=== PATIENT | male | born 1955 | race Caucasian/White ===

== ENCOUNTER 2019-06-14 18:30 | Inpatient (IN) ==
--- NOTE | 2019-06-14 18:42 | Emergency Department Note ---
History of Present Illness General Chief complaint: GI Assessment Stated complaint: BOWEL OPSTRUCTION DR CASAS Time Seen by Provider: 06/14/19 18:38 History of Present Illness Maximum Pain Intensity: 5 The patient is a 63-year-old male who presented to the emergency department for an evaluation of lower abdominal pain. The patient states that he was recently seen by his primary cocoa bean roaster at the [facility]. He had routine blood work done which did show that his cholesterol and triglycerides were elevated. He started complaining of lower abdominal pain and we discussed this with the cardiology office he was referred to his primary care physician. His primary care physician did outpatient laboratory and radiographic studies. The patient was found to have an abnormality on his CAT scan of his abdomen and pelvis. He was told to go to the emergency department although he is unsure of the exact diagnosis from the CAT scan. The patient has been complaining of no fever. He has had no cough. He did have some episodes of nausea as well as vomiting. He also had abdominal distention as well as loose bowel movements. He states his symptoms began approximately 48 hours ago. He denies having any chest pain. He denies having any shortness of breath. The patient has not had symptoms similar to this. Home Medications Home Medications Medication Instructions Recorded Confirmed Type dulaglutide [Trulicity] 1.5 mg SUBCUT WK 06/14/19 06/14/19 History empagliflozin [Jardiance] 10 mg PO QAM 06/14/19 06/14/19 History fenofibrate micronized 134 mg PO QAM 06/14/19 06/14/19 History furosemide 20 mg PO QAM 06/14/19 06/14/19 History metformin 1,000 mg PO BID 06/14/19 06/14/19 History metoprolol succinate 12.5 mg PO BID 06/14/19 06/14/19 History omega-3 acid ethyl esters 2 g PO BID 06/14/19 06/14/19 History prednisone 2.5 mg PO QAM 06/14/19 06/14/19 History rosuvastatin 5 mg PO QPM 06/14/19 06/14/19 History sertraline 50 mg PO QPM 06/14/19 06/14/19 History warfarin 5 mg PO [id number] 06/14/19 06/14/19 History warfarin 7.5 mg PO WK 06/14/19 06/14/19 History Allergies Allergy/AdvReac Type Severity Reaction Status Date / Time Iodinated Contrast Media Allergy Severe DIFFICULTY Verified 06/14/19 20:48 BREATHING/THROAT SWELLING blue dye Allergy swelling Verified 06/14/19 20:48 cefuroxime Allergy hives Verified 06/14/19 20:48 shellfish derived Allergy swelling Verified 06/14/19 20:48 levofloxacin AdvReac Intermediate Tendon Verified 06/14/19 20:48 contractions Past Med/Surg History Medical History (Updated 06/14/19 @ 23:24 by Santino Solano DO) Appendicitis CHF (congestive heart failure) Diabetes DVT (deep venous thrombosis) High cholesterol History of high blood pressure Pulmonary embolism Umbilical hernia Surgical History History of cholecystectomy Social History (Updated 06/14/19 @ 18:42 by Santino Solano DO) Feels Safe at Home: Yes Smoking Status: Never smoker Hx Alcohol Use: Yes Hx Substance Use: No Review of Systems See HPI for pertinent positives & negatives. and A total of 10 systems reviewed and were otherwise negative Physical Exam Vital Signs Vital Signs - 24 hr 06/14/19 18:35 06/14/19 19:26 06/14/19 19:30 Temperature 36.4 C L Temperature Source Oral Pulse Rate 120 H 105 H 101 H Pulse Rate [Apical] 105 H Pulse Rate from SpO2 Sensor 102 H Respiratory Rate 20 28 H 31 H Respiratory Effort / Characteristics Non-Labored Spontaneous Respiratory Depth Normal Respiratory Pattern Regular Blood Pressure 174/94 H 148/91 H Blood Pressure [Left Arm] 154/90 H Blood Pressure Mean 120 112 Blood Pressure Mean [Left Arm] 111 Blood Pressure Position Sitting Pulse Oximetry 94 97 96 Oxygen Delivery Method Room Air Room Air Room Air Sepsis Recent Fever Within 48 Hours No Sepsis New/Unexplained Change in Mental Status No Sepsis Action Taken by Nursing No Action Required 06/14/19 20:00 06/14/19 20:30 06/14/19 21:00 Temperature Temperature Source Pulse Rate 100 H 95 H 93 H Pulse Rate [Apical] Pulse Rate from SpO2 Sensor 99 H 96 H 94 H Respiratory Rate 18 27 H 22 Respiratory Effort / Characteristics Respiratory Depth Respiratory Pattern Blood Pressure 145/94 H 142/84 H 161/95 H Blood Pressure [Left Arm] Blood Pressure Mean 107 96 107 Blood Pressure Mean [Left Arm] Blood Pressure Position Pulse Oximetry 97 97 97 Oxygen Delivery Method Room Air Sepsis Recent Fever Within 48 Hours Sepsis New/Unexplained Change in Mental Status Sepsis Action Taken by Nursing 06/14/19 22:11 06/14/19 23:00 Temperature Temperature Source Pulse Rate 92 H Pulse Rate [Apical] 89 Pulse Rate from SpO2 Sensor Respiratory Rate 21 18 Respiratory Effort / Characteristics Respiratory Depth Respiratory Pattern Blood Pressure 148/94 H Blood Pressure [Left Arm] 137/80 Blood Pressure Mean 106 Blood Pressure Mean [Left Arm] 99 Blood Pressure Position Pulse Oximetry 97 95 Oxygen Delivery Method Room Air Room Air Sepsis Recent Fever Within 48 Hours Sepsis New/Unexplained Change in Mental Status Sepsis Action Taken by Nursing GENERAL: The patient is awake and alert. He is somewhat anxious appearing and uncomfortable. EYES: The conjunctivae are clear. The pupils are round and reactive. EARS, NOSE, MOUTH AND THROAT: The nose is without any evidence of any deformity. Mucous membranes are moist. NECK: The neck is nontender and supple. RESPIRATORY: Normal respiratory effort is noted there is no evidence of wheezing rhonchi or rales CARDIOVASCULAR: Tachycardic rate with regular rhythm was noted. No definite murmur was noted. GASTROINTESTINAL: The abdomen is moderately distended and diffusely tender. There is guarding in both lower quadrants but mostly on the right lower quadrant. MUSCULOSKELETAL/EXTREMITIES: There is no evidence of gross deformity full range of motion is noted in the hips and shoulders. SKIN: There is no obvious evidence of any rash. There are no petechiae, pallor or cyanosis noted. NEUROLOGIC: Patient is awake alert and oriented x3. Gait was steady. Course Administered Medications Sodium Chloride (Nss 1000ml) 500 mls @ 999 mls/hr IV .Q31M ONE Stop: 06/14/19 23:39 Last Admin: 06/14/19 23:13 Dose: 999 mls/hr Documented by: [id number] Discontinued Medications Sodium Chloride (Nss) 500 mls @ 999 mls/hr IV .Q31M JULIANNE Stop: 06/14/19 19:15 Last Infusion: 06/14/19 19:53 Dose: 0 mls/hr Documented by: [id number] Admin: 06/14/19 19:22 Dose: 999 mls/hr Documented by: [id number] Morphine Sulfate (Morphine Sulfate) 4 mg IV NOW STA Stop: 06/14/19 23:10 Last Admin: 06/14/19 23:14 Dose: 4 mg Documented by: [id number] Ondansetron HCl (Zofran) 4 mg IV NOW STA Stop: 06/14/19 18:44 Last Admin: 06/14/19 19:23 Dose: 4 mg Documented by: [id number] Ondansetron HCl (Zofran) 4 mg IV NOW STA Stop: 06/14/19 23:10 Last Admin: 06/14/19 23:14 Dose: 4 mg Documented by: [id number] Medical Decision Making Differential Diagnosis Etiologies such as appendicitis, diverticulitis, obstruction, inflammatory bowel disease, renal colic, PUD, biliary pathology, pancreatitis, mesenteric ischemia, aortic pathology, infections, genitourinary, UTI, perforated viscus, as well as others were entertained. Medical Records Attestation: I reviewed the patient's medical records. Home Medications Current Medication List: was personally reviewed by me Laboratory Data Attestation: I reviewed the patient's lab results. Result diagrams: 06/14/19 19:11 06/14/19 19:11 Lab Results 06/14/19 06/14/19 06/14/19 Range/Units 19:11 19:11 19:11 WBC 10.44 (4.8-10.8) K/uL RBC 5.91 (4.7-6.1) M/uL Hgb 17.1 (14.0-18.0) g/dL Hct 50.0 (42-52) % MCV 84.6 (80-100) fL MCH 28.9 (25-34) pg MCHC 34.2 (32-36) g/dL RDW Std Deviation 42.5 (36.4-46.3) fL RDW Coeff of Kathryn 13.9 (11.5-14.5) % Plt Count 270 (130-400) K/uL MPV 10.4 (7.4-10.4) fL Immature Gran % (Auto) 0.4 % Neut % (Auto) 57.8 % Lymph % (Auto) 32.8 % [place] % (Auto) 7.1 % Eos % (Auto) 1.8 % Baso % (Auto) 0.1 % Immature Gran # (Auto) 0.04 H (0.00-0.02) K/uL Neut # (Auto) 6.04 (1.4-6.5) K/uL Lymph # (Auto) 3.42 H (1.2-3.4) K/uL [place] # (Auto) 0.74 H (0.11-0.59) K/uL Eos # (Auto) 0.19 (0-0.5) K/uL Baso # (Auto) 0.01 (0-0.2) K/uL PT 26.1 H (9.0-12.0) Seconds INR 2.6 H (0.9-1.1) APTT 40.2 H (21.0-31.0) Seconds PTT Ratio 1.4 Sodium 134 L (136-145) mmol/L Potassium 3.3 L (3.5-5.1) mmol/L Chloride 104 (98-107) mmol/L Carbon Dioxide 22 (21-32) mmol/L Anion Gap 8.0 (3-11) BUN 14 (7-18) mg/dl Creatinine 1.10 (0.6-1.4) mg/dl Est Cr Clr Drug Dosing 73.1 ml/min Est GFR ( Amer) 82.4 Est GFR (Non-Af Amer) 71.1 BUN/Creatinine Ratio 13.0 (10-20) Glucose 227 H (70-99) mg/dl Lactate (0.4-2.0) mmol/L Calcium 9.3 (8.5-10.1) mg/dl Total Bilirubin 0.6 (0.2-1) mg/dl AST 50 H (15-37) U/L ALT 78 (12-78) U/L Alkaline Phosphatase 83 (45-117) U/L Troponin I < 0.015 (0-0.045) ng/ml Total Protein 8.0 (6.4-8.2) gm/dl Albumin 3.9 (3.4-5.0) gm/dl Globulin 4.1 H (2.5-4.0) gm/dl Albumin/Globulin Ratio 1.0 (0.9-2) Lipase 175 (73-393) U/L Urine Color Urine Appearance (Clear) Urine pH (4.5-7.5) Ur Specific [place] (1.000-1.030) Urine Protein (Negative) Urine Glucose (UA) (Negative) Urine Ketones (Negative) Urine Blood (Negative) Urine Nitrite (Negative) Urine Bilirubin (Negative) Urine Urobilinogen (Negative) Ur Leukocyte Esterase (Negative) Stl C. diff Tox B Gene (Neg) 06/14/19 06/14/19 06/14/19 Range/Units 19:11 19:30 19:30 WBC (4.8-10.8) K/uL RBC (4.7-6.1) M/uL Hgb (14.0-18.0) g/dL Hct (42-52) % MCV (80-100) fL MCH (25-34) pg MCHC (32-36) g/dL RDW Std Deviation (36.4-46.3) fL RDW Coeff of Kathryn (11.5-14.5) % Plt Count (130-400) K/uL MPV (7.4-10.4) fL Immature Gran % (Auto) % Neut % (Auto) % Lymph % (Auto) % [place] % (Auto) % Eos % (Auto) % Baso % (Auto) % Immature Gran # (Auto) (0.00-0.02) K/uL Neut # (Auto) (1.4-6.5) K/uL Lymph # (Auto) (1.2-3.4) K/uL [place] # (Auto) (0.11-0.59) K/uL Eos # (Auto) (0-0.5) K/uL Baso # (Auto) (0-0.2) K/uL PT (9.0-12.0) Seconds INR (0.9-1.1) APTT (21.0-31.0) Seconds PTT Ratio Sodium (136-145) mmol/L Potassium (3.5-5.1) mmol/L Chloride (98-107) mmol/L Carbon Dioxide (21-32) mmol/L Anion Gap (3-11) BUN (7-18) mg/dl Creatinine (0.6-1.4) mg/dl Est Cr Clr Drug Dosing ml/min Est GFR ( Amer) Est GFR (Non-Af Amer) BUN/Creatinine Ratio (10-20) Glucose (70-99) mg/dl Lactate 2.5 H* (0.4-2.0) mmol/L Calcium (8.5-10.1) mg/dl Total Bilirubin (0.2-1) mg/dl AST (15-37) U/L ALT (12-78) U/L Alkaline Phosphatase (45-117) U/L Troponin I (0-0.045) ng/ml Total Protein (6.4-8.2) gm/dl Albumin (3.4-5.0) gm/dl Globulin (2.5-4.0) gm/dl Albumin/Globulin Ratio (0.9-2) Lipase (73-393) U/L Urine Color Yellow Urine Appearance Clear (Clear) Urine pH 5.0 (4.5-7.5) Ur Specific [place] > 1.045 H (1.000-1.030) Urine Protein Negative (Negative) Urine Glucose (UA) 3+ H (Negative) Urine Ketones Negative (Negative) Urine Blood Negative (Negative) Urine Nitrite Negative (Negative) Urine Bilirubin Negative (Negative) Urine Urobilinogen Negative (Negative) Ur Leukocyte Esterase Negative (Negative) Stl C. diff Tox B Gene Negative Cdiff Gene (Neg) 06/14/19 Range/Units 20:53 WBC (4.8-10.8) K/uL RBC (4.7-6.1) M/uL Hgb (14.0-18.0) g/dL Hct (42-52) % MCV (80-100) fL MCH (25-34) pg MCHC (32-36) g/dL RDW Std Deviation (36.4-46.3) fL RDW Coeff of Kathryn (11.5-14.5) % Plt Count (130-400) K/uL MPV (7.4-10.4) fL Immature Gran % (Auto) % Neut % (Auto) % Lymph % (Auto) % [place] % (Auto) % Eos % (Auto) % Baso % (Auto) % Immature Gran # (Auto) (0.00-0.02) K/uL Neut # (Auto) (1.4-6.5) K/uL Lymph # (Auto) (1.2-3.4) K/uL [place] # (Auto) (0.11-0.59) K/uL Eos # (Auto) (0-0.5) K/uL Baso # (Auto) (0-0.2) K/uL PT (9.0-12.0) Seconds INR (0.9-1.1) APTT (21.0-31.0) Seconds PTT Ratio Sodium (136-145) mmol/L Potassium (3.5-5.1) mmol/L Chloride (98-107) mmol/L Carbon Dioxide (21-32) mmol/L Anion Gap (3-11) BUN (7-18) mg/dl Creatinine (0.6-1.4) mg/dl Est Cr Clr Drug Dosing ml/min Est GFR ( Amer) Est GFR (Non-Af Amer) BUN/Creatinine Ratio (10-20) Glucose (70-99) mg/dl Lactate 1.2 (0.4-2.0) mmol/L Calcium (8.5-10.1) mg/dl Total Bilirubin (0.2-1) mg/dl AST (15-37) U/L ALT (12-78) U/L Alkaline Phosphatase (45-117) U/L Troponin I (0-0.045) ng/ml Total Protein (6.4-8.2) gm/dl Albumin (3.4-5.0) gm/dl Globulin (2.5-4.0) gm/dl Albumin/Globulin Ratio (0.9-2) Lipase (73-393) U/L Urine Color Urine Appearance (Clear) Urine pH (4.5-7.5) Ur Specific [place] (1.000-1.030) Urine Protein (Negative) Urine Glucose (UA) (Negative) Urine Ketones (Negative) Urine Blood (Negative) Urine Nitrite (Negative) Urine Bilirubin (Negative) Urine Urobilinogen (Negative) Ur Leukocyte Esterase (Negative) Stl C. diff Tox B Gene (Neg) Imaging Data Radiologist's Impression: XR chest 1V portable CLINICAL HISTORY: abd oain pain COMPARISON STUDY: 10/16/2011 FINDINGS: The bones soft tissues and hemidiaphragms are normal. The cardiomediastinal silhouette is normal. The lungs are clear. The pulmonary vasculature is normal. IMPRESSION: Negative chest. ACT 112: Negative or not required by law. The above report was generated using voice recognition software. It may contain grammatical, syntax or spelling errors. Electronically signed by: Gonzalo Ocampo M.D. 06/14/2019 7:22 PM Dictated: 06/14/191921 Transcribed: 06/14/191921 tudy: Ultrasound abdominal arterial vasculature. HISTORY: Pain. FINDINGS: The abdominal arterial vasculature including aorta, celiac axis, and superior as well as inferior mesenteric arterial vasculature could not be evaluated. This is due to excessive bowel gas as well as body habitus. This study is considered nondiagnostic. IMPRESSION: Nondiagnostic exam due to patient body habitus and overlying bowel content. Electronically signed by: Gonzalo Ocampo M.D. 06/14/2019 10:43 PM Dictated: 06/14/192240 Transcribed: 06/14/192240 ECG Data Attestation: I personally reviewed and interpreted this ECG as follows: Indication: + abdominal pain Rate (beats per minute): 108 Additional Comments: EKG was obtained in the emergency department. My interpretation is sinus tachycardia at 108 bpm. There is no ectopy. There is no acute ST segments noted. No previous tracing was available. Blood Pressure Blood Pressure Findings: Normal blood pressure MDM Narrative The patient is a 63-year-old male who presented to the emergency department for an evaluation of right lower quadrant abdominal pain. The patient started having lower abdominal pain earlier today. He also notices diarrhea. The patient has a history of C. difficile in the past. He was initially seen by his cocoa bean roaster for an unrelated visit but when he mentioned his GI symptoms he was referred to his primary care physician. The patient was sent for a noncontrast CAT scan of the abdomen and pelvis. The patient was sent to the emergency department because of the findings on the CAT scan. I reviewed the patient's CAT scan report. He appears to have pneumatosis coli in the cecum. He did not have a fever. He was treated with IV fluids and IV pain medication in the emergency department. On subsequent reevaluation he was feeling much better. I was concerned that this could represent intestinal ischemia versus infection versus C. difficile colitis. C. difficile was negative. The patient was started with IV antibiotics in the emergency department. I discussed the patient's laboratory and radiographic studies with him. I also discussed his case with the on-call [facility] hospitalist. They have agreed to evaluate the patient in the emergency department for further management and disposition. The patient was feeling much better on subsequent reevaluation. Impression & Plan Abdominal pain, Pneumatosis coli Discharge Plan Visit Data Chief Complaint: GI Assessment Stated Complaint: BOWEL OPSTRUCTION DR REFERRED ED Provider: Santino Solano Discharge Problem: Abdominal pain, Pneumatosis coli Patient Disposition: Being Evaluated by Hospitalist Condition: Good Forms Stand Alone Forms: [facility], Important Visit Information Prescriptions Prescriptions: No Action prednisone 5 mg tablet 2.5 mg PO QAM RF: 0 fenofibrate micronized 134 mg capsule 134 mg PO QAM RF: 0 warfarin 5 mg tablet 7.5 mg PO WK RF: 0 warfarin 5 mg tablet 5 mg PO [id number] RF: 0 furosemide 20 mg tablet 20 mg PO QAM RF: 0 metoprolol succinate 25 mg tablet extended release 24 hr 12.5 mg PO BID RF: 0 metformin 500 mg tablet extended release 24 hr 1,000 mg PO BID RF: 0 sertraline 50 mg tablet 50 mg PO QPM RF: 0 rosuvastatin 5 mg tablet 5 mg PO QPM RF: 0 omega-3 acid ethyl esters 1 gram capsule 2 g PO BID RF: 0 Jardiance 10 mg tablet 10 mg PO QAM RF: 0 Trulicity 1.5 mg/0.5 mL pen injector 1.5 mg SUBCUT WK RF: 0 Referrals Referrals: Lesia Garcia DO [Primary Care Provider] - Discharge Problem: Abdominal pain Qualifiers: Abdominal location: right lower quadrant Qualified Code(s): R10.31 - Right lower quadrant pain
[2019-06-14] MEDS ORDERED: ONDANSETRON INJ 2 MG/ML 2 ML VIAL IV STA ×2 (18:43→23:09)
[2019-06-14] MEDS ORDERED: SODIUM CHLORIDE 0.9% 500 ML IV SCH (18:45)
[2019-06-14 19:19] LABS: Basophils # (auto) 0.01 K/uL (0-0.2); Basophils % (auto) 0.1 %; Eosinophils # (auto) 0.19 K/uL (0-0.5); Eosinophils % (auto) 1.8 %; Hemoglobin 17.1 g/dL (14.0-18.0); Immature Granulocytes # (auto) 0.04 K/uL (0.00-0.02); Immature Granulocytes % (auto) 0.4 %; Lymphocytes # (auto) 3.42 K/uL (1.2-3.4); Lymphocytes % (auto) 32.8 %; Mean Corpuscular Hemoglobin 28.9 pg (25-34); Mean Corpuscular Hgb Conc 34.2 g/dL (32-36); Mean Corpuscular Volume 84.6 fL (80-100); Mean Platelet Volume 10.4 fL (7.4-10.4); Monocytes # (auto) 0.74 K/uL (0.11-0.59); Monocytes % (auto) 7.1 %; Neutrophils # (auto) 6.04 K/uL (1.4-6.5); Neutrophils % (auto) 57.8 %; Platelet Count 270 K/uL (130-400); RDW Coefficient of Variation 13.9 % (11.5-14.5); RDW Standard Deviation 42.5 fL (36.4-46.3); Red Blood Count 5.91 M/uL (4.7-6.1); White Blood Count 10.44 K/uL (4.8-10.8)
--- NOTE | 2019-06-14 19:23 | XRay Report ---
XR chest 1V portable CLINICAL HISTORY: abd oain pain COMPARISON STUDY: 10/16/2011 FINDINGS: The bones soft tissues and hemidiaphragms are normal. The cardiomediastinal silhouette is n ormal. The lungs are clear. The pulmonary vasculature is normal. IMPRESSION: Negative chest. ACT 112: Negative or not required by law. The above report was generated using voice recognition software. It may contain grammatical, syntax or spelling errors. Electronically signed by: Gonzalo Ocampo M.D. 06/14/2019 7:22 PM
[2019-06-14 19:31] LABS: INR 2.6 (0.9-1.1); Partial Thromboplastin Ratio 1.4; Partial Thromboplastin Time 40.2 Seconds (21.0-31.0); Prothrombin Time 26.1 Seconds (9.0-12.0)
[2019-06-14 19:40] LABS: Appearance Urine Clear (Clear); Bilirubin Urine Negative (Negative); Blood Urine Negative (Negative); Color Urine Yellow; Glucose Urine UA 3+ (Negative); Ketones Urine Negative (Negative); Leukocyte Esterase Urine Negative (Negative); Nitrite Urine Negative (Negative); Protein Urine Negative (Negative); Specific Gravity Urine > 1.045 (1.000-1.030); Urobilinogen Urine Negative (Negative)
[2019-06-14 19:41] LABS: Alanine Aminotransferase 78 U/L (12-78); Albumin Level 3.9 gm/dl (3.4-5.0); Aspartate Aminotransferase 50 U/L (15-37); Blood Urea Nitrogen 14 mg/dl (7-18); Calcium 9.3 mg/dl (8.5-10.1); Carbon Dioxide 22 mmol/L (21-32); Chloride 104 mmol/L (98-107); Creatinine Clr Calc Pharmacy 73.1 ml/min; Est GFR (African American) 82.4; Est GFR (Non-African American) 71.1; Glucose 227 mg/dl (70-99); Lipase 175 U/L (73-393); Potassium 3.3 mmol/L (3.5-5.1); Sodium 134 mmol/L (136-145)
[2019-06-14 19:45] LABS: Alkaline Phosphatase 83 U/L (45-117); Bilirubin,Total 0.6 mg/dl (0.2-1); Globulin 4.1 gm/dl (2.5-4.0); Troponin I < 0.015 ng/ml (0-0.045)
--- NOTE | 2019-06-14 21:24 | XRay Report ---
XR KUB/Abdomen 1 view CLINICAL HISTORY: RLQ pain COMPARISON STUDY: No previous studies for comparison. FINDINGS: The soft tissues, psoas shadows, renal outlines and intestinal gas pattern appear normal. T here is no evidence for bowel obstruction. No abnormal abdominal calcifications are seen. IMPRESSION: Normal study. ACT 112: Negative or not required by law. The above report was generated using voice recognition software. It may contain grammatical, syntax or spelling errors. Electronically signed by: Gonzalo Ocampo M.D. 06/14/2019 9:22 PM
--- NOTE | 2019-06-14 22:44 | Ultrasound Report ---
Study: Ultrasound abdominal arterial vasculature. HISTORY: Pain. FINDINGS: The abdominal arterial vasculature including aorta, celiac axis, and superior as well as in ferior mesenteric arterial vasculature could not be evaluated. This is due to excessive bowel gas as well as body habitus. This study is considered nondiagnostic. IMPRESSION: Nondiagnostic exam due to patient body habitus and overlying bowel content. Electronically signed by: Gonzalo Ocampo M.D. 06/14/2019 10:43 PM
[2019-06-14] MEDS ORDERED: MoRPHine SULFATE 4 MG/ML 1 ML CARP\\VIAL IV STA (23:09)
[2019-06-14] MEDS ORDERED: SODIUM CHLORIDE 0.9% 1000ML 500 ML IV ONE (23:09)
[2019-06-14] MEDS ORDERED: PIPERACILLIN/TAZOBACTAM 4.5 GM/120 ML BAG IV ONE (23:20)
[2019-06-14] MEDS ORDERED: PIPERACILL/TAZOBAC CONSULT ACTIVE PRN (23:20)
[2019-06-15] MEDS ORDERED: ALBUTEROL HFA 8 GM INHALER INH PRN (00:29)
[2019-06-15] MEDS ORDERED: ALBUT/IPRATROP 3MG/0.5MG NEB 3 ML VIAL NEB PRN (00:29)
[2019-06-15] MEDS ORDERED: Nursing to Pharmacy Communication ONE ×2 (00:52→10:29)
--- NOTE | 2019-06-15 01:28 | History and Physical Report ---
DATE OF ADMISSION: 06/14/2019 CHIEF COMPLAINT: Abdominal pain. HISTORY OF PRESENT ILLNESS: This is a 63-year-old male with past medical history significant for type 2 diabetes, hyperhomocysteinemia hypertriglyceridemia, hyperlipidemia, obstructive sleep apnea, mild intermittent asthma, hypertension, obesity, nonalcoholic fatty liver disease, polymyalgia rheumatica, cervical spondylosis, history of pulmonary embolism, adjustment disorder with depression, family history of neoplasm of prostate, history of C. diff infection, history of bacterial pneumonia, presents with abdominal pain. The patient went to PCP's office today because he is having diarrhea for last couple of days, watery diarrhea and no blood in the stools and has some abdominal discomfort which got worse today. Abdominal pain is mostly in the epigastric region and lower abdomen.Also recently his triglycerides went up from 610 to 1279. He called his cardiology office for abdominal pain and was advised to go to PCP office. In the PCP's office, CT scan of the abdomen and pelvis was done without contrast because of allergy to contrast and it showed suspected pneumatosis in the cecum. This can be a benign condition, however, inflammatory condition can give a similar appearance and he was sent to the ER. He has a history of irritable bowel syndrome with diarrhea in the past and is followed with GI, but he says he did not see GI for more than year because it is mostly under control currently. He was also feeling nauseous since last couple of days and he did not eat much because of the nausea. Denies any blood in stool or black stools. Normal bladder movements. No chest pain, no shortness of breath, no cough, no fever, no chills. Has some mild headache. He will get dizzy when he stands up quickly. No earache, no runny nose, no sore throat. No difficulty swallowing. No rash. Ambulates fine. Lives with his . Currently resting comfortably and hemodynamically stable. ALLERGIES: BLUE DYE, CEFUROXIME, IODINATED DIAGNOSTIC AGENTS, IODINE, SHELLFISH, ENVIRONMENTAL POLLEN, LEVAQUIN. PAST MEDICAL HISTORY: As mentioned above. PAST SURGICAL HISTORY: Excision of the cyst or tumor in the left breast, cardiac catheterization, colonoscopy, excision of the right forearm subcutaneous tumor, laparoscopic cholecystectomy, appendectomy, sinus surgery, repair of umbilical hernia, vasectomy. MEDICATIONS: The patient is on Trulicity 1.5 mg tablet subcutaneous every week, fenofibrate 134 mg daily, Jardiance 10 mg p.o. daily, Zoloft 50 mg p.o. at bedtime, Crestor 5 mg p.o. daily, Lasix 20 mg p.o. daily, Toprol-XL 12.5 mg p.o. b.i.d., omega 3 fatty acids 4 capsules p.o. daily, prednisone 2.5 mg p.o. daily, metformin 1000 mg p.o. b.i.d., Coumadin as directed, albuterol 2 puffs every 6 hours p.r.n., fluticasone/salmeterol 1 puff b.i.d., albuterol nebulization every 4 hours p.r.n. FAMILY HISTORY: Significant for father had obstructive sleep apnea, TIAs, heart disorder status post CABG, prostate cancer; mother has arthritis, breast cancer, gastrointestinal disorder, and hypertension. Another brother has HIV and a brother has factor V Leiden deficiency. A brother has alcoholism. SOCIAL HISTORY: and lives with his . No smoking, no alcohol, no drug use. REVIEW OF SYSTEMS: As per HPI. Rest of review of systems negative. PHYSICAL EXAMINATION: GENERAL: The patient is obese, not in acute distress. VITAL SIGNS: Temperature 36.4, pulse 88, respiratory rate 18, blood pressure 128/81, oxygen 98% on room air. HEENT: No pallor, no icterus. Pupils equal, round, and reactive to light. NECK: No JVD, no neck masses, no carotid bruits. CARDIOVASCULAR: S1, S2 heard, regular rate and rhythm, no murmur, no gallop. RESPIRATORY SYSTEM: Normal AP diameter. No accessory muscle use. No wheezing, no crackles. ABDOMEN: Soft, bowel sounds present. Tenderness in the epigastric region and left lower quadrant. No guarding, no rigidity, no distention. CENTRAL NERVOUS SYSTEM: Cranial nerves II-XII grossly intact. Nonfocal. EXTREMITIES: No edema, no erythema. LABORATORY DATA: WBC 10.4, hemoglobin 17.1, hematocrit 50, platelets 270. PT 26.1, INR 2.6, APTT 40.2. Sodium 134, potassium 3.3, chloride 104, bicarbonate 22, BUN 14, creatinine 1.1, serum glucose 227. Lactate 1.2, calcium 9.3, total bilirubin 0.6, AST 50, ALT 78, alkaline phosphatase 83, troponin I less than 0.015. Lipase 175. Urinalysis, +3 glucose. C. diff negative. IMAGING DATA: Chest x-ray, negative chest. KUB x-ray, normal study. Mesenteric ultrasound, nondiagnostic exam due to the patient's body habitus and overlying bowel content. CT scan of the abdomen and pelvis without contrast done outpatient today shows suspected pneumatosis in the cecum. This can be a benign condition. However, inflammatory condition can give a similar appearance. Fatty infiltration of the liver. The rest of the studies are unremarkable and unchanged. Recommendation, GI consultation. EKG is showing sinus tachycardia at the rate of 108, no acute ST changes seen. ASSESSMENT AND PLAN: This is a 63-year-old male who presents with abdominal pain and diarrhea. 1. Abdominal pain and diarrhea going on for the last 2 days. History of irritable bowel syndrome in the past with predominance of diarrhea. He says he did not see GI for the last one and a half years. CAT scan done as outpatient without contrast as the patient is allergic to contrast, shows pneumatosis in the cecum, could be benign or could be inflammatory condition and GI consultation was recommended. We will keep the patient n.p.o., IV fluids, IV antiemetics p.r.n., IV pain medication p.r.n., Will follow stool cultures. C diff negative.and consult GI in the a.m. for further recommendations. 2. Hypertriglyceridemia. Recently triglycerides worsened from 610 to 1279, on fatty fish oils and Crestor and fenofibrate. Needs to closely follow up with cardiology. 3. History of diabetes. We will hold his home medications. Placed him on Lantus and sliding scale, currently n.p.o. Monitor his blood sugar. 4. Obstructive sleep apnea, continue CPAP. 5. Asthma, home inhalers and nebs p.r.n. 6. Polymyalgia rheumatica, continue home prednisone. 7. Depression. Continue Zoloft. 8. Hypertension, Toprol-XL and Lasix. Monitor the blood pressure. 9. History of pulmonary embolism, on Coumadin. INR therapeutic. Will continue Coumadin for now. Follow his PT/INR. 10. Deep venous thrombosis prophylaxis, sequential compression devices for now. 11. Disposition: Closely monitor in the medical floor. Level 1 full code. MTDD
[2019-06-15] MEDS: NSS + 20MEQ KCL 20 MEQ/1,000 ML BAG IV SCH ×3 (01:30→17:17)
[2019-06-15] MEDS: FAMOTIDINE 20 MG in SYRINGE 3 ML IV SCH ×3 (01:30→20:47)
[2019-06-15] MEDS: MoRPHine SULFATE 4 MG/ML 1 ML CARP\\VIAL IV PRN ×3 (01:46→08:59)
[2019-06-15] MEDS: PIPERACILLIN/TAZOBACTAM 4.5 GM in DEXTROSE 5% 100 ML IV SCH ×3 (04:26→20:38)
[2019-06-15 05:20] LABS: Basophils # (auto) 0.02 K/uL (0-0.2); Basophils % (auto) 0.2 %; Eosinophils # (auto) 0.24 K/uL (0-0.5); Eosinophils % (auto) 2.7 %; Hematocrit (blood only) 46.1 % (42-52); Hemoglobin 15.3 g/dL (14.0-18.0); Immature Granulocytes # (auto) 0.02 K/uL (0.00-0.02); Immature Granulocytes % (auto) 0.2 %; Lymphocytes # (auto) 3.67 K/uL (1.2-3.4); Lymphocytes % (auto) 40.7 %; Mean Corpuscular Hemoglobin 28.8 pg (25-34); Mean Corpuscular Hgb Conc 33.2 g/dL (32-36); Mean Corpuscular Volume 86.8 fL (80-100); Mean Platelet Volume 10.3 fL (7.4-10.4); Monocytes # (auto) 0.72 K/uL (0.11-0.59); Neutrophils # (auto) 4.34 K/uL (1.4-6.5); Neutrophils % (auto) 48.2 %; Platelet Count 238 K/uL (130-400); RDW Coefficient of Variation 14.1 % (11.5-14.5); RDW Standard Deviation 44.7 fL (36.4-46.3); Red Blood Count 5.31 M/uL (4.7-6.1); White Blood Count 9.01 K/uL (4.8-10.8)
[2019-06-15 05:29] LABS: INR 2.2 (0.9-1.1); Prothrombin Time 22.3 Seconds (9.0-12.0)
[2019-06-15 05:47] LABS: BUN Creatinine Ratio 16.2 (10-20); Calcium 8.1 mg/dl (8.5-10.1); Est GFR (African American) 102.2; Est GFR (Non-African American) 88.2; Potassium 3.8 mmol/L (3.5-5.1)
[2019-06-15 05:56] LABS: Estimated Average Glucose 183 mg/dl
[2019-06-15] MEDS ORDERED: INSULIN ASPART 100 UNITS/ML 3 ML PEN SC SCH (06:00)
[2019-06-15] MEDS: ONDANSETRON INJ 2 MG/ML 2 ML VIAL IV PRN ×2 (07:37→18:15)
--- NOTE | 2019-06-15 08:01 | Gastrointestinal Consultation ---
Date of Consultation June 15, 2019 Assessment & Plan (1) Pneumatosis coli: This is a 63 y/o male with PMHx T2DM, PE on Coumadin, chronic diarrhea/IBS-D, referred to the hospital for CT findings concerning for pneumatosis in the cecum. This seems to be an incidental finding, which would be supported by his presentation of a soft abd exam, normal WBC, and normal lactate. - If no peritoneal signs, pt can be managed expectantly. - Recommend f/u as an outpt for other GI concerns including diarrhea Thank you for allowing us to participate in the care of this patient. Please call with any acute changes, questions or concerns. Please see addendum below with additional recommendation from my supervising physician. (2) Abdominal pain: Supervising Physician Co-Signing Physician Notes I performed a history and physical examination of the patient today, including specifically on physical exam - soft abdomen. I have discussed the patient's management with the advanced practitioner. Please refer to the nurse practitioner's note for the documented findings and plan of care. 63 years old male patient with IBS-D, was on Viberzi in the past, last month had recurrence of his diarrhea and abdominal pain, in view of his hypertriglyceridemia, PCP was concerned for acute pancreatitis hence CT scan was obtained and showed a ? small air bubble in the cecal wall concerning for pneumatosis. No portal venous gas seen. He was admitted and started on IV ABx. He feels great now, no abdominal pain however his abdomen is always distended. No BM after last night. Currently on Liquid diet. Lactic acid normal. WBC normal. No peritoneal signs on exam. Impression: Incidental CT scan findings of ? pneumatosis coli in the cecum. Likely related to DM, no signs of ongoing intestinal ischemia. Will need to r/o IBD as OP. Recommend: Continue a course of ABx. Advance diet as tolerated. If symptoms worsen, develops acidosis or elevated lactic acid then please obtain CTA of the abdomen. EGD/Colonoscopy as OP. May consider evaluation for SIBO as OP. Follow up as OP in GI office, patient wants to continue f/u with . Please recall GI if any questions or concerns. History of Present Illness Reason for Consultation: abdominal pain, CT scan findings Attending Physician: Dash Plunkett MD History of Present Illness This is a 63 y/o male with PMHx T2DM, chronic diarrhea/IBS-D, HTN, PE on Coumadin, who developed diarrhea last month and presented to his PCP's office yesterday with bilateral lower abd discomfort for the last few days. CTAP with oral contrast was performed demonstrating an air bubble in the cecum, concerning for pneumatosis. Due to CT findings pt was referred to the ER. Labs on arrival notable for hyperglycemia, ALT 50, but otherwise WBC, HGB, LFTs, BMP, lactate were WNL. C diff neg; stool culture is pending. He denied melena, hematochezia, chest pain, dyspnea, fever, chills. Abd exam was soft. CXR and KUB were WNL, x-ray, mesenteric ultrasound, nondiagnostic exam due to the patient's body habitus and overlying bowel content. Overnight he's had no documented BMs. Labs today demonstrated WBC, HGB, BMP. He remains afebrile and hemodynamically stable. Colonoscopy performed in 2014 was unremarkable. Allergies Allergy/AdvReac Type Severity Reaction Status Date / Time Iodinated Contrast Media Allergy Severe DIFFICULTY Verified 06/14/19 20:48 BREATHING/THROAT SWELLING blue dye Allergy swelling Verified 06/14/19 20:48 cefuroxime Allergy hives Verified 06/14/19 20:48 shellfish derived Allergy swelling Verified 06/14/19 20:48 levofloxacin AdvReac Intermediate Tendon Verified 06/14/19 20:48 contractions Home Medications Home Medications Medication Instructions Recorded Confirmed Type dulaglutide [Trulicity] 1.5 mg SUBCUT WK 06/14/19 06/14/19 History empagliflozin [Jardiance] 10 mg PO QAM 06/14/19 06/14/19 History fenofibrate micronized 134 mg PO QAM 06/14/19 06/14/19 History furosemide 20 mg PO QAM 06/14/19 06/14/19 History metformin 1,000 mg PO BID 06/14/19 06/14/19 History metoprolol succinate 12.5 mg PO BID 06/14/19 06/14/19 History omega-3 acid ethyl esters 2 g PO BID 06/14/19 06/14/19 History prednisone 2.5 mg PO QAM 06/14/19 06/14/19 History rosuvastatin 5 mg PO QPM 06/14/19 06/14/19 History sertraline 50 mg PO QPM 06/14/19 06/14/19 History warfarin 5 mg PO [id number] 06/14/19 06/14/19 History warfarin 7.5 mg PO WK 06/14/19 06/14/19 History Patient History Medical History (Updated 06/14/19 @ 23:24 by Santino Solano DO) Appendicitis CHF (congestive heart failure) Diabetes DVT (deep venous thrombosis) High cholesterol History of high blood pressure Pulmonary embolism Umbilical hernia Surgical History History of cholecystectomy Social History (Updated 06/14/19 @ 18:42 by Santino Solano DO) Preferred Language: Polish Communication Ability: Effective 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 Beliefs That Will Affect Care: None Current Living Situation: Spouse Other Information That Helps Us Care for You: No Feels Safe at Home: Yes Safety Concerns: Feels Safe At This Time Smoking Status: Never smoker Hx Alcohol Use: No Hx Substance Use: No Review of Systems Constitutional: no fever, no chills, no fatigue and no weight loss Eyes: no eye pain and no worsening vision Ear, Nose, Mouth, Throat: no tinnitus, no dizziness, no nasal discharge and no epistaxis Respiratory: no cough, no dyspnea, no dyspnea on exertion and no wheezing Cardiovascular: no chest pain, no orthopnea, no palpitations and no edema Gastrointestinal: as per Subjective / HPI Musculoskeletal: no stiffness and no myalgia Neurologic: no localized weakness, no paralysis, no tremor(s) and no headache(s) Endocrine: no polydipsia and no polyuria Hematologic / Lymphatic: no easy bleeding and no night sweats Physical Exam Constitutional: + well hydrated, cooperative and comfortable Eyes: PERRL, conjunctivae normal, anicteric sclerae ENMT: external ear and nose normal, oropharynx normal Neck: normal visual inspection and trachea midline Respiratory: normal respiratory effort, lungs clear to auscultation Auscultation: no wheezes Cardiovascular: RRR, no murmur, no edema Gastrointestinal (Abdomen): normal bowel sounds, soft, nontender, no hepatosplenomegaly Inspection/Auscultation: + abdomen distended Musculoskeletal: no cyanosis or clubbing, extremities motor strength 5/5 Skin: no rashes, warm and dry Neurologic: awake; no focal motor deficits Motor/Sensory: no tremor Results & Data ([facility]) Vital Signs (Past 12 Hours) Vital Signs Temp Pulse Pulse Resp BP BP Pulse Ox 06/15/19 06:44 36.4 C L 78 18 127/86 95 06/15/19 00:15 36.6 C 93 H 18 153/89 H 95 06/15/19 00:02 88 18 128/81 98 06/14/19 23:00 89 18 137/80 95 06/14/19 22:11 92 H 21 148/94 H 97 06/14/19 21:00 93 H 22 161/95 H 97 06/14/19 20:30 95 H 27 H 142/84 H 97 Laboratory Results 06/15/19 06/15/19 06/15/19 Range/Units 06:24 05:05 05:05 WBC (4.8-10.8) K/uL RBC (4.7-6.1) M/uL Hgb (14.0-18.0) g/dL Hct (42-52) % MCV (80-100) fL MCH (25-34) pg MCHC (32-36) g/dL RDW Std Deviation (36.4-46.3) fL RDW Coeff of Kathryn (11.5-14.5) % Plt Count (130-400) K/uL MPV (7.4-10.4) fL Immature Gran % (Auto) % Neut % (Auto) % Lymph % (Auto) % [place] % (Auto) % Eos % (Auto) % Baso % (Auto) % Immature Gran # (Auto) (0.00-0.02) K/uL Neut # (Auto) (1.4-6.5) K/uL Lymph # (Auto) (1.2-3.4) K/uL [place] # (Auto) (0.11-0.59) K/uL Eos # (Auto) (0-0.5) K/uL Baso # (Auto) (0-0.2) K/uL PT (9.0-12.0) Seconds INR (0.9-1.1) APTT (21.0-31.0) Seconds PTT Ratio Sodium 138 (136-145) mmol/L Potassium 3.8 D (3.5-5.1) mmol/L Chloride 107 (98-107) mmol/L Carbon Dioxide 26 (21-32) mmol/L Anion Gap 5.0 (3-11) BUN 15 (7-18) mg/dl Creatinine 0.92 (0.6-1.4) mg/dl Est Cr Clr Drug Dosing 87.0 ml/min Est GFR ( Amer) 102.2 Est GFR (Non-Af Amer) 88.2 BUN/Creatinine Ratio 16.2 (10-20) Glucose 133 H (70-99) mg/dl POC Glucose 119 H (70-99) mg/dl Estimat Average Glucose 183 mg/dl Hemoglobin A1c 8.0 H (4.5-5.6) % Lactate (0.4-2.0) mmol/L Calcium 8.1 L (8.5-10.1) mg/dl Magnesium 2.0 (1.8-2.4) mg/dl Total Bilirubin (0.2-1) mg/dl AST (15-37) U/L ALT (12-78) U/L Alkaline Phosphatase (45-117) U/L Troponin I (0-0.045) ng/ml Total Protein (6.4-8.2) gm/dl Albumin (3.4-5.0) gm/dl Globulin (2.5-4.0) gm/dl Albumin/Globulin Ratio (0.9-2) Lipase (73-393) U/L Urine Color Urine Appearance (Clear) Urine pH (4.5-7.5) Ur Specific [place] (1.000-1.030) Urine Protein (Negative) Urine Glucose (UA) (Negative) Urine Ketones (Negative) Urine Blood (Negative) Urine Nitrite (Negative) Urine Bilirubin (Negative) Urine Urobilinogen (Negative) Ur Leukocyte Esterase (Negative) Stl C. diff Tox B Gene (Neg) 06/15/19 06/15/19 06/15/19 Range/Units 05:05 05:05 00:34 WBC 9.01 (4.8-10.8) K/uL RBC 5.31 (4.7-6.1) M/uL Hgb 15.3 (14.0-18.0) g/dL Hct 46.1 (42-52) % MCV 86.8 (80-100) fL MCH 28.8 (25-34) pg MCHC 33.2 (32-36) g/dL RDW Std Deviation 44.7 (36.4-46.3) fL RDW Coeff of Kathryn 14.1 (11.5-14.5) % Plt Count 238 (130-400) K/uL MPV 10.3 (7.4-10.4) fL Immature Gran % (Auto) 0.2 % Neut % (Auto) 48.2 % Lymph % (Auto) 40.7 % [place] % (Auto) 8.0 % Eos % (Auto) 2.7 % Baso % (Auto) 0.2 % Immature Gran # (Auto) 0.02 (0.00-0.02) K/uL Neut # (Auto) 4.34 (1.4-6.5) K/uL Lymph # (Auto) 3.67 H (1.2-3.4) K/uL [place] # (Auto) 0.72 H (0.11-0.59) K/uL Eos # (Auto) 0.24 (0-0.5) K/uL Baso # (Auto) 0.02 (0-0.2) K/uL PT 22.3 H (9.0-12.0) Seconds INR 2.2 H (0.9-1.1) APTT (21.0-31.0) Seconds PTT Ratio Sodium (136-145) mmol/L Potassium (3.5-5.1) mmol/L Chloride (98-107) mmol/L Carbon Dioxide (21-32) mmol/L Anion Gap (3-11) BUN (7-18) mg/dl Creatinine (0.6-1.4) mg/dl Est Cr Clr Drug Dosing ml/min Est GFR ( Amer) Est GFR (Non-Af Amer) BUN/Creatinine Ratio (10-20) Glucose (70-99) mg/dl POC Glucose 137 H (70-99) mg/dl Estimat Average Glucose mg/dl Hemoglobin A1c (4.5-5.6) % Lactate (0.4-2.0) mmol/L Calcium (8.5-10.1) mg/dl Magnesium (1.8-2.4) mg/dl Total Bilirubin (0.2-1) mg/dl AST (15-37) U/L ALT (12-78) U/L Alkaline Phosphatase (45-117) U/L Troponin I (0-0.045) ng/ml Total Protein (6.4-8.2) gm/dl Albumin (3.4-5.0) gm/dl Globulin (2.5-4.0) gm/dl Albumin/Globulin Ratio (0.9-2) Lipase (73-393) U/L Urine Color Urine Appearance (Clear) Urine pH (4.5-7.5) Ur Specific [place] (1.000-1.030) Urine Protein (Negative) Urine Glucose (UA) (Negative) Urine Ketones (Negative) Urine Blood (Negative) Urine Nitrite (Negative) Urine Bilirubin (Negative) Urine Urobilinogen (Negative) Ur Leukocyte Esterase (Negative) Stl C. diff Tox B Gene (Neg) 06/14/19 06/14/19 06/14/19 Range/Units 23:20 20:53 19:30 WBC (4.8-10.8) K/uL RBC (4.7-6.1) M/uL Hgb (14.0-18.0) g/dL Hct (42-52) % MCV (80-100) fL MCH (25-34) pg MCHC (32-36) g/dL RDW Std Deviation (36.4-46.3) fL RDW Coeff of Kathryn (11.5-14.5) % Plt Count (130-400) K/uL MPV (7.4-10.4) fL Immature Gran % (Auto) % Neut % (Auto) % Lymph % (Auto) % [place] % (Auto) % Eos % (Auto) % Baso % (Auto) % Immature Gran # (Auto) (0.00-0.02) K/uL Neut # (Auto) (1.4-6.5) K/uL Lymph # (Auto) (1.2-3.4) K/uL [place] # (Auto) (0.11-0.59) K/uL Eos # (Auto) (0-0.5) K/uL Baso # (Auto) (0-0.2) K/uL PT (9.0-12.0) Seconds INR (0.9-1.1) APTT (21.0-31.0) Seconds PTT Ratio Sodium (136-145) mmol/L Potassium (3.5-5.1) mmol/L Chloride (98-107) mmol/L Carbon Dioxide (21-32) mmol/L Anion Gap (3-11) BUN (7-18) mg/dl Creatinine (0.6-1.4) mg/dl Est Cr Clr Drug Dosing ml/min Est GFR ( Amer) Est GFR (Non-Af Amer) BUN/Creatinine Ratio (10-20) Glucose (70-99) mg/dl POC Glucose 120 H (70-99) mg/dl Estimat Average Glucose mg/dl Hemoglobin A1c (4.5-5.6) % Lactate 1.2 (0.4-2.0) mmol/L Calcium (8.5-10.1) mg/dl Magnesium (1.8-2.4) mg/dl Total Bilirubin (0.2-1) mg/dl AST (15-37) U/L ALT (12-78) U/L Alkaline Phosphatase (45-117) U/L Troponin I (0-0.045) ng/ml Total Protein (6.4-8.2) gm/dl Albumin (3.4-5.0) gm/dl Globulin (2.5-4.0) gm/dl Albumin/Globulin Ratio (0.9-2) Lipase (73-393) U/L Urine Color Urine Appearance (Clear) Urine pH (4.5-7.5) Ur Specific [place] (1.000-1.030) Urine Protein (Negative) Urine Glucose (UA) (Negative) Urine Ketones (Negative) Urine Blood (Negative) Urine Nitrite (Negative) Urine Bilirubin (Negative) Urine Urobilinogen (Negative) Ur Leukocyte Esterase (Negative) Stl C. diff Tox B Gene Negative Cdiff Gene (Neg) 06/14/19 06/14/19 06/14/19 Range/Units 19:30 19:11 19:11 WBC (4.8-10.8) K/uL RBC (4.7-6.1) M/uL Hgb (14.0-18.0) g/dL Hct (42-52) % MCV (80-100) fL MCH (25-34) pg MCHC (32-36) g/dL RDW Std Deviation (36.4-46.3) fL RDW Coeff of Kathryn (11.5-14.5) % Plt Count (130-400) K/uL MPV (7.4-10.4) fL Immature Gran % (Auto) % Neut % (Auto) % Lymph % (Auto) % [place] % (Auto) % Eos % (Auto) % Baso % (Auto) % Immature Gran # (Auto) (0.00-0.02) K/uL Neut # (Auto) (1.4-6.5) K/uL Lymph # (Auto) (1.2-3.4) K/uL [place] # (Auto) (0.11-0.59) K/uL Eos # (Auto) (0-0.5) K/uL Baso # (Auto) (0-0.2) K/uL PT (9.0-12.0) Seconds INR (0.9-1.1) APTT (21.0-31.0) Seconds PTT Ratio Sodium 134 L (136-145) mmol/L Potassium 3.3 L (3.5-5.1) mmol/L Chloride 104 (98-107) mmol/L Carbon Dioxide 22 (21-32) mmol/L Anion Gap 8.0 (3-11) BUN 14 (7-18) mg/dl Creatinine 1.10 (0.6-1.4) mg/dl Est Cr Clr Drug Dosing 73.1 ml/min Est GFR ( Amer) 82.4 Est GFR (Non-Af Amer) 71.1 BUN/Creatinine Ratio 13.0 (10-20) Glucose 227 H (70-99) mg/dl POC Glucose (70-99) mg/dl Estimat Average Glucose mg/dl Hemoglobin A1c (4.5-5.6) % Lactate 2.5 H* (0.4-2.0) mmol/L Calcium 9.3 (8.5-10.1) mg/dl Magnesium (1.8-2.4) mg/dl Total Bilirubin 0.6 (0.2-1) mg/dl AST 50 H (15-37) U/L ALT 78 (12-78) U/L Alkaline Phosphatase 83 (45-117) U/L Troponin I < 0.015 (0-0.045) ng/ml Total Protein 8.0 (6.4-8.2) gm/dl Albumin 3.9 (3.4-5.0) gm/dl Globulin 4.1 H (2.5-4.0) gm/dl Albumin/Globulin Ratio 1.0 (0.9-2) Lipase 175 (73-393) U/L Urine Color Yellow Urine Appearance Clear (Clear) Urine pH 5.0 (4.5-7.5) Ur Specific [place] > 1.045 H (1.000-1.030) Urine Protein Negative (Negative) Urine Glucose (UA) 3+ H (Negative) Urine Ketones Negative (Negative) Urine Blood Negative (Negative) Urine Nitrite Negative (Negative) Urine Bilirubin Negative (Negative) Urine Urobilinogen Negative (Negative) Ur Leukocyte Esterase Negative (Negative) Stl C. diff Tox B Gene (Neg) 06/14/19 06/14/19 Range/Units 19:11 19:11 WBC 10.44 (4.8-10.8) K/uL RBC 5.91 (4.7-6.1) M/uL Hgb 17.1 (14.0-18.0) g/dL Hct 50.0 (42-52) % MCV 84.6 (80-100) fL MCH 28.9 (25-34) pg MCHC 34.2 (32-36) g/dL RDW Std Deviation 42.5 (36.4-46.3) fL RDW Coeff of Kathryn 13.9 (11.5-14.5) % Plt Count 270 (130-400) K/uL MPV 10.4 (7.4-10.4) fL Immature Gran % (Auto) 0.4 % Neut % (Auto) 57.8 % Lymph % (Auto) 32.8 % [place] % (Auto) 7.1 % Eos % (Auto) 1.8 % Baso % (Auto) 0.1 % Immature Gran # (Auto) 0.04 H (0.00-0.02) K/uL Neut # (Auto) 6.04 (1.4-6.5) K/uL Lymph # (Auto) 3.42 H (1.2-3.4) K/uL [place] # (Auto) 0.74 H (0.11-0.59) K/uL Eos # (Auto) 0.19 (0-0.5) K/uL Baso # (Auto) 0.01 (0-0.2) K/uL PT 26.1 H (9.0-12.0) Seconds INR 2.6 H (0.9-1.1) APTT 40.2 H (21.0-31.0) Seconds PTT Ratio 1.4 Sodium (136-145) mmol/L Potassium (3.5-5.1) mmol/L Chloride (98-107) mmol/L Carbon Dioxide (21-32) mmol/L Anion Gap (3-11) BUN (7-18) mg/dl Creatinine (0.6-1.4) mg/dl Est Cr Clr Drug Dosing ml/min Est GFR ( Amer) Est GFR (Non-Af Amer) BUN/Creatinine Ratio (10-20) Glucose (70-99) mg/dl POC Glucose (70-99) mg/dl Estimat Average Glucose mg/dl Hemoglobin A1c (4.5-5.6) % Lactate (0.4-2.0) mmol/L Calcium (8.5-10.1) mg/dl Magnesium (1.8-2.4) mg/dl Total Bilirubin (0.2-1) mg/dl AST (15-37) U/L ALT (12-78) U/L Alkaline Phosphatase (45-117) U/L Troponin I (0-0.045) ng/ml Total Protein (6.4-8.2) gm/dl Albumin (3.4-5.0) gm/dl Globulin (2.5-4.0) gm/dl Albumin/Globulin Ratio (0.9-2) Lipase (73-393) U/L Urine Color Urine Appearance (Clear) Urine pH (4.5-7.5) Ur Specific [place] (1.000-1.030) Urine Protein (Negative) Urine Glucose (UA) (Negative) Urine Ketones (Negative) Urine Blood (Negative) Urine Nitrite (Negative) Urine Bilirubin (Negative) Urine Urobilinogen (Negative) Ur Leukocyte Esterase (Negative) Stl C. diff Tox B Gene (Neg) Diagnostic Findings CTAP with oral contrast 06/14/19: ABDOMEN: No free air or free fluid. LIVER: There is no mass or cyst seen in the liver. The surface contour is normal. The size of the liver is normal. Fatty infiltration of the liver. BILE DUCTS: There is no evidence of any intra or extrahepatic biliary dilatation. GALLBLADDER: Has been removed STOMACH DUODENUM: Unremarkable SPLEEN: The spleen appeared normal in size, with no cysts or masses. PANCREAS: The pancreas appears normal on this unenhanced study . ADRENALS: No evidence of adrenal masses. . KIDNEYS/URETERS: The kidneys appear normal with no cysts or masses or hydronephrosis. No intrarenal calculi. The ureters are normal in course and caliber, and there is no evidence of any ureteral calculi. PERITONEUM/RETROPERITONEUM: No retroperitoneal or mesenteric adenopathy. VESSELS: The aorta is normal in size, with mildarthrosclerotic plaquing. The inferior vena cava appeared normal. BOWEL: No small bowel distention is seen at this time. Appendix is not visualized. PELVIS: No free or loculated fluid collections in the pelvis. BLADDER: The bladder is incompletely distended, and therefore sub optimally evaluated. REPRODUCTIVE ORGANS: Unremarkable BOWEL: There is evidence of air bubble seen in a peripheral location in the cecum, which could represent pneumatosis. The rest the colon is unremarkable. No evidence of any air within the venous structures in the abdomen. LYMPH NODES: No evidence of pelvic or inguinal adenopathy. ABDOMINAL WALL/SOFT TISSUES: Unremarkable BONES: Spondylitic changes are seen in the spine mild degenerative changes are seen in the hips. IMPRESSION IMPRESSION Suspect pneumatosis in the cecum. This can be a benign condition how however inflammatory conditions can give a similar appearance. Fatty infiltration of the liver The rest the study is unremarkable and unchanged. RECOMMENDATIONS: GI consultation. (1) Abdominal pain Abdominal location: right lower quadrant Qualified Code(s): R10.31 - Right lower quadrant pain
[2019-06-15] MEDS: FUROSEMIDE 20 MG TAB PO SCH (09:34)
[2019-06-15] MEDS: predniSONE 2.5 MG TAB PO SCH (09:35)
[2019-06-15] MEDS: METOPROLOL SUCC 25MG EXT REL TAB PO SCH ×2 (09:35→20:47)
[2019-06-15] MEDS: OMEGA-3 (PURIFIED FISH OIL) 1 GM CAP PO SCH ×2 (09:35→20:47)
[2019-06-15] MEDS: FENOFIBRATE NANOCRYSTALLIZED 145 MG TABLET PO SCH (09:36)
[2019-06-15] MEDS: INSULIN GLARGINE SOLOSTAR 100 UNITS/ML 3 ML PEN SC SCH (10:03)
--- NOTE | 2019-06-15 11:28 | Hospitalist Progress Note ---
Date of Service June 15, 2019 Assessment & Plan (1) Abdominal pain: (2) Pneumatosis coli: Present on admission with abdominal pain associated with diarrhea CT abd/pelvis w/o contrast showed evidence of air bubble seen in a peripheral location in the cecum, which could represent pneumatosis. Pain control with morphine GI on board Stool for Cdiff negative Will start on clear liquid diet No sign of infections (afebrile, no leukocytosis) Will discuss with GI about to d/c IV zosyn Clinically improved significantly Hypertriglyceridemia. Recent lab Triglycerides 1279, Continue fatty fish oils and Crestor and fenofibrate. Monitor Lipid panel outpatient Diabetes. Oral DM med on hold Most recent Hba1c 8 Continue Novolog sliding scale If BS elevates, will add Lantus while in patient Obstructive sleep apnea Continue CPAP. Asthma Continue home inhalers and nebs p.r.n. Stable Polymyalgia rheumatica Continue home prednisone. Stable Depression Continue Zoloft. Stable Hypertension Continue Toprol-XL and Lasix. Continue monitor BP Stable Hx pulmonary embolism Continue on Coumadin. INR therapeutic. DVT px on Coumadin with INR 2.2 CODE STATUS FULL CODE Admission and Anticipated Discharge Date Admission Date: June 14, 2019 Subjective Pt was seen and examined Lying in bed with no distress Pt said that his abdominal pain improves with the IV morphine He said that he has not had any diarrhea and vomiting since admitting He said that he feels bloating Denies any chest pain, palpitation, dizziness and SOB Physical Exam Physical Exam: General- No acute distress Head- atraumatic Eyes- PERRL, EOMI, ENT- oropharynx clear Neck- supple, no JVD Lungs- clear to auscultation Heart- regular rhythm; no murmur Abdomen- normal bowel sounds, +tender (diffuse) Extremities- no calf tenderness Neuro- alert, oriented x 3; PERRL, EOMI; no facial palsy; no dysarthria Skin- warm & dry Results & Data Results & Data ([facility]) Vital Signs (Past 12 Hours) Vital Signs Temp Pulse Pulse Resp BP Pulse Ox 06/15/19 09:34 76 138/81 06/15/19 06:44 36.4 C L 78 18 127/86 95 06/15/19 00:15 36.6 C 93 H 18 153/89 H 95 06/15/19 00:02 88 18 128/81 98 (1) Abdominal pain Abdominal location: right lower quadrant Qualified Code(s): R10.31 - Right lower quadrant pain
[2019-06-15] MEDS: INSULIN ASPART 100 UNITS/ML 3 ML PEN SC SCH ×3 (12:44→21:01)
--- NOTE | 2019-06-15 15:43 | Electrocardiogram Report ---
Test Reason : Blood Pressure : / mmHG Vent. Rate : 108 BPM Atrial Rate : 108 BPM P-R Int : 144 ms QRS Dur : 086 ms QT Int : 334 ms P-R-T Axes : 051 007 004 degrees QTc Int : 447 ms Sinus tachycardia Otherwise normal ECG No previous ECGs available Confirmed by Donald Johansen ([id number]) on 06/15/2019 3:43:24 PM Referred By: Lesia Garcia Confirmed By:Kavon Johansen
[2019-06-15] MEDS: WARFARIN SOD 5 MG TAB PO SCH (17:16)
[2019-06-15] MEDS: SERTRALINE HCL 50 MG TABLET PO SCH (20:47)
[2019-06-15] MEDS: ROSUVASTATIN CALCIUM 5 MG TAB PO SCH (20:47)
[2019-06-16] MEDS: NSS + 20MEQ KCL 20 MEQ/1,000 ML BAG IV SCH ×3 (00:28→16:46)
[2019-06-16] MEDS: PIPERACILLIN/TAZOBACTAM 4.5 GM in DEXTROSE 5% 100 ML IV SCH ×3 (04:55→20:18)
[2019-06-16 05:47] LABS: INR 1.8 (0.9-1.1); Prothrombin Time 18.6 Seconds (9.0-12.0)
[2019-06-16 06:21] LABS: BUN Creatinine Ratio 8.7 (10-20); Calcium 8.1 mg/dl (8.5-10.1); Creatinine Clr Calc Pharmacy 85.2 ml/min; Est GFR (African American) 99.6; Est GFR (Non-African American) 85.9
[2019-06-16] MEDS: OMEGA-3 (PURIFIED FISH OIL) 1 GM CAP PO SCH ×2 (08:44→20:19)
[2019-06-16] MEDS: FUROSEMIDE 20 MG TAB PO SCH (08:44)
[2019-06-16] MEDS: predniSONE 2.5 MG TAB PO SCH (08:45)
[2019-06-16] MEDS: METOPROLOL SUCC 25MG EXT REL TAB PO SCH ×2 (08:45→20:22)
[2019-06-16] MEDS: FENOFIBRATE NANOCRYSTALLIZED 145 MG TABLET PO SCH (08:45)
[2019-06-16] MEDS: FAMOTIDINE 20 MG in SYRINGE 3 ML IV SCH ×2 (08:48→20:30)
[2019-06-16] MEDS: INSULIN GLARGINE SOLOSTAR 100 UNITS/ML 3 ML PEN SC SCH (09:36)
[2019-06-16] MEDS: INSULIN ASPART 100 UNITS/ML 3 ML PEN SC SCH ×4 (09:36→21:59)
[2019-06-16] MEDS: ACETAMINOPHEN 325 MG TAB PO PRN ×2 (13:24→22:01)
[2019-06-16] MEDS: ONDANSETRON INJ 2 MG/ML 2 ML VIAL IV PRN (13:25)
--- NOTE | 2019-06-16 14:03 | Hospitalist Progress Note ---
Date of Service June 16, 2019 Assessment & Plan (1) Abdominal pain: (2) Pneumatosis coli: Present on admission with abdominal pain associated with diarrhea CT abd/pelvis w/o contrast showed evidence of air bubble seen in a peripheral location in the cecum, which could represent pneumatosis. Pain control with morphine GI on board Stool for Cdiff negative Diet advanced to low fiber No sign of infections (afebrile, no leukocytosis) Continue to have diarrhea GI recommended outpatient colonoscopy/EGD If symptoms worsen, develops acidosis or elevated lactic acid then please obtain CTA of the abdomen. Continue abx for now Clinically improved significantly Hypertriglyceridemia. Recent lab Triglycerides 1279, Continue fatty fish oils and Crestor and fenofibrate. Monitor Lipid panel outpatient Diabetes. Oral DM med on hold Most recent Hba1c 8 Continue Novolog sliding scale If BS elevates, will add Lantus while in patient Obstructive sleep apnea Continue CPAP. Asthma Continue home inhalers and nebs p.r.n. Stable Polymyalgia rheumatica Continue home prednisone. Stable Depression Continue Zoloft. Stable Hypertension Continue Toprol-XL and Lasix. Continue monitor BP Stable Hx pulmonary embolism Continue on Coumadin. INR 1.8 DVT px on Coumadin with INR 1.8 CODE STATUS FULL CODE Admission and Anticipated Discharge Date Admission Date: June 15, 2019 Subjective Pt was seen and examined Sitting in chair with no distress Pt said that he has been having watery diarrhea He said that he already had 3 episodes of diarrhea this morning He would like his diet to advance to soft diet instead of full liquid He said that he does not do well with creamy food Denies any chest pain, palpitation, dizziness and SOB Physical Exam Physical Exam: General- No acute distress Head- atraumatic Eyes- PERRL, EOMI, ENT- NG tube in place Neck- supple, no JVD Lungs- No crackles Heart- regular rhythm; no murmur Abdomen- normal bowel sounds, +tender with palpation Extremities- no calf tenderness Neuro- PERRL, no facial palsy Skin- warm & dry Results & Data Results & Data ([facility]) Vital Signs (Past 12 Hours) Vital Signs Temp Pulse Resp BP Pulse Ox 06/16/19 07:39 36.7 C 91 H 18 147/88 H 97 (1) Abdominal pain Abdominal location: right lower quadrant Qualified Code(s): R10.31 - Right lower quadrant pain
[2019-06-16] MEDS ORDERED: WARFARIN SOD 7.5 MG TAB PO SCH (16:00)
[2019-06-16] MEDS: ROSUVASTATIN CALCIUM 5 MG TAB PO SCH (20:19)
[2019-06-16] MEDS: SERTRALINE HCL 50 MG TABLET PO SCH (20:20)
[2019-06-17] MEDS: NSS + 20MEQ KCL 20 MEQ/1,000 ML BAG IV SCH ×2 (00:39→08:23)
[2019-06-17] MEDS: PIPERACILLIN/TAZOBACTAM 4.5 GM in DEXTROSE 5% 100 ML IV SCH ×2 (03:30→13:05)
[2019-06-17 06:13] LABS: INR 2.2 (0.9-1.1); Prothrombin Time 22.1 Seconds (9.0-12.0)
[2019-06-17] MEDS: INSULIN GLARGINE SOLOSTAR 100 UNITS/ML 3 ML PEN SC SCH (08:23)
[2019-06-17] MEDS: INSULIN ASPART 100 UNITS/ML 3 ML PEN SC SCH ×3 (08:24→17:22)
[2019-06-17] MEDS: FUROSEMIDE 20 MG TAB PO SCH (08:25)
[2019-06-17] MEDS: OMEGA-3 (PURIFIED FISH OIL) 1 GM CAP PO SCH (08:27)
[2019-06-17] MEDS: FENOFIBRATE NANOCRYSTALLIZED 145 MG TABLET PO SCH (08:28)
[2019-06-17] MEDS: predniSONE 2.5 MG TAB PO SCH (08:28)
[2019-06-17] MEDS: METOPROLOL SUCC 25MG EXT REL TAB PO SCH (08:28)
[2019-06-17] MEDS: FAMOTIDINE 20 MG in SYRINGE 3 ML IV SCH (09:36)
--- NOTE | 2019-06-17 15:07 | Hospitalist Progress Note ---
Date of Service June 17, 2019 Assessment & Plan (1) Abdominal pain: (2) Pneumatosis coli: Present on admission with abdominal pain associated with diarrhea CT abd/pelvis w/o contrast showed evidence of air bubble seen in a peripheral location in the cecum, which could represent pneumatosis. Pain control with morphine GI on board Stool for Cdiff negative Diet advanced to low fiber No sign of infections (afebrile, no leukocytosis) Continue to have diarrhea GI recommended outpatient colonoscopy/EGD If symptoms worsen, develops acidosis or elevated lactic acid then please obtain CTA of the abdomen. Tolerated low fiber diet Clinically improved Will discharge on Augmentin for additional 4 days course Clinically improved significantly Hypertriglyceridemia. Recent lab Triglycerides 1279, Continue fatty fish oils and Crestor and fenofibrate. Monitor Lipid panel outpatient Diabetes. Oral DM med on hold Most recent Hba1c 8 Continue Novolog sliding scale If BS elevates, will add Lantus while in patient Obstructive sleep apnea Continue CPAP. Asthma Continue home inhalers and nebs p.r.n. Stable Polymyalgia rheumatica Continue home prednisone. Stable Depression Continue Zoloft. Stable Hypertension Continue Toprol-XL and Lasix. Continue monitor BP Stable Hx pulmonary embolism Continue on Coumadin. INR 2.2 DVT px on Coumadin with INR 2.2 CODE STATUS FULL CODE Admission and Anticipated Discharge Date Admission Date: June 15, 2019 Subjective Pt was seen and examined Lying in bed with no distress Pt said that last episodes of diarrhea was yesterday round noon Pt said that he tolerated low fiber diet He said that abdominal pain improves significantly Denies any chest pain, palpitation, dizziness and SOB Physical Exam Physical Exam: General- No acute distress Head- atraumatic Eyes- PERRL, EOMI, ENT- NG tube in place Neck- supple, no JVD Lungs- No crackles Heart- regular rhythm; no murmur Abdomen- normal bowel sounds, +tender with palpation Extremities- no calf tenderness Neuro- PERRL, no facial palsy Skin- warm & dry Results & Data Results & Data ([facility]) Vital Signs (Past 12 Hours) Vital Signs Temp Pulse Resp BP Pulse Ox 06/17/19 07:37 36.6 C 79 16 162/97 H 98 (1) Abdominal pain Abdominal location: right lower quadrant Qualified Code(s): R10.31 - Right lower quadrant pain
[2019-06-17] MEDS: WARFARIN SOD 5 MG TAB PO SCH (16:09)
--- NOTE | 2019-06-17 16:50 | Discharge Summary ---
Date of Service June 17, 2019 Admission HPI Per Admitting Provider CHIEF COMPLAINT: Abdominal pain. HISTORY OF PRESENT ILLNESS: This is a 63-year-old male with past medical history significant for type 2 diabetes, hyperhomocysteinemia hypertriglyceridemia, hyperlipidemia, obstructive sleep apnea, mild intermittent asthma, hypertension, obesity, nonalcoholic fatty liver disease, polymyalgia rheumatica, cervical spondylosis, history of pulmonary embolism, adjustment disorder with depression, family history of neoplasm of prostate, history of C. diff infection, history of bacterial pneumonia, presents with abdominal pain. The patient went to PCP's office today because he is having diarrhea for last couple of days, watery diarrhea and no blood in the stools and has some abdominal discomfort which got worse today. Abdominal pain is mostly in the epigastric region and lower abdomen.Also recently his triglycerides went up from 610 to 1279. He called his cardiology office for abdominal pain and was advised to go to PCP office. In the PCP's office, CT scan of the abdomen and pelvis was done without contrast because of allergy to contrast and it showed suspected pneumatosis in the cecum. This can be a benign condition, however, inflammatory condition can give a similar appearance and he was sent to the ER. He has a history of irritable bowel syndrome with diarrhea in the past and is followed with GI, but he says he did not see GI for more than year because it is mostly under control currently. He was also feeling nauseous since last couple of days and he did not eat much because of the nausea. Denies any blood in stool or black stools. Normal bladder movements. No chest pain, no shortness of breath, no cough, no fever, no chills. Has some mild headache. He will get dizzy when he stands up quickly. No earache, no runny nose, no sore throat. No difficulty swallowing. No rash. Ambulates fine. Lives with his . Currently resting comfortably and hemodynamically stable. Admission Exam Per Admitting Provider GENERAL: The patient is obese, not in acute distress. VITAL SIGNS: Temperature 36.4, pulse 88, respiratory rate 18, blood pressure 128/81, oxygen 98% on room air. HEENT: No pallor, no icterus. Pupils equal, round, and reactive to light. NECK: No JVD, no neck masses, no carotid bruits. CARDIOVASCULAR: S1, S2 heard, regular rate and rhythm, no murmur, no gallop. RESPIRATORY SYSTEM: Normal AP diameter. No accessory muscle use. No wheezing, no crackles. ABDOMEN: Soft, bowel sounds present. Tenderness in the epigastric region and left lower quadrant. No guarding, no rigidity, no distention. CENTRAL NERVOUS SYSTEM: Cranial nerves II-XII grossly intact. Nonfocal. EXTREMITIES: No edema, no erythema. Principal Diagnosis Abdominal pain: Pneumatosis coli Hypertriglyceridemia. Diabetes. Obstructive sleep apnea Polymyalgia rheumatica Hypertension Discharge Exam General- No acute distress Head- atraumatic Eyes- PERRL, EOMI, ENT- NG tube in place Neck- supple, no JVD Lungs- No crackles Heart- regular rhythm; no murmur Abdomen- normal bowel sounds, +tender with palpation Extremities- no calf tenderness Neuro- PERRL, no facial palsy Skin- warm & dry Discharge Data Allergies Allergy/AdvReac Type Severity Reaction Status Date / Time Iodinated Contrast Media Allergy Severe DIFFICULTY Verified 06/14/19 20:48 BREATHING/THROAT SWELLING blue dye Allergy swelling Verified 06/14/19 20:48 cefuroxime Allergy hives Verified 06/14/19 20:48 shellfish derived Allergy swelling Verified 06/14/19 20:48 levofloxacin AdvReac Intermediate Tendon Verified 06/14/19 20:48 contractions Consultations 06/14/19 23:09 ED Decision to Admit Stat 06/15/19 08:00 Consult Gastroenterology Routine Ordered Studies 06/14/19 20:44 US duplex mesenteric Stat XR chest 1V portable CLINICAL HISTORY: abd oain pain COMPARISON STUDY: 10/16/2011 FINDINGS: The bones soft tissues and hemidiaphragms are normal. The cardiomediastinal silhouette is normal. The lungs are clear. The pulmonary vasculature is normal. IMPRESSION: Negative chest. ACT 112: Negative or not required by law. The above report was generated using voice recognition software. It may contain grammatical, syntax or spelling errors. Electronically signed by: Gonzalo Ocampo M.D. 06/14/2019 7:22 PM Dictated: 06/14/191921 Transcribed: 06/14/191921 XR KUB/Abdomen 1 view CLINICAL HISTORY: RLQ pain COMPARISON STUDY: No previous studies for comparison. FINDINGS: The soft tissues, psoas shadows, renal outlines and intestinal gas pattern appear normal. There is no evidence for bowel obstruction. No abnormal abdominal calcifications are seen. IMPRESSION: Normal study. ACT 112: Negative or not required by law. The above report was generated using voice recognition software. It may contain grammatical, syntax or spelling errors. Electronically signed by: Gonzalo Ocampo M.D. 06/14/2019 9:22 PM Dictated: 06/14/192121 Transcribed: 06/14/192121 Study: Ultrasound abdominal arterial vasculature. HISTORY: Pain. FINDINGS: The abdominal arterial vasculature including aorta, celiac axis, and superior as well as inferior mesenteric arterial vasculature could not be evaluated. This is due to excessive bowel gas as well as body habitus. This study is considered nondiagnostic. IMPRESSION: Nondiagnostic exam due to patient body habitus and overlying bowel content. Electronically signed by: Gonzalo Ocampo M.D. 06/14/2019 10:43 PM Dictated: 06/14/192240 Transcribed: 06/14/192240 Hospital Course (1) Abdominal pain: (2) Pneumatosis coli: Present on admission with abdominal pain associated with diarrhea CT abd/pelvis w/o contrast showed evidence of air bubble seen in a peripheral location in the cecum, which could represent pneumatosis. Pain control with morphine GI on board Stool for Cdiff negative Diet advanced to low fiber No sign of infections (afebrile, no leukocytosis) Continue to have diarrhea GI recommended outpatient colonoscopy/EGD If symptoms worsen, develops acidosis or elevated lactic acid then please obtain CTA of the abdomen. Tolerated low fiber diet Clinically improved Will discharge on Augmentin for additional 4 days course Clinically improved significantly Hypertriglyceridemia. Recent lab Triglycerides 1279, Continue fatty fish oils and Crestor and fenofibrate. Monitor Lipid panel outpatient Diabetes. Oral DM med on hold Most recent Hba1c 8 Continue Novolog sliding scale If BS elevates, will add Lantus while in patient Obstructive sleep apnea Continue CPAP. Asthma Continue home inhalers and nebs p.r.n. Stable Polymyalgia rheumatica Continue home prednisone. Stable Depression Continue Zoloft. Stable Hypertension Continue Toprol-XL and Lasix. Continue monitor BP Stable Hx pulmonary embolism Continue on Coumadin. INR 2.2 DVT px on Coumadin with INR 2.2 CODE STATUS FULL CODE Total Time Total Time Spent Total Time Spent (In Minutes): 35 minutes Total Time Includes: Examination of the Patient, Discharge Planning, Medication Reconciliation, Communication With Other Providers and Other Discharge Plan Discharge Items Patient Disposition: Home - Self-Care Reason For Visit: ABDOMINAL PAIN Discharge Diagnosis: Abdominal pain: Pneumatosis coli Hypertriglyceridemia. Diabetes. Obstructive sleep apnea Polymyalgia rheumatica Hypertension Condition on Discharge: Good Activity: Resume your previous activity Non-emergency contact: Primary Care Provider and [employer] Call non-emergency contact if: you have any medication questions, your symptoms worsen and your pain is not controlled Follow-up/Referrals: Lesia Garcia DO [Primary Care Provider] - 06/19/19 11:00 am (06/19/2019 11:00 AM with Calixto Vences MD [facility] ) Diet: Carb Consistent or DM2 and Low Fiber Addtl Attending Provider Instructions: Please call to schedule follow up appointment with your primary care provider in 1 week Follow up with the coumadin clinic to monitor your INR (INR 2.2 today) Please call to schedule follow up appointment with your Gastroenterology to arrange for outpatient colonoscopy and Endoscopy Follow up a low fiber diet and advanced as tolerated Pending Studies at Discharge: No Stand-Alone Forms: My [facility] Airseed, Smoking Cessation Medications and DC Order Prescriptions: New amoxicillin-pot clavulanate [Augmentin] 875-125 mg tablet 1 tab PO BID 4 Days Qty: 8 RF: 0 Continued prednisone 5 mg tablet 2.5 mg PO QAM RF: 0 fenofibrate micronized 134 mg capsule 134 mg PO QAM RF: 0 warfarin 5 mg tablet 7.5 mg PO WK RF: 0 warfarin 5 mg tablet 5 mg PO [id number] RF: 0 furosemide 20 mg tablet 20 mg PO QAM RF: 0 metoprolol succinate 25 mg tablet extended release 24 hr 12.5 mg PO BID RF: 0 metformin 500 mg tablet extended release 24 hr 1,000 mg PO BID RF: 0 sertraline 50 mg tablet 50 mg PO QPM RF: 0 rosuvastatin 5 mg tablet 5 mg PO QPM RF: 0 omega-3 acid ethyl esters 1 gram capsule 2 g PO BID RF: 0 Jardiance 10 mg tablet 10 mg PO QAM RF: 0 Trulicity 1.5 mg/0.5 mL pen injector 1.5 mg SUBCUT WK RF: 0 Discharge Orders: Discharge Order (Routine); Ordered 06/17/19 Ordered By: Dash Newell/Other Patient Handouts: Diabetes Manage A1C Test Admission Data Admit Date/Time: 06/15/19 18:22 Attending Provider: Dash Plunkett Admit Provider: Kirit Carranza Primary Care Provider: Lesia Garcia Other Providers: Kirit Carranza ; Elizabeth Mathis Other Interventions: Discharge Summary Assessment (RN) Last Done: 06/17/19 16:13
== END 2019-06-17 17:56 | disposition home or self-care (01) | DRG 394 ==
LOC: ED 18:30 → 3W 18:30 → 3E 06-15 13:56

== ENCOUNTER 2019-11-11 15:59 | Inpatient (IN) ==
[2019-11-11] MEDS ORDERED: SODIUM CHLORIDE 0.9% 1000ML 1,000 ML IV SCH ×2 (17:00→17:48)
--- NOTE | 2019-11-11 17:21 | Emergency Department Note ---
Impression & Plan Fever, Breathlessness, Subtherapeutic anticoagulation, Weakness, Tachycardia ED Provider Note Provider: Reynold Clay MD DATE OF SERVICE: 11/11/2019 CHIEF COMPLAINT: Shortness of breath, weakness, fever HISTORY OF PRESENT ILLNESS: Patient is a 63-year-old gentleman with a past medical history of diabetes and PE currently on Coumadin presenting here today complaining of illness starting yesterday. Patient recently traveled to [place] about a week ago to the [place] area. Patient denies sick contacts with anyone and none of the people he went on the trip with been ill. Started with some generalized fevers yesterday myalgias and lower leg pain as well as some shortness of breath. Talked to his primary care doctor with [facility] who ordered an outpatient COVID test that was collected yesterday. Has been using nebulizer at home without improvement. Non-smoker. States compliance with Coumadin. Denies history of similar. States he feels quite short of breath and has been sweating profusely at home. Recent tick bite on his left leg that he removed about a week ago. Denies urinary symptoms. States he has been trying to hydrate with water but has not been able to eat much. REVIEW OF SYSTEMS: A total of 10 review of systems was obtained and negative except as stated above in the HPI. PAST MEDICAL HISTORY: As noted above MEDICATIONS: Reviewed medications with significant include Coumadin. SOCIAL HISTORY: Non-smoker, lives at home PHYSICAL EXAM: GENERAL: alert and oriented on the stretcher appears fatigued and somewhat dyspneic. Head: normocephalic and atraumatic EYES: No injection, discharge or icterus. PERRL NECK: Trachea midline. Supple. No meningeal signs. ENT: Mucous membranes pink and moist. A few scattered shotty bilateral p osterior chain lymph nodes appreciated. LUNGS: Airway patent. Mildly increased work of breathing. HEART: Regular tachycardic rate and rhythm. No chest wall tenderness ABDOMEN: Soft and non-tender, without guarding or rebound. SKIN: Acyanotic, warm, dry, without rashes EXTREMITIES: Without swelling, tenderness or deformity NEUROLOGICAL: No focal deficits. No aphasia. No facial droop or slurred speech. Ambulatory. EK bpm sinus tachycardia. No PVCs or PACs. No acute ST segment elevation or depression noted. Lead III T wave inversions noted. QTc 435. CONTINUOUS CARDIAC MONITORING: was ordered and showed a heart rate of 111 bpm in sinus tachycardia Patient's hypertension was referred to the hospitalist HOSPITAL COURSE: 1644 Patient was first seen and H&P performed. 1851 patient was updated bedside. Still tachycardic. States he is due for dose of NSAID. Discussed findings. Patient still feeling quite fatigued and having chills. Given this discussed with him further observation here in the hospital you wish for. Given antibiotic profile will start on doxycycline at this time. Will discuss with the hospitalist team. 1908 Discussed with hospitalist Patient's laboratory studies and imaging reviewed. Differential includes Viral syndrome, otitis, pharyngitis, pneumonia, influenza, meningitis, urinary tract infection, sepsis, bacteremia, as well as other pathologies. IMPRESSION/MEDICAL DECISION MAKING: Patient presents here today complaining of fever shortness of breath and diffuse myalgias. Concern for possible infectious process. Coronavirus testing from yesterday was ordered and in the outpatient lab results in the [facility] system this resulted as negative likely. Given IV fluids and is tachycardic. EKG without ischemic changes. Recent tick bite and concern for possible tickborne illness such as anaplasmosis or Lyme disease. Chest x-ray was ordered given history of pneumonia and symptoms. I doubt PE or DVT given his anticoagulation status. While INR low will restart Lovenox for therapy at this time. Urinalysis not impressive for infection. No significant leukocytosis. No anemia. No significant electrolyte abnormality. Mild transaminitis noted. No thrombocytopenia noted. INR does come back subtherapeutic 1.5. We will give a dose of Lovenox at this time. No evidence of troponin elevation. TSH within normal limits. Procalcitonin come back at 0.34. Lactate is not elevated. Patient still with some persistent tachycardia and respiratory symptoms despite hydration with 2 L of IV fluid. Patient did spike a fever and is given a dose of Tylenol. Given this with his symptoms given a dose of doxycycline and discussed with him further observation here in the hospital versus outpatient follow-up. Patient was further observation. Given symptoms and history this is reasonable. Will discuss with hospitalist. Lyme screen negative. DIAGNOSIS: Fever, Tachycardia, SOB, weakness, subtherapeutic inr DISPOSITION: Hospitalist will evaluate Patient was agreeable with this plan. 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 Beliefs That Will Affect Care: None Current Living Situation: Spouse Feels Safe at Home: Yes Allergies Allergies Allergy/AdvReac Type Severity Reaction Status Date / Time Iodinated Contrast Media Allergy Severe DIFFICULTY Verified 06/14/19 20:48 BREATHING/THROAT SWELLING blue dye Allergy swelling Verified 06/14/19 20:48 cefuroxime Allergy hives Verified 06/14/19 20:48 shellfish derived Allergy swelling Verified 06/14/19 20:48 levofloxacin AdvReac Intermediate Tendon Verified 06/14/19 20:48 contractions Home Meds Home Medications Medication Instructions Recorded Confirmed Jardiance 10 mg PO QAM 06/14/19 06/14/19 Trulicity 1.5 mg SUBCUT WK 06/14/19 06/14/19 fenofibrate micronized 134 mg PO QAM 06/14/19 06/14/19 furosemide 20 mg PO QAM 06/14/19 06/14/19 metformin 1,000 mg PO BID 06/14/19 06/14/19 metoprolol succinate 12.5 mg PO BID 06/14/19 06/14/19 omega-3 acid ethyl esters 2 g PO BID 06/14/19 06/14/19 prednisone 2.5 mg PO QAM 06/14/19 06/14/19 rosuvastatin 5 mg PO QPM 06/14/19 06/14/19 sertraline 50 mg PO QPM 06/14/19 06/14/19 warfarin 5 mg PO [id number] 06/14/19 06/14/19 warfarin 7.5 mg PO WK 06/14/19 06/14/19 Results & Data (ED) Vital Signs Vital Signs - 24 hr 11/11/19 16:07 11/11/19 16:46 11/11/19 17:20 Temperature Temperature Source Pulse Rate 114 H 106 H 108 H Pulse Rate from SpO2 Sensor 107 H 107 H Respiratory Rate 20 30 H 23 Respiratory Effort / Characteristics Non-Labored Respiratory Depth Normal Blood Pressure 149/78 H 166/94 H Blood Pressure Mean 101 112 Blood Pressure Position Sitting Pulse Oximetry 96 96 96 Oxygen Delivery Method Room Air Sepsis Recent Fever Within 48 Hours Yes Sepsis New/Unexplained Change in Mental Status No Sepsis Action Taken by Nursing No Action Required 11/11/19 17:30 11/11/19 17:33 11/11/19 17:40 Temperature Temperature Source Pulse Rate 114 H 106 H Pulse Rate from SpO2 Sensor 117 H 113 H 106 H Respiratory Rate 20 18 Respiratory Effort / Characteristics Respiratory Depth Blood Pressure Blood Pressure Mean Blood Pressure Position Pulse Oximetry 97 95 96 Oxygen Delivery Method Sepsis Recent Fever Within 48 Hours Sepsis New/Unexplained Change in Mental Status Sepsis Action Taken by Nursing 11/11/19 17:43 11/11/19 17:48 11/11/19 17:50 Temperature 38.1 C H Temperature Source Oral Pulse Rate 107 H 106 H Pulse Rate from SpO2 Sensor 105 H Respiratory Rate 20 20 Respiratory Effort / Characteristics Spontaneous Respiratory Depth Blood Pressure Blood Pressure Mean Blood Pressure Position Pulse Oximetry 97 97 Oxygen Delivery Method Room Air Sepsis Recent Fever Within 48 Hours Sepsis New/Unexplained Change in Mental Status Sepsis Action Taken by Nursing 11/11/19 17:52 11/11/19 18:00 11/11/19 18:01 Temperature Temperature Source Pulse Rate 106 H 104 H 100 H Pulse Rate from SpO2 Sensor 107 H 109 H 100 H Respiratory Rate 20 19 21 Respiratory Effort / Characteristics Respiratory Depth Blood Pressure 94/75 L 151/79 H Blood Pressure Mean 76 105 Blood Pressure Position Pulse Oximetry 97 88 L 96 Oxygen Delivery Method Sepsis Recent Fever Within 48 Hours Sepsis New/Unexplained Change in Mental Status Sepsis Action Taken by Nursing 11/11/19 18:10 11/11/19 18:20 11/11/19 18:30 Temperature Temperature Source Pulse Rate 112 H 103 H 105 H Pulse Rate from SpO2 Sensor 111 H 104 H 105 H Respiratory Rate 20 21 25 H Respiratory Effort / Characteristics Respiratory Depth Blood Pressure 152/75 H Blood Pressure Mean 86 Blood Pressure Position Pulse Oximetry 97 97 98 Oxygen Delivery Method Sepsis Recent Fever Within 48 Hours Sepsis New/Unexplained Change in Mental Status Sepsis Action Taken by Nursing 11/11/19 18:31 11/11/19 18:40 Temperature Temperature Source Pulse Rate 102 H 106 H Pulse Rate from SpO2 Sensor 102 H 106 H Respiratory Rate 33 H 20 Respiratory Effort / Characteristics Respiratory Depth Blood Pressure Blood Pressure Mean Blood Pressure Position Pulse Oximetry 98 98 Oxygen Delivery Method Sepsis Recent Fever Within 48 Hours Sepsis New/Unexplained Change in Mental Status Sepsis Action Taken by Nursing Laboratory Data Result diagrams: 11/11/19 17:15 11/11/19 17:15 Lab Results 11/11/19 11/11/19 11/11/19 Range/Units 17:10 17:15 17:15 WBC (4.8-10.8) K/uL RBC (4.7-6.1) M/uL Hgb (14.0-18.0) g/dL Hct (42-52) % MCV (80-100) fL MCH (25-34) pg MCHC (32-36) g/dL RDW Std Deviation (36.4-46.3) fL RDW Coeff of Kathryn (11.5-14.5) % Plt Count (130-400) K/uL MPV (7.4-10.4) fL Immature Gran % (Auto) % Neut % (Auto) % Lymph % (Auto) % Glenn % (Auto) % Eos % (Auto) % Baso % (Auto) % Neut # (Auto) (1.4-6.5) K/uL Lymph # (Auto) (1.2-3.4) K/uL Glenn # (Auto) (0.11-0.59) K/uL Eos # (Auto) (0-0.5) K/uL Baso # (Auto) (0-0.2) K/uL Immature Gran # (Auto) (0.00-0.02) K/uL PT (9.0-12.0) Seconds INR (0.9-1.1) APTT (21.0-31.0) Seconds PTT Ratio Sodium 138 (136-145) mmol/L Potassium 3.7 (3.5-5.1) mmol/L Chloride 105 (98-107) mmol/L Carbon Dioxide 24 (21-32) mmol/L Anion Gap 9.0 (3-11) BUN 15 (7-18) mg/dl Creatinine 1.03 (0.6-1.4) mg/dl Est Cr Clr Drug Dosing 75.4 ml/min Est GFR ( Amer) 89.2 Est GFR (Non-Af Amer) 76.9 BUN/Creatinine Ratio 14.9 (10-20) Glucose 157 H (70-99) mg/dl Lactate (0.4-2.0) mmol/L Calcium 9.7 (8.5-10.1) mg/dl Magnesium 2.0 (1.8-2.4) mg/dl Total Bilirubin 0.8 (0.2-1) mg/dl AST 48 H (15-37) U/L ALT 80 H (12-78) U/L Alkaline Phosphatase 81 (45-117) U/L Troponin I < 0.015 (0-0.045) ng/ml Total Protein 7.9 (6.4-8.2) gm/dl Albumin 3.7 (3.4-5.0) gm/dl Globulin 4.2 H (2.5-4.0) gm/dl Albumin/Globulin Ratio 0.9 (0.9-2) Procalcitonin 0.34 (0-0.5) ng/ml TSH 1.240 (0.300-4.500) uIu/ml Urine Color Yellow Urine Appearance Clear (Clear) Urine pH 7.0 (4.5-7.5) Ur Specific [place] 1.036 H (1.000-1.030) Urine Protein Negative (Negative) Urine Glucose (UA) 3+ H (Negative) Urine Ketones Negative (Negative) Urine Blood Trace H (Negative) Urine Nitrite Negative (Negative) Urine Bilirubin Negative (Negative) Urine Urobilinogen Negative (Negative) Ur Leukocyte Esterase Negative (Negative) Urine WBC (Auto) 0 (0-5) /hpf Urine RBC (Auto) 0-4 (0-4) /hpf U Hyaline Cast (Auto) 0 (0-5) /lpf U Epithel Cells (Auto) 0-5 (0-5) /lpf Urine Bacteria (Auto) Negative (Negative) Anaplasma Smear Lyme Disease IgG Ab Negative (Negative) Lyme Disease IgM Ab Negative (Negative) 11/11/19 11/11/19 11/11/19 Range/Units 17:15 17:15 17:15 WBC 6.14 (4.8-10.8) K/uL RBC 5.61 (4.7-6.1) M/uL Hgb 15.8 (14.0-18.0) g/dL Hct 47.4 (42-52) % MCV 84.5 (80-100) fL MCH 28.2 (25-34) pg MCHC 33.3 (32-36) g/dL RDW Std Deviation 43.7 (36.4-46.3) fL RDW Coeff of Kathryn 14.1 (11.5-14.5) % Plt Count 187 (130-400) K/uL MPV 10.2 (7.4-10.4) fL Immature Gran % (Auto) 0.2 % Neut % (Auto) 77.0 % Lymph % (Auto) 9.8 % Glenn % (Auto) 12.5 % Eos % (Auto) 0.3 % Baso % (Auto) 0.2 % Neut # (Auto) 4.73 (1.4-6.5) K/uL Lymph # (Auto) 0.60 L (1.2-3.4) K/uL Glenn # (Auto) 0.77 H (0.11-0.59) K/uL Eos # (Auto) 0.02 (0-0.5) K/uL Baso # (Auto) 0.01 (0-0.2) K/uL Immature Gran # (Auto) 0.01 (0.00-0.02) K/uL PT 15.9 H (9.0-12.0) Seconds INR 1.5 H (0.9-1.1) APTT 37.7 H (21.0-31.0) Seconds PTT Ratio 1.4 Sodium (136-145) mmol/L Potassium (3.5-5.1) mmol/L Chloride (98-107) mmol/L Carbon Dioxide (21-32) mmol/L Anion Gap (3-11) BUN (7-18) mg/dl Creatinine (0.6-1.4) mg/dl Est Cr Clr Drug Dosing ml/min Est GFR ( Amer) Est GFR (Non-Af Amer) BUN/Creatinine Ratio (10-20) Glucose (70-99) mg/dl Lactate (0.4-2.0) mmol/L Calcium (8.5-10.1) mg/dl Magnesium (1.8-2.4) mg/dl Total Bilirubin (0.2-1) mg/dl AST (15-37) U/L ALT (12-78) U/L Alkaline Phosphatase (45-117) U/L Troponin I (0-0.045) ng/ml Total Protein (6.4-8.2) gm/dl Albumin (3.4-5.0) gm/dl Globulin (2.5-4.0) gm/dl Albumin/Globulin Ratio (0.9-2) Procalcitonin (0-0.5) ng/ml TSH (0.300-4.500) uIu/ml Urine Color Urine Appearance (Clear) Urine pH (4.5-7.5) Ur Specific [place] (1.000-1.030) Urine Protein (Negative) Urine Glucose (UA) (Negative) Urine Ketones (Negative) Urine Blood (Negative) Urine Nitrite (Negative) Urine Bilirubin (Negative) Urine Urobilinogen (Negative) Ur Leukocyte Esterase (Negative) Urine WBC (Auto) (0-5) /hpf Urine RBC (Auto) (0-4) /hpf U Hyaline Cast (Auto) (0-5) /lpf U Epithel Cells (Auto) (0-5) /lpf Urine Bacteria (Auto) (Negative) Anaplasma Smear See Comment Lyme Disease IgG Ab (Negative) Lyme Disease IgM Ab (Negative) 11/11/19 Range/Units 17:44 WBC (4.8-10.8) K/uL RBC (4.7-6.1) M/uL Hgb (14.0-18.0) g/dL Hct (42-52) % MCV (80-100) fL MCH (25-34) pg MCHC (32-36) g/dL RDW Std Deviation (36.4-46.3) fL RDW Coeff of Kathryn (11.5-14.5) % Plt Count (130-400) K/uL MPV (7.4-10.4) fL Immature Gran % (Auto) % Neut % (Auto) % Lymph % (Auto) % Glenn % (Auto) % Eos % (Auto) % Baso % (Auto) % Neut # (Auto) (1.4-6.5) K/uL Lymph # (Auto) (1.2-3.4) K/uL Glenn # (Auto) (0.11-0.59) K/uL Eos # (Auto) (0-0.5) K/uL Baso # (Auto) (0-0.2) K/uL Immature Gran # (Auto) (0.00-0.02) K/uL PT (9.0-12.0) Seconds INR (0.9-1.1) APTT (21.0-31.0) Seconds PTT Ratio Sodium (136-145) mmol/L Potassium (3.5-5.1) mmol/L Chloride (98-107) mmol/L Carbon Dioxide (21-32) mmol/L Anion Gap (3-11) BUN (7-18) mg/dl Creatinine (0.6-1.4) mg/dl Est Cr Clr Drug Dosing ml/min Est GFR ( Amer) Est GFR (Non-Af Amer) BUN/Creatinine Ratio (10-20) Glucose (70-99) mg/dl Lactate 1.3 (0.4-2.0) mmol/L Calcium (8.5-10.1) mg/dl Magnesium (1.8-2.4) mg/dl Total Bilirubin (0.2-1) mg/dl AST (15-37) U/L ALT (12-78) U/L Alkaline Phosphatase (45-117) U/L Troponin I (0-0.045) ng/ml Total Protein (6.4-8.2) gm/dl Albumin (3.4-5.0) gm/dl Globulin (2.5-4.0) gm/dl Albumin/Globulin Ratio (0.9-2) Procalcitonin (0-0.5) ng/ml TSH (0.300-4.500) uIu/ml Urine Color Urine Appearance (Clear) Urine pH (4.5-7.5) Ur Specific [place] (1.000-1.030) Urine Protein (Negative) Urine Glucose (UA) (Negative) Urine Ketones (Negative) Urine Blood (Negative) Urine Nitrite (Negative) Urine Bilirubin (Negative) Urine Urobilinogen (Negative) Ur Leukocyte Esterase (Negative) Urine WBC (Auto) (0-5) /hpf Urine RBC (Auto) (0-4) /hpf U Hyaline Cast (Auto) (0-5) /lpf U Epithel Cells (Auto) (0-5) /lpf Urine Bacteria (Auto) (Negative) Anaplasma Smear Lyme Disease IgG Ab (Negative) Lyme Disease IgM Ab (Negative) Administered Medications Discontinued Medications Acetaminophen (Acetaminophen 500 Mg Tab) 1,000 mg PO NOW STA Stop: 11/11/19 17:55 Last Admin: 11/11/19 18:46 Dose: 1,000 mg Documented by: [id number] Sodium Chloride (Nss 1000ml) 1,000 mls @ 999 mls/hr IV .Q1H1M JULIANNE Stop: 11/11/19 17:48 Last Infusion: 11/11/19 18:51 Dose: 0 mls/hr Documented by: [id number] Admin: 11/11/19 17:47 Dose: 999 mls/hr Documented by: [id number] Sodium Chloride (Nss 1000ml) 1,000 mls @ 999 mls/hr IV .Q1H1M JULIANNE Stop: 11/11/19 18:47 Last Infusion: 11/11/19 18:46 Dose: 0 mls/hr Documented by: [id number] Admin: 11/11/19 17:47 Dose: 999 mls/hr Documented by: [id number] Discharge Plan Visit Data Chief Complaint: Shortness of Breath/Dyspnea Stated Complaint: BODY ACHE,FEVER,SOB/WAITING COVID RESULTS ED Provider: Reynold Clay Discharge Problem: Fever, Breathlessness, Subtherapeutic anticoagulation, Weakness, Tachycardia Forms Stand Alone Forms: My [facility] Prescriptions Prescriptions: No Action prednisone 5 mg tablet 2.5 mg PO QAM RF: 0 fenofibrate micronized 134 mg capsule 134 mg PO QAM RF: 0 warfarin 5 mg tablet 7.5 mg PO WK RF: 0 warfarin 5 mg tablet 5 mg PO 6XWK RF: 0 furosemide 20 mg tablet 20 mg PO QAM RF: 0 metoprolol succinate 25 mg tablet extended release 24 hr 12.5 mg PO BID RF: 0 metformin 500 mg tablet extended release 24 hr 1,000 mg PO BID RF: 0 sertraline 50 mg tablet 50 mg PO QPM RF: 0 rosuvastatin 5 mg tablet 5 mg PO QPM RF: 0 omega-3 acid ethyl esters 1 gram capsule 2 g PO BID RF: 0 Jardiance 10 mg tablet 10 mg PO QAM RF: 0 Trulicity 1.5 mg/0.5 mL pen injector 1.5 mg SUBCUT WK RF: 0 Discharge Problem: Fever Qualifiers: Fever type: unspecified Qualified Code(s): R50.9 - Fever, unspecified
[2019-11-11 17:52] LABS: Basophils # (auto) 0.01 K/uL (0-0.2); Basophils % (auto) 0.2 %; Eosinophils # (auto) 0.02 K/uL (0-0.5); Eosinophils % (auto) 0.3 %; Hematocrit (blood only) 47.4 % (42-52); Hemoglobin 15.8 g/dL (14.0-18.0); Immature Granulocytes # (auto) 0.01 K/uL (0.00-0.02); Immature Granulocytes % (auto) 0.2 %; Lymphocytes % (auto) 9.8 %; Mean Corpuscular Hemoglobin 28.2 pg (25-34); Mean Corpuscular Hgb Conc 33.3 g/dL (32-36); Mean Corpuscular Volume 84.5 fL (80-100); Mean Platelet Volume 10.2 fL (7.4-10.4); Monocytes # (auto) 0.77 K/uL (0.11-0.59); Monocytes % (auto) 12.5 %; Neutrophils # (auto) 4.73 K/uL (1.4-6.5); Platelet Count 187 K/uL (130-400); RDW Coefficient of Variation 14.1 % (11.5-14.5); RDW Standard Deviation 43.7 fL (36.4-46.3); Red Blood Count 5.61 M/uL (4.7-6.1); White Blood Count 6.14 K/uL (4.8-10.8)
[2019-11-11] MEDS ORDERED: ACETAMINOPHEN 500 MG TAB PO STA (17:54)
[2019-11-11 17:59] LABS: Appearance Urine Clear (Clear); Bacteria Urine Automated Negative (Negative); Bilirubin Urine Negative (Negative); Blood Urine Trace (Negative); Cast Urine Automated 0 /lpf (0-5); Color Urine Yellow; Epithelial Cell Urine Auto 0-5 /lpf (0-5); Glucose Urine UA 3+ (Negative); Ketones Urine Negative (Negative); Leukocyte Esterase Urine Negative (Negative); Nitrite Urine Negative (Negative); Protein Urine Negative (Negative); RBC Urine Automated 0-4 /hpf (0-4); Specific Gravity Urine 1.036 (1.000-1.030); Urobilinogen Urine Negative (Negative); WBC Urine Automated 0 /hpf (0-5)
[2019-11-11 18:08] LABS: Alanine Aminotransferase 80 U/L (12-78); Albumin Level 3.7 gm/dl (3.4-5.0); Aspartate Aminotransferase 48 U/L (15-37); BUN Creatinine Ratio 14.9 (10-20); Blood Urea Nitrogen 15 mg/dl (7-18); Calcium 9.7 mg/dl (8.5-10.1); Carbon Dioxide 24 mmol/L (21-32); Chloride 105 mmol/L (98-107); Creatinine Clr Calc Pharmacy 75.4 ml/min; Est GFR (African American) 89.2; Est GFR (Non-African American) 76.9; Glucose 157 mg/dl (70-99); Potassium 3.7 mmol/L (3.5-5.1); Sodium 138 mmol/L (136-145)
[2019-11-11 18:10] LABS: INR 1.5 (0.9-1.1); Partial Thromboplastin Ratio 1.4; Partial Thromboplastin Time 37.7 Seconds (21.0-31.0); Prothrombin Time 15.9 Seconds (9.0-12.0)
[2019-11-11 18:19] LABS: Albumin Globulin Ratio 0.9 (0.9-2); Alkaline Phosphatase 81 U/L (45-117); Bilirubin,Total 0.8 mg/dl (0.2-1); Globulin 4.2 gm/dl (2.5-4.0); Total Protein 7.9 gm/dl (6.4-8.2); Troponin I < 0.015 ng/ml (0-0.045)
--- NOTE | 2019-11-11 18:37 | XRay Report ---
XR chest 1V portable HISTORY: Shortness of breath. SEPSIS COMPARISON: Chest 06/14/2019. FINDINGS: No pneumothorax. No pleural effusions. Old, healed bilateral rib fractures are again noted. Mild interstitial thickening at the lung bases. This is likely chronic. This remains unchanged. No n ew focal lung consolidations to suggest pneumonia. No evidence for pulmonary edema. The heart remains mildly enlarged. IMPRESSION: No significant change compared to the prior study. No acute process. ACT 112: Negative or not required by law. Electronically signed by: Neo Pettit M.D. 11/11/2019 6:36 PM
[2019-11-11 18:44] LABS: Procalcitonin 0.34 ng/ml (0-0.5)
[2019-11-11] MEDS ORDERED: DOXYCYCLINE HYCLATE 100 MG CAP PO STA (18:50)
[2019-11-11] MEDS ORDERED: ENOXAPARIN 80 MG/0.8 ML SYR SQ STA (18:50)
[2019-11-11] MEDS ORDERED: MAGNESIUM SULFATE / D5W 1 GM/100 ML BAG IV SCH (18:51)
[2019-11-11 18:58] LABS: Lyme Ab IgG w/WB Rflx Negative (Negative); Lyme Ab IgM w/WB Rflx Negative (Negative)
[2019-11-11] MEDS ORDERED: KETOROLAC TROMETHAMINE 15 MG/ML VIAL IV ONE (18:58)
[2019-11-11] MEDS: WARFARIN SOD 5 MG TAB PO SCH (21:56)
--- NOTE | 2019-11-11 22:51 | History and Physical Report ---
DATE OF ADMISSION: 11/11/2019 CHIEF COMPLAINT: Shortness of breath and fever. HISTORY OF PRESENT ILLNESS: A 63-year-old male with past medical history significant for diabetes, hyperhomocysteinemia, hypertriglyceridemia, dyslipidemia, obstructive sleep apnea, mild intermittent asthma, hypertension, obesity, nonalcoholic fatty liver disease, polymyalgia rheumatica, cervical spondylosis, history of pulmonary embolism on Coumadin, adjustment disorder with depression, family history of malignant neoplasm of prostate, history of C. diff infection, history of male gynecomastia, history of pneumonia in the past, who presents with fever since last . The patient says he had fever about 102 degrees on and off and feeling short of breath. Has occasional cough with whitish phlegm and generalized weakness and body aches and loss of appetite. No runny nose, no sore throat. Could not tell whether loss of sense of smell or taste. Has headaches. No blurred visions, no earache, no chest pain, no nausea, no vomiting, no abdominal pain, but has diarrhea since last . No blood in the stool or black stools. Normal bladder movements. No swelling in the legs. He has some bite wounds of the insects in his lower abdomen and left groin region. He says he saw them the week before , about 9 days ago. [place] and they have ticks in their backyard. COVID test was done yesterday in [facility] and it was negative. ALLERGIES: BLUE DYES, CEFUROXIME, IODINATED DIAGNOSTIC AGENTS, IODINE, SHELLFISH, ENVIRONMENTAL POLLEN, LEVAQUIN. PAST MEDICAL HISTORY: As mentioned above. PAST SURGICAL HISTORY: Breast lesion excision of the cyst, cardiac catheterization, colonoscopy, excision of the right forearm wrist subcutaneous tumor, laparoscopic cholecystectomy, sinus surgery, appendectomy, umbilical hernia repair, vasectomy. MEDICATIONS: The patient is on Coumadin 5 mg 1-1.5 tablet daily as directed, Jardiance 10 mg p.o. daily, metformin XR 1000 mg p.o. b.i.d., omega 3 capsules 4 capsules p.o. daily, Trulicity 1.5 mg every week, fenofibrate micronized 134 mg daily, Zoloft 25 mg p.o. at bedtime, Crestor 5 mg p.o. daily, Lasix 20 mg p.o. daily, Toprol-XL 12.5 mg p.o. b.i.d., prednisone 2.5 mg p.o. daily, albuterol 2 puffs every 6 hours p.r.n., albuterol nebulization p.r.n. FAMILY HISTORY: Significant for brother has alcoholism, allergies, asthma. Father and one of the brothers have HIV disease. Father has prostate cancer, CABG, TIAs, obstructive sleep apnea. Mother had breast cancer with mets, at age of 59, had gastrointestinal disorder, arthritis. SOCIAL HISTORY: . No smoking, no alcohol, no drug use. REVIEW OF SYSTEMS: As per HPI. Rest of the review of systems negative. PHYSICAL EXAMINATION: GENERAL: The patient is of moderate build, not in acute distress. VITAL SIGNS: Temperature 38.1, pulse 106, respiratory rate 20, blood pressure 152/75, oxygen 98% on room air. HEENT: No pallor, no icterus. Pupils equal. NECK: No JVD, no masses. CARDIOVASCULAR: S1, S2 heard. Regular rate and rhythm, no murmur, no gallop. RESPIRATORY SYSTEM: Normal AP diameter. No accessory muscle use. No wheezing, no crackles. ABDOMEN: Soft, bowel sounds present, nontender. No distention. CENTRAL NERVOUS SYSTEM: Cranial nerves II-XII grossly intact, nonfocal. EXTREMITIES: No edema, no erythema. LABORATORY DATA: WBC 6.1, hemoglobin 15.8, hematocrit 47.4, platelets 187. PT 15.9, INR 1.5, APTT 37.7. Sodium 138, potassium 3.7, chloride 105, bicarbonate 24, BUN 15, creatinine 1.03, serum glucose 157. Lactate 1.3, calcium 9.7, magnesium 2, total bilirubin 0.8, AST 48, ALT 80, alkaline phosphatase 81. Troponin I less than 0.015. Procalcitonin 0.3. TSH 1.2. Urinalysis +3 glucose Anaplasma screen negative. Lyme screen negative. IMAGING DATA: Chest x-ray, no acute findings. EKG: Sinus tachycardia at the rate of 107, no significant change was found. ASSESSMENT AND PLAN: A 63-year-old male who presents with fever and shortness of breath since last . 1. Fever and shortness of breath. His COVID test done yesterday was negative and no exposure to COVID, but because of the pandemic, we will repeat the COVID test. Most likely, it could be Lyme disease though his Lyme screen is negative because he has the insect bites in the lower abdomen and left groin region about only 9 days ago. The test may be not positive yet. So we will empirically treat with doxycycline and IV fluids and monitor in the medical floor. Repeat COVID is negative. 2. History of diabetes. Hold his home medication. Placed him on Lantus 7 units daily and insulin sliding scale. Follow HbA1c level. Follow his blood sugars. 3. History of obstructive sleep apnea. CPAP at bedtime. 4. History of hypertriglyceridemia. Continue his fenofibrate. 5. Polymyalgia rheumatica, on prednisone. 6. Mild intermittent asthma. Albuterol p.r.n. 7. History of pulmonary embolism, on Coumadin. INR is subtherapeutic at 1.5. Received a dose of Lovenox bridge. Will continue his Coumadin. Follow INR in a.m. 8. Depression. Continue Zoloft. 9. Hyperlipidemia. Continue statin. 10. Hypertension. Continue Toprol-XL. Holding the Lasix. Monitor the blood pressure. 11. Deep venous thrombosis prophylaxis. INR is 1.5, on Coumadin. Received dose of Lovenox. We will follow the INR. DISPOSITION: Admit to medical floor. Expect to discharge home and follow with his family doctor. FELIX
[2019-11-11] MEDS ORDERED: ONDANSETRON INJ 2 MG/ML 2 ML VIAL IV PRN (23:34)
[2019-11-11] MEDS ORDERED: ALBUTEROL HFA 8 GM INHALER INH PRN (23:34)
[2019-11-11] MEDS ORDERED: POLYETHYLENE (MIRALAX) 17 GM PACK PO PRN (23:34)
[2019-11-11] MEDS: SODIUM CHLORIDE 0.9% 1000ML 1,000 ML IV SCH (23:35)
[2019-11-12] MEDS ORDERED: GLUCAGON FOR INJ 1 MG VIAL SQ PRN (00:30)
[2019-11-12] MEDS ORDERED: GLUCOSE 40% GEL 15 GM TUBE PO PRN (00:30)
[2019-11-12] MEDS ORDERED: DEXTROSE 50% 50 ML SYRINGE IV PRN (00:30)
[2019-11-12] MEDS ORDERED: GLUCOSE 10 TABS/TUBE PO PRN (00:30)
[2019-11-12] MEDS ORDERED: CARBOHYDRATES FOR HYPOGLYCEMIA PO PRN (00:30)
[2019-11-12] MEDS: ROSUVASTATIN CALCIUM 5 MG TAB PO SCH ×2 (00:39→21:42)
[2019-11-12] MEDS: METOPROLOL SUCC 25MG EXT REL TAB PO SCH ×3 (00:40→21:43)
[2019-11-12] MEDS: SERTRALINE HCL 50 MG TABLET PO SCH ×2 (00:41→21:43)
[2019-11-12] MEDS: INSULIN ASPART 100 UNITS/ML 3 ML PEN SC SCH ×5 (01:15→21:52)
[2019-11-12] MEDS: FAMOTIDINE 20 MG in SYRINGE 3 ML IV SCH ×3 (01:31→21:45)
[2019-11-12] MEDS: KETOROLAC TROMETHAMINE 15 MG/ML VIAL IV PRN ×3 (01:32→20:10)
[2019-11-12] MEDS: ACETAMINOPHEN 325 MG TAB PO PRN ×3 (05:20→18:26)
[2019-11-12 06:04] LABS: Basophils # (auto) 0.02 K/uL (0-0.2); Basophils % (auto) 0.3 %; Eosinophils # (auto) 0.01 K/uL (0-0.5); Eosinophils % (auto) 0.2 %; Hematocrit (blood only) 48.9 % (42-52); Hemoglobin 15.6 g/dL (14.0-18.0); Immature Granulocytes # (auto) 0.01 K/uL (0.00-0.02); Immature Granulocytes % (auto) 0.2 %; Mean Corpuscular Hemoglobin 28.2 pg (25-34); Mean Corpuscular Hgb Conc 31.9 g/dL (32-36); Mean Corpuscular Volume 88.3 fL (80-100); Mean Platelet Volume 10.5 fL (7.4-10.4); Monocytes # (auto) 0.49 K/uL (0.11-0.59); Monocytes % (auto) 7.6 %; Neutrophils % (auto) 77.7 %; Platelet Count 192 K/uL (130-400); RDW Coefficient of Variation 14.4 % (11.5-14.5); Red Blood Count 5.54 M/uL (4.7-6.1); White Blood Count 6.43 K/uL (4.8-10.8)
[2019-11-12 06:15] LABS: INR 1.3 (0.9-1.1); Prothrombin Time 13.8 Seconds (9.0-12.0)
[2019-11-12 06:42] LABS: Calcium 8.8 mg/dl (8.5-10.1); Creatinine Clr Calc Pharmacy 82.5 ml/min; Est GFR (African American) 98.3; Est GFR (Non-African American) 84.9; Potassium 3.7 mmol/L (3.5-5.1)
--- NOTE | 2019-11-12 08:34 | Hospitalist Progress Note ---
Date of Service November 12, 2019 Assessment & Plan (1) Pneumatosis coli: (2) Fever: (3) Subtherapeutic anticoagulation: (4) Weakness: (5) Tachycardia: (6) Abdominal pain: ASSESSMENT AND PLAN: A 63-year-old male who presents with fever and shortness of breath since last . 1. Fever and shortness of breath. His COVID test done yesterday was negative and no exposure to COVID, but because of the pandemic we repeated the COVID test and it was negative as well. Most likely, it could be Lyme disease though his Lyme screen is negative because he has the insect bites in the lower abdomen and left groin region about only 9 days ago. The test may be not positive yet. So we jimmie l empirically treat with doxycycline and IV fluids and monitor in the medical floor. Repeat COVID is negative. 2. History of diabetes. Hold his home medication. Placed him on Lantus 7 units daily and insulin sliding scale. Follow HbA1c level. Follow his blood sugars. 3. History of obstructive sleep apnea. CPAP at bedtime. 4. History of hypertriglyceridemia. Continue his fenofibrate. 5. Polymyalgia rheumatica, on prednisone. 6. Mild intermittent asthma. Albuterol p.r.n. 7. History of pulmonary embolism, on Coumadin. INR is subtherapeutic at 1.5. Received a dose of Lovenox bridge. Will continue his Coumadin. Follow INR in a.m. 8. Depression. Continue Zoloft. 9. Hyperlipidemia. Continue statin. 10. Hypertension. Continue Toprol-XL. Holding the Lasix. Monitor the blood pressure. 11. Deep venous thrombosis prophylaxis. INR is 1.5, on Coumadin. Received dose of Lovenox. We will follow the INR. Labs Checked ROS-No Headache, No Visual Changes, No Nausea, No Vomiting, No Fever, + Chills and Rigors/Spasms, No Neck Pain or Stiffness, No Chest Pain, No Palpitations, No SOB, No SHEETS, No Cough, No Sputum, No Wheezing, No Abdominal Pain, No Diarrhea, No Hematemesis, No Hemoptysis, No Unexpected Weight Loss, No Flank pain, No Melena, No Hematochezia, No Frequency, No Urgency, No Burning, No Hematuria, No Rashes, No Diaphoresis. Appetite is Normal Physical Exam Gen-AAO x 3, Mod Distress, Afebrile, Shaking Head-NCAT, EOMI, PERRLA, Anicteric Sclera, No Posterior Pharyngeal Erythema Neck-Supple, No JVD, No Thyromegaly, No Masses, No LAD, No Bruits Lungs-Clear to Auscultation Bilaterally, No Rales, No Rhonchi, No Wheezing, No Crepitus Chest-No S4, +S1, +S2, No S3, No Murmurs, No Rubs, No Gallops, No Ectopy Abdomen-Soft, Bowel Sounds Present, Non Tender, Non Distended, No Hepatomegaly, No Splenomegaly, No Palpable Masses, No Rebound, No Rigidity, No Guarding Musculoskeletal-Full Range of Motion Bilaterally, No CVAT Extremities-No Cyanosis, No Clubbing, No Edema Nuero-Cranial Nerves II-XII grossly intact, Motor WNL, DTRs WNL, Strength WNL, Non Focal Psych-Normal Mood Admission and Anticipated Discharge Date Admission Date: November 11, 2019 Results & Data Results & Data ([facility]) Vital Signs (Past 12 Hours) Vital Signs Temp Pulse Pulse Resp BP BP Pulse Ox 11/11/19 23:45 37 C 114 H 14 156/72 H 96 11/11/19 23:15 96 H 16 113/59 L 97 11/11/19 21:33 17 97 11/11/19 21:23 17 113/59 L 97 (1) Fever Fever type: unspecified Qualified Code(s): R50.9 - Fever, unspecified (2) Abdominal pain Abdominal location: right lower quadrant Qualified Code(s): R10.31 - Right lower quadrant pain
[2019-11-12] MEDS: INSULIN GLARGINE SOLOSTAR 100 UNITS/ML 3 ML PEN SC SCH (08:58)
[2019-11-12] MEDS: TRICOR~ORDER AWAITING ACTION SCH ×2 (09:04→15:38)
[2019-11-12] MEDS: DOXYCYCLINE HYCLATE 100 MG in DEXTROSE 5% 100 ML IV SCH ×2 (09:23→19:48)
[2019-11-12] MEDS: predniSONE 2.5 MG TAB PO SCH (09:24)
[2019-11-12 09:29] LABS: D Dimer 810 ug/L FEU (0-500)
[2019-11-12] MEDS: SODIUM CHLORIDE 0.9% 1000ML 1,000 ML IV SCH ×2 (10:04→14:28)
[2019-11-12] MEDS: ENOXAPARIN 100 MG/1ML SYR SQ SCH ×2 (10:04→21:41)
--- NOTE | 2019-11-12 10:11 | CT Scan Report ---
CT OF THE CHEST WITHOUT IV CONTRAST CLINICAL HISTORY: Cough, Phlegm COMPARISON STUDY: Chest CT October 16, 2011. Chest radiograph performed November 11, 2019. CT DOSE: 1232.84 mGy.cm TECHNIQUE: Axial images of the chest were obtained without IV contrast. Images were reviewed in the axial, sagittal, and coronal planes. IV contrast was not administered for this examination. Automat ed exposure control was utilized for the study. A dose lowering technique was utilized adhering to t he principles of ALARA. FINDINGS: Incidental note is made of bilateral gynecomastia. No enlarged thoracic lymph nodes are no anupama. There is mild cardiomegaly. No pericardial effusion is noted. There is no pneumothorax or pleura l fusion. There are old bilateral rib fractures. No acute fractures are noted within the bony thorax. There is no consolidation to suggest pneumonia. Mild subpleural opacities favor atelectasis. Lungs a re suboptimally assessed given mild respiratory motion. There are no suspicious pulmonary nodules. Vi sualized portions of the upper abdomen demonstrate fatty infiltration of the liver. IMPRESSION: 1. No consolidation to suggest pneumonia. 2. Mild cardiomegaly. 3. Fatty infiltration of the liver. ACT 112: Negative or not required by law. Electronically signed by: Dawit Lam M.D. 11/12/2019 10:09 AM
--- NOTE | 2019-11-12 10:34 | Ultrasound Report ---
BILATERAL LOWER EXTREMITY VENOUS DOPPLER CLINICAL HISTORY: elevated ddimer COMPARISON STUDY: No previous studies for comparison. TECHNIQUE: Sonography of the deep venous system of the bilateral lower extremities was performed. Co mpression and augmentation were evaluated. FINDINGS: The bilateral common femoral, superficial femoral and popliteal veins were compressible. A ugmentation was normal. Flow was shown within the deep calf vessels. IMPRESSION: No evidence of deep venous thrombus within the bilateral lower extremities. ACT 112: Negative or not required by law. Electronically signed by: Dawit Lam M.D. 11/12/2019 10:33 AM
--- NOTE | 2019-11-12 12:39 | Nuclear Medicine Report ---
NM pul perfusion CLINICAL HISTORY: Tachy, SOB COMPARISON STUDY: Chest radiograph November 11, 2019. Chest CT November 12, 2019. TECHNIQUE: 6 mCi of technetium 99m MAA was injected IV at 12:15 PM on November 12, 2019. Immediately fo llowing injection, imaging of the chest was performed in multiple projections. Ventilation imaging co uld not be performed. FINDINGS: This study is suboptimal given inability to perform ventilation imaging. There is a small t o moderate focus of decreased perfusion within the left mid lung. No perfusion defects are identified within the right lung. No abnormal radiotracer attenuation is noted. IMPRESSION: Small to moderate focus of decreased perfusion within the left midlung. This study is co nsidered intermediate probability for pulmonary embolus. ACT 112: Negative or not required by law. Electronically signed by: Dawit Lam M.D. 11/12/2019 12:38 PM
[2019-11-12] MEDS: WARFARIN SOD 5 MG TAB PO SCH (21:44)
[2019-11-13] MEDS: TRICOR~ORDER AWAITING ACTION SCH ×3 (02:21→17:46)
[2019-11-13] MEDS: SODIUM CHLORIDE 0.9% 1000ML 1,000 ML IV SCH ×2 (02:43→13:29)
[2019-11-13] MEDS: KETOROLAC TROMETHAMINE 15 MG/ML VIAL IV PRN ×3 (05:47→19:44)
[2019-11-13 06:06] LABS: Hematocrit (blood only) 43.9 % (42-52); Mean Corpuscular Hemoglobin 27.8 pg (25-34); Mean Corpuscular Hgb Conc 31.9 g/dL (32-36); Mean Corpuscular Volume 87.1 fL (80-100); Mean Platelet Volume 10.4 fL (7.4-10.4); Platelet Count 148 K/uL (130-400); RDW Coefficient of Variation 14.7 % (11.5-14.5); RDW Standard Deviation 47.2 fL (36.4-46.3); Red Blood Count 5.04 M/uL (4.7-6.1); White Blood Count 4.01 K/uL (4.8-10.8)
[2019-11-13 06:15] LABS: INR 1.3 (0.9-1.1); Prothrombin Time 13.4 Seconds (9.0-12.0)
[2019-11-13 06:37] LABS: BUN Creatinine Ratio 18.2 (10-20); Calcium 8.3 mg/dl (8.5-10.1); Creatinine Clr Calc Pharmacy 93.3 ml/min; Est GFR (Non-African American) 93.2; Potassium 3.7 mmol/L (3.5-5.1)
[2019-11-13 07:50] LABS: Estimated Average Glucose 146 mg/dl; Hemoglobin A1C 6.7 % (4.5-5.6)
--- NOTE | 2019-11-13 07:59 | Hospitalist Progress Note ---
Date of Service November 13, 2019 Assessment & Plan (1) Pneumatosis coli: (2) Fever: (3) Subtherapeutic anticoagulation: (4) Weakness: (5) Tachycardia: (6) Abdominal pain: ASSESSMENT AND PLAN: A 63-year-old male who presents with fever and shortness of breath since last . 1. Fever and shortness of breath. +PE intermediate probability. Full dose Lovenox, CM for Xarelto or Eliquis. His COVID test was negative and no exposure to COVID, but because of the pandemic we repeated the COVID test and it was negative as well. Most likely, it could be Lyme disease though his Lyme screen is negative because he has the insect bites in the lower abdomen and left groin region about only 9 days ago. The test may be not positive yet. So we will empirically treat with doxycycline and IV fluids and monitor in the medical floor. Repeat COVID is negative. 2. History of diabetes. Hold his home medication. Placed him on Lantus 7 units daily and insulin sliding scale. Follow HbA1c level. Follow his blood sugars. 3. History of obstructive sleep apnea. CPAP at bedtime. 4. History of hypertriglyceridemia. Continue his fenofibrate. 5. Polymyalgia rheumatica, on prednisone. 6. Mild intermittent asthma. Albuterol p.r.n. 7. History of pulmonary embolism, on Coumadin. INR is subtherapeutic at 1.5. Received a dose of Lovenox bridge. Will continue his Coumadin. Follow INR in a.m. 8. Depression. Continue Zoloft. 9. Hyperlipidemia. Continue statin. 10. Hypertension. Continue Toprol-XL. Holding the Lasix. Monitor the blood pressure. 11. Deep venous thrombosis prophylaxis. INR is 1.5, on Coumadin. Received dose of Lovenox. We will follow the INR. Labs Checked ROS-No Headache, No Visual Changes, No Nausea, No Vomiting, No Fever, + Chills and Rigors/Spasms, No Neck Pain or Stiffness, No Chest Pain, No Palpitations, No SOB, No SHEETS, No Cough, No Sputum, No Wheezing, No Abdominal Pain, No Diarrhea, No Hematemesis, No Hemoptysis, No Unexpected Weight Loss, No Flank pain, No Melena, No Hematochezia, No Frequency, No Urgency, No Burning, No Hematuria, No Rashes, No Diaphoresis. Appetite is Normal Physical Exam Gen-AAO x 3, Mod Distress, Afebrile, Shaking Head-NCAT, EOMI, PERRLA, Anicteric Sclera, No Posterior Pharyngeal Erythema Neck-Supple, No JVD, No Thyromegaly, No Masses, No LAD, No Bruits Lungs-Clear to Auscultation Bilaterally, No Rales, No Rhonchi, No Wheezing, No Crepitus Chest-No S4, +S1, +S2, No S3, No Murmurs, No Rubs, No Gallops, No Ectopy Abdomen-Soft, Bowel Sounds Present, Non Tender, Non Distended, No Hepatomegaly, No Splenomegaly, No Palpable Masses, No Rebound, No Rigidity, No Guarding Musculoskeletal-Full Range of Motion Bilaterally, No CVAT Extremities-No Cyanosis, No Clubbing, No Edema Nuero-Cranial Nerves II-XII grossly intact, Motor WNL, DTRs WNL, Strength WNL, Non Focal Psych-Normal Mood Admission and Anticipated Discharge Date Admission Date: November 11, 2019 Results & Data Results & Data ([facility]) Vital Signs (Past 12 Hours) Vital Signs Temp Pulse Pulse Resp BP Pulse Ox 11/13/19 07:39 36.7 C 88 18 122/78 96 11/13/19 02:42 36.8 C 11/12/19 21:38 79 116/73 11/12/19 21:34 36.4 C L (1) Fever Fever type: unspecified Qualified Code(s): R50.9 - Fever, unspecified (2) Abdominal pain Abdominal location: right lower quadrant Qualified Code(s): R10.31 - Right lower quadrant pain
[2019-11-13] MEDS: DOXYCYCLINE HYCLATE 100 MG in DEXTROSE 5% 100 ML IV SCH ×2 (08:05→19:47)
[2019-11-13] MEDS: predniSONE 2.5 MG TAB PO SCH (08:11)
[2019-11-13] MEDS: METOPROLOL SUCC 25MG EXT REL TAB PO SCH ×2 (08:12→21:56)
[2019-11-13] MEDS: FAMOTIDINE 20 MG in SYRINGE 3 ML IV SCH ×2 (08:34→21:39)
[2019-11-13] MEDS: INSULIN GLARGINE SOLOSTAR 100 UNITS/ML 3 ML PEN SC SCH (08:42)
[2019-11-13] MEDS: INSULIN ASPART 100 UNITS/ML 3 ML PEN SC SCH ×4 (08:43→21:37)
[2019-11-13] MEDS: ENOXAPARIN 100 MG/1ML SYR SQ SCH ×2 (08:51→21:56)
--- NOTE | 2019-11-13 09:26 | Electrocardiogram Report ---
Test Reason : Blood Pressure : / mmHG Vent. Rate : 107 BPM Atrial Rate : 107 BPM P-R Int : 136 ms QRS Dur : 086 ms QT Int : 326 ms P-R-T Axes : 056 010 013 degrees QTc Int : 435 ms Sinus tachycardia Otherwise normal ECG When compared with ECG of 14-JUN-2019 19:07, No significant change was found Confirmed by Mark Barber ([id number]) on 11/13/2019 9:25:57 AM Referred By: REFERRED SELF Confirmed By:Mark Barber
[2019-11-13] MEDS: ACETAMINOPHEN 325 MG TAB PO PRN ×2 (10:29→18:04)
[2019-11-13] MEDS: ALBUT/IPRATROP 3MG/0.5MG NEB 3 ML VIAL NEB SCH ×2 (19:16→22:48)
[2019-11-13] MEDS: FUROSEMIDE 40 MG in SYRINGE 0 ML IV SCH (19:41)
[2019-11-13] MEDS: WARFARIN SOD 5 MG TAB PO SCH (21:39)
[2019-11-13] MEDS: SERTRALINE HCL 50 MG TABLET PO SCH (21:56)
[2019-11-13] MEDS: ROSUVASTATIN CALCIUM 5 MG TAB PO SCH (21:56)
[2019-11-14] MEDS: TRICOR~ORDER AWAITING ACTION SCH ×2 (00:11→07:09)
[2019-11-14] MEDS: KETOROLAC TROMETHAMINE 15 MG/ML VIAL IV PRN ×2 (01:52→08:12)
[2019-11-14] MEDS: ALBUT/IPRATROP 3MG/0.5MG NEB 3 ML VIAL NEB SCH ×4 (03:19→14:59)
[2019-11-14] MEDS: FUROSEMIDE 40 MG in SYRINGE 0 ML IV SCH (05:29)
[2019-11-14] MEDS: ACETAMINOPHEN 325 MG TAB PO PRN (05:36)
[2019-11-14 07:24] LABS: Basophils # (auto) 0.03 K/uL (0-0.2); Basophils % (auto) 0.5 %; Eosinophils # (auto) 0.03 K/uL (0-0.5); Eosinophils % (auto) 0.5 %; Hematocrit (blood only) 39.1 % (42-52); Hemoglobin 12.8 g/dL (14.0-18.0); Immature Granulocytes # (auto) 0.01 K/uL (0.00-0.02); Immature Granulocytes % (auto) 0.2 %; Lymphocytes # (auto) 1.52 K/uL (1.2-3.4); Mean Corpuscular Hemoglobin 27.4 pg (25-34); Mean Corpuscular Hgb Conc 32.7 g/dL (32-36); Mean Corpuscular Volume 83.7 fL (80-100); Monocytes # (auto) 0.89 K/uL (0.11-0.59); Monocytes % (auto) 13.4 %; Neutrophils # (auto) 4.14 K/uL (1.4-6.5); Neutrophils % (auto) 62.4 %; Platelet Count 171 K/uL (130-400); RDW Coefficient of Variation 14.3 % (11.5-14.5); RDW Standard Deviation 44.1 fL (36.4-46.3); Red Blood Count 4.67 M/uL (4.7-6.1); White Blood Count 6.62 K/uL (4.8-10.8)
[2019-11-14] MEDS: DOXYCYCLINE HYCLATE 100 MG in DEXTROSE 5% 100 ML IV SCH (07:31)
[2019-11-14 07:53] LABS: BUN Creatinine Ratio 14.5 (10-20); Calcium 8.2 mg/dl (8.5-10.1); Creatinine Clr Calc Pharmacy 105.9 ml/min; Est GFR (African American) 113.8; Est GFR (Non-African American) 98.2
[2019-11-14 08:03] LABS: INR 1.6 (0.9-1.1)
[2019-11-14] MEDS: METOPROLOL SUCC 25MG EXT REL TAB PO SCH (08:16)
[2019-11-14] MEDS: predniSONE 2.5 MG TAB PO SCH (08:16)
--- NOTE | 2019-11-14 08:32 | Hospitalist Progress Note ---
Date of Service November 14, 2019 Assessment & Plan (1) Pneumatosis coli: (2) Fever: (3) Subtherapeutic anticoagulation: (4) Weakness: (5) Tachycardia: (6) Abdominal pain: ASSESSMENT AND PLAN: A 63-year-old male who presents with fever and shortness of breath since last . 1. Fever and shortness of breath. +PE intermediate probability. Full dose Lovenox, Xarelto and Eliquis not covered on his plan. The patient now has hemoptysis and I have asked Pulm to see him. His COVID test was negative and no exposure to COVID, but because of the pandemic we repeated the COVID test and it was negative as well. Most likely, it could be Lyme disease though his Lyme screen is negative because he has the insect bites in the lower abdomen and left groin region about only 9 days ago. The test may be not positive yet. So we will empirically treat with doxycycline and IV fluids and monitor in the medical floor. Repeat COVID is negative. 2. History of diabetes. Hold his home medication. Placed him on Lantus 7 units daily and insulin sliding scale. Follow HbA1c level. Follow his blood sugars. 3. History of obstructive sleep apnea. CPAP at bedtime. 4. History of hypertriglyceridemia. Continue his fenofibrate. 5. Polymyalgia rheumatica, on prednisone. 6. Mild intermittent asthma. Albuterol p.r.n. 7. History of pulmonary embolism, on Coumadin. INR is subtherapeutic at 1.5. Received a dose of Lovenox bridge. Will continue his Coumadin. Follow INR in a.m. 8. Depression. Continue Zoloft. 9. Hyperlipidemia. Continue statin. 10. Hypertension. Continue Toprol-XL. Holding the Lasix. Monitor the blood pressure. 11. Deep venous thrombosis prophylaxis. INR is 1.5, on Coumadin. Received dose of Lovenox. We will follow the INR. Labs Checked ROS-No Headache, No Visual Changes, No Nausea, No Vomiting, + Fever, No Neck Pain or Stiffness, No Chest Pain, No Palpitations, + SOB, + SHEETS, + Cough, +Hemoptysis, No Wheezing, No Abdominal Pain, No Diarrhea, No Hematemesis, + Hemoptysis, No Unexpected Weight Loss, No Flank pain, No Melena, No Hematochezia, No Frequency, No Urgency, No Burning, No Hematuria, No Rashes, No Diaphoresis. Appetite is Normal Physical Exam Gen-AAO x 3, Mod Distress, Febrile Head-NCAT, EOMI, PERRLA, Anicteric Sclera, No Posterior Pharyngeal Erythema Neck-Supple, No JVD, No Thyromegaly, No Masses, No LAD, No Bruits Lungs-Clear to Auscultation Bilaterally, No Rales, No Rhonchi, No Wheezing, No Crepitus Chest-No S4, +S1, +S2, No S3, No Murmurs, No Rubs, No Gallops, No Ectopy Abdomen-Soft, Bowel Sounds Present, Non Tender, Non Distended, No Hepatomegaly, No Splenomegaly, No Palpable Masses, No Rebound, No Rigidity, No Guarding Musculoskeletal-Full Range of Motion Bilaterally, No CVAT Extremities-No Cyanosis, No Clubbing, No Edema Nuero-Cranial Nerves II-XII grossly intact, Motor WNL, DTRs WNL, Strength WNL, Non Focal Psych-Normal Mood Admission and Anticipated Discharge Date Admission Date: November 11, 2019 Results & Data Results & Data ([facility]) Vital Signs (Past 12 Hours) Vital Signs Temp Pulse Resp BP Pulse Ox 11/14/19 07:13 87 20 93 11/14/19 06:36 37.1 C 91 H 16 128/69 91 11/14/19 03:46 37.1 C 11/14/19 03:19 101 H 20 89 L 11/14/19 01:58 39.4 C H 11/13/19 23:01 37.8 C H 99 H 18 129/74 95 11/13/19 22:50 66 22 92 11/13/19 21:36 36.8 C 103 H 20 142/75 H 96 (1) Fever Fever type: unspecified Qualified Code(s): R50.9 - Fever, unspecified (2) Abdominal pain Abdominal location: right lower quadrant Qualified Code(s): R10.31 - Right lower quadrant pain
[2019-11-14] MEDS: FAMOTIDINE 20 MG in SYRINGE 3 ML IV SCH (09:10)
[2019-11-14] MEDS: INSULIN ASPART 100 UNITS/ML 3 ML PEN SC SCH ×2 (09:11→12:56)
[2019-11-14] MEDS: INSULIN GLARGINE SOLOSTAR 100 UNITS/ML 3 ML PEN SC SCH (09:12)
[2019-11-14] MEDS: ENOXAPARIN 100 MG/1ML SYR SQ SCH (09:12)
[2019-11-14] MEDS: POTASSIUM CHLORIDE / WTR 10 MEQ/100 ML PLCT IV SCH ×4 (09:31→13:44)
--- NOTE | 2019-11-14 11:08 | Pulmonary Consultation ---
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 Recommendations: 1. Dyspnea: Multiple possible etiologies including reactive airways disease (felt to be less likely in the absence of wheezing), pneumonitis (less likely given the normal CT scan), mild fluid overload, and recurrent pulmonary embolism. His Columbia score is low at 5 and the fact that he was already anticoagulated makes it less likely. With a negative duplex ultrasound of the lower extremities, risk for recurrent DVT or PE are even less likely. In addition the patient does not demonstrate tachycardia or hypoxemia. I am unclear what the significance of an isolated defect on the perfusion scan is. This may be a matched defect in which case this would be a low probability scan. At this point time I think it is reasonable to continue lifelong anticoagulation. He can continue Lovenox until he is bridged with an INR greater than or equal to 2.5 per his outpatient regiment. I will proceed with getting an echocardiogram as well as checking BNP levels. If these are unrevealing, additional work-up including arterial blood gas. 2. Hemoptysis: Scant in nature and fluid appears to be consistent with mild fluid overload. No parenchymal abnormality on CT scan. Await echocardiogram and reinstitution of diuretics. His last set of chest imaging was performed 3 days ago so we will repeat his chest x-ray now. 3. History of asthma: The patient does not appear bronchospastic currently. Do not think this is an inhaler responsive illness currently and certainly no indication for steroids. 4. History of heart failure: Follow-up with echocardiogram. Agree with institution of diuresis. 5. Sleep disordered breathing: Continue home CPAP. We will follow this patient during his inpatient stay. Feel free to contact us if we can be of additional assistance (2) Asthma: (3) Cough: (4) Hemoptysis: (5) Pulmonary embolism: History of Present Illness Attending Physician: Marcel Franz, DO History of Present Illness Asked by hospitalist to evaluate patient with shortness of breath, history of PE, hemoptysis, and asthma. History is obtained from review the electronic medical record as well as discussion with the patient and the admitting hospitalist service. Patient is a 63-year-old male who apparently has been followed by pulmonary in [place] through the [facility] system. I do not have records from that prior evaluation to review. He relates a history of recurrent DVTs about 30 years ago . There is apparently a family history of thrombophilia and the patient was advised to pursue lifelong anticoagulation. He has been anticoagulated on Coumadin. He also relates a history of heart failure but states he is not had an echocardiogram in years. There is also a history of asthma although he is not clear when he had his last set of PFTs. The patient's INR in the outpatient setting had been somewhat high so he was adjusting his Coumadin level. He typically tries to maintain an INR between 2.8 and 3. Over the last several weeks he developed increasing shortness of breath as well as fevers up to 102. This was associated with a tick bite. He was seen at the outpatient clinic and an outpatient COVID test was performed and negative. The patient was referred to the emergency room for additional evaluation. He was admitted to the hospitalist and treated empirically with doxycycline. Lyme serologies were negative. His INR was low and he was placed on therapeutic anticoagulation. He has a history of a contrast allergy so was not able to undergo CT angiogram but instead underwent a perfusion scan. He was unable to complete the ventilation portion of the scan due to dyspnea. The perfusion defect was noted. Duplex ultrasound of the lower extremities was negative. He had serologies for Lyme disease and anaplasmosis which were negative. Procalcitonin was negative. Noncontrasted CT of the chest demonstrated no significant parenchymal abnormality. He states that he cannot walk more than a couple 100 feet before becoming significantly winded. His shortness of breath has been more progressive throughout his hospitalization. His diuretics were discontinued on admission to the hospital. Over the last 24 to 48 hours the patient has coughed up some mildly pink phlegm. He is not had any ysabel mopped assist. He does not typically report swelling in his feet and states he feels it more in his abdomen. He does not feel overtly fluid overloaded currently. Allergies Allergy/AdvReac Type Severity Reaction Status Date / Time Iodinated Contrast Media Allergy Severe DIFFICULTY Verified 11/11/19 19:31 BREATHING/THROAT SWELLING blue dye Allergy Unknown swelling Verified 11/11/19 19:31 cefuroxime Allergy Unknown hives Verified 11/11/19 19:31 shellfish derived Allergy Unknown swelling Verified 11/11/19 19:31 levofloxacin AdvReac Intermediate Tendon Verified 11/11/19 19:31 contractions Home Medications Home Medications Medication Instructions Recorded Confirmed Type Jardiance 10 mg PO QAM 06/14/19 11/11/19 History Trulicity 1.5 mg SUBCUT WK 06/14/19 11/11/19 History fenofibrate micronized 134 mg PO QAM 06/14/19 11/11/19 History furosemide 20 mg PO QAM 06/14/19 11/11/19 History metformin 1,000 mg PO BID 06/14/19 11/11/19 History metoprolol succinate 12.5 mg PO BID 06/14/19 11/11/19 History omega-3 acid ethyl esters 2 g PO BID 06/14/19 11/11/19 History prednisone 2.5 mg PO QAM 06/14/19 11/11/19 History rosuvastatin 5 mg PO QPM 06/14/19 11/11/19 History sertraline 50 mg PO QPM 06/14/19 11/11/19 History warfarin 5 mg PO QPM 06/14/19 11/11/19 History Patient History Medical History (Updated 11/14/19 @ 11:14 by Josue Diaz MD) Appendicitis CHF (congestive heart failure) Diabetes DVT (deep venous thrombosis) High cholesterol History of high blood pressure Pulmonary embolism Umbilical hernia Surgical History History of cholecystectomy Social History (Updated 06/14/19 @ 18:42 by Santino Solano DO) Smoking Status: Never smoker Second Hand Exposure: Yes (When in [employer] ); Do You Dip or Chew Tobacco: No; Tobacco Cessation Education Requested by Patient: No Hx Alcohol Use: No Hx Substance Use: No Preferred Language: Upper Sorbian Communication Ability: Effective Teacher Dramatics Required: No Beliefs That Will Affect Care: None Current Living Situation: Spouse Other Information That Helps Us Care for You: No Feels Safe at Home: Yes Safety Concerns: Feels Safe At This Time Review of Systems Review of Systems: See H&P and progress notes Physical Exam Constitutional: WD/WN, vitals as above Neck: trachea midline, no thyromegaly Respiratory: normal respiratory effort, lungs clear to auscultation Cardiovascular: RRR, no murmur, no edema Gastrointestinal (Abdomen): normal bowel sounds, soft, nontender, no hepatosplenomegaly Musculoskeletal: Extremities: extremities normal to inspection Skin: no rashes, warm and dry Neurologic: Nonfocal exam Lymphatic: no cervical lymphadenopathy Results & Data Results & Data ([facility]) Vital Signs (Past 12 Hours) Vital Signs Temp Pulse Resp BP Pulse Ox 11/14/19 07:13 87 20 93 11/14/19 06:36 37.1 C 91 H 16 128/69 91 11/14/19 03:46 37.1 C 11/14/19 03:19 101 H 20 89 L 11/14/19 01:58 39.4 C H Laboratory Results 11/14/19 07:07 11/14/19 07:07 COVID test negative x2 Lyme studies negative Procalcitonin 0.34 Troponin negative D-dimer mildly elevated today 10 INR on presentation 1.3 currently [address] of the chest was reviewed. The pulmonary parenchyma is free of any significant infiltrate or increased interstitial markings. Noncontrasted study due to patient's history of severe iodinated contrast allergy. Perfusion scan of the lung was performed with a single defect within the mid lung zone. Ventilation images were not conducted. Chest x-ray from 11/11/2019 was reviewed and was essentially unremarkable with the exception of a mildly enlarged cardiac silhouette. PG Care Time/CCT Total # of Minutes Spent Total Time Spent with Patient: Total time spent is greater than 50% in coordination of care (as documented) at patient's floor/unit and/or counseling patient: Coding Level of Care Code 47855 Inpt Consult Level 4 Diagnoses Breathlessness R06.81 Asthma J45.909 Cough R05 Hemoptysis R04.2 Pulmonary embolism I26.99
--- NOTE | 2019-11-14 13:00 | XRay Report ---
XR chest 1V portable CLINICAL HISTORY: hemoptysis COMPARISON STUDY: 11/11/2019 FINDINGS: Since the prior study, the patient has developed innumerable bilateral nodular parenchymal opacities. A trace right pleural effusion is suspected. The heart is the upper limits of normal in si ze. There are old bilateral rib fractures.[ IMPRESSION: 1. Interval development of diffuse bilateral nodular airspace opacities. A trace right pleural effusi on is also suspected. Likely diagnostic considerations include a bilateral pneumonia, drug reaction, or atypical presentation of pulmonary edema. Clinical and radiographic follow-up is recommended ACT 112: Negative or not required by law. Electronically signed by: Osman Valiente M.D. 11/14/2019 12:59 PM
[2019-11-14] MEDS ORDERED: methylPREDNISolone 125 MG in SYRINGE 0 ML IV STA (14:46)
[2019-11-14] MEDS ORDERED: MoRPHine SULFATE 2 MG/ML CARP ONE ×2 (14:46→14:54)
[2019-11-14] MEDS ORDERED: FUROSEMIDE 40 MG/4 ML VIAL IV ONE ×2 (14:48→14:51)
[2019-11-14] MEDS ORDERED: HydrALAZINE HCL 20 MG/ML VIAL IV STA (14:51)
[2019-11-14] MEDS ORDERED: HydrALAZINE HCL 20 MG/ML VIAL ONE (14:52)
[2019-11-14 15:11] LABS: Base Excess ABG -2.8 mEq/L (-9-1.8); HCO3 ABG 21 mmol/L (19-24); Oxygen Saturation ABG 96.9 % (90-95); PCO2 ABG 33 mmHg (35-46); PO2 ABG 85 mmHg (80-95); pH ABG 7.42 (7.35-7.45)
[2019-11-14] MEDS ORDERED: PROPOFOL IV EMULSION 10 MG/ML 100 ML VIAL IV ONE ×2 (15:11→16:28)
[2019-11-14 15:12] LABS: Allen Test Pos (Pos)
[2019-11-14] MEDS ORDERED: RAPID SEQUENCE INDUCTION BAG ONE (15:12)
--- NOTE | 2019-11-14 15:25 | Pre Anesthesia Assessment ---
Date of Service November 14, 2019 Pre Sedation Assessment Vital Signs Temp Pulse Pulse Resp BP Pulse Ox 11/14/19 14:58 123 H 30 H 90 11/14/19 14:55 128 H 34 H 100 11/14/19 11:15 107 H 18 88 L 11/14/19 07:13 87 20 93 11/14/19 06:36 37.1 C 91 H 16 128/69 91 11/14/19 03:46 37.1 C 11/14/19 03:19 101 H 20 89 L 11/14/19 01:58 39.4 C H 11/13/19 23:01 37.8 C H 99 H 18 129/74 95 11/13/19 22:50 66 22 92 11/13/19 21:36 36.8 C 103 H 20 142/75 H 96 11/13/19 19:18 105 H 20 96 11/13/19 18:01 37.5 C 94 H 18 154/82 H 95 11/13/19 15:57 36.4 C L 76 16 128/77 97 Pre-Sedation Airway Assessment Smoking Status: Never smoker Notes The planned sedation has been discussed with the patient. Informed Consent was obtained. I have identified the patient, determined the appropriateness of sedation and have assessed the patient immediately prior to the procedure. All medicine(s) and interventions are by my order.
--- NOTE | 2019-11-14 15:25 | Cardiology Consultation ---
Date of Consultation November 14, 2019 Assessment & Plan (1) Acute respiratory distress: (2) Acute pulmonary edema: (3) Heart failure, diastolic, with acute decompensation: (4) Aortic valve endocarditis: (5) Mass of left cardiac ventricle: (6) Hx of pulmonary embolus: (7) Subtherapeutic anticoagulation: (8) Fever: Patient in acute respiratory distress secondary to pulmonary edema. Fevers with negative blood cultures and questionable aortic valve mass, possible aortic valve incompetence or abscess. Transesophageal echocardiogram was performed after consent obtained from the patient. The pros, cons and alternatives were discussed with him and he is in agreement to proceed. He was intubated by the critical care staff and transesophageal echocardiogram was performed. A 1.2 x 1 cm non-mobile lesion was found on the left coronary cusp No aortic valve abscess/dehiscence was present. No significant intra- valvular regurgitation was present either, however, the patient's blood pressure was significantly reduced due to sedation. A left ventricular mass in the apex, possibly attached to the papillary muscle was also found. Grossly normal left ventricular and right ventricular systolic function Pulmonary pressure was not able to be estimated given the lack of a TR jet. I am very concerned that he appears to have aortic valve endocarditis with negative blood cultures. The differential diagnosis of culture-negative endocarditis includes a long list of bacterial as well as viral and fungal pathogens. Patient will require evaluation by infectious disease, unfortunately, no ID attendings on staff at this facility. After consultation with critical care staff in regards to the above findings it was agreed that the patient should be transferred to a tertiary care center for higher level of care. I spoke with his , Nupur, by phone and reviewed the above findings and recommendations with her. She was in agreement with the plan to transfer to [facility] He has already received IV diuretics with brisk diuresis. He will remain intubated for transport and central line placement will be performed as well. Recommend cardiology evaluation at [facility] for ongoing treatment. Consideration may also be given to completing a transthoracic echocardiogram given the limited images that were obtained during his episode of respiratory distress. All images that I have obtained through transthoracic and transesophageal echocardiogram will be provided to [facility] for their review as well. Critical care time exclusive of transesophageal echocardiogram: 99 minutes. History of Present Illness Reason for Consultation: acute respiratory failure/endocarditis Requesting Physician: Dr. Franz Attending Physician: Marcel Franz DO History of Present Illness Mr. Cherry is a very pleasant 60-year-old gentleman who presented to [facility] emergency department on 11/11/2019 with complaints of fever. Approximately 3 days prior to presentation he developed fever along with generalized myalgias, leg pain, cough and shortness of breath. He contacted his primary care physician who performed an outpatient COVID test which came back negative. His shortness of breath and fevers worsened and he presented to the emergency department. He notes that prior to the onset of the fever he was walking 3 to 5 miles just about every day without limitation. He states his had multiple tick bites lately and that he is quite active [facility] He did have a small bull's-eye rash on his abdomen but denies any joint pain. He also traveled to [place] recently but denied any sick contacts. Initial Lyme titer was negative however he was started on doxycycline and IV fluids. He was then admitted to the medical floor. His INR was subtherapeutic despite ongoing warfarin management and he was started on Lovenox bridge. Given his initial presentation his outpatient diuretic was held and he received a total of 7 L of IV fluid while admitted, 2 L bolus in the emergency department along with approximately 5 L total at 100 mL's per hour. His fevers and myalgias persisted. On November 13 at 1529 the patient went into respiratory distress and a code purple was called. An echocardiogram was ordered and question was raised of possible aortic valve endocarditis and aortic regurgitation. At that point I arrived at the bedside and reviewed the limited echocardiographic images that were obtained. At that point the patient's respiratory distress was starting to improve after being placed on BiPAP, given morphine and Lasix. After discussion with the critical care and primary team it was agreed that the most prudent course of action at this point would be for intubation of the patient and JAMEL to be performed to rule out aortic valve abscess/dehiscence or severe intra-valvular regurgitation. I personally d iscussed this plan with the patient who states that he was in agreement. He was also counseled that urgent transfer to [place] for cardiothoracic surgical intervention might be necessary. Again he states that he agrees with this plan. Past medical history: 1. Chronic compensated diastolic heart failure. 2. Dyslipidemia with goal LDL less than 100mg/dL and uncontrolled hypertriglyceridemia - statin induced myalgia with atorvastatin and pravastatin; currently tolerating fenofibrate + lovasa 3. HTN - controlled 4. History of recurrent pulmonary embolus on chronic coumadin therapy. 5. DM-2 - elevated HbA1C 8.4% 6. Asymptomatic NSVT in setting of normal systolic function and non-obstructive CAD - low risk for SCD. 7. Mild non-obstructive CAD by left heart catheterization 05/2009 8. Obesity - weight loss of 52 pounds as reported by the patient. Allergies Allergy/AdvReac Type Severity Reaction Status Date / Time Iodinated Contrast Media Allergy Severe DIFFICULTY Verified 11/11/19 19:31 BREATHING/THROAT SWELLING blue dye Allergy Unknown swelling Verified 11/11/19 19:31 cefuroxime Allergy Unknown hives Verified 11/11/19 19:31 shellfish derived Allergy Unknown swelling Verified 11/11/19 19:31 levofloxacin AdvReac Intermediate Tendon Verified 11/11/19 19:31 contractions Home Medications Home Medications Medication Instructions Recorded Confirmed Type Jardiance 10 mg PO QAM 06/14/19 11/11/19 History Trulicity 1.5 mg SUBCUT WK 06/14/19 11/11/19 History fenofibrate micronized 134 mg PO QAM 06/14/19 11/11/19 History furosemide 20 mg PO QAM 06/14/19 11/11/19 History metformin 1,000 mg PO BID 06/14/19 11/11/19 History metoprolol succinate 12.5 mg PO BID 06/14/19 11/11/19 History omega-3 acid ethyl esters 2 g PO BID 06/14/19 11/11/19 History prednisone 2.5 mg PO QAM 06/14/19 11/11/19 History rosuvastatin 5 mg PO QPM 06/14/19 11/11/19 History sertraline 50 mg PO QPM 06/14/19 11/11/19 History warfarin 5 mg PO QPM 06/14/19 11/11/19 History enoxaparin 90 mg SUBCUT Q12H #10 ml 11/14/19 Rx ipratropium-albuterol 3 ml NEB Q4R #3 ml 11/14/19 Rx Patient History Medical History Appendicitis CHF (congestive heart failure) Diabetes DVT (deep venous thrombosis) High cholesterol History of high blood pressure Pulmonary embolism Umbilical hernia Surgical History History of cholecystectomy Social History Smoking Status: Never smoker Second Hand Exposure: Yes (When in [employer] ); Do You Dip or Chew Tobacco: No; Tobacco Cessation Education Requested by Patient: No Hx Alcohol Use: No Hx Substance Use: No Preferred Language: Hebrew Communication Ability: Effective Seedling Puller Required: No Beliefs That Will Affect Care: None Current Living Situation: Spouse Other Information That Helps Us Care for You: No Feels Safe at Home: Yes Safety Concerns: Feels Safe At This Time Review of Systems Review of Systems: All systems reviewed & are unremarkable except as noted in HPI & below Physical Exam Physical Exam: General: Awake, alert and oriented x 3. Moderate respiratory distress improving with BiPAP. HEENT: Normocephalic, atraumatic. Pupils equal, round and reactive to light and accommodation. Extraocular muscles are intact. Anicteric sclera. Moist mucous membranes. Neck: No JVD. No bruit. Cardiovascular: Regular but fast. Distant heart sounds unable appreciate murmurs rubs or gallops. Pulmonary: Tachypneic with significant work of breathing. Scattered rhonchi and wheezing. No rales Abdomen: Bowel sounds x 4, soft. No rebound, guarding or tenderness. No organomegaly. Extremities: No clubbing, cyanosis or edema. +2 pedal pulses bilaterally. Skin: Warm and dry. No Jan[place]ay lesions, Cornell spots, splinter hemorrhages, or Osler's nodes Results & Data ([facility]) Vital Signs (Past 12 Hours) Vital Signs Temp Pulse Pulse Resp BP Pulse Ox 11/14/19 14:58 123 H 30 H 90 11/14/19 14:55 128 H 34 H 100 11/14/19 11:15 107 H 18 88 L 11/14/19 07:13 87 20 93 11/14/19 06:36 37.1 C 91 H 16 128/69 91 11/14/19 03:46 37.1 C Laboratory Results Laboratory Results - last 72 hr 11/11/19 11/11/19 11/11/19 17:10 17:15 17:15 WBC RBC Hgb Hct MCV MCH MCHC RDW Std Deviation RDW Coeff of Kathryn Plt Count MPV Immature Gran % (Auto) Neut % (Auto) Lymph % (Auto) [place] % (Auto) Eos % (Auto) Baso % (Auto) Neut # (Auto) Lymph # (Auto) [place] # (Auto) Eos # (Auto) Baso # (Auto) Immature Gran # (Auto) PT INR APTT PTT Ratio D-Dimer ABG pH ABG pCO2 ABG pO2 ABG HCO3 ABG O2 Saturation ABG Base Excess Eliel Test Barometric Pressure Oxygen Given Sodium 138 Potassium 3.7 Chloride 105 Carbon Dioxide 24 Anion Gap 9.0 BUN 15 Creatinine 1.03 Est Cr Clr Drug Dosing 75.4 Est GFR ( Amer) 89.2 Est GFR (Non-Af Amer) 76.9 BUN/Creatinine Ratio 14.9 Glucose 157 H POC Glucose Estimat Average Glucose Hemoglobin A1c Lactate Calcium 9.7 Magnesium 2.0 Total Bilirubin 0.8 AST 48 H ALT 80 H Alkaline Phosphatase 81 Troponin I < 0.015 NT-Pro-B Natriuret Pep Total Protein 7.9 Albumin 3.7 Globulin 4.2 H Albumin/Globulin Ratio 0.9 Procalcitonin 0.34 TSH 1.240 Urine Color Yellow Urine Appearance Clear Urine pH 7.0 Ur Specific [place] 1.036 H Urine Protein Negative Urine Glucose (UA) 3+ H Urine Ketones Negative Urine Blood Trace H Urine Nitrite Negative Urine Bilirubin Negative Urine Urobilinogen Negative Ur Leukocyte Esterase Negative Urine WBC (Auto) 0 Urine RBC (Auto) 0-4 U Hyaline Cast (Auto) 0 U Epithel Cells (Auto) 0-5 Urine Bacteria (Auto) Negative Anaplasma Smear Lyme Disease IgG Ab Negative Lyme Disease IgM Ab Negative COVID-19 PCR 11/11/19 11/11/19 11/11/19 17:15 17:15 17:15 WBC 6.14 RBC 5.61 Hgb 15.8 Hct 47.4 MCV 84.5 MCH 28.2 MCHC 33.3 RDW Std Deviation 43.7 RDW Coeff of Kathryn 14.1 Plt Count 187 MPV 10.2 Immature Gran % (Auto) 0.2 Neut % (Auto) 77.0 Lymph % (Auto) 9.8 [place] % (Auto) 12.5 Eos % (Auto) 0.3 Baso % (Auto) 0.2 Neut # (Auto) 4.73 Lymph # (Auto) 0.60 L [place] # (Auto) 0.77 H Eos # (Auto) 0.02 Baso # (Auto) 0.01 Immature Gran # (Auto) 0.01 PT 15.9 H INR 1.5 H APTT 37.7 H PTT Ratio 1.4 D-Dimer ABG pH ABG pCO2 ABG pO2 ABG HCO3 ABG O2 Saturation ABG Base Excess Eliel Test Barometric Pressure Oxygen Given Sodium Potassium Chloride Carbon Dioxide Anion Gap BUN Creatinine Est Cr Clr Drug Dosing Est GFR ( Amer) Est GFR (Non-Af Amer) BUN/Creatinine Ratio Glucose POC Glucose Estimat Average Glucose Hemoglobin A1c Lactate Calcium Magnesium Total Bilirubin AST ALT Alkaline Phosphatase Troponin I NT-Pro-B Natriuret Pep Total Protein Albumin Globulin Albumin/Globulin Ratio Procalcitonin TSH Urine Color Urine Appearance Urine pH Ur Specific [place] Urine Protein Urine Glucose (UA) Urine Ketones Urine Blood Urine Nitrite Urine Bilirubin Urine Urobilinogen Ur Leukocyte Esterase Urine WBC (Auto) Urine RBC (Auto) U Hyaline Cast (Auto) U Epithel Cells (Auto) Urine Bacteria (Auto) Anaplasma Smear See Comment Lyme Disease IgG Ab Lyme Disease IgM Ab COVID-19 PCR 11/11/19 11/11/19 11/12/19 17:44 21:28 00:36 WBC RBC Hgb Hct MCV MCH MCHC RDW Std Deviation RDW Coeff of Kathryn Plt Count MPV Immature Gran % (Auto) Neut % (Auto) Lymph % (Auto) [place] % (Auto) Eos % (Auto) Baso % (Auto) Neut # (Auto) Lymph # (Auto) [place] # (Auto) Eos # (Auto) Baso # (Auto) Immature Gran # (Auto) PT INR APTT PTT Ratio D-Dimer ABG pH ABG pCO2 ABG pO2 ABG HCO3 ABG O2 Saturation ABG Base Excess Eliel Test Barometric Pressure Oxygen Given Sodium Potassium Chloride Carbon Dioxide Anion Gap BUN Creatinine Est Cr Clr Drug Dosing Est GFR ( Amer) Est GFR (Non-Af Amer) BUN/Creatinine Ratio Glucose POC Glucose 137 H Estimat Average Glucose Hemoglobin A1c Lactate 1.3 Calcium Magnesium Total Bilirubin AST ALT Alkaline Phosphatase Troponin I NT-Pro-B Natriuret Pep Total Protein Albumin Globulin Albumin/Globulin Ratio Procalcitonin TSH Urine Color Urine Appearance Urine pH Ur Specific [place] Urine Protein Urine Glucose (UA) Urine Ketones Urine Blood Urine Nitrite Urine Bilirubin Urine Urobilinogen Ur Leukocyte Esterase Urine WBC (Auto) Urine RBC (Auto) U Hyaline Cast (Auto) U Epithel Cells (Auto) Urine Bacteria (Auto) Anaplasma Smear Lyme Disease IgG Ab Lyme Disease IgM Ab COVID-19 PCR NEGATIVE 11/12/19 11/12/19 11/12/19 05:19 05:19 05:19 WBC 6.43 RBC 5.54 Hgb 15.6 Hct 48.9 MCV 88.3 MCH 28.2 MCHC 31.9 L RDW Std Deviation 47.0 H RDW Coeff of Kathryn 14.4 Plt Count 192 MPV 10.5 H Immature Gran % (Auto) 0.2 Neut % (Auto) 77.7 Lymph % (Auto) 14.0 [place] % (Auto) 7.6 Eos % (Auto) 0.2 Baso % (Auto) 0.3 Neut # (Auto) 5.00 Lymph # (Auto) 0.90 L [place] # (Auto) 0.49 Eos # (Auto) 0.01 Baso # (Auto) 0.02 Immature Gran # (Auto) 0.01 PT 13.8 H INR 1.3 H APTT PTT Ratio D-Dimer ABG pH ABG pCO2 ABG pO2 ABG HCO3 ABG O2 Saturation ABG Base Excess Eliel Test Barometric Pressure Oxygen Given Sodium 136 Potassium 3.7 Chloride 106 Carbon Dioxide 22 Anion Gap 8.0 BUN 16 Creatinine 0.95 Est Cr Clr Drug Dosing 82.5 Est GFR ( Amer) 98.3 Est GFR (Non-Af Amer) 84.9 BUN/Creatinine Ratio 17.0 Glucose 119 H POC Glucose Estimat Average Glucose Hemoglobin A1c Lactate Calcium 8.8 Magnesium 2.0 Total Bilirubin AST ALT Alkaline Phosphatase Troponin I NT-Pro-B Natriuret Pep Total Protein Albumin Globulin Albumin/Globulin Ratio Procalcitonin TSH Urine Color Urine Appearance Urine pH Ur Specific [place] Urine Protein Urine Glucose (UA) Urine Ketones Urine Blood Urine Nitrite Urine Bilirubin Urine Urobilinogen Ur Leukocyte Esterase Urine WBC (Auto) Urine RBC (Auto) U Hyaline Cast (Auto) U Epithel Cells (Auto) Urine Bacteria (Auto) Anaplasma Smear Lyme Disease IgG Ab Lyme Disease IgM Ab COVID-19 PCR 11/12/19 11/12/19 11/12/19 05:19 05:19 08:28 WBC RBC Hgb Hct MCV MCH MCHC RDW Std Deviation RDW Coeff of Kathryn Plt Count MPV Immature Gran % (Auto) Neut % (Auto) Lymph % (Auto) [place] % (Auto) Eos % (Auto) Baso % (Auto) Neut # (Auto) Lymph # (Auto) [place] # (Auto) Eos # (Auto) Baso # (Auto) Immature Gran # (Auto) PT INR APTT PTT Ratio D-Dimer 810 H* ABG pH ABG pCO2 ABG pO2 ABG HCO3 ABG O2 Saturation ABG Base Excess Eliel Test Barometric Pressure Oxygen Given Sodium Potassium Chloride Carbon Dioxide Anion Gap BUN Creatinine Est Cr Clr Drug Dosing Est GFR ( Amer) Est GFR (Non-Af Amer) BUN/Creatinine Ratio Glucose POC Glucose 119 H Estimat Average Glucose 146 Hemoglobin A1c 6.7 H Lactate Calcium Magnesium Total Bilirubin AST ALT Alkaline Phosphatase Troponin I NT-Pro-B Natriuret Pep Total Protein Albumin Globulin Albumin/Globulin Ratio Procalcitonin TSH Urine Color Urine Appearance Urine pH Ur Specific [place] Urine Protein Urine Glucose (UA) Urine Ketones Urine Blood Urine Nitrite Urine Bilirubin Urine Urobilinogen Ur Leukocyte Esterase Urine WBC (Auto) Urine RBC (Auto) U Hyaline Cast (Auto) U Epithel Cells (Auto) Urine Bacteria (Auto) Anaplasma Smear Lyme Disease IgG Ab Lyme Disease IgM Ab COVID-19 PCR 11/12/19 11/12/19 11/12/19 12:57 17:09 20:29 WBC RBC Hgb Hct MCV MCH MCHC RDW Std Deviation RDW Coeff of Kathryn Plt Count MPV Immature Gran % (Auto) Neut % (Auto) Lymph % (Auto) [place] % (Auto) Eos % (Auto) Baso % (Auto) Neut # (Auto) Lymph # (Auto) [place] # (Auto) Eos # (Auto) Baso # (Auto) Immature Gran # (Auto) PT INR APTT PTT Ratio D-Dimer ABG pH ABG pCO2 ABG pO2 ABG HCO3 ABG O2 Saturation ABG Base Excess Eliel Test Barometric Pressure Oxygen Given Sodium Potassium Chloride Carbon Dioxide Anion Gap BUN Creatinine Est Cr Clr Drug Dosing Est GFR ( Amer) Est GFR (Non-Af Amer) BUN/Creatinine Ratio Glucose POC Glucose 148 H 111 H 158 H Estimat Average Glucose Hemoglobin A1c Lactate Calcium Magnesium Total Bilirubin AST ALT Alkaline Phosphatase Troponin I NT-Pro-B Natriuret Pep Total Protein Albumin Globulin Albumin/Globulin Ratio Procalcitonin TSH Urine Color Urine Appearance Urine pH Ur Specific [place] Urine Protein Urine Glucose (UA) Urine Ketones Urine Blood Urine Nitrite Urine Bilirubin Urine Urobilinogen Ur Leukocyte Esterase Urine WBC (Auto) Urine RBC (Auto) U Hyaline Cast (Auto) U Epithel Cells (Auto) Urine Bacteria (Auto) Anaplasma Smear Lyme Disease IgG Ab Lyme Disease IgM Ab COVID-19 PCR 11/13/19 11/13/19 11/13/19 05:35 05:35 05:35 WBC 4.01 L RBC 5.04 Hgb 14.0 Hct 43.9 MCV 87.1 MCH 27.8 MCHC 31.9 L RDW Std Deviation 47.2 H RDW Coeff of Kathryn 14.7 H Plt Count 148 MPV 10.4 Immature Gran % (Auto) Neut % (Auto) Lymph % (Auto) [place] % (Auto) Eos % (Auto) Baso % (Auto) Neut # (Auto) Lymph # (Auto) [place] # (Auto) Eos # (Auto) Baso # (Auto) Immature Gran # (Auto) PT 13.4 H INR 1.3 H APTT PTT Ratio D-Dimer ABG pH ABG pCO2 ABG pO2 ABG HCO3 ABG O2 Saturation ABG Base Excess Eliel Test Barometric Pressure Oxygen Given Sodium 139 Potassium 3.7 Chloride 109 H Carbon Dioxide 26 Anion Gap 4.0 BUN 15 Creatinine 0.84 Est Cr Clr Drug Dosing 93.3 Est GFR ( Amer) 108.0 Est GFR (Non-Af Amer) 93.2 BUN/Creatinine Ratio 18.2 Glucose 126 H POC Glucose Estimat Average Glucose Hemoglobin A1c Lactate Calcium 8.3 L Magnesium Total Bilirubin AST ALT Alkaline Phosphatase Troponin I NT-Pro-B Natriuret Pep Total Protein Albumin Globulin Albumin/Globulin Ratio Procalcitonin TSH Urine Color Urine Appearance Urine pH Ur Specific [place] Urine Protein Urine Glucose (UA) Urine Ketones Urine Blood Urine Nitrite Urine Bilirubin Urine Urobilinogen Ur Leukocyte Esterase Urine WBC (Auto) Urine RBC (Auto) U Hyaline Cast (Auto) U Epithel Cells (Auto) Urine Bacteria (Auto) Anaplasma Smear Lyme Disease IgG Ab Lyme Disease IgM Ab COVID-19 PCR 11/13/19 11/13/19 11/13/19 09:23 11:32 17:21 WBC RBC Hgb Hct MCV MCH MCHC RDW Std Deviation RDW Coeff of Kathryn Plt Count MPV Immature Gran % (Auto) Neut % (Auto) Lymph % (Auto) [place] % (Auto) Eos % (Auto) Baso % (Auto) Neut # (Auto) Lymph # (Auto) [place] # (Auto) Eos # (Auto) Baso # (Auto) Immature Gran # (Auto) PT INR APTT PTT Ratio D-Dimer ABG pH ABG pCO2 ABG pO2 ABG HCO3 ABG O2 Saturation ABG Base Excess Eliel Test Barometric Pressure Oxygen Given Sodium Potassium Chloride Carbon Dioxide Anion Gap BUN Creatinine Est Cr Clr Drug Dosing Est GFR ( Amer) Est GFR (Non-Af Amer) BUN/Creatinine Ratio Glucose POC Glucose 188 H 160 H 121 H Estimat Average Glucose Hemoglobin A1c Lactate Calcium Magnesium Total Bilirubin AST ALT Alkaline Phosphatase Troponin I NT-Pro-B Natriuret Pep Total Protein Albumin Globulin Albumin/Globulin Ratio Procalcitonin TSH Urine Color Urine Appearance Urine pH Ur Specific [place] Urine Protein Urine Glucose (UA) Urine Ketones Urine Blood Urine Nitrite Urine Bilirubin Urine Urobilinogen Ur Leukocyte Esterase Urine WBC (Auto) Urine RBC (Auto) U Hyaline Cast (Auto) U Epithel Cells (Auto) Urine Bacteria (Auto) Anaplasma Smear Lyme Disease IgG Ab Lyme Disease IgM Ab COVID-19 PCR 11/13/19 11/14/19 11/14/19 20:28 07:07 07:07 WBC 6.62 RBC 4.67 L Hgb 12.8 L Hct 39.1 L MCV 83.7 MCH 27.4 MCHC 32.7 RDW Std Deviation 44.1 RDW Coeff of Kathryn 14.3 Plt Count 171 MPV 10.0 Immature Gran % (Auto) 0.2 Neut % (Auto) 62.4 Lymph % (Auto) 23.0 [place] % (Auto) 13.4 Eos % (Auto) 0.5 Baso % (Auto) 0.5 Neut # (Auto) 4.14 Lymph # (Auto) 1.52 [place] # (Auto) 0.89 H Eos # (Auto) 0.03 Baso # (Auto) 0.03 Immature Gran # (Auto) 0.01 PT 16.0 H INR 1.6 H APTT PTT Ratio D-Dimer ABG pH ABG pCO2 ABG pO2 ABG HCO3 ABG O2 Saturation ABG Base Excess Eliel Test Barometric Pressure Oxygen Given Sodium Potassium Chloride Carbon Dioxide Anion Gap BUN Creatinine Est Cr Clr Drug Dosing Est GFR ( Amer) Est GFR (Non-Af Amer) BUN/Creatinine Ratio Glucose POC Glucose 169 H Estimat Average Glucose Hemoglobin A1c Lactate Calcium Magnesium Total Bilirubin AST ALT Alkaline Phosphatase Troponin I NT-Pro-B Natriuret Pep Total Protein Albumin Globulin Albumin/Globulin Ratio Procalcitonin TSH Urine Color Urine Appearance Urine pH Ur Specific [place] Urine Protein Urine Glucose (UA) Urine Ketones Urine Blood Urine Nitrite Urine Bilirubin Urine Urobilinogen Ur Leukocyte Esterase Urine WBC (Auto) Urine RBC (Auto) U Hyaline Cast (Auto) U Epithel Cells (Auto) Urine Bacteria (Auto) Anaplasma Smear Lyme Disease IgG Ab Lyme Disease IgM Ab COVID-19 PCR 11/14/19 11/14/19 11/14/19 07:07 07:07 08:23 WBC RBC Hgb Hct MCV MCH MCHC RDW Std Deviation RDW Coeff of Kathryn Plt Count MPV Immature Gran % (Auto) Neut % (Auto) Lymph % (Auto) [place] % (Auto) Eos % (Auto) Baso % (Auto) Neut # (Auto) Lymph # (Auto) [place] # (Auto) Eos # (Auto) Baso # (Auto) Immature Gran # (Auto) PT INR APTT PTT Ratio D-Dimer ABG pH ABG pCO2 ABG pO2 ABG HCO3 ABG O2 Saturation ABG Base Excess Eliel Test Barometric Pressure Oxygen Given Sodium 138 Potassium 3.0 L D Chloride 108 H Carbon Dioxide 24 Anion Gap 7.0 BUN 11 Creatinine 0.74 Est Cr Clr Drug Dosing 105.9 Est GFR ( Amer) 113.8 Est GFR (Non-Af Amer) 98.2 BUN/Creatinine Ratio 14.5 Glucose 148 H POC Glucose 150 H Estimat Average Glucose Hemoglobin A1c Lactate Calcium 8.2 L Magnesium Total Bilirubin AST ALT Alkaline Phosphatase Troponin I NT-Pro-B Natriuret Pep 1499 H Total Protein Albumin Globulin Albumin/Globulin Ratio Procalcitonin TSH Urine Color Urine Appearance Urine pH Ur Specific [place] Urine Protein Urine Glucose (UA) Urine Ketones Urine Blood Urine Nitrite Urine Bilirubin Urine Urobilinogen Ur Leukocyte Esterase Urine WBC (Auto) Urine RBC (Auto) U Hyaline Cast (Auto) U Epithel Cells (Auto) Urine Bacteria (Auto) Anaplasma Smear Lyme Disease IgG Ab Lyme Disease IgM Ab COVID-19 PCR 11/14/19 11/14/19 11/14/19 12:00 14:57 14:57 WBC RBC Hgb Hct MCV MCH MCHC RDW Std Deviation RDW Coeff of Kathryn Plt Count MPV Immature Gran % (Auto) Neut % (Auto) Lymph % (Auto) [place] % (Auto) Eos % (Auto) Baso % (Auto) Neut # (Auto) Lymph # (Auto) [place] # (Auto) Eos # (Auto) Baso # (Auto) Immature Gran # (Auto) PT INR APTT PTT Ratio D-Dimer ABG pH 7.42 ABG pCO2 33 L ABG pO2 85 ABG HCO3 21 ABG O2 Saturation 96.9 H ABG Base Excess -2.8 Eliel Test Pos Barometric Pressure 729.5 Oxygen Given 15L Sodium Potassium Chloride Carbon Dioxide Anion Gap BUN Creatinine Est Cr Clr Drug Dosing Est GFR ( Amer) Est GFR (Non-Af Amer) BUN/Creatinine Ratio Glucose POC Glucose 182 H Estimat Average Glucose Hemoglobin A1c Lactate Calcium Magnesium Total Bilirubin AST ALT Alkaline Phosphatase Troponin I 0.033 NT-Pro-B Natriuret Pep Total Protein Albumin Globulin Albumin/Globulin Ratio Procalcitonin TSH Urine Color Urine Appearance Urine pH Ur Specific [place] Urine Protein Urine Glucose (UA) Urine Ketones Urine Blood Urine Nitrite Urine Bilirubin Urine Urobilinogen Ur Leukocyte Esterase Urine WBC (Auto) Urine RBC (Auto) U Hyaline Cast (Auto) U Epithel Cells (Auto) Urine Bacteria (Auto) Anaplasma Smear Lyme Disease IgG Ab Lyme Disease IgM Ab COVID-19 PCR Medications Administered Current Inpatient Medications Acetaminophen (Acetaminophen 325 Mg Tab) 650 mg PO Q4H PRN PRN Reason: pain/fever Stop: 12/11/19 23:33 Last Admin: 11/14/19 05:36 Dose: 650 mg Documented by: Albuterol (Albuterol Hfa 8 Gm Inhaler) 2 puffs INH Q4H PRN PRN Reason: Shortness Of Breath Or Wheezing Stop: 12/11/19 23:33 Albuterol (Albut/Ipratrop 3mg/0.5mg Neb 3 Ml Vial) 3 ml NEB Q4R JULIANNE Stop: 12/13/19 18:59 Last Admin: 11/14/19 14:59 Dose: 3 ml Documented by: Dextrose (Dextrose 50% 50 Ml Syringe) 25 - 50 ml IV UD PRN; Protocol PRN Reason: Hypoglycemia Protocol Stop: 12/12/19 00:29 Enoxaparin Sodium (Enoxaparin 100 Mg/1ml Syr) 90 mg SQ Q12H JULIANNE Stop: 12/12/19 09:44 Last Admin: 11/14/19 09:12 Dose: 90 mg Documented by: Glucagon (Glucagon For Inj 1 Mg Vial) 1 mg SQ UD PRN; Protocol PRN Reason: Hypoglycemia Protocol Stop: 12/12/19 00:29 Glucose (Glucose 40% Gel 15 Gm Tube) 15 - 30 gm PO UD PRN; Protocol PRN Reason: Hypoglycemia Protocol Stop: 12/12/19 00:29 Glucose (Glucose 10 Tabs/Tube) 4 - 8 tabs PO UD PRN; Protocol PRN Reason: Hypoglycemia Protocol Stop: 12/12/19 00:29 Doxycycline Hyclate 100 mg/ (Dextrose) 110 mls @ 50 mls/hr IV Q12H [facility] Stop: 11/22/19 07:59 Last Infusion: 11/14/19 10:05 Dose: Infused Documented by: Famotidine 20 mg/ Syringe 5 mls @ 2.5 mls/min IV BID [facility] Stop: 12/12/19 01:24 Last Admin: 11/14/19 09:10 Dose: 2.5 mls/min Documented by: Furosemide 40 mg/ Syringe 4 mls @ 4 mls/min IV Q12H [facility] Stop: 12/13/19 18:29 Last Admin: 11/14/19 05:29 Dose: 4 mls/min Documented by: Piperacillin Sod/Tazobactam (Sod 3.375 gm/ Dextrose) 115 mls @ 28.75 mls/hr IV Q8H [facility]; Protocol Stop: 12/26/19 21:59 Piperacillin Sod/Tazobactam (Sod 3.375 gm/ Dextrose) 115 mls @ 230 mls/hr IV NOW ONE; Protocol Stop: 11/14/19 17:14 Propofol (Diprivan) 1,000 mg in 100 mls @ 10.908 mls/hr IV .Q9H11M JULIANNE; Protocol Stop: 11/17/19 16:59 Midazolam HCl (Versed) 125 mg in 250 mls @ 2 mls/hr IV .Q96H PRN; Protocol PRN Reason: Agitation Stop: 12/14/19 16:48 Insulin Aspart (Insulin Aspart 100 Units/Ml 3 Ml Pen) 0 units SC ACHS JULIANNE Stop: 12/11/19 23:33 Last Admin: 11/14/19 12:56 Dose: 6 units Documented by: Insulin Glargine (Insulin Glargine Solostar 100 Units/Ml 3 Ml Pen) 7 units SC DAILY JULIANNE Stop: 12/12/19 08:59 Last Admin: 11/14/19 09:12 Dose: 7 units Documented by: Metoprolol Succinate (Metoprolol Succ 25mg Ext Rel Tab) 12.5 mg PO BID JULIANNE Stop: 12/11/19 23:33 Last Admin: 11/14/19 08:16 Dose: 12.5 mg Documented by: Midazolam HCl (Midazolam Bolus From Bag) 2 mg IV Q60M PRN PRN Reason: Sedation Stop: 12/14/19 16:48 Miscellaneous (Carbohydrates For Hypoglycemia ) 15 - 30 gm PO UD PRN PRN Reason: Hypoglycemia Treatment Stop: 12/12/19 00:29 Miscellaneous (Stat Iv Infusion Titration Per Protocol) 1 ea N/A NOW STA Stop: 11/14/19 16:50 Miscellaneous Information (Piperacill/Tazobac Consult Active) 1 ea N/A UD PRN PRN Reason: Consult Stop: 12/14/19 16:08 Ondansetron HCl (Ondansetron Inj 2 Mg/Ml 2 Ml Vial) 4 mg IV Q6H PRN PRN Reason: Nausea Stop: 12/11/19 23:33 Last Admin: 11/12/19 15:41 Dose: 4 mg Documented by: Polyethylene Glycol (Polyethylene (Miralax) 17 Gm Pack) 17 gm PO DAILY PRN PRN Reason: Constipation Stop: 12/11/19 23:33 Propofol (Propofol Bolus From Bag) 20 mg IV Q5M PRN PRN Reason: Sedation Stop: 11/17/19 16:48 Rosuvastatin Calcium (Rosuvastatin Calcium 5 Mg Tab) 5 mg PO QPM JULIANNE Stop: 12/11/19 23:33 Last Admin: 11/13/19 21:56 Dose: 5 mg Documented by: Sertraline HCl (Sertraline Hcl 50 Mg Tablet) 50 mg PO QPM JULIANNE Stop: 12/11/19 23:33 Last Admin: 11/13/19 21:56 Dose: 50 mg Documented by: Warfarin Sodium (Warfarin Sod 5 Mg Tab) 5 mg PO QPM JULIANNE Stop: 12/11/19 20:59 Last Admin: 11/13/19 21:39 Dose: 5 mg Documented by: (1) Fever Fever type: unspecified Qualified Code(s): R50.9 - Fever, unspecified
[2019-11-14] MEDS ORDERED: MIDAZOLAM HCL 1 MG/ML 2ML VIAL ONE (15:34)
[2019-11-14] MEDS ORDERED: fentaNYL citrate 100 MCG/2 ML VIAL ONE (15:34)
[2019-11-14] MEDS ORDERED: MoRPHine SULFATE 2 MG/ML CARP IV STA (15:39)
[2019-11-14] MEDS ORDERED: fentaNYL citrate 100 MCG/2 ML VIAL IV STA (15:40)
[2019-11-14] MEDS ORDERED: MIDAZOLAM HCL 5 MG/ML 1 ML VIAL IV STA (15:44)
[2019-11-14] MEDS ORDERED: LABETALOL HCL IV 5 MG/ML 20ML IV ONE (15:59)
[2019-11-14] MEDS ORDERED: PIPERACILL/TAZOBAC CONSULT ACTIVE PRN (16:09)
[2019-11-14] MEDS ORDERED: MIDAZOLAM HCL 125MG/250ML D5W ONE (16:32)
--- NOTE | 2019-11-14 16:43 | Discharge Summary ---
Date of Service November 14, 2019 Admission HPI Per Admitting Provider 63-year-old male with past medical history significant for diabetes, hyperhomocysteinemia, hypertriglyceridemia, dyslipidemia, obstructive sleep apnea, mild intermittent asthma, hypertension, obesity, nonalcoholic fatty liver disease, polymyalgia rheumatica, cervical spondylosis, history of pulmonary embolism on Coumadin, adjustment disorder with depression, family history of malignant neoplasm of prostate, history of C. diff infection, history of male gynecomastia, history of pneumonia in the past, who presents with fever since last . The patient says he had fever about 102 degrees on and off and feeling short of breath. Has occasional cough with whitish phlegm and generalized weakness and body aches and loss of appetite. No runny nose, no sore throat. Could not tell whether loss of sense of smell or taste. Has headaches. No blurred visions, no earache, no chest pain, no nausea, no vomiting, no abdominal pain, but has diarrhea since last . No blood in the stool or black stools. Normal bladder movements. No swelling in the legs. He has some bite wounds of the insects in his lower abdomen and left groin region. He says he saw them the week before , about 9 days ago. He [place] and they have ticks in their backyard. COVID test was done yesterday in [facility] and it was negative. Admission Exam Per Admitting Provider GENERAL: The patient is of moderate build, not in acute distress. VITAL SIGNS: Temperature 38.1, pulse 106, respiratory rate 20, blood pressure 152/75, oxygen 98% on room air. HEENT: No pallor, no icterus. Pupils equal. NECK: No JVD, no masses. CARDIOVASCULAR: S1, S2 heard. Regular rate and rhythm, no murmur, no gallop. RESPIRATORY SYSTEM: Normal AP diameter. No accessory muscle use. No wheezing, no crackles. ABDOMEN: Soft, bowel sounds present, nontender. No distention. CENTRAL NERVOUS SYSTEM: Cranial nerves II-XII grossly intact, nonfocal. EXTREMITIES: No edema, no erythema. 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 Pulm Edema Vent Dependent Resp Failure DM II HTN Obese Asthma Discharge Exam See below Discharge Data Allergies Allergy/AdvReac Type Severity Reaction Status Date / Time Iodinated Contrast Media Allergy Severe DIFFICULTY Verified 11/11/19 19:31 BREATHING/THROAT SWELLING blue dye Allergy Unknown swelling Verified 11/11/19 19:31 cefuroxime Allergy Unknown hives Verified 11/11/19 19:31 shellfish derived Allergy Unknown swelling Verified 11/11/19 19:31 levofloxacin AdvReac Intermediate Tendon Verified 11/11/19 19:31 contractions Consultations 11/11/19 19:08 ED Decision to Admit Stat 11/14/19 08:27 Consult Pulmonology Routine 11/14/19 15:39 Consult Cardiology Routine Ordered Studies 11/12/19 08:57 CT chest wo con Routine 11/12/19 09:36 US venous doppler LE BI Urgent Current Diagnoses Other pulmonary embolism without acute cor pulmonale (11/11/19) Unspecified asthma, uncomplicated (11/11/19) Other specified diseases of intestine (11/11/19) Tachycardia, unspecified (11/11/19) Hemoptysis (11/11/19) Cough (11/11/19) Apnea, not elsewhere classified (11/11/19) Right lower quadrant pain (11/11/19) Fever, unspecified (11/11/19) Weakness (11/11/19) Encounter for therapeutic drug level monitoring (11/11/19) superintendent container terminal (current) use of anticoagulants (11/11/19) Allergies Iodinated Contrast Media Allergy (Severe, Verified 11/11/19 19:31) DIFFICULTY BREATHING/THROAT SWELLING blue dye Allergy (Unknown, Verified 11/11/19 19:31) swelling cefuroxime Allergy (Unknown, Verified 11/11/19 19:31) hives shellfish derived Allergy (Unknown, Verified 11/11/19 19:31) swelling levofloxacin Adverse Reaction (Intermediate, Verified 11/11/19 19:31) Tendon contractions Height/Weight/Isolation Height 5 ft 5 in Weight 90.9 kg Isolation Type Removed Precautions Chemistry 11/13/19 11/14/19 05:35 07:07 Sodium 139 138 Potassium 3.7 3.0 L D Chloride 109 H 108 H Carbon Dioxide 26 24 Anion Gap 4.0 7.0 BUN 15 11 Creatinine 0.84 0.74 Glucose 126 H 148 H Microbiology 11/11/19 17:07 Blood Aerobic Blood Culture - Preliminary No growth in Aerobic bottle after 48 hours. 11/11/19 17:07 Blood Anaerobic Blood Culture - Preliminary No growth in Anaerobic bottle after 48 hours. 11/11/19 17:10 Blood Aerobic Blood Culture - Preliminary No growth in Aerobic bottle after 48 hours. 11/11/19 17:10 Blood Anaerobic Blood Culture - Preliminary No growth in Anaerobic bottle after 48 hours. Hospital Course (1) Pneumatosis coli: (2) Fever: (3) Subtherapeutic anticoagulation: (4) Weakness: (5) Tachycardia: (6) Abdominal pain: ASSESSMENT AND PLAN: A 63-year-old male who presents with fever and shortness of breath since last . 1. Fever and shortness of breath. +PE intermediate probability. Full dose Lovenox, Xarelto and Eliquis not covered on his plan. The patient now has hemoptysis and I have asked Pulm to see him. His COVID test was negative and no exposure to COVID, but because of the pandemic we repeated the COVID test and it was negative as well. Most likely, it could be Lyme disease though his Lyme screen is negative because he has the insect bites in the lower abdomen and left groin region about only 9 days ago. The test may be not positive yet. So we will empirically treat with doxycycline and IV fluids and monitor in the medical floor. Repeat COVID is negative. 2. History of diabetes. Hold his home medication. Placed him on Lantus 7 units daily and insulin sliding scale. Follow HbA1c level. Follow his blood sugars. 3. History of obstructive sleep apnea. CPAP at bedtime. 4. History of hypertriglyceridemia. Continue his fenofibrate. 5. Polymyalgia rheumatica, on prednisone. 6. Mild intermittent asthma. Albuterol p.r.n. 7. History of pulmonary embolism, on Coumadin. INR is subtherapeutic at 1.5. Received a dose of Lovenox bridge. Will continue his Coumadin. Follow INR in a.m. 8. Depression. Continue Zoloft. 9. Hyperlipidemia. Continue statin. 10. Hypertension. Continue Toprol-XL. Holding the Lasix. Monitor the blood pressure. 11. Deep venous thrombosis prophylaxis. INR is 1.5, on Coumadin. Received dose of Lovenox. We will follow the INR. Patient went into resp distress today at 1500 during an echo, boo hernandez called. cath laboratory technician said she stopped test, but may have seen a veg on the AV. Dr Joe Coronado and his PA-Kroner came to the bedside. Dr Kingston Cardiology also came to the bedside. He was moved to the ICU for intubation and JAMEL. A Veg was present he will be transferred to [facility] when the bed is available. He was in acute Pulm Edema on XRAY. D/W Dr Omar NAJERA Dr at [facility], going to CCU Before Intubation ROS-No Headache, No Visual Changes, No Nausea, No Vomiting, + Fever, No Neck Pain or Stiffness, No Chest Pain, No Palpitations, + SOB, + SHEETS, + Cough, +Hemoptysis, No Wheezing, No Abdominal Pain, No Diarrhea, No Hematemesis, + Hemoptysis, No Unexpected Weight Loss, No Flank pain, No Melena, No Hematochezia, No Frequency, No Urgency, No Burning, No Hematuria, No Rashes, No Diaphoresis. Appetite is Normal Physical Exam Gen-AAO x 3, Mod Distress, Febrile Head-NCAT, EOMI, PERRLA, Anicteric Sclera, No Posterior Pharyngeal Erythema Neck-Supple, No JVD, No Thyromegaly, No Masses, No LAD, No Bruits Lungs-Clear to Auscultation Bilaterally, No Rales, No Rhonchi, No Wheezing, No Crepitus Chest-No S4, +S1, +S2, No S3, No Murmurs, No Rubs, No Gallops, No Ectopy Abdomen-Soft, Bowel Sounds Present, Non Tender, Non Distended, No Hepatomegaly, No Splenomegaly, No Palpable Masses, No Rebound, No Rigidity, No Guarding Musculoskeletal-Full Range of Motion Bilaterally, No CVAT Extremities-No Cyanosis, No Clubbing, No Edema Nuero-Cranial Nerves II-XII grossly intact, Motor WNL, DTRs WNL, Strength WNL, Non Focal Psych-Normal Mood Total Time Total Time Spent Total Time Spent (In Minutes): 45 mins Total Time Includes: Examination of the Patient, Medication Reconciliation and Communication With Other Providers Discharge Plan Discharge Items Patient Disposition: Transfer Acute Care Hospital Reason For Visit: SOB/FEVER Discharge Diagnosis: 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 Pulm Edema Vent Dependent Resp Failure DM II HTN Obese Asthma Condition on Discharge: Critical Health Concerns: Culture Negative Endocarditis Activity: As commented below Activity Comment: Bedrest Lifting: None Non-emergency contact: Specialist Call non-emergency contact if: you have any medication questions Follow-up/Referrals: Lesia Garcia DO [Primary Care Provider] - Diet: Nothing by Mouth Fluids: 1200ml (5 cups) Addtl Attending Provider Instructions: ID and CC f/u at [facility] Addtl Contestant Coordinator Provider Instructions: Follow hospital [facility], [facility] rec is useless Pending Studies at Discharge: No Stand-Alone Forms: My [facility] Skilled Items Patient informed of condition?: Yes DNR: No Discharge Level of Care: Other Communicable Disease: No Discharge Prognosis: Stable Lines: Peripheral IV Urinary Catheter: Yes Medications and DC Order Prescriptions: New ipratropium-albuterol 0.5 mg-3 mg(2.5 mg base)/3 mL Solution For Nebulization 3 ml NEB Q4R Qty: 3 RF: 0 enoxaparin 100 mg/mL Syringe 90 mg subcut Q12H Qty: 10 RF: 0 Continued warfarin 5 mg tablet 5 mg PO QPM RF: 0 metoprolol succinate 25 mg tablet extended release 24 hr 12.5 mg PO BID RF: 0 sertraline 50 mg tablet 50 mg PO QPM RF: 0 rosuvastatin 5 mg tablet 5 mg PO QPM RF: 0 Discontinued prednisone 5 mg tablet 2.5 mg PO QAM RF: 0 fenofibrate micronized 134 mg capsule 134 mg PO QAM RF: 0 furosemide 20 mg tablet 20 mg PO QAM RF: 0 metformin 500 mg tablet extended release 24 hr 1,000 mg PO BID RF: 0 omega-3 acid ethyl esters 1 gram capsule 2 g PO BID RF: 0 Jardiance 10 mg tablet 10 mg PO QAM RF: 0 Trulicity 1.5 mg/0.5 mL pen injector 1.5 mg SUBCUT WK RF: 0 Discharge Orders: Discharge Order (Routine); Ordered 11/14/19 Ordered By: Marcel Newell/Other Patient Handouts: Managing Type 2 Diabetes Admission Data Admit Date/Time: 11/11/19 20:44 Attending Provider: Marcel Franz Admit Provider: Kirit Carranza Primary Care Provider: Lesia Garcia Other Providers: Kirit Carranza ; Sy Yu ; Tadeo Kingston ; Edmar Saldaña ; Jace Hernandez ; Emeka Luong ; Eladio Foss. ; Gonzalo Camacho ; Jennifer Garcia ; Ban Rucker ; Kan White
[2019-11-14] MEDS ORDERED: PIPERACILLIN/TAZOBACTAM 3.375 GM in DEXTROSE 5% 100 ML IV ONE (16:45)
--- NOTE | 2019-11-14 16:45 | Procedure Note ---
Procedure Note Date of Service November 14, 2019 INTUBATION PROCEDURE NOTE: Provider: Josue Diaz MD A time-out was completed verifying correct patient, procedure, site, positioning. Patient was evaluated and required intubation for hypoxemic respiratory failure and respiratory protection for patient requiring transesophageal echocardiogram. Sedative agent used: 10 mL's propofol, 40 mg etomidate Paralysis agent used: None Discussed with patient prior to transfer to the ICU. He agreed to intubation mechanical ventilation. Also discussed with on the phone The patient was prepared in the appropriate fashion. Sedation was achieved utilizing propofol and etomidate. The patient was preoxygenated using noninvasive positive pressure ventilation which was present on transfer to the ICU. Video laryngoscopy was performed with the use of a 4 glide scope. A 7.5 endotracheal tube was seen passing the cords. Stylet was removed. Appropriate Colorimetric change was appreciated. Bilateral breath sounds were heard without air sounds in the abdomen. Tube was secured at 24 cm at the teeth. Post procedure chest x-ray pending. Patient tolerated the procedure well and there were no immediate complications. Coding CPT Codes Resuscitation - Resuscitation: 29969 Endotracheal Intubation, emergency ([id number]) [facility] Procedure Codes (Charges) Resuscitation Resuscitation: 73552 Endotracheal Intubation, emergency
--- NOTE | 2019-11-14 16:48 | Procedure Note ---
Procedure Note Date of Service November 14, 2019 CENTRAL LINE PROCEDURE NOTE: Procedure: Central Line Placement Provider: Josue Diaz MD Indication: Central Drug Administration, Poor Venous Access, Multiple Lab Draws Necessary, etc. Anesthesia: 4 oh ml Lidocaine 1% Site: Left internal jugular Verbal consent obtained from the patient prior to transfer the ICU. Consent was also obtained via telephone from the patient significant other. A time-out was completed verifying correct patient, procedure, site, positioning, and implants(s) or special equipment if applicable. Patients left neck was cleansed and draped in the typical sterile fashion using Chloraprep. The Internal Jugular Vein and Carotid Artery were identified using ultrasound. The superficial tissue was anesthetized using 4 mL of 1% lidocaine without epinephrine under direct visualization with the ultrasound. After adequate anesthetization was achieved, the Internal Jugular vein was cannulated using a 20-gauge needle with an over the catheter device. A micropuncture technique was used as the patient was fully anticoagulated on low molecular weight heparin. Under direct ultrasound guidance using an introducer needle on a syringe. Good venous blood return was obtained. The 18-gauge over the needle catheter was inserted into the vein and the needle removed. Using Seldinger Technique, a guide wire was advanced through the Angiocath without resistance. A wire was passed through the existing catheter and under ultrasound guidance visualized to be within the internal jugular vein. A small incision was made in penetrating fashion at the guide wire insertion site utilizing an 11 blade scalpel. The dilator was advanced to the vessel without resistance. The dilator was exchanged for the triple lumen catheter which was advanced into the vessel without resistance. The guide wire was removed intact from the catheter without issue. Claves were placed on each catheter tip with confirmation of good blood flow from each lumen. Each port was easily flushed with sterile saline. The catheter was placed at the hub and sutured in place. BioPatch was applied to the catheter and a sterile Tegaderm dressing was applied over the catheter with careful attention to sterility. Patient tolerated procedure well. No immediate complications were met. Post procedure x-ray is currently pending Images were not saved to the medical record due to urgency of the situation Coding CPT Codes Tubes, Drains, and Vasc Access - Tubes, Drains, and Vasc Access: [id number] Place catheter in vein superior or inferior vena cava ([id number]) Tubes, Drains, and Vasc Access - Tubes, Drains, and Vasc Access: [id number] Ultrasound Guidance For Vascular ([id number]) [facility] [place] Procedure Codes (Charges) Tubes, Drains, and Vasc Access Procedure 1: Tubes, Drains, and Vasc Access: [id number] Place catheter in vein superior or inferior vena cava Procedure 2: Tubes, Drains, and Vasc Access: [id number] Ultrasound Guidance For Vascular
[2019-11-14] MEDS ORDERED: PROPOFOL BOLUS FROM BAG IV PRN (16:49)
[2019-11-14] MEDS ORDERED: STAT IV Infusion **Titration per Protocol STA (16:49)
[2019-11-14] MEDS ORDERED: MIDAZOLAM HCL 125 MG/250 ML BAG IV PRN (16:49)
[2019-11-14] MEDS ORDERED: MIDAZOLAM BOLUS FROM BAG IV PRN (16:49)
--- NOTE | 2019-11-14 16:57 | Communication Note ---
Date of Service: November 14, 2019 Critical color note/addendum. I seen the patient earlier as a pulmonary consult. BNP and echocardiogram have been ordered. His BNP was markedly elevated. Follow-up chest x-ray demonstrated significant pulmonary edema. During the course of his echocardiogram, the patient had a decompensation from a respiratory standpoint with increased work of breathing and hypoxemia. I reported to the floor to assess the patient. He was currently on nasal CPAP and tachypneic and markedly hypertensive and tachycardic. The emergency dept tech related to potential finding of valvular issue. Dr. Kingston from cardiology also presented to the bedside. We stabilized the patient with afterload reduction using hydralazine and morphine. He also received a significant dose of Lasix. After discussion with cardiology, we elected to transfer the patient to the intensive care unit for intubation and transesophageal echocardiogram to facilitate visualization of the valves. I accompanied the patient on transfer to the ICU. He remained hemodynamically stable with an adequate oxygen saturation but did remain diaphoretic tachypneic and tachycardic. Patient was intubated without difficulty. Please see separate notes. The patient underwent transesophageal echocardiogram under the direction of Dr. Kingston. This revealed a vegetation on the aortic valve as well as a questionable LV thrombus versus vegetation on 1 of the cords. LV function appeared preserved and there was no evidence of significant valvular insufficiency perivalvular abscess, or eccentric regurgitation to suggest valvular dehiscence. The patient was given Zosyn as well as vancomycin. Of note he had previously been on doxycycline and cultures have been negative but he was admitted with feb rile illness. He was already fully anticoagulated with Lovenox. I discussed the case with cardiology as well as with the patient's attending hospitalist. Given his endocarditis and questionable lesion on the cords in the left ventricle, I believe the patient would be best served by infectious disease consultation which is not available at our institution. Consideration for atypical organisms may be appropriate given his negative cultures. In addition Dr. Kingston feels that cardiac MRI may be warranted to better ascertain the lesion in the left ventricle and this service is not available at our institution. Based on need for higher level of service, it was recommended the patient be transferred to [facility]. Arrangements are currently being made to transfer the patient. We will keep him intubated for now. He is currently sedated on a mix of propofol, fentanyl, and Versed. We are weaning his FiO2. A central line in the left internal jugular vein was placed under ultrasound guidance and chest x-ray confirmed appropriately replaced endotracheal tube as well as central venous catheter without evidence of pneumothorax. There were persistent perihilar infiltrates. The patient has diuresed significantly after the Lasix. Total critical care time exclusive of procedures 124 minutes. Coding Level of Care Code Critical Care 1st 30-74 mins Time Spent (min) 124 Comment 124 minutes critical care time exclusive of procedures
[2019-11-14] MEDS ORDERED: propofoL 1,000 MG/100 ML VIAL IV SCH (17:00)
--- NOTE | 2019-11-14 17:06 | XRay Report ---
XR chest 1V portable HISTORY: Shortness of breath. COMPARISON: Chest 11/14/2019. FINDINGS: Endotracheal tube terminates approximately 3.5 cm from the jhoana. Nasogastric tube termina mark below the diaphragm. The tip is not included on this study. Left jugular central venous catheter trace at the distal SVC. No pneumothorax. Bilateral perihilar consolidative airspace opacities, inter stitial thickening, and small bilateral pleural effusions have progressed. The heart remains borderli ne enlarged. Old, healed left-sided rib fractures are again noted. IMPRESSION: 1. Satisfactory support line placement. 2. Interval progression of the bilateral perihilar consolidative airspace opacities, interstitial thi ckening, and small bilateral pleural effusion is. This can be seen in the setting of severe pulmonary edema or an atypical pneumonia. ACT 112: Negative or not required by law. Electronically signed by: Neo Pettit M.D. 11/14/2019 5:05 PM
[2019-11-14] MEDS ORDERED: VECURONIUM BROMIDE 10 MG VIAL IV ONE ×2 (17:39→18:18)
[2019-11-14] MEDS ORDERED: fentaNYL citrate 100 MCG/2 ML VIAL IV ONE (18:18)
[2019-11-14] MEDS ORDERED: SODIUM CHLORIDE 0.9% INJ 10 ML VIAL IV ONE (18:18)
[2019-11-14] MEDS ORDERED: SODIUM CHLORIDE 0.9% 2.5 ML FLUSH IV ONE (18:18)
[2019-11-14] MEDS ORDERED: MIDAZOLAM HCL 5 MG/ML VIAL IV ONE (18:18)
[2019-11-14] MEDS ORDERED: SODIUM CHLORIDE 0.9% 10ML FLUSH IV ONE (18:18)
[2019-11-14] MEDS ORDERED: ETOMIDATE 2 MG/ML 20 ML VIAL IV ONE (18:18)
[2019-11-14] MEDS ORDERED: PIPERACILLIN/TAZOBACTAM 3.375 GM in DEXTROSE 5% 100 ML IV SCH (22:00)
--- NOTE | 2019-11-15 11:21 | Electrocardiogram Report ---
Test Reason : Blood Pressure : / mmHG Vent. Rate : 136 BPM Atrial Rate : 136 BPM P-R Int : 128 ms QRS Dur : 074 ms QT Int : 294 ms P-R-T Axes : 062 028 -06 degrees QTc Int : 442 ms Poor data quality, interpretation may be adversely affected Sinus tachycardia with occasional Premature ventricular complexes Abnormal ECG When compared with ECG of 14-NOV-2019 14:49, Premature ventricular complexes are now Present Otherwise no significant change Confirmed by Mark Barber ([id number]) on 11/15/2019 11:20:52 AM Referred By: REFERRED SELF Confirmed By:Mark Barber
--- NOTE | 2019-11-15 11:21 | Electrocardiogram Report ---
Test Reason : Blood Pressure : / mmHG Vent. Rate : 122 BPM Atrial Rate : 122 BPM P-R Int : 136 ms QRS Dur : 076 ms QT Int : 332 ms P-R-T Axes : 065 022 -13 degrees QTc Int : 473 ms Poor data quality, interpretation may be adversely affected Sinus tachycardia Abnormal ECG When compared with ECG of 11-NOV-2019 17:06, No significant change Confirmed by Mark Barber ([id number]) on 11/15/2019 11:20:37 AM Referred By: REFERRED SELF Confirmed By:Mark Barber
== END 2019-11-14 18:19 | disposition short-term general hospital (02) | DRG 395 ==
LOC: ED 15:59 → 3N 20:44 → 1E 11-14 14:47

== ENCOUNTER 2019-11-22 15:07 | Inpatient (IN) ==
[2019-11-22] MEDS ORDERED: ALBUTEROL HFA 8 GM INHALER INH ONE (16:16)
--- NOTE | 2019-11-22 16:22 | Emergency Department Note ---
Impression & Plan SOB (shortness of breath), Fever, Headache, Acute Lyme disease ED Provider Note NAME: RAFAEL LO AGE: 64 SEX: M : 1955 ARRIVES VIA: Walk-In INFORMANT: [Patient][family] ED PROVIDER(S): [Cameron Myrick MD] CHIEF COMPLAINT: Shortness of breath HISTORY OF PRESENT ILLNESS: The patient is a 64-year-old male who presents to the ER with about 2 days of s ymptoms. The patient was discharged from [facility] after having flash pulmonary edema. He was discharged 5 days ago. The patient states that he was originally at our hospital for fever, the source was never found. He was sent to [facility] as they thought he had infection on his valve. The valve turned out not to be infected. He states he was tested for coronavirus twice and both tests were n egative. The patient states that for the last 2 days, he has noticed an increased cough of some yellow sputum. He has been increasingly short of breath. He has had some low-grade fevers. Last evening his temperature was 99.7. He feels hot. He has a headache. His headache is mild to moderate in severity. There has been no stuffy nose, his throat is slightly sore but his throat has been sore since he was intubated last week. He has no urinary complaints, there has been no vomiting or diarrhea. The patient went to his doctor's office today, because of his complaints, his top distribution executive was consulted. He was sent to this ED by cardiology to rule out CHF. Of note, the only other thing noted by the patient would be palpitations. He has noticed his heart racing faster the last 2 days. REVIEW OF SYSTEMS: See HPI for pertinent positives and negatives. A total of ten systems were reviewed and were otherwise negative. PMHx/PSHx: See Below SOCIAL HISTORY: See Below. PHYSICAL EXAM: GENERAL: Patient is in no acute distress. HEENT: No acute trauma, normocephalic atraumatic, mucous membranes moist, no nasal congestion, no scleral icterus. NECK: No stridor, no adenopathy, no meningismus, trachea is midline. LUNGS: Wheezing bilaterally, no crackles, no respiratory distress or increased respiratory rate. HEART: Tachycardic, regular rhythm, no murmurs heard. ABDOMEN: Soft, nontender, bowel sounds positive, no hernias, no peritonitis. EXTREMITIES: No cyanosis or edema, full range of motion of all the joints without pain or difficulty, no signs for acute trauma. NEUROLOGIC: Oriented x 3, no acute motor or sensory deficits, no focal weakness. SKIN: No rash, no jaundice, no diaphoresis. DIFFERENTIAL DIAGNOSIS: Infection, dehydration, metabolic abnormality, hypo/hyperglycemia, coronavirus, CHF, dysrhythmia, pneumonia, electrolyte disturbance, anemia, hypoxia, cardiac sources, intracerebral event, toxicologic, neurologic, as well as other pathologies. EMERGENCY DEPARTMENT COURSE/PROCEDURES: ECG: Indication was palpitations and shortness of breath. The ECG shows a sinus tachycardia with a rate of 107. There is no ST elevation, no PVCs. The QTc is 472. Continuous Cardiac Monitoring: An order was placed for continuous cardiac monitoring. The monitor shows a rate of 75 with normal sinus rhythm. MEDICAL DECISION MAKING: There is no leukocytosis or concerning anemia. There is a slightly elevated platelet count. INR is 1.8, consistent with his Coumadin use. No significant electrolyte abnormality or kidney failure. Lactic acid level is not elevated making sepsis less likely. There is no concerning liver enzyme elevation. The patient appeared to be in a euthyroid state. ECG showed a sinus tachycardia, no acute ischemia. Cardiac enzyme testing x1 was not consistent with acute cardiac injury. Urinalysis did not show evidence for infection. Lyme disease testing was positive, both the IgG and IgM were positive. Chest from did not show pneumonia or CHF. BNP was not elevated making fluid overload less likely. The patient received IV Lasix, 20 mg. He was given IV doxycycline as antibiotic coverage. He was given albuterol via MDI. The patient presents with a fever, headache and some shortness of breath. He was just in the hospital for CHF and the possibility of endocarditis. Today's work-up suggests Lyme disease as the cause for his presentation. He does not appear to be significantly fluid overloaded. He is not technically septic. I do think a hospital stay is warranted given his complaints and recent difficulty. I did consult cardiology and they felt hospitalization and observation with further work-up was warranted. There was some concern still for the possibility of endocarditis. I did speak to the patient and case management. The on-call hospitalist was consulted. Past Med/Surg History Medical History Appendicitis CHF (congestive heart failure) Diabetes DVT (deep venous thrombosis) High cholesterol History of high blood pressure Pulmonary embolism Umbilical hernia Surgical History History of cholecystectomy Social History Smoking Status: Never smoker Second Hand Exposure: Yes (When in [employer] ); Do You Dip or Chew Tobacco: No; Hx Alcohol Use: No Hx Substance Use: No Preferred Language: [place] Communication Ability: Effective Small Craft Operator Required: No Beliefs That Will Affect Care: None Current Living Situation: Spouse Other Information That Helps Us Care for You: No Feels Safe at Home: Yes Safety Concerns: Feels Safe At This Time Allergies Allergies Allergy/AdvReac Type Severity Reaction Status Date / Time Iodinated Contrast Media Allergy Severe DIFFICULTY Verified 11/11/19 19:31 BREATHING/THROAT SWELLING blue dye Allergy Unknown swelling Verified 11/11/19 19:31 cefuroxime Allergy Unknown hives Verified 11/11/19 19:31 shellfish derived Allergy Unknown swelling Verified 11/11/19 19:31 levofloxacin AdvReac Intermediate Tendon Verified 11/11/19 19:31 contractions Home Meds Home Medications Medication Instructions Recorded Confirmed metoprolol succinate 12.5 mg PO BID 06/14/19 11/22/19 rosuvastatin 5 mg PO QPM 06/14/19 11/22/19 sertraline 50 mg PO DAILY 06/14/19 11/22/19 warfarin 5 mg PO [id number] 06/14/19 11/22/19 empagliflozin [Jardiance] 10 mg PO DAILY 11/22/19 11/22/19 fenofibrate micronized 134 mg PO DAILY 11/22/19 11/22/19 furosemide [Lasix] 20 mg PO DAILY 11/22/19 11/22/19 ipratropium-albuterol 3 ml NEB Q4R PRN 11/22/19 11/22/19 metformin 1,000 mg PO BID 11/22/19 11/22/19 omega-3 acid ethyl esters 2 cap PO BID 11/22/19 11/22/19 prednisone 2.5 mg PO DAILY 11/22/19 11/22/19 warfarin 7.5 mg PO WK 11/22/19 11/22/19 Results & Data (ED) Vital Signs Vital Signs - 24 hr 11/22/19 15:25 11/22/19 15:31 11/22/19 16:42 Temperature 36.9 C Temperature Source Oral Pulse Rate 111 H Pulse Rate from SpO2 Sensor Respiratory Rate 20 Respiratory Effort / Characteristics Spontaneous Short of Breath Spontaneous Short of Breath Respiratory Depth Normal Normal Blood Pressure 140/92 Blood Pressure Mean 108 Blood Pressure Position Sitting Pulse Oximetry 96 96 97 Oxygen Delivery Method Room Air Room Air Room Air Sepsis Recent Fever Within 48 Hours No Sepsis New/Unexplained Change in Mental Status N/A Sepsis Action Taken by Nursing No Action Required 11/22/19 16:47 11/22/19 17:01 11/22/19 17:31 Temperature Temperature Source Pulse Rate 100 H 99 H 91 H Pulse Rate from SpO2 Sensor 100 H 99 H 93 H Respiratory Rate 19 28 H 30 H Respiratory Effort / Characteristics Respiratory Depth Blood Pressure Blood Pressure Mean Blood Pressure Position Pulse Oximetry 96 94 95 Oxygen Delivery Method Room Air Room Air Room Air Sepsis Recent Fever Within 48 Hours Sepsis New/Unexplained Change in Mental Status Sepsis Action Taken by Nursing 11/22/19 18:01 11/22/19 18:02 11/22/19 18:03 Temperature Temperature Source Pulse Rate 94 H 92 H 92 H Pulse Rate from SpO2 Sensor 90 92 H Respiratory Rate 22 17 24 Respiratory Effort / Characteristics Respiratory Depth Blood Pressure 136/79 Blood Pressure Mean 83 Blood Pressure Position Pulse Oximetry 97 97 Oxygen Delivery Method Room Air Room Air Sepsis Recent Fever Within 48 Hours Sepsis New/Unexplained Change in Mental Status Sepsis Action Taken by Nursing 11/22/19 18:10 11/22/19 18:30 11/22/19 18:31 Temperature 36.7 C Temperature Source Oral Pulse Rate 92 H 85 Pulse Rate from SpO2 Sensor 91 H 85 Respiratory Rate 24 21 Respiratory Effort / Characteristics Respiratory Depth Blood Pressure 142/88 H Blood Pressure Mean 109 Blood Pressure Position Pulse Oximetry 97 97 Oxygen Delivery Method Room Air Room Air Sepsis Recent Fever Within 48 Hours Sepsis New/Unexplained Change in Mental Status Sepsis Action Taken by Nursing 11/22/19 18:57 Temperature Temperature Source Pulse Rate 87 Pulse Rate from SpO2 Sensor 87 Respiratory Rate 23 Respiratory Effort / Characteristics Respiratory Depth Blood Pressure 142/88 H Blood Pressure Mean 109 Blood Pressure Position Pulse Oximetry 97 Oxygen Delivery Method Room Air Sepsis Recent Fever Within 48 Hours Sepsis New/Unexplained Change in Mental Status Sepsis Action Taken by Correction Medications Current Medication List: was personally reviewed by me Laboratory Data Attestation: I reviewed the patient's lab results. Result diagrams: 11/22/19 16:29 11/22/19 16:29 Lab Results 11/22/19 11/22/19 11/22/19 Range/Units 16:29 16:29 16:29 WBC 9.53 (4.8-10.8) K/uL RBC 5.55 (4.7-6.1) M/uL Hgb 15.7 (14.0-18.0) g/dL Hct 46.9 (42-52) % MCV 84.5 (80-100) fL MCH 28.3 (25-34) pg MCHC 33.5 (32-36) g/dL RDW Std Deviation 42.2 (36.4-46.3) fL RDW Coeff of Kathryn 13.8 (11.5-14.5) % Plt Count 422 H (130-400) K/uL MPV 10.1 (7.4-10.4) fL Immature Gran % (Auto) 0.7 % Neut % (Auto) 61.1 % Lymph % (Auto) 28.9 % Sanders % (Auto) 7.8 % Eos % (Auto) 1.4 % Baso % (Auto) 0.1 % Neut # (Auto) 5.83 (1.4-6.5) K/uL Lymph # (Auto) 2.75 (1.2-3.4) K/uL Sanders # (Auto) 0.74 H (0.11-0.59) K/uL Eos # (Auto) 0.13 (0-0.5) K/uL Baso # (Auto) 0.01 (0-0.2) K/uL Immature Gran # (Auto) 0.07 H (0.00-0.02) K/uL PT 18.7 H (9.0-12.0) Seconds INR 1.8 H (0.9-1.1) APTT 31.7 H (21.0-31.0) Seconds PTT Ratio 1.1 Sodium 138 (136-145) mmol/L Potassium 3.8 (3.5-5.1) mmol/L Chloride 105 (98-107) mmol/L Carbon Dioxide 25 (21-32) mmol/L Anion Gap 8.0 (3-11) BUN 18 (7-18) mg/dl Creatinine 1.00 (0.6-1.4) mg/dl Est Cr Clr Drug Dosing 74.5 ml/min Est GFR ( Amer) 91.8 Est GFR (Non-Af Amer) 79.2 BUN/Creatinine Ratio 18.0 (10-20) Glucose 187 H (70-99) mg/dl Lactate (0.4-2.0) mmol/L Calcium 9.5 (8.5-10.1) mg/dl Magnesium 2.4 (1.8-2.4) mg/dl Total Bilirubin 0.4 (0.2-1) mg/dl AST 16 (15-37) U/L ALT 45 (12-78) U/L Alkaline Phosphatase 77 (45-117) U/L Troponin I < 0.015 (0-0.045) ng/ml NT-Pro-B Natriuret Pep 63 (0-900) pg/ml Total Protein 8.6 H (6.4-8.2) gm/dl Albumin 3.6 (3.4-5.0) gm/dl Globulin 5.0 H (2.5-4.0) gm/dl Albumin/Globulin Ratio 0.7 L (0.9-2) TSH 0.743 (0.300-4.500) uIu/ml Urine Color Urine Appearance (Clear) Urine pH (4.5-7.5) Ur Specific [place] (1.000-1.030) Urine Protein (Negative) Urine Glucose (UA) (Negative) Urine Ketones (Negative) Urine Blood (Negative) Urine Nitrite (Negative) Urine Bilirubin (Negative) Urine Urobilinogen (Negative) Ur Leukocyte Esterase (Negative) Lyme Disease IgG Ab (Negative) Lyme Disease IgM Ab (Negative) 11/22/19 11/22/19 11/22/19 Range/Units 16:29 16:29 16:51 WBC (4.8-10.8) K/uL RBC (4.7-6.1) M/uL Hgb (14.0-18.0) g/dL Hct (42-52) % MCV (80-100) fL MCH (25-34) pg MCHC (32-36) g/dL RDW Std Deviation (36.4-46.3) fL RDW Coeff of Kathryn (11.5-14.5) % Plt Count (130-400) K/uL MPV (7.4-10.4) fL Immature Gran % (Auto) % Neut % (Auto) % Lymph % (Auto) % Sanders % (Auto) % Eos % (Auto) % Baso % (Auto) % Neut # (Auto) (1.4-6.5) K/uL Lymph # (Auto) (1.2-3.4) K/uL Sanders # (Auto) (0.11-0.59) K/uL Eos # (Auto) (0-0.5) K/uL Baso # (Auto) (0-0.2) K/uL Immature Gran # (Auto) (0.00-0.02) K/uL PT (9.0-12.0) Seconds INR (0.9-1.1) APTT (21.0-31.0) Seconds PTT Ratio Sodium (136-145) mmol/L Potassium (3.5-5.1) mmol/L Chloride (98-107) mmol/L Carbon Dioxide (21-32) mmol/L Anion Gap (3-11) BUN (7-18) mg/dl Creatinine (0.6-1.4) mg/dl Est Cr Clr Drug Dosing ml/min Est GFR ( Amer) Est GFR (Non-Af Amer) BUN/Creatinine Ratio (10-20) Glucose (70-99) mg/dl Lactate 1.5 (0.4-2.0) mmol/L Calcium (8.5-10.1) mg/dl Magnesium (1.8-2.4) mg/dl Total Bilirubin (0.2-1) mg/dl AST (15-37) U/L ALT (12-78) U/L Alkaline Phosphatase (45-117) U/L Troponin I (0-0.045) ng/ml NT-Pro-B Natriuret Pep (0-900) pg/ml Total Protein (6.4-8.2) gm/dl Albumin (3.4-5.0) gm/dl Globulin (2.5-4.0) gm/dl Albumin/Globulin Ratio (0.9-2) TSH (0.300-4.500) uIu/ml Urine Color Yellow Urine Appearance Clear (Clear) Urine pH 5.0 (4.5-7.5) Ur Specific [place] 1.028 (1.000-1.030) Urine Protein Negative (Negative) Urine Glucose (UA) 3+ H (Negative) Urine Ketones Negative (Negative) Urine Blood Negative (Negative) Urine Nitrite Negative (Negative) Urine Bilirubin Negative (Negative) Urine Urobilinogen Negative (Negative) Ur Leukocyte Esterase Negative (Negative) Lyme Disease IgG Ab Positive A (Negative) Lyme Disease IgM Ab Positive A (Negative) Administered Medications Acetaminophen (Acetaminophen 325 Mg Tab) 650 mg PO Q4H PRN PRN Reason: Pain or Fever Stop: 12/22/19 23:50 Last Admin: 11/23/19 00:00 Dose: 650 mg Documented by: [id number] Enoxaparin Sodium (Enoxaparin Inj 40 Mg/0.4 Ml Syr) 40 mg SQ Q24H JULIANNE Stop: 12/22/19 20:59 Last Admin: 11/22/19 21:44 Dose: 40 mg Documented by: [id number] Metformin HCl (Metformin Hcl Er 500 Mg Tabcr) 1,000 mg PO BID JULIANNE Stop: 12/22/19 20:59 Last Admin: 11/22/19 21:44 Dose: 1,000 mg Documented by: [id number] Metoprolol Succinate (Metoprolol Succ 25mg Ext Rel Tab) 12.5 mg PO BID JULIANNE Stop: 12/22/19 20:59 Last Admin: 11/22/19 21:45 Dose: 12.5 mg Documented by: [id number] Miscellaneous (Empagliflozin [Jardiance] 10 Mg~Order Awaiting Action) 1 ea N/A QS REPLACED BY [facility] Stop: 12/23/19 00:00 Last Admin: 11/22/19 23:22 Dose: Not Given Documented by: [id number] Miscellaneous (Fenofibrate Micronized 134 Mg~Order Awaiting Action) 1 ea N/A QS REPLACED BY [facility] Stop: 12/23/19 00:00 Last Admin: 11/22/19 23:22 Dose: Not Given Documented by: [id number] Rosuvastatin Calcium (Rosuvastatin Calcium 5 Mg Tab) 5 mg PO QPM JULIANNE Stop: 12/22/19 20:59 Last Admin: 11/22/19 21:45 Dose: 5 mg Documented by: [id number] Discontinued Medications Albuterol (Albuterol Hfa 8 Gm Inhaler) 3 puffs INH NOW ONE Stop: 11/22/19 16:17 Last Admin: 11/22/19 16:40 Dose: 3 puffs Documented by: [id number] Furosemide (Furosemide 40 Mg/4 Ml Vial) 20 mg IV NOW STA Stop: 11/22/19 18:04 Last Admin: 11/22/19 18:15 Dose: 20 mg Documented by: [id number] Doxycycline Hyclate 100 mg/ (Dextrose) 110 mls @ 50 mls/hr IV NOW STA Stop: 11/22/19 20:14 Last Infusion: 11/22/19 20:30 Dose: 0 mls/hr Documented by: [id number] Admin: 11/22/19 18:15 Dose: 50 mls/hr Documented by: [id number] Imaging Data Radiologist's Impression: XR chest 1V portable CLINICAL HISTORY: weakness COMPARISON STUDY: Chest radiograph November 14, 2019. FINDINGS: Incidental note is made of multiple old bilateral rib fractures. Lines and tubes have been removed since this exam. Airspace opacities have resolved. Cardiac mediastinal silhouette is unremarkable. IMPRESSION: No acute cardiopulmonary findings. Interval resolution of bilateral airspace opacities and interstitial thickening shown on prior exam. Blood Pressure Blood Pressure Findings: Elevated blood pressure Blood Pressure Disposition: further management by hospitalist Discharge Plan Visit Data Chief Complaint: Shortness of Breath/Dyspnea Stated Complaint: FLUID RETENTION, SOB SENT BY ED Provider: Cameron Myrick Discharge Problem: SOB (shortness of breath), Fever, Headache, Acute Lyme disease Patient Disposition: Admitted As Inpatient Condition: Good Discharge Instructions Interventions: ED Discharge Assessment Last Done: 11/22/19 19:34 Discharge Problem: Fever Qualifiers: Fever type: unspecified Qualified Code(s): R50.9 - Fever, unspecified Headache Qualifiers: Headache type: unspecified Headache chronicity pattern: acute headache Int ractability: not intractable Qualified Code(s): R51 - Headache
--- NOTE | 2019-11-22 16:48 | XRay Report ---
XR chest 1V portable CLINICAL HISTORY: weakness COMPARISON STUDY: Chest radiograph November 14, 2019. FINDINGS: Incidental note is made of multiple old bilateral rib fractures. Lines and tubes have been removed since this exam. Airspace opacities have resolved. Cardiac mediastinal silhouette is unremark able. IMPRESSION: No acute cardiopulmonary findings. Interval resolution of bilateral airspace opacities a nd interstitial thickening shown on prior exam. ACT 112: Negative or not required by law. Electronically signed by: Dawit Lam M.D. 11/22/2019 4:47 PM
[2019-11-22 17:00] LABS: Appearance Urine Clear (Clear); Bilirubin Urine Negative (Negative); Blood Urine Negative (Negative); Color Urine Yellow; Glucose Urine UA 3+ (Negative); Ketones Urine Negative (Negative); Leukocyte Esterase Urine Negative (Negative); Nitrite Urine Negative (Negative); Protein Urine Negative (Negative); Specific Gravity Urine 1.028 (1.000-1.030); Urobilinogen Urine Negative (Negative)
[2019-11-22 17:02] LABS: Basophils # (auto) 0.01 K/uL (0-0.2); Basophils % (auto) 0.1 %; Eosinophils # (auto) 0.13 K/uL (0-0.5); Eosinophils % (auto) 1.4 %; Hematocrit (blood only) 46.9 % (42-52); Hemoglobin 15.7 g/dL (14.0-18.0); Immature Granulocytes # (auto) 0.07 K/uL (0.00-0.02); Immature Granulocytes % (auto) 0.7 %; Lymphocytes # (auto) 2.75 K/uL (1.2-3.4); Lymphocytes % (auto) 28.9 %; Mean Corpuscular Hemoglobin 28.3 pg (25-34); Mean Corpuscular Hgb Conc 33.5 g/dL (32-36); Mean Corpuscular Volume 84.5 fL (80-100); Mean Platelet Volume 10.1 fL (7.4-10.4); Monocytes # (auto) 0.74 K/uL (0.11-0.59); Monocytes % (auto) 7.8 %; Neutrophils # (auto) 5.83 K/uL (1.4-6.5); Neutrophils % (auto) 61.1 %; Platelet Count 422 K/uL (130-400); RDW Coefficient of Variation 13.8 % (11.5-14.5); RDW Standard Deviation 42.2 fL (36.4-46.3); Red Blood Count 5.55 M/uL (4.7-6.1); White Blood Count 9.53 K/uL (4.8-10.8)
[2019-11-22 17:13] LABS: INR 1.8 (0.9-1.1); Partial Thromboplastin Ratio 1.1; Partial Thromboplastin Time 31.7 Seconds (21.0-31.0); Prothrombin Time 18.7 Seconds (9.0-12.0)
[2019-11-22 17:21] LABS: Alanine Aminotransferase 45 U/L (12-78); Albumin Level 3.6 gm/dl (3.4-5.0); Aspartate Aminotransferase 16 U/L (15-37); Blood Urea Nitrogen 18 mg/dl (7-18); Calcium 9.5 mg/dl (8.5-10.1); Carbon Dioxide 25 mmol/L (21-32); Chloride 105 mmol/L (98-107); Creatinine Clr Calc Pharmacy 74.5 ml/min; Est GFR (African American) 91.8; Est GFR (Non-African American) 79.2; Glucose 187 mg/dl (70-99); Magnesium 2.4 mg/dl (1.8-2.4); Potassium 3.8 mmol/L (3.5-5.1); Sodium 138 mmol/L (136-145)
[2019-11-22 17:31] LABS: Albumin Globulin Ratio 0.7 (0.9-2); Alkaline Phosphatase 77 U/L (45-117); Bilirubin,Total 0.4 mg/dl (0.2-1); NT Pro B Type Natriuretic Pept 63 pg/ml (0-900); Thyroid Stimulating Hormone 0.743 uIu/ml (0.300-4.500); Total Protein 8.6 gm/dl (6.4-8.2); Troponin I < 0.015 ng/ml (0-0.045)
[2019-11-22 17:53] LABS: Lyme Ab IgG w/WB Rflx Positive (Negative); Lyme Ab IgM w/WB Rflx Positive (Negative)
[2019-11-22] MEDS ORDERED: DOXYCYCLINE HYCLATE 100 MG in DEXTROSE 5% 100 ML IV STA (18:03)
[2019-11-22] MEDS ORDERED: FUROSEMIDE 40 MG/4 ML VIAL IV STA (18:03)
[2019-11-22] MEDS ORDERED: ALBUT/IPRATROP 3MG/0.5MG NEB 3 ML VIAL NEB PRN (19:04)
--- NOTE | 2019-11-22 19:11 | History & Physical Report ---
Date of Service November 22, 2019 Assessment & Plan (1) Lyme disease: -Isaac Cherry is a 64 year old Male initially presented to [facility] on a previous hospital admission in 11/11/2019 because of illness and fevers and noting that he had recent tick bite that he saw and removed 1 week prior to that hospital presentation. The initial Lyme studies and anaplasma smear were negative on 11/11/2019 but patient was empirically started on Doxycycline for empiric treatment fro Lyme Disease. During that hospital at [facility], patient developed acute respiratory failure secondary to pulmonary edema and he was intubated and on following workup for fevers withe negative blood cultures, a transesophageal echocardiogram was performed and a 1.2 x 1 cm non-mobile lesion was found on the left coronary cusp as per the cardiology notes on 11/14/2019. Patient was then transferred to [facility] where he was had diuresis with Lasix to resolved the pulmonary edema and the workup did not find any valvular abscess. Patient was discharged from [facility] in [place] but he reports that never had further doxycycline given to him since he was transferred there from [facility] because of initial negative serologies. Patient then continue to experience subjective fevers at home but reports that the body temperature at home at times was between 100 F to 101 F ranges but never above 101F. Patient was again tested for Lyme serologies on this 11/22/2019 ED presentation and now have positive titers to Lyme IgG antibodies and Lyme IgM antibodies. Patient was started on doxycycline in the ED. He denies any other symptoms and reports that he is back to Lasix 20 mg oral daily after discharge from [facility] in [place] -continue antibiotics of IV Doxycycline q12 hours Chronic Diastolic Heart Failure, Hypertension -Lasix 20 mg oral daily -metoprolol -will be NPO after midnight in case and any need for further cardiac testing Dyslipidemia -statin, fenofibrate Obstructive sleep apnea -CPAP at bedtime. History of pulmonary embolism in the past (18 years ago) -patient has subtherapeutic INR (1.8 on 11/22/2019) so patient to be started on Lovenox 40 subcutaneous daily until INR is therapeutic with coumadin DVT prophylaxis: patient has subtherapeutic INR (1.8 on 11/22/2019) so patient to be started on Lovenox 40 subcutaneous daily until INR is therapeutic with coumadin Type 2 diabetes mellitus without penitentiary current use of insulin -continue home dose metformin Polymyalgia rheumatica - on prednisone Depression. -Continue Zoloft. Full Code My colleague Dr. Marcos will be following the patient as hospitalist starting on 11/23/2019 History of Present Illness Isaac Cherry is a 64 year old Male initially presented to [facility] on a previous hospital admission in 11/11/2019 because of illness and fevers and noting that he had recent tick bite that he saw and removed 1 week prior to that hospital presentation. The iniytial Lyme studies and anaplasma smear were negative on 11/11/2019 but patient was empirically started on Doxycycline for empiric treatment fro Lyme Disease. During that hospital at [facility], patient developed acute respiratory failure secondary to pulmonary edema and he was intubated and on following workup for fevers withe negative blood cultures, a transesophageal echocardiogram was performed and a 1.2 x 1 cm non-mobile lesion was found on the left coronary cusp as per the cardiology notes on 11/14/2019. Patient was then transferred to [facility] where he was had diuresis with Lasix to resolved the pulmonary edema and the workup did not find any valvular abscess. Patient was discharged from [facility] in [place] but he reports that never had further doxycycline given to him since he was transferred there from [facility] because of initial negative serologies. Patient then continue to experience subjective fevers at home but reports that the body temperature at home at times was between 100 F to 101 F ranges but never above 101F. Patient was again tested for Lyme serologies on this 11/22/2019 ED presentation and now have positive titers to Lyme IgG antibodies and Lyme IgM antibodies. Patient was started on doxycycline in the ED. He denies any other symptoms and reports that he is back to Lasix 20 mg oral daily after discharge from [facility] in [place] Family Health history: Patient denies family health history of medical conditions Primary Care Provider: Lesia Garcia DO Allergies Allergy/AdvReac Type Severity Reaction Status Date / Time Iodinated Contrast Media Allergy Severe DIFFICULTY Verified 11/11/19 19:31 BREATHING/THROAT SWELLING blue dye Allergy Unknown swelling Verified 11/11/19 19:31 cefuroxime Allergy Unknown hives Verified 11/11/19 19:31 shellfish derived Allergy Unknown swelling Verified 11/11/19 19:31 levofloxacin AdvReac Intermediate Tendon Verified 11/11/19 19:31 contractions Home Medications Home Medications Medication Instructions Recorded Confirmed Type metoprolol succinate 12.5 mg PO BID 06/14/19 11/22/19 History rosuvastatin 5 mg PO QPM 06/14/19 11/22/19 History sertraline 50 mg PO DAILY 06/14/19 11/22/19 History warfarin 5 mg PO 6XWK 06/14/19 11/22/19 History empagliflozin [Jardiance] 10 mg PO DAILY 11/22/19 11/22/19 History fenofibrate micronized 134 mg PO DAILY 11/22/19 11/22/19 History furosemide [Lasix] 20 mg PO DAILY 11/22/19 11/22/19 History ipratropium-albuterol 3 ml NEB Q4R PRN 11/22/19 11/22/19 History metformin 1,000 mg PO BID 11/22/19 11/22/19 History omega-3 acid ethyl esters 2 cap PO BID 11/22/19 11/22/19 History prednisone 2.5 mg PO DAILY 11/22/19 11/22/19 History warfarin 7.5 mg PO WK 11/22/19 11/22/19 History Past Med/Surg History Medical History (Updated 11/22/19 @ 20:45 by Marcel Maloney MD) Appendicitis CHF (congestive heart failure) Diabetes DVT (deep venous thrombosis) High cholesterol History of high blood pressure Pulmonary embolism Umbilical hernia Surgical History History of cholecystectomy Social History Smoking Status: Never smoker Second Hand Exposure: Yes (When in [employer] ); Hx Alcohol Use: No Hx Substance Use: No Preferred Language: Micronesian Communication Ability: Effective Special Investigator Required: No Beliefs That Will Affect Care: None Current Living Situation: Spouse Feels Safe at Home: Yes Review of Systems Review of Systems: All systems reviewed & are unremarkable except as noted in Subjective Physical Exam Constitutional: WD/WN, vitals as above Eyes: PERRL, conjunctivae normal, anicteric sclerae EOM intact bilaterally ENMT: external ear and nose normal, oropharynx normal Neck: trachea midline, no thyromegaly normal visual inspection Respiratory: normal respiratory effort, lungs clear to auscultation Cardiovascular: Rate/Rhythm: regular rate and regular rhythm Gastrointestinal (Abdomen): normal bowel sounds, soft, nontender, no hepatosplenomegaly Musculoskeletal: Head/Neck/Chest: normocephalic and head atraumatic Neurologic: PERRL, EOMI, accommodation nl, no face palsy, no dysarthria CN's II-XI intact bilaterally Psychiatric: A+Ox3, euthymic affect Results & Data Results & Data ([facility]) Vital Signs (Past 12 Hours) Vital Signs Temp Pulse Resp BP Pulse Ox 11/22/19 18:31 85 21 97 11/22/19 18:30 92 H 24 142/88 H 97 11/22/19 18:10 36.7 C 11/22/19 18:03 92 H 24 97 11/22/19 18:02 92 H 17 136/79 97 11/22/19 18:01 94 H 22 11/22/19 17:31 91 H 30 H 95 11/22/19 17:01 99 H 28 H 94 11/22/19 16:47 100 H 19 96 11/22/19 16:42 97 11/22/19 15:31 96 11/22/19 15:25 36.9 C 111 H 20 140/92 96 Code Status & VTE Plan VTE Prophylaxis Plan VTE Prophylaxis will be ordered: Yes
[2019-11-22] MEDS ORDERED: ENOXAPARIN INJ 40 MG/0.4 ML SYR SQ SCH (21:00)
[2019-11-22] MEDS ORDERED: METFORMIN HCL ER 500 MG TABCR PO SCH (21:00)
[2019-11-22] MEDS ORDERED: GLUCOSE 40% GEL 15 GM TUBE PO PRN (21:45)
[2019-11-22] MEDS: ROSUVASTATIN CALCIUM 5 MG TAB PO SCH (21:45)
[2019-11-22] MEDS ORDERED: CARBOHYDRATES FOR HYPOGLYCEMIA PO PRN (21:45)
[2019-11-22] MEDS ORDERED: GLUCAGON FOR INJ 1 MG VIAL IM PRN (21:45)
[2019-11-22] MEDS ORDERED: GLUCOSE 10 TABS/TUBE PO PRN (21:45)
[2019-11-22] MEDS: METOPROLOL SUCC 25MG EXT REL TAB PO SCH (21:45)
[2019-11-22] MEDS ORDERED: DEXTROSE 50% 50 ML SYRINGE IV PRN (21:45)
[2019-11-23] MEDS ORDERED: Nursing to Pharmacy Communication SCH (02:15)
[2019-11-23] MEDS ORDERED: DOXYCYCLINE HYCLATE 100 MG in DEXTROSE 5% 100 ML IV SCH (06:00)
[2019-11-23] MEDS ORDERED: INSULIN ASPART 100 UNITS/ML 3 ML PEN SC SCH ×2 (06:00→07:30)
[2019-11-23] MEDS: ACETAMINOPHEN 325 MG TAB PO PRN ×4 (06:18→19:46)
[2019-11-23] MEDS: ONDANSETRON INJ 2 MG/ML 2 ML VIAL IV PRN (06:35)
[2019-11-23 07:13] LABS: Basophils # (auto) 0.02 K/uL (0-0.2); Basophils % (auto) 0.2 %; Eosinophils # (auto) 0.19 K/uL (0-0.5); Eosinophils % (auto) 2.2 %; Hematocrit (blood only) 46.3 % (42-52); Hemoglobin 15.1 g/dL (14.0-18.0); Immature Granulocytes # (auto) 0.07 K/uL (0.00-0.02); Immature Granulocytes % (auto) 0.8 %; Lymphocytes # (auto) 3.63 K/uL (1.2-3.4); Lymphocytes % (auto) 42.3 %; Mean Corpuscular Hemoglobin 27.9 pg (25-34); Mean Corpuscular Hgb Conc 32.6 g/dL (32-36); Mean Corpuscular Volume 85.6 fL (80-100); Mean Platelet Volume 9.8 fL (7.4-10.4); Monocytes # (auto) 0.89 K/uL (0.11-0.59); Monocytes % (auto) 10.4 %; Neutrophils # (auto) 3.79 K/uL (1.4-6.5); Neutrophils % (auto) 44.1 %; Platelet Count 367 K/uL (130-400); RDW Standard Deviation 43.1 fL (36.4-46.3); Red Blood Count 5.41 M/uL (4.7-6.1); White Blood Count 8.59 K/uL (4.8-10.8)
[2019-11-23] MEDS: OXYCODONE HCL IR 5 MG TAB (IMMEDIATE RELEASE) PO PRN ×3 (07:28→19:46)
[2019-11-23 07:37] LABS: INR 1.5 (0.9-1.1); Prothrombin Time 15.3 Seconds (9.0-12.0)
[2019-11-23 07:42] LABS: Albumin Level 3.2 gm/dl (3.4-5.0); BUN Creatinine Ratio 21.9 (10-20); Calcium 9.2 mg/dl (8.5-10.1); Creatinine Clr Calc Pharmacy 81.1 ml/min; Est GFR (African American) 102.9; Est GFR (Non-African American) 88.8; Potassium 3.8 mmol/L (3.5-5.1)
[2019-11-23 07:44] LABS: Albumin Globulin Ratio 0.7 (0.9-2); Bilirubin,Total 0.7 mg/dl (0.2-1); Globulin 4.6 gm/dl (2.5-4.0); Total Protein 7.8 gm/dl (6.4-8.2)
[2019-11-23] MEDS ORDERED: NON-FORMULARY MEDICATION (Fenofibrate Micronized 134 MG) PO SCH ×2 (09:00→10:26)
[2019-11-23] MEDS ORDERED: NON-FORMULARY MEDICATION (Empagliflozin [Jardiance] 10 MG) PO SCH (09:00)
[2019-11-23] MEDS ORDERED: FUROSEMIDE 20 MG TAB PO SCH (09:00)
[2019-11-23] MEDS: METOPROLOL SUCC 25MG EXT REL TAB PO SCH ×2 (09:13→19:45)
[2019-11-23] MEDS: FUROSEMIDE 40 MG in SYRINGE 0 ML IV ONE ×2 (09:13→09:33)
[2019-11-23] MEDS: SPIRONOLACTONE 12.5 MG TAB PO SCH (09:13)
[2019-11-23] MEDS: SERTRALINE HCL 50 MG TABLET PO SCH (09:14)
[2019-11-23] MEDS: AMOXICILLIN/CLAVULANATE 875 MG TAB PO SCH ×2 (09:45→17:18)
--- NOTE | 2019-11-23 10:05 | Cardiology Consultation ---
Date of Consultation November 23, 2019 Assessment & Plan (1) Acute Lyme disease: Lyme disease: The patient undergone recent Lyme screen on 11/11/2019 was negative. This was repeated yesterday in the emergency room with findings of positive IgG antibody screen, and positive IgM antibody screen. The patient does have take exposure history, although no fulminant recent rash. Lyme could very well explain his symptoms. EKG performed 11/22/2019 revealed sinus tachycardia 107 beats per minute, no evidence of conduction abnormalities. I reviewed the images the recent transesophageal echocardiogram performed 11/14/2019 independently. The test was performed the patient recently intubated for respiratory distress, in retrospect the patient was volume overloaded at that time. The study was of course technically limited with heart rate in the range of 127 while the images were obtained. Equivocal abnormality was noted on the aortic valve, which in retrospect may have been due to the image having been performed off axis. Although culture negative endocarditis is still a consideration, I think our working diagnosis of acute Lyme disease certainly fits the clinical picture , and is reassuring that endocarditis is much lower on the differential diagnosis considerations at present. Repeat blood cultures were regardless obtained last evening. These will be followed. With regards to antibiotic therapy, he does have a history of an allergy to th e cephalosporin agent cefuroxime with documented hives in the past and therefore ceftriaxone was not administered. He is currently on IV doxycycline, but as I do have concerns about his risk of volume overload, and the equal by availability of oral doxycycline, I would recommend consideration of transitioning him to oral doxycycline instead. Confirmatory Western blot is pending. Acute on chronic heart failure with preserved ejection fraction: LVEF was normal on recent admission, echocardiogram, a week ago. The patient has a history of chronic diastolic heart failure. Based on the patient's course a week ago, it would suggest that he is very sensitive to IV fluids. With receiving 2 doses of IV doxycycline over the last 12 hours, he already notes some degree of orthopnea. His noted above, try to limit his IV fluid intake as much as possible, by transitioning his antibiotics to orals of possible. I have discontinued his prior to hospital dosing of furosemide 20 milligrams by mouth daily. I have in turn ordered furosemide 40 milligrams IV x1 now. Will plan on transitioning him to furosemide 20 milligrams IV twice daily at 7:00 a.m. and 1400, with additional doses as necessary. Will also start spironolactone 12.5 milligrams daily and monitor potassium levels which have historically been low. Blood pressure is stable, with systolic readings in the 140s to 150s, and I think he will tolerate this diuretic therapy well. History of pulmonary embolism: INR this morning subtherapeutic at 1.5, and he has had multiple recent subtherapeutic levels. a perfusion scan ( no ventilation portion performed due to COVID-19 considerations) was of intermediate probability for recurrent PE on 11/12/2019. Recommend bridge therapy with Lovenox rather than heparin in an effort to reduce his fluid intake. Increase Coumadin dose for goal of INR between 2 and 3. I called the patient's outpatient pharmacy to determine the [id number] cost for Eliquis. His [id number] co-pay would be over 200 dollars per month. Therefore looking ahead, Coumadin appears to be the agent of choice for him. I recommended transfer from the third floor medical/ surgical unit to PCU, to allow for better monitoring in terms of his volume status, and telemetry given the risk of potential conduction disease in the setting of Lyme. Case discussed by phone with Dr. Marcos. History of Present Illness Attending Physician: Sofía Marcos MD History of Present Illness Isaac Cherry is a 64 year old male seen in cardiology consultation per the request of Dr Maloney for For the evaluation of ongoing fever, muscle aches, and history of chronic diastolic heart failure. The patient's primary etl informatica developer is Dr. Emeka Luong of our practice. The patient had most recently been admitted on 11/11/2019 with a febrile illness. Ultimately, he had negative COVID-19 testing, in no source of the fever was determined. Studies for tick- borne illness were negative at that time. He has a history of chronic diastolic heart failure, and typically takes furosemide 20 milligrams daily. During the first 3 days of his hospital stay from 11/10 to 11/13, he had received significant volume resuscitation due to concerns of fever and sepsis, as well as IV antibiotic therapy. He became progressively short of breath, and ultimately developed respiratory insufficiency. A somewhat technically limited trans thoracic echocardiogram was performed when the patient was in distress. There is concern of possible aortic valve pathology and the patient underwent endotracheal tube intubation for airway support, and then transesophageal echocardiogram As performed by Dr. Kingston our practice on 11/14/2019. There was concern of an abnormality on the left coronary cusp of the aortic valve. He was transferred to [facility], and followed by infectious disease, and ultimately was felt that he did not have endocarditis at that time. He was discharged without a definite diagnosis, other than shortness of breath due to volume overload, that improved with diuretic therapy. The patient had since developed recurrent subjective fevers and myalgias, prompting referral to the emergency room last evening. On my assessment today in room 354, the patient still notes body aches. He was afebrile on his temperature checks last night. Is currently receiving IV doxycycline. He notes mild orthopnea, and he states that he is sitting at an angle in his bed because he feels short of breath if he lies flat. his history is otherwise notable for polymyalgia rheumatica for which he is on chronic prednisone. He also has a history of pulmonary embolism and therefore he is on chronic therapy with Coumadin, and his INR is subtherapeutic. Allergies Allergy/AdvReac Type Severity Reaction Status Date / Time Iodinated Contrast Media Allergy Severe DIFFICULTY Verified 11/11/19 19:31 BREATHING/THROAT SWELLING blue dye Allergy Unknown swelling Verified 11/11/19 19:31 cefuroxime Allergy Unknown hives Verified 11/11/19 19:31 shellfish derived Allergy Unknown swelling Verified 11/11/19 19:31 levofloxacin AdvReac Intermediate Tendon Verified 11/11/19 19:31 contractions Home Medications Home Medications Medication Instructions Recorded Confirmed Type metoprolol succinate 12.5 mg PO BID 06/14/19 11/22/19 History rosuvastatin 5 mg PO QPM 06/14/19 11/22/19 History sertraline 50 mg PO DAILY 06/14/19 11/22/19 History warfarin 5 mg PO 6XWK 06/14/19 11/22/19 History empagliflozin [Jardiance] 10 mg PO DAILY 11/22/19 11/22/19 History fenofibrate micronized 134 mg PO DAILY 11/22/19 11/22/19 History furosemide [Lasix] 20 mg PO DAILY 11/22/19 11/22/19 History ipratropium-albuterol 3 ml NEB Q4R PRN 11/22/19 11/22/19 History metformin 1,000 mg PO BID 11/22/19 11/22/19 History omega-3 acid ethyl esters 2 cap PO BID 11/22/19 11/22/19 History prednisone 2.5 mg PO DAILY 11/22/19 11/22/19 History warfarin 7.5 mg PO WK 11/22/19 11/22/19 History Patient History Medical History Appendicitis CHF (congestive heart failure) Diabetes DVT (deep venous thrombosis) High cholesterol History of high blood pressure Pulmonary embolism Umbilical hernia Surgical History History of cholecystectomy Social History Smoking Status: Never smoker Second Hand Exposure: Yes (When in [employer] ); Do You Dip or Chew Tobacco: No; Hx Alcohol Use: No Hx Substance Use: No Preferred Language: Central African Communication Ability: Effective Leg Assembler Required: No Beliefs That Will Affect Care: None Current Living Situation: Spouse Other Information That Helps Us Care for You: No Feels Safe at Home: Yes Safety Concerns: Feels Safe At This Time Review of Systems Review of Systems: All systems reviewed & are unremarkable except as noted in HPI & below Physical Exam Physical Exam: Temp Pulse Resp BP Pulse Ox 36.6 C 69 16 142/85 H 97 11/23/19 07:55 11/23/19 07:55 11/23/19 07:55 11/23/19 07:55 11/23/19 07:55 Constitutional: WD/WN, vitals as above Respiratory: normal respiratory effort, lungs clear to auscultation Cardiovascular: RRR, no murmur, no edema Gastrointestinal (Abdomen): normal bowel sounds, soft, nontender, no hepatosplenomegaly Skin: no rashes, warm and dry Neurologic: PERRL, EOMI, accommodation nl, no face palsy, no dysarthria Results & Data ([facility]) Vital Signs (Past 12 Hours) Vital Signs Temp Pulse Pulse Resp BP Pulse Ox 11/23/19 07:55 36.6 C 69 16 142/85 H 97 11/22/19 23:15 37.0 C 75 16 134/77 99 11/22/19 22:34 80 16 96 Laboratory Results Cardiac Enzymes 11/22/19 11/23/19 Range/Units 16:29 06:57 AST 16 15 (15-37) U/L Troponin I < 0.015 (0-0.045) ng/ml Coagulation 11/22/19 11/23/19 Range/Units 16:29 06:57 PT 18.7 H 15.3 H (9.0-12.0) Seconds APTT 31.7 H (21.0-31.0) Seconds CBC 11/22/19 11/23/19 Range/Units 16:29 06:57 WBC 9.53 8.59 (4.8-10.8) K/uL RBC 5.55 5.41 (4.7-6.1) M/uL Hgb 15.7 15.1 (14.0-18.0) g/dL Hct 46.9 46.3 (42-52) % Plt Count 422 H 367 (130-400) K/uL Neut # (Auto) 5.83 3.79 (1.4-6.5) K/uL Lymph # (Auto) 2.75 3.63 H (1.2-3.4) K/uL [place] # (Auto) 0.74 H 0.89 H (0.11-0.59) K/uL Eos # (Auto) 0.13 0.19 (0-0.5) K/uL Baso # (Auto) 0.01 0.02 (0-0.2) K/uL Comprehensive Metabolic Panel 11/22/19 11/23/19 Range/Units 16:29 06:57 Sodium 138 136 (136-145) mmol/L Potassium 3.8 3.8 (3.5-5.1) mmol/L Chloride 105 104 (98-107) mmol/L Carbon Dioxide 25 23 (21-32) mmol/L BUN 18 20 H (7-18) mg/dl Creatinine 1.00 0.91 (0.6-1.4) mg/dl Glucose 187 H 142 H (70-99) mg/dl Calcium 9.5 9.2 (8.5-10.1) mg/dl AST 16 15 (15-37) U/L ALT 45 38 (12-78) U/L Alkaline Phosphatase 77 65 (45-117) U/L Total Protein 8.6 H 7.8 (6.4-8.2) gm/dl Albumin 3.6 3.2 L (3.4-5.0) gm/dl Intake and Output 11/22/19 11/23/19 11/23/19 22:59 06:59 14:59 Intake Total 350 / 350 110 / 110 Output Total 700 / 1825 1125 / 1825 900 / 900 Balance -350 / -1475 -1125 / -1475 -790 / -790 Intake: IV 110 / 110 110 / 110 Vibramycin 100 mg In D5 100 ml 110 / 110 110 / 110 @ 50 mls/hr IV Q12H [facility] Rx#: [id number] Oral 240 / 240 Output: Urine 700 / 1825 1125 / 1825 900 / 900 Other: Weight 82.5 kg
[2019-11-23] MEDS: INSULIN ASPART 100 UNITS/ML 3 ML PEN SC SCH ×4 (12:24→21:21)
--- NOTE | 2019-11-23 13:12 | CT Scan Report ---
CT chest wo con CT DOSE: 608.98 mGy.cm CLINICAL HISTORY: 64 years-old Male with R/O PUL iNFARCT. Acute shortness of breath. TECHNIQUE: Multiaxial CT images of the chest were performed without contrast. A dose lowering techni que was utilized adhering to the principles of ALARA. COMPARISON: Pulmonary perfusion study 11/12/2019, chest CT 11/12/2019 FINDINGS: Unremarkable thyroid. Scattered mildly prominent nonspecific mediastinal lymph nodes. No pathological ly enlarged lymph nodes. Mild cardiomegaly. Coronary artery calcifications. No thoracic aortic aneury sm. There is no pneumothorax or pleural effusion. Scattered subcentimeter pulmonary calcified granulomata . No overt pulmonary edema or airspace consolidation to suggest pulmonary infarct or pneumonia. There is mild linear subsegmental bibasilar atelectasis. Central airways are patent. No suspicious pulmona ry nodules or masses. Mild nonspecific distal esophageal wall thickening. Hepatic steatosis. Bilatera l gynecomastia. Unchanged 1.8 cm sclerotic focus of the left scapula which may reflect a bone island. Multilevel disc space narrowing with spondylitic spurring and facet arthrosis. IMPRESSION: 1. Cardiomegaly without acute intrathoracic abnormality. 2. Hepatic steatosis. ACT 112: Negative or not required by law. Electronically signed by: Myles Garcia M.D. 11/23/2019 12:15 PM
[2019-11-23] MEDS: ENOXAPARIN 80 MG/0.8 ML SYR SQ SCH ×2 (13:23→21:20)
[2019-11-23] MEDS: FENOFIBRATE NANOCRYSTALLIZED 145 MG TABLET PO SCH (13:29)
--- NOTE | 2019-11-23 14:15 | Hospitalist Progress Note ---
Date of Service November 23, 2019 Assessment & Plan (1) Acute Lyme disease: Presented with weakness and polyarthralgia since around 11 November Initial line immunoglobulin G and M where negative and did not receive any course of antibiotics Noted to have Lyme titer positive for IgG and IgMWestern blot has been sent Started with doxycycline and added Augmentin as well No evidence of Lyme carditis We will continue current management (2) Hx of pulmonary embolus: History of pulmonary embolism Has been on Coumadin but INR remains subtherapeutic Denies any significant symptoms CT of the head without contrast did not show any infiltration and/or pulmonary infarct Will start Lovenox and continue Coumadin Monitor INR (3) Acute on chronic heart failure with preserved ejection fraction (HFpEF): History of fluid overload with pulmonary edema during his last admission which required intubation We will try to avoid any intravenous fluid He has been COVID-19 negative Has been receiving Lasix Appreciate cardiology input and recommendation (4) Subtherapeutic anticoagulation: INR has been around 1.3-1.8 for the last 2 weeks Today it is 1.5 Will start Lovenox and continue Coumadin for now Monitor INR Admission and Anticipated Discharge Date Admission Date: November 22, 2019 Subjective 11/23/2019 The patient was seen in medical floor He has been complaining of aches and pains involving multiple joints since about 10 November when he was ruled out for Lyme disease and has had problems with pulmonary edema due to IV fluid administration Since then he has been ruled out for infective endocarditis from [place] which is suspected at [facility] Sent in from cardiology clinic yesterday with increasing shortness of breath and increasing aches and pains with fever Has been feeling a little better since admission Review of Systems Review of Systems: All systems reviewed and are unremarkable except as noted below Respiratory: no cough and no dyspnea Cardiovascular: no chest pain, no orthopnea and no palpitations Gastrointestinal: no abdominal pain Musculoskeletal: + joint pain (Arthralgias involving multiple joints) and + myalgia Physical Exam Physical Exam: Lying in bed comfortably but very anxious Constitutional: well developed, well nourished and + ill appearing; no acute distress Eyes: PERRL, conjunctivae normal, anicteric sclerae ENMT: external ear and nose normal, oropharynx normal Neck: trachea midline, no thyromegaly Respiratory: normal respiratory effort; no respiratory distress Auscultation: lungs clear to auscultation bilaterally Cardiovascular: Rate/Rhythm: regular rate and regular rhythm Heart Sounds: no murmur Gastrointestinal (Abdomen): Inspection/Auscultation: abdomen normal to inspection; abdomen not distended Percussion/Palpation: abdomen soft Musculoskeletal: Arthralgias involving multiple joints but no acute arthritis in any joint Neurologic: moves all extremities; no focal motor deficits Psychiatric: A+Ox3, euthymic affect Lymphatic: no cervical or axillary lymphadenopathy Results & Data Results & Data ([facility]) Vital Signs (Past 12 Hours) Vital Signs Temp Pulse Resp BP Pulse Ox 11/23/19 11:04 36.6 C 79 19 147/90 H 96 11/23/19 07:55 36.6 C 69 16 142/85 H 97 Laboratory Results Short CBC 11/22/19 11/23/19 Range/Units 16:29 06:57 WBC 9.53 8.59 (4.8-10.8) K/uL Hgb 15.7 15.1 (14.0-18.0) g/dL Hct 46.9 46.3 (42-52) % Plt Count 422 H 367 (130-400) K/uL BMP 11/22/19 11/23/19 16:29 06:57 Sodium 138 136 Potassium 3.8 3.8 Chloride 105 104 Carbon Dioxide 25 23 BUN 18 20 H Creatinine 1.00 0.91 Glucose 187 H 142 H Calcium 9.5 9.2 Cardiac Enzymes 11/22/19 Range/Units 16:29 Troponin I < 0.015 (0-0.045) ng/ml Liver Function 11/22/19 11/23/19 Range/Units 16:29 06:57 Total Bilirubin 0.4 0.7 (0.2-1) mg/dl AST 16 15 (15-37) U/L ALT 45 38 (12-78) U/L Alkaline Phosphatase 77 65 (45-117) U/L Albumin 3.6 3.2 L (3.4-5.0) gm/dl Urine 11/22/19 Range/Units 16:51 Urine Color Yellow Urine Appearance Clear (Clear) Urine pH 5.0 (4.5-7.5) Ur Specific [place] 1.028 (1.000-1.030) Urine Protein Negative (Negative) Urine Glucose (UA) 3+ H (Negative) Medications Administered Current Inpatient Medications Acetaminophen (Acetaminophen 325 Mg Tab) 650 mg PO Q4H PRN PRN Reason: Pain or Fever Stop: 12/22/19 23:50 Last Admin: 11/23/19 13:29 Dose: 650 mg Documented by: Albuterol (Albut/Ipratrop 3mg/0.5mg Neb 3 Ml Vial) 3 ml NEB Q4R PRN PRN Reason: Shortness Of Breath Or Wheezing Stop: 12/22/19 19:03 Amoxicillin/Clavulanate Potassium (Amoxicillin/Clavulanate 875 Mg Tab) 1 tab PO BIDM JULIANNE Stop: 11/30/19 09:14 Last Admin: 11/23/19 09:45 Dose: 1 tab Documented by: Dextrose (Dextrose 50% 50 Ml Syringe) 25 - 50 ml IV UD PRN; Protocol PRN Reason: Hypoglycemia Protocol Stop: 12/22/19 21:44 Doxycycline Hyclate (Doxycycline Hyclate 100 Mg Cap) 100 mg PO BID [facility] Stop: 12/03/19 17:59 Enoxaparin Sodium (Enoxaparin 80 Mg/0.8 Ml Syr) 80 mg SQ Q12H JULIANEN Stop: 12/23/19 09:59 Last Admin: 11/23/19 13:23 Dose: 80 mg Documented by: Fenofibrate (Fenofibrate Nanocrystallized 145 Mg Tablet) 145 mg PO DAILY [facility] Stop: 12/23/19 12:59 Last Admin: 11/23/19 13:29 Dose: 145 mg Documented by: Furosemide (Furosemide 20 Mg Tab) 20 mg PO QAM [facility] Stop: 12/23/19 08:59 Glucagon (Glucagon For Inj 1 Mg Vial) 1 mg IM UD PRN; Protocol PRN Reason: Hypoglycemia Protocol Stop: 12/22/19 21:44 Glucose (Glucose 40% Gel 15 Gm Tube) 15 - 30 gm PO UD PRN; Protocol PRN Reason: Hypoglycemia Protocol Stop: 12/22/19 21:44 Glucose (Glucose 10 Tabs/Tube) 4 - 8 tabs PO UD PRN; Protocol PRN Reason: Hypoglycemia Protocol Stop: 12/22/19 21:44 Furosemide 20 mg/ Syringe 2 mls @ 4 mls/min IV [id number] [facility] Stop: 12/24/19 06:59 Insulin Aspart (Insulin Aspart 100 Units/Ml 3 Ml Pen) 0 units SC ACHS JULIANNE Stop: 12/23/19 10:29 Last Admin: 11/23/19 12:33 Dose: Not Given Documented by: Metoprolol Succinate (Metoprolol Succ 25mg Ext Rel Tab) 12.5 mg PO BID [facility] Stop: 12/22/19 20:59 Last Admin: 11/23/19 09:13 Dose: 12.5 mg Documented by: Miscellaneous (Empagliflozin [Jardiance] 10 Mg~Order Awaiting Action) 1 ea N/A QS JULIANNE Stop: 12/23/19 00:00 Last Admin: 11/23/19 08:40 Dose: Not Given Documented by: Miscellaneous (Carbohydrates For Hypoglycemia ) 15 - 30 gm PO UD PRN PRN Reason: Hypoglycemia Treatment Stop: 12/22/19 21:44 Ondansetron HCl (Ondansetron Inj 2 Mg/Ml 2 Ml Vial) 4 mg IV Q6H PRN PRN Reason: Nausea Stop: 12/23/19 06:13 Last Admin: 11/23/19 06:35 Dose: 4 mg Documented by: Oxycodone HCl (Oxycodone Hcl Ir 5 Mg Tab (Immediate Release)) 5 mg PO Q6H PRN PRN Reason: Pain Stop: 12/07/19 06:13 Last Admin: 11/23/19 13:29 Dose: 5 mg Documented by: Rosuvastatin Calcium (Rosuvastatin Calcium 5 Mg Tab) 5 mg PO QPM JULIANNE Stop: 12/22/19 20:59 Last Admin: 11/22/19 21:45 Dose: 5 mg Documented by: Sertraline HCl (Sertraline Hcl 50 Mg Tablet) 50 mg PO DAILY [facility] Stop: 12/23/19 08:59 Last Admin: 11/23/19 09:14 Dose: 50 mg Documented by: Spironolactone (Spironolactone 12.5 Mg Tab) 12.5 mg PO DAILY [facility] Stop: 12/23/19 08:59 Last Admin: 11/23/19 09:13 Dose: 12.5 mg Documented by: Warfarin Sodium (Warfarin Sod 5 Mg Tab) 5 mg PO DAILY@1600 [facility] Stop: 12/23/19 15:59 Warfarin Sodium (Warfarin Sod 2 Mg Tab) 2 mg PO DAILY@1600 [facility] Stop: 12/23/19 15:59
[2019-11-23] MEDS ORDERED: WARFARIN SOD 2 MG TAB PO SCH (16:00)
[2019-11-23] MEDS ORDERED: WARFARIN SOD 5 MG TAB PO SCH ×2 (16:00)
[2019-11-23] MEDS: DOXYCYCLINE HYCLATE 100 MG CAP PO SCH (17:18)
[2019-11-23] MEDS: ROSUVASTATIN CALCIUM 5 MG TAB PO SCH (19:47)
[2019-11-24] MEDS: ACETAMINOPHEN 325 MG TAB PO PRN ×4 (02:06→20:34)
[2019-11-24] MEDS: OXYCODONE HCL IR 5 MG TAB (IMMEDIATE RELEASE) PO PRN ×4 (02:07→20:33)
--- NOTE | 2019-11-24 06:15 | Electrocardiogram Report ---
Test Reason : Blood Pressure : / mmHG Vent. Rate : 107 BPM Atrial Rate : 107 BPM P-R Int : 132 ms QRS Dur : 088 ms QT Int : 354 ms P-R-T Axes : 061 010 017 degrees QTc Int : 472 ms Sinus tachycardia Otherwise normal ECG When compared with ECG of 14-NOV-2019 15:23, Premature ventricular complexes are no longer Present ST no longer depressed in Anterior leads Confirmed by Genaro Leal ([id number]) on 11/24/2019 6:14:33 AM Referred By: Emeka Luong Confirmed By:Genaro Leal
[2019-11-24] MEDS: FUROSEMIDE 20 MG in SYRINGE 0 ML IV SCH ×2 (06:30→13:30)
[2019-11-24] MEDS: INSULIN ASPART 100 UNITS/ML 3 ML PEN SC SCH ×4 (07:57→20:36)
[2019-11-24] MEDS: AMOXICILLIN/CLAVULANATE 875 MG TAB PO SCH ×2 (07:58→16:52)
[2019-11-24] MEDS: SPIRONOLACTONE 12.5 MG TAB PO SCH (07:59)
[2019-11-24] MEDS: METOPROLOL SUCC 25MG EXT REL TAB PO SCH ×2 (07:59→20:33)
[2019-11-24] MEDS: DOXYCYCLINE HYCLATE 100 MG CAP PO SCH ×2 (08:00→20:33)
[2019-11-24] MEDS: FENOFIBRATE NANOCRYSTALLIZED 145 MG TABLET PO SCH (08:00)
[2019-11-24] MEDS: SERTRALINE HCL 50 MG TABLET PO SCH (08:00)
[2019-11-24 08:03] LABS: INR 1.3 (0.9-1.1)
[2019-11-24 08:24] LABS: BUN Creatinine Ratio 20.9 (10-20); Calcium 9.8 mg/dl (8.5-10.1); Creatinine Clr Calc Pharmacy 77.1 ml/min; Est GFR (African American) 96.4; Est GFR (Non-African American) 83.2; Potassium 3.9 mmol/L (3.5-5.1)
--- NOTE | 2019-11-24 09:26 | Cardiology Progress Note ---
Date of Service November 24, 2019 Assessment & Plan (1) Acute Lyme disease: Day 3 of Doxycycline, day 2 of Augmentin. Agree with plan for oral antibiotics, as I do not think IV treatment offers additional benefit from an infection standpoint, and his vital to reduce IV fluid intake is patient. Has history of cephalosporin allergy, therefore ceftriaxone not an option regardless. (2) NSVT (nonsustained ventricular tachycardia): A single episode of 7 beats of nonsustained ventricular tachycardia, 180 beats per minute, noted on 11/24/2019, 3:07 a.m.. Magnesium level was normal on admission. Potassium normal on labs this morning 11/24/2019. Increase metoprolol succinate to 25 milligrams twice daily from 12.5 milligrams twice daily. (3) Acute on chronic heart failure with preserved ejection fraction (HFpEF): Patient's recent presentation, he has demonstrated significant sensitivity to IV fluid administration regarding tipping him into volume overload. Will therefore plan to keep his intake and output even perhaps a little bit negative. Kidney function and electrolytes are stable today. Continue furosemide 20 milligrams IV twice daily 7:00 a.m., 1400, spironolactone 12.5 milligrams daily. Repeat chemistry panel tomorrow. (4) Hx of pulmonary embolus: History of pulmonary embolism. Subtherapeutic international normalized ratio. Continue Lovenox bridge and Coumadin, goal INR 2 to 3. (5) PMR (polymyalgia rheumatica): Patient has a long-standing history of polymyalgia rheumatica and is typically on prednisone 2.5 milligrams daily on a chronic basis. During his recent hospital stay at [facility], laboratory studies on 11/16/2019 included an elevated ESR at 70 millimeters in our, elevated CRP at 140 milligrams/L. These inflammatory markers are likely reflective of acute Lyme ( or other infection), but the patient has ongoing diffuse body aches in the abse nce of an objective temperature. He is currently receiving oxycodone on a p.r.n. basis for palliation of his pain. I am going to discuss a possible tapering prednisone dose, perhaps starting at 40 milligrams. I think the risk of this hindering his recovery from an infection standpoint is low, and although not evidenced based , will perhaps provide clinical improvement. DISPOSITION: Patient to remain in the hospital on telemetry , with need for subjective improvement of diffuse body aches. Admission and Anticipated Discharge Date Admission Date: November 22, 2019 Subjective Mr. Cherry is seen in follow-up of shortness of breath, orthopnea, myalgias, subjective fever. Since he was assessed yesterday 11/23/2019, he notes interval improvement in his shortness of breath, no orthopnea at present, he is able to lie flat. He received 20 milligrams of IV furosemide the evening he presented to the emergency room on 11/22/2019, and yesterday 11/23/2019, he received 60 milligrams of IV furosemide. His IV antibiotic treatment has been transition to oral doxycycline and oral Augmentin. 3.5 liters of urine output noted yesterday, for a net -2.2 Liter fluid balance. He remains afebrile. He does have ongoing diffuse body aches. He has been receiving immediate release oxycodone for this, which is unusual for him, as he does not use narcotic analgesics as an outpatient at baseline. telemetry reveals sinus rhythm in the 80s with occasional PVCs. A 7 beat run of nonsustained ventricular tachycardia was observed at 3:07 a.m., 11/24/2019, with rate up to 180 beats per minute. Review of Systems Review of Systems: All systems reviewed & are unremarkable except as noted in HPI & below Physical Exam Physical Exam: Temp Pulse Resp BP Pulse Ox 36.7 C 86 20 134/86 99 11/24/19 08:14 11/24/19 08:14 11/24/19 08:14 11/24/19 08:14 11/24/19 08:14 Constitutional: WD/WN, vitals as above Respiratory: No rales or rhonchi, clear breath sounds Cardiovascular: RRR, no murmur, no edema Heart Sounds: no murmur Extremities: no edema Gastrointestinal (Abdomen): normal bowel sounds, soft, nontender, no hepatosplenomegaly Musculoskeletal: no prominent joint effusions Neurologic: PERRL, EOMI, accommodation nl, no face palsy, no dysarthria Results & Data ([facility]) Vital Signs (Past 12 Hours) Vital Signs Temp Pulse Pulse Resp BP BP Pulse Ox 11/24/19 08:14 36.7 C 86 20 134/86 99 11/24/19 03:38 36.3 C L 66 18 131/79 97 11/24/19 03:27 67 18 96 11/24/19 00:20 36.7 C 71 18 142/88 H 96 11/23/19 22:00 71 16 96 Laboratory Results Coagulation 11/24/19 Range/Units 07:08 PT 14.0 H (9.0-12.0) Seconds Comprehensive Metabolic Panel 11/24/19 Range/Units 07:08 Sodium 136 (136-145) mmol/L Potassium 3.9 (3.5-5.1) mmol/L Chloride 101 (98-107) mmol/L Carbon Dioxide 26 (21-32) mmol/L BUN 20 H (7-18) mg/dl Creatinine 0.96 (0.6-1.4) mg/dl Glucose 146 H (70-99) mg/dl Calcium 9.8 (8.5-10.1) mg/dl Intake and Output 11/23/19 11/24/19 11/24/19 22:59 06:59 14:59 Intake Total 575 / 1450 325 / 1450 Output Total 800 / 3551 1100 / 3551 Balance -225 / -2101 -775 / -2101 Intake: Oral 575 / 1340 325 / 1340 Output: Urine 800 / 3550 1100 / 3550 Other: Weight 83.1 kg Medications Administered Current Inpatient Medications Acetaminophen (Acetaminophen 325 Mg Tab) 650 mg PO Q4H PRN PRN Reason: Pain or Fever Stop: 12/22/19 23:50 Last Admin: 11/24/19 08:03 Dose: 650 mg Documented by: Albuterol (Albut/Ipratrop 3mg/0.5mg Neb 3 Ml Vial) 3 ml NEB Q4R PRN PRN Reason: Shortness Of Breath Or Wheezing Stop: 12/22/19 19:03 Amoxicillin/Clavulanate Potassium (Amoxicillin/Clavulanate 875 Mg Tab) 1 tab PO BIDM [facility] Stop: 11/30/19 09:14 Last Admin: 11/24/19 07:58 Dose: 1 tab Documented by: Dextrose (Dextrose 50% 50 Ml Syringe) 25 - 50 ml IV UD PRN; Protocol PRN Reason: Hypoglycemia Protocol Stop: 12/22/19 21:44 Doxycycline Hyclate (Doxycycline Hyclate 100 Mg Cap) 100 mg PO BID [facility] Stop: 12/03/19 17:59 Last Admin: 11/24/19 08:00 Dose: 100 mg Documented by: Enoxaparin Sodium (Enoxaparin 80 Mg/0.8 Ml Syr) 80 mg SQ Q12H JULIANNE Stop: 12/23/19 09:59 Last Admin: 11/23/19 21:20 Dose: 80 mg Documented by: Fenofibrate (Fenofibrate Nanocrystallized 145 Mg Tablet) 145 mg PO DAILY JULIANNE Stop: 12/23/19 12:59 Last Admin: 11/24/19 08:00 Dose: 145 mg Documented by: Furosemide (Furosemide 20 Mg Tab) 20 mg PO QAM JULIANNE Stop: 12/23/19 08:59 Glucagon (Glucagon For Inj 1 Mg Vial) 1 mg IM UD PRN; Protocol PRN Reason: Hypoglycemia Protocol Stop: 12/22/19 21:44 Glucose (Glucose 40% Gel 15 Gm Tube) 15 - 30 gm PO UD PRN; Protocol PRN Reason: Hypoglycemia Protocol Stop: 12/22/19 21:44 Glucose (Glucose 10 Tabs/Tube) 4 - 8 tabs PO UD PRN; Protocol PRN Reason: Hypoglycemia Protocol Stop: 12/22/19 21:44 Furosemide 20 mg/ Syringe 2 mls @ 4 mls/min IV [id number] JULIANNE Stop: 12/24/19 06:59 Last Admin: 11/24/19 06:30 Dose: 4 mls/min Documented by: Insulin Aspart (Insulin Aspart 100 Units/Ml 3 Ml Pen) 0 units SC ACHS JULIANNE Stop: 12/23/19 10:29 Last Admin: 11/24/19 07:57 Dose: Not Given Documented by: Metoprolol Succinate (Metoprolol Succ 25mg Ext Rel Tab) 12.5 mg PO BID JULIANNE Stop: 12/22/19 20:59 Last Admin: 11/24/19 07:59 Dose: 12.5 mg Documented by: Miscellaneous (Empagliflozin [Jardiance] 10 Mg~Order Awaiting Action) 1 ea N/A QS [facility] Stop: 12/23/19 00:00 Last Admin: 11/24/19 07:58 Dose: Not Given Documented by: Miscellaneous (Carbohydrates For Hypoglycemia ) 15 - 30 gm PO UD PRN PRN Reason: Hypoglycemia Treatment Stop: 12/22/19 21:44 Ondansetron HCl (Ondansetron Inj 2 Mg/Ml 2 Ml Vial) 4 mg IV Q6H PRN PRN Reason: Nausea Stop: 12/23/19 06:13 Last Admin: 11/23/19 06:35 Dose: 4 mg Documented by: Oxycodone HCl (Oxycodone Hcl Ir 5 Mg Tab (Immediate Release)) 5 mg PO Q6H PRN PRN Reason: Pain Stop: 12/07/19 06:13 Last Admin: 11/24/19 08:02 Dose: 5 mg Documented by: Rosuvastatin Calcium (Rosuvastatin Calcium 5 Mg Tab) 5 mg PO QPM [facility] Stop: 12/22/19 20:59 Last Admin: 11/23/19 19:47 Dose: 5 mg Documented by: Sertraline HCl (Sertraline Hcl 50 Mg Tablet) 50 mg PO DAILY [facility] Stop: 12/23/19 08:59 Last Admin: 11/24/19 08:00 Dose: 50 mg Documented by: Spironolactone (Spironolactone 12.5 Mg Tab) 12.5 mg PO DAILY [facility] Stop: 12/23/19 08:59 Last Admin: 11/24/19 07:59 Dose: 12.5 mg Documented by: Warfarin Sodium (Warfarin Sod 5 Mg Tab) 5 mg PO DAILY@1600 [facility] Stop: 12/23/19 15:59 Last Admin: 11/23/19 16:13 Dose: 5 mg Documented by: Warfarin Sodium (Warfarin Sod 2 Mg Tab) 2 mg PO DAILY@1600 [facility] Stop: 12/23/19 15:59 Last Admin: 11/23/19 16:12 Dose: 2 mg Documented by:
[2019-11-24] MEDS ORDERED: METOPROLOL TARTRATE 25 MG TAB PO ONE (10:00)
[2019-11-24] MEDS: ENOXAPARIN 80 MG/0.8 ML SYR SQ SCH ×2 (10:04→20:32)
[2019-11-24] MEDS: predniSONE 20 MG TAB PO SCH (12:37)
--- NOTE | 2019-11-24 13:31 | Hospitalist Progress Note ---
Date of Service November 24, 2019 Assessment & Plan (1) Acute Lyme disease: Presented with weakness and polyarthralgia since around 11 November Initial line immunoglobulin G and M where negative and did not receive any course of antibiotics Noted to have Lyme titer positive for IgG and IgMWestern blot has been sent Started with doxycycline and added Augmentin as well No evidence of Lyme carditis We will continue current management Denies any fever and/or chills but does have arthralgias No increase in white count and on differential count We will continue current antibiotic (2) Hx of pulmonary embolus: History of pulmonary embolism Has been on Coumadin but INR remains subtherapeutic Denies any significant symptoms CT of the head without contrast did not show any infiltration and/or pulmonary infarct Will start Lovenox and continue Coumadin We will increase the dose of Coumadin to 10 mg from today Monitor INR (3) Acute on chronic heart failure with preserved ejection fraction (HFpEF): History of fluid overload with pulmonary edema during his last admission which required intubation We will try to avoid any intravenous fluid He has been COVID-19 negative Has been receiving Lasix Appreciate cardiology input and recommendation Remains clear and shortness of breath is much improved (4) Subtherapeutic anticoagulation: INR has been around 1.3-1.8 for the last 2 weeks Today it is 1.5 Will start Lovenox and continue Coumadin for now As above Admission and Anticipated Discharge Date Admission Date: November 22, 2019 Subjective 11/23/2019 The patient was seen in medical floor He has been complaining of aches and pains involving multiple joints since about 10 November when he was ruled out for Lyme disease and has had problems with pulmonary edema due to IV fluid administration Since then he has been ruled out for infective endocarditis from [place] which is suspected at [facility] Sent in from cardiology clinic yesterday with increasing shortness of breath and increasing aches and pains with fever Has been feeling a little better since admission 11/24/2019 The patient was seen and examined in telemetry unit He has been feeling a lot better today though he had some shortness of breath with exertion Denies any cough and/or phlegm Still complaining of multiple joints pain without any acute joint arthritis No fever and/or chills Review of Systems 2 Review of Systems: All systems reviewed and are unremarkable except as noted below Musculoskeletal: + joint pain (Arthralgias involving multiple joints) and + myalgia Physical Exam Physical Exam: Lying in bed comfortably but very anxious Constitutional: well developed, well nourished and + ill appearing; no acute distress Eyes: PERRL, conjunctivae normal, anicteric sclerae ENMT: external ear and nose normal, oropharynx normal Neck: trachea midline, no thyromegaly Respiratory: normal respiratory effort; no respiratory distress Auscultation: lungs clear to auscultation bilaterally Cardiovascular: Rate/Rhythm: regular rate and regular rhythm Heart Sounds: no murmur Gastrointestinal (Abdomen): Inspection/Auscultation: abdomen normal to inspection; abdomen not distended Percussion/Palpation: abdomen soft Neurologic: moves all extremities; no focal motor deficits Psychiatric: A+Ox3, euthymic affect Lymphatic: no cervical or axillary lymphadenopathy Results & Data Results & Data ([facility]) Vital Signs (Past 12 Hours) Vital Signs Temp Pulse Pulse Resp BP BP Pulse Ox 11/24/19 12:39 37.1 C 75 20 130/85 95 11/24/19 08:14 36.7 C 86 20 134/86 99 11/24/19 03:38 36.3 C L 66 18 131/79 97 11/24/19 03:27 67 18 96 Laboratory Results [facility] 11/24/19 07:08 Sodium 136 Potassium 3.9 Chloride 101 Carbon Dioxide 26 BUN 20 H Creatinine 0.96 Glucose 146 H Calcium 9.8 Medications Administered Current Inpatient Medications Acetaminophen (Acetaminophen 325 Mg Tab) 650 mg PO Q4H PRN PRN Reason: Pain or Fever Stop: 12/22/19 23:50 Last Admin: 11/24/19 08:03 Dose: 650 mg Documented by: Albuterol (Albut/Ipratrop 3mg/0.5mg Neb 3 Ml Vial) 3 ml NEB Q4R PRN PRN Reason: Shortness Of Breath Or Wheezing Stop: 12/22/19 19:03 Amoxicillin/Clavulanate Potassium (Amoxicillin/Clavulanate 875 Mg Tab) 1 tab PO BIDM JULIANNE Stop: 11/30/19 09:14 Last Admin: 11/24/19 07:58 Dose: 1 tab Documented by: Dextrose (Dextrose 50% 50 Ml Syringe) 25 - 50 ml IV UD PRN; Protocol PRN Reason: Hypoglycemia Protocol Stop: 12/22/19 21:44 Doxycycline Hyclate (Doxycycline Hyclate 100 Mg Cap) 100 mg PO BID JULIANNE Stop: 12/03/19 17:59 Last Admin: 11/24/19 08:00 Dose: 100 mg Documented by: Enoxaparin Sodium (Enoxaparin 80 Mg/0.8 Ml Syr) 80 mg SQ Q12H JULIANNE Stop: 12/23/19 09:59 Last Admin: 11/24/19 10:04 Dose: 80 mg Documented by: Fenofibrate (Fenofibrate Nanocrystallized 145 Mg Tablet) 145 mg PO DAILY JULIANNE Stop: 12/23/19 12:59 Last Admin: 11/24/19 08:00 Dose: 145 mg Documented by: Furosemide (Furosemide 20 Mg Tab) 20 mg PO QAM JULIANNE Stop: 12/23/19 08:59 Glucagon (Glucagon For Inj 1 Mg Vial) 1 mg IM UD PRN; Protocol PRN Reason: Hypoglycemia Protocol Stop: 12/22/19 21:44 Glucose (Glucose 40% Gel 15 Gm Tube) 15 - 30 gm PO UD PRN; Protocol PRN Reason: Hypoglycemia Protocol Stop: 12/22/19 21:44 Glucose (Glucose 10 Tabs/Tube) 4 - 8 tabs PO UD PRN; Protocol PRN Reason: Hypoglycemia Protocol Stop: 12/22/19 21:44 Furosemide 20 mg/ Syringe 2 mls @ 4 mls/min IV [id number] [facility] Stop: 12/24/19 06:59 Last Admin: 11/24/19 13:30 Dose: 4 mls/min Documented by: Insulin Aspart (Insulin Aspart 100 Units/Ml 3 Ml Pen) 0 units SC ACHS JULIANNE Stop: 12/23/19 10:29 Last Admin: 11/24/19 12:08 Dose: 1 units Documented by: Metoprolol Succinate (Metoprolol Succ 25mg Ext Rel Tab) 25 mg PO BID [facility] Stop: 12/24/19 20:59 Miscellaneous (Empagliflozin [Jardiance] 10 Mg~Order Awaiting Action) 1 ea N/A QS [facility] Stop: 12/23/19 00:00 Last Admin: 11/24/19 07:58 Dose: Not Given Documented by: Miscellaneous (Carbohydrates For Hypoglycemia ) 15 - 30 gm PO UD PRN PRN Reason: Hypoglycemia Treatment Stop: 12/22/19 21:44 Ondansetron HCl (Ondansetron Inj 2 Mg/Ml 2 Ml Vial) 4 mg IV Q6H PRN PRN Reason: Nausea Stop: 12/23/19 06:13 Last Admin: 11/23/19 06:35 Dose: 4 mg Documented by: Oxycodone HCl (Oxycodone Hcl Ir 5 Mg Tab (Immediate Release)) 5 mg PO Q6H PRN PRN Reason: Pain Stop: 12/07/19 06:13 Last Admin: 11/24/19 08:02 Dose: 5 mg Documented by: Prednisone (Prednisone 20 Mg Tab) 40 mg PO DAILY JULIANNE Stop: 12/24/19 11:59 Last Admin: 11/24/19 12:37 Dose: 40 mg Documented by: Rosuvastatin Calcium (Rosuvastatin Calcium 5 Mg Tab) 5 mg PO QPM JULIANNE Stop: 12/22/19 20:59 Last Admin: 11/23/19 19:47 Dose: 5 mg Documented by: Sertraline HCl (Sertraline Hcl 50 Mg Tablet) 50 mg PO DAILY JULIANNE Stop: 12/23/19 08:59 Last Admin: 11/24/19 08:00 Dose: 50 mg Documented by: Spironolactone (Spironolactone 12.5 Mg Tab) 12.5 mg PO DAILY JULIANNE Stop: 12/23/19 08:59 Last Admin: 11/24/19 07:59 Dose: 12.5 mg Documented by: Warfarin Sodium (Warfarin Sod 10 Mg Tab) 10 mg PO DAILY@1600 [facility] Stop: 12/24/19 15:59
[2019-11-24] MEDS: WARFARIN SOD 10 MG TAB PO SCH (16:21)
[2019-11-24] MEDS: ROSUVASTATIN CALCIUM 5 MG TAB PO SCH (20:33)
[2019-11-25] MEDS: OXYCODONE HCL IR 5 MG TAB (IMMEDIATE RELEASE) PO PRN ×3 (03:12→23:58)
[2019-11-25] MEDS: ACETAMINOPHEN 325 MG TAB PO PRN ×6 (03:13→23:58)
[2019-11-25 04:26] LABS: 18KDIGG Band REACTIVE; 23KDIGG Band NON-REACTIVE; 23KDIGM Band REACTIVE; 28KDIGG Band NON-REACTIVE; 30KDIGG Band NON-REACTIVE; 39KDIGG Band NON-REACTIVE; 39KDIGM Band REACTIVE; 41KDIGG Band REACTIVE; 41KDIGM Band NON-REACTIVE; 45KDIGG Band NON-REACTIVE; 58KDIGG Band NON-REACTIVE; 66KDIGG Band NON-REACTIVE; 93KDIGG Band NON-REACTIVE; Lyme Antibodies, WB IgG NEGATIVE (NEGATIVE); Lyme Antibodies, WB IgM POSITIVE (NEGATIVE)
[2019-11-25 05:38] LABS: Basophils # (auto) 0.01 K/uL (0-0.2); Basophils % (auto) 0.1 %; Eosinophils % (auto) 0.8 %; Hematocrit (blood only) 45.5 % (42-52); Hemoglobin 15.6 g/dL (14.0-18.0); Immature Granulocytes # (auto) 0.04 K/uL (0.00-0.02); Immature Granulocytes % (auto) 0.3 %; Lymphocytes # (auto) 4.01 K/uL (1.2-3.4); Lymphocytes % (auto) 32.8 %; Mean Corpuscular Hemoglobin 28.2 pg (25-34); Mean Corpuscular Hgb Conc 34.3 g/dL (32-36); Mean Corpuscular Volume 82.3 fL (80-100); Mean Platelet Volume 10.1 fL (7.4-10.4); Monocytes # (auto) 1.09 K/uL (0.11-0.59); Monocytes % (auto) 8.9 %; Neutrophils # (auto) 6.97 K/uL (1.4-6.5); Neutrophils % (auto) 57.1 %; Platelet Count 355 K/uL (130-400); RDW Coefficient of Variation 13.4 % (11.5-14.5); RDW Standard Deviation 40.2 fL (36.4-46.3); Red Blood Count 5.53 M/uL (4.7-6.1); White Blood Count 12.22 K/uL (4.8-10.8)
[2019-11-25 05:47] LABS: INR 1.6 (0.9-1.1); Prothrombin Time 16.6 Seconds (9.0-12.0)
[2019-11-25] MEDS: FUROSEMIDE 20 MG in SYRINGE 0 ML IV SCH ×2 (05:49→15:44)
[2019-11-25 06:12] LABS: BUN Creatinine Ratio 27.2 (10-20); Calcium 9.6 mg/dl (8.5-10.1); Creatinine Clr Calc Pharmacy 91.4 ml/min; Est GFR (African American) 108.9; Est GFR (Non-African American) 93.9; Magnesium 2.2 mg/dl (1.8-2.4); Potassium 3.7 mmol/L (3.5-5.1)
[2019-11-25] MEDS: INSULIN ASPART 100 UNITS/ML 3 ML PEN SC SCH ×4 (08:40→20:14)
[2019-11-25] MEDS: SPIRONOLACTONE 12.5 MG TAB PO SCH (08:41)
[2019-11-25] MEDS: DOXYCYCLINE HYCLATE 100 MG CAP PO SCH ×2 (08:41→20:10)
[2019-11-25] MEDS: FENOFIBRATE NANOCRYSTALLIZED 145 MG TABLET PO SCH (08:41)
[2019-11-25] MEDS: predniSONE 20 MG TAB PO SCH (08:41)
[2019-11-25] MEDS: AMOXICILLIN/CLAVULANATE 875 MG TAB PO SCH ×2 (08:41→17:54)
[2019-11-25] MEDS: SERTRALINE HCL 50 MG TABLET PO SCH (08:41)
[2019-11-25] MEDS: METOPROLOL SUCC 25MG EXT REL TAB PO SCH ×2 (08:42→20:10)
[2019-11-25] MEDS: ENOXAPARIN 80 MG/0.8 ML SYR SQ SCH ×2 (11:16→20:11)
--- NOTE | 2019-11-25 11:43 | Hospitalist Progress Note ---
Date of Service November 25, 2019 Assessment & Plan (1) Acute Lyme disease: Presented with weakness and polyarthralgia since around 11 November Initial line immunoglobulin G and M where negative and did not receive any course of antibiotics Noted to have Lyme titer positive for IgG and IgMWestern blot tests have been positive for Lyme Started with doxycycline and added Augmentin as well No evidence of Lyme carditis We will continue current management Denies any fever and/or chills but does have arthralgias No increase in white count and on differential count We will continue current antibiotic Symptomatically better and joints pain have been improving Will discontinue and continue with doxycycline for about 21 days in total Polyarthralgia Fleeting polyarthralgia Secondary to acute Lyme disease Has been improving with prednisone No NSAID use We will continue prednisone for a total of 5 days (2) Hx of pulmonary embolus: History of pulmonary embolism Has been on Coumadin but INR remains subtherapeutic Denies any significant symptoms CT of the head without contrast did not show any infiltration and/or pulmonary infarct Will start Lovenox and continue Coumadin We will increase the dose of Coumadin to 10 mg from today Monitor INR-1.6 as of 11/25/2019 seems to be affected by Augmentin Will discontinue Augmentin and check INR tomorrow (3) Acute on chronic heart failure with preserved ejection fraction (HFpEF): History of fluid overload with pulmonary edema during his last admission which required intubation We will try to avoid any intravenous fluid He has been COVID-19 negative Has been receiving Lasix Appreciate cardiology input and recommendation Remains clear and shortness of breath is much improved Remains euvolemic Will get to do steps O2 saturation test before discharge tomorrow (4) Subtherapeutic anticoagulation: INR has been around 1.3-1.8 for the last 2 weeks Today it is 1.5 Will start Lovenox and continue Coumadin for now INR is not yet therapeutic Admission and Anticipated Discharge Date Admission Date: November 22, 2019 Subjective 11/23/2019 The patient was seen in medical floor He has been complaining of aches and pains involving multiple joints since about 10 November when he was ruled out for Lyme disease and has had problems with pulmonary edema due to IV fluid administration Since then he has been ruled out for infective endocarditis from [place] which is suspected at [facility] Sent in from cardiology clinic yesterday with increasing shortness of breath and increasing aches and pains with fever Has been feeling a little better since admission 11/24/2019 The patient was seen and examined in telemetry unit He has been feeling a lot better today though he had some shortness of breath with exertion Denies any cough and/or phlegm Still complaining of multiple joints pain without any acute joint arthritis No fever and/or chills 11/25/2019 Patient was seen and examined in telemetry unit He has been feeling a lot better and is joints pain seems to be improving He has been ambulating without much difficulty Review of Systems Review of Systems: All systems reviewed and are unremarkable except as noted below Musculoskeletal: + joint pain (Arthralgias involving multiple joints) and + myalgia Physical Exam Physical Exam: Lying in bed comfortably but very anxious Constitutional: well developed, well nourished and + ill appearing; no acute distress Eyes: PERRL, conjunctivae normal, anicteric sclerae ENMT: external ear and nose normal, oropharynx normal Neck: trachea midline, no thyromegaly Respiratory: normal respiratory effort; no respiratory distress Auscultation: lungs clear to auscultation bilaterally Cardiovascular: Rate/Rhythm: regular rate and regular rhythm Heart Sounds: no murmur Extremities: no pedal edema Gastrointestinal (Abdomen): Inspection/Auscultation: abdomen normal to inspection; abdomen not distended Percussion/Palpation: abdomen soft Musculoskeletal: Has arthralgias involving multiple joints but no acute arthritis in any joint Neurologic: moves all extremities; no focal motor deficits Alert, and oriented x3 Psychiatric: A+Ox3, euthymic affect Lymphatic: no cervical or axillary lymphadenopathy Results & Data Results & Data ([facility]) Vital Signs (Past 12 Hours) Vital Signs Temp Pulse Pulse Resp BP BP Pulse Ox 11/25/19 08:09 36.7 C 67 18 134/80 98 11/25/19 07:34 75 11/25/19 03:10 36.4 C L 68 18 124/78 97 Laboratory Results Short CBC 11/25/19 Range/Units 05:23 WBC 12.22 H (4.8-10.8) K/uL Hgb 15.6 (14.0-18.0) g/dL Hct 45.5 (42-52) % Plt Count 355 (130-400) K/uL BMP 11/25/19 05:23 Sodium 136 Potassium 3.7 Chloride 102 Carbon Dioxide 28 BUN 22 H Creatinine 0.81 Glucose 156 H Calcium 9.6 Medications Administered Current Inpatient Medications Acetaminophen (Acetaminophen 325 Mg Tab) 650 mg PO Q4H PRN PRN Reason: Pain or Fever Stop: 12/22/19 23:50 Last Admin: 11/25/19 08:38 Dose: 650 mg Documented by: Albuterol (Albut/Ipratrop 3mg/0.5mg Neb 3 Ml Vial) 3 ml NEB Q4R PRN PRN Reason: Shortness Of Breath Or Wheezing Stop: 12/22/19 19:03 Amoxicillin/Clavulanate Potassium (Amoxicillin/Clavulanate 875 Mg Tab) 1 tab PO BIDM [facility] Stop: 11/30/19 09:14 Last Admin: 11/25/19 08:41 Dose: 1 tab Documented by: Dextrose (Dextrose 50% 50 Ml Syringe) 25 - 50 ml IV UD PRN; Protocol PRN Reason: Hypoglycemia Protocol Stop: 12/22/19 21:44 Doxycycline Hyclate (Doxycycline Hyclate 100 Mg Cap) 100 mg PO BID [facility] Stop: 12/03/19 17:59 Last Admin: 11/25/19 08:41 Dose: 100 mg Documented by: Enoxaparin Sodium (Enoxaparin 80 Mg/0.8 Ml Syr) 80 mg SQ Q12H [facility] Stop: 12/23/19 09:59 Last Admin: 11/25/19 11:16 Dose: 80 mg Documented by: Fenofibrate (Fenofibrate Nanocrystallized 145 Mg Tablet) 145 mg PO DAILY [facility] Stop: 12/23/19 12:59 Last Admin: 11/25/19 08:41 Dose: 145 mg Documented by: Furosemide (Furosemide 20 Mg Tab) 20 mg PO QAM [facility] Stop: 12/23/19 08:59 Glucagon (Glucagon For Inj 1 Mg Vial) 1 mg IM UD PRN; Protocol PRN Reason: Hypoglycemia Protocol Stop: 12/22/19 21:44 Glucose (Glucose 40% Gel 15 Gm Tube) 15 - 30 gm PO UD PRN; Protocol PRN Reason: Hypoglycemia Protocol Stop: 12/22/19 21:44 Glucose (Glucose 10 Tabs/Tube) 4 - 8 tabs PO UD PRN; Protocol PRN Reason: Hypoglycemia Protocol Stop: 12/22/19 21:44 Furosemide 20 mg/ Syringe 2 mls @ 4 mls/min IV [id number] [facility] Stop: 12/24/19 06:59 Last Admin: 11/25/19 05:49 Dose: 4 mls/min Documented by: Insulin Aspart (Insulin Aspart 100 Units/Ml 3 Ml Pen) 0 units SC ACHS JULIANNE Stop: 12/23/19 10:29 Last Admin: 11/25/19 08:40 Dose: 2 units Documented by: Metoprolol Succinate (Metoprolol Succ 25mg Ext Rel Tab) 25 mg PO BID JULIANNE Stop: 12/24/19 20:59 Last Admin: 11/25/19 08:42 Dose: 25 mg Documented by: Miscellaneous (Empagliflozin [Jardiance] 10 Mg~Order Awaiting Action) 1 ea N/A QS [facility] Stop: 12/23/19 00:00 Last Admin: 11/25/19 08:42 Dose: Not Given Documented by: Miscellaneous (Carbohydrates For Hypoglycemia ) 15 - 30 gm PO UD PRN PRN Reason: Hypoglycemia Treatment Stop: 12/22/19 21:44 Ondansetron HCl (Ondansetron Inj 2 Mg/Ml 2 Ml Vial) 4 mg IV Q6H PRN PRN Reason: Nausea Stop: 12/23/19 06:13 Last Admin: 11/23/19 06:35 Dose: 4 mg Documented by: Oxycodone HCl (Oxycodone Hcl Ir 5 Mg Tab (Immediate Release)) 5 mg PO Q6H PRN PRN Reason: Pain Stop: 12/07/19 06:13 Last Admin: 11/25/19 08:39 Dose: 5 mg Documented by: Prednisone (Prednisone 20 Mg Tab) 40 mg PO DAILY JULIANNE Stop: 12/24/19 11:59 Last Admin: 11/25/19 08:41 Dose: 40 mg Documented by: Rosuvastatin Calcium (Rosuvastatin Calcium 5 Mg Tab) 5 mg PO QPM JULIANNE Stop: 12/22/19 20:59 Last Admin: 11/24/19 20:33 Dose: 5 mg Documented by: Sertraline HCl (Sertraline Hcl 50 Mg Tablet) 50 mg PO DAILY [facility] Stop: 12/23/19 08:59 Last Admin: 11/25/19 08:41 Dose: 50 mg Documented by: Spironolactone (Spironolactone 12.5 Mg Tab) 12.5 mg PO DAILY [facility] Stop: 12/23/19 08:59 Last Admin: 11/25/19 08:41 Dose: 12.5 mg Documented by: Warfarin Sodium (Warfarin Sod 10 Mg Tab) 10 mg PO DAILY@1600 JULIANNE Stop: 12/24/19 15:59 Last Admin: 11/24/19 16:21 Dose: 10 mg Documented by:
--- NOTE | 2019-11-25 12:49 | Cardiology Progress Note ---
Date of Service November 25, 2019 Assessment & Plan (1) Acute on chronic heart failure with preserved ejection fraction (HFpEF): Volume status stable,normovolemic. Continue furosemide 20 mg IV twice daily. Spironolactone 12.5 mg p.o. daily. At discharge, will likely proceed with furosemide 20 mg p.o. daily (prior chronic home dose), and spironolactone 12.5 mg p.o. daily (new). (2) Acute Lyme disease: Continue doxycycline, day 4. Continue Augmentin, day 3. (3) NSVT (nonsustained ventricular tachycardia): No recurrence on telemetry overnight or today thus far. Continue metoprolol succinate 25 mg twice daily. (4) Hx of pulmonary embolus: INR remains below goal at 1.6. Continue Lovenox bridge, Coumadin. As previously noted, his [id number] cost for Eliquis was prohibitively high. Therefore continue Coumadin. (5) PMR (polymyalgia rheumatica): On chronic prednisone 2.5 mg daily. Continue short course of 40 mg of prednisone daily, day 2/5. Awaiting therapeutic INR, and resolution of his diffuse muscle aches, which time optimistic will improve with ongoing antibiotic therapy, prednisone. Admission and Anticipated Discharge Date Admission Date: November 22, 2019 Subjective Patient seen in follow-up. He notes his breathing is markedly improved. He still had several body aches, mostly below his waist last night, but he feels this may be trending toward improvement as well. He notes no subjective fevers or chills. He has been afebrile per his vital signs. Physical Exam Physical Exam: Temp Pulse Resp BP Pulse Ox 36.4 C L 69 18 124/84 96 11/25/19 11:43 11/25/19 11:43 11/25/19 11:43 11/25/19 11:43 11/25/19 11:43 Constitutional: WD/WN, vitals as above Respiratory: normal respiratory effort, lungs clear to auscultation Cardiovascular: RRR, no murmur, no edema Gastrointestinal (Abdomen): normal bowel sounds, soft, nontender, no hepatosplenomegaly Skin: no rashes, warm and dry Neurologic: PERRL, EOMI, accommodation nl, no face palsy, no dysarthria Results & Data ([facility]) Vital Signs (Past 12 Hours) Vital Signs Temp Pulse Pulse Resp BP BP Pulse Ox 11/25/19 11:43 36.4 C L 69 18 124/84 96 11/25/19 08:09 36.7 C 67 18 134/80 98 11/25/19 07:34 75 11/25/19 03:10 36.4 C L 68 18 124/78 97 Laboratory Results INR 1.6 (0.9-1.1) H 11/25/19 05:23 11/25/19 Range/Units 05:23 PT 16.6 H (9.0-12.0) Seconds CBC 11/25/19 Range/Units 05:23 WBC 12.22 H (4.8-10.8) K/uL RBC 5.53 (4.7-6.1) M/uL Hgb 15.6 (14.0-18.0) g/dL Hct 45.5 (42-52) % Plt Count 355 (130-400) K/uL Neut # (Auto) 6.97 H (1.4-6.5) K/uL Lymph # (Auto) 4.01 H (1.2-3.4) K/uL [place] # (Auto) 1.09 H (0.11-0.59) K/uL Eos # (Auto) 0.10 (0-0.5) K/uL Baso # (Auto) 0.01 (0-0.2) K/uL Comprehensive Metabolic Panel 11/25/19 Range/Units 05:23 Sodium 136 (136-145) mmol/L Potassium 3.7 (3.5-5.1) mmol/L Chloride 102 (98-107) mmol/L Carbon Dioxide 28 (21-32) mmol/L BUN 22 H (7-18) mg/dl Creatinine 0.81 (0.6-1.4) mg/dl Glucose 156 H (70-99) mg/dl Calcium 9.6 (8.5-10.1) mg/dl Intake and Output 11/24/19 11/25/19 11/25/19 22:59 06:59 14:59 Intake Total 1250 / 1490 240 / 1490 Output Total 2502 / 3102 600 / 3102 Balance -1252 / -1612 -360 / -1612 Intake: Oral 1250 / 1490 240 / 1490 Output: Urine 2502 / 3102 600 / 3102
[2019-11-25] MEDS: WARFARIN SOD 10 MG TAB PO SCH (17:54)
[2019-11-25] MEDS: ROSUVASTATIN CALCIUM 5 MG TAB PO SCH (20:11)
[2019-11-26] MEDS: ACETAMINOPHEN 325 MG TAB PO PRN ×4 (04:06→21:02)
[2019-11-26 05:56] LABS: Hematocrit (blood only) 43.8 % (42-52); Hemoglobin 14.8 g/dL (14.0-18.0); Mean Corpuscular Hemoglobin 28.1 pg (25-34); Mean Corpuscular Hgb Conc 33.8 g/dL (32-36); Mean Corpuscular Volume 83.3 fL (80-100); Mean Platelet Volume 10.4 fL (7.4-10.4); Platelet Count 341 K/uL (130-400); RDW Coefficient of Variation 13.6 % (11.5-14.5); RDW Standard Deviation 40.4 fL (36.4-46.3); Red Blood Count 5.26 M/uL (4.7-6.1); White Blood Count 11.97 K/uL (4.8-10.8)
[2019-11-26] MEDS: FUROSEMIDE 20 MG in SYRINGE 0 ML IV SCH (06:13)
[2019-11-26 06:15] LABS: Creatinine Clr Calc Pharmacy 90.3 ml/min; Est GFR (African American) 108.3; Est GFR (Non-African American) 93.5
[2019-11-26 06:23] LABS: INR 2.3 (0.9-1.1); Prothrombin Time 23.5 Seconds (9.0-12.0)
[2019-11-26] MEDS: METOPROLOL SUCC 25MG EXT REL TAB PO SCH ×2 (08:10→20:57)
[2019-11-26] MEDS: DOXYCYCLINE HYCLATE 100 MG CAP PO SCH ×2 (08:12→20:57)
[2019-11-26] MEDS: AMOXICILLIN/CLAVULANATE 875 MG TAB PO SCH ×2 (08:12→16:54)
[2019-11-26] MEDS: SERTRALINE HCL 50 MG TABLET PO SCH (08:12)
[2019-11-26] MEDS: FENOFIBRATE NANOCRYSTALLIZED 145 MG TABLET PO SCH (08:12)
[2019-11-26] MEDS: predniSONE 20 MG TAB PO SCH (08:12)
[2019-11-26] MEDS: SPIRONOLACTONE 12.5 MG TAB PO SCH (08:13)
[2019-11-26] MEDS: INSULIN ASPART 100 UNITS/ML 3 ML PEN SC SCH ×4 (08:14→21:07)
--- NOTE | 2019-11-26 12:40 | Cardiology Progress Note ---
Date of Service November 26, 2019 Assessment & Plan (1) Acute on chronic heart failure with preserved ejection fraction (HFpEF): Volume status stable,normovolemic. Discontinue furosemide 20 mg IV twice daily. Transition to furosemide 40 mg p.o. daily (increased compared to prior to hospital dose of 20 mg p.o. daily), and spironolactone 12.5 mg daily (new). (2) Acute Lyme disease: Continue doxycycline, day /. Continue Augmentin, day 4. (3) NSVT (nonsustained ventricular tachycardia): No recurrence on telemetry overnight or today thus far. Continue metoprolol succinate 25 mg twice daily. (4) Hx of pulmonary embolus: INR now therapeutic at 2.3. Lovenox bridge discontinued. As previously mentioned, his [id number] cost for Eliquis was investigated, and was prohibitively high, over $200 / month. Therefore continue Coumadin. (5) PMR (polymyalgia rheumatica): On chronic prednisone 2.5 mg daily. Continue short course of 40 mg of prednisone daily, day 3/5. Disposition: Agree with transfer to general medical/surgery floor. Anticipate discharge 11/27/2019 if he continues to improve clinically. Admission and Anticipated Discharge Date Admission Date: November 22, 2019 Subjective Patient seen in cardiology follow-up. He states that he feels progressively improved. He states his breathing feels very well. He had one episode of the body aches requiring oxycodone overnight last night, but overall, he feels much improved from a pain standpoint. He remains afebrile. Blood pressure stable. Review of Systems Review of Systems: All systems reviewed & are unremarkable except as noted in HPI & below Physical Exam Physical Exam: Temp Pulse Resp BP Pulse Ox 36.4 C L 81 18 137/83 97 11/26/19 08:00 11/26/19 09:43 11/26/19 09:43 11/26/19 08:00 11/26/19 09:43 Constitutional: WD/WN, vitals as above Respiratory: normal respiratory effort, lungs clear to auscultation Cardiovascular: RRR, no murmur, no edema Gastrointestinal (Abdomen): normal bowel sounds, soft, nontender, no hepatosplenomegaly Skin: no rashes, warm and dry Neurologic: PERRL, EOMI, accommodation nl, no face palsy, no dysarthria Results & Data ([facility]) Vital Signs (Past 12 Hours) Vital Signs Temp Pulse Pulse Pulse Pulse Pulse Pulse 11/26/19 09:43 89 84 81 11/26/19 08:00 36.4 C L 67 11/26/19 07:30 59 L 11/26/19 04:06 36.2 C L 66 11/26/19 03:20 68 Resp Resp Resp Resp BP Pulse Ox Pulse Ox 11/26/19 09:43 18 18 18 97 11/26/19 08:00 18 137/83 98 11/26/19 07:30 11/26/19 04:06 18 116/70 97 11/26/19 03:20 16 97 Pulse Ox Pulse Ox 11/26/19 09:43 97 97 11/26/19 08:00 11/26/19 07:30 11/26/19 04:06 11/26/19 03:20 Laboratory Results Coagulation 11/26/19 Range/Units 05:13 PT 23.5 H (9.0-12.0) Seconds INR 2.3 (0.9-1.1) H 11/26/19 05:13 CBC 11/26/19 Range/Units 05:13 WBC 11.97 H (4.8-10.8) K/uL RBC 5.26 (4.7-6.1) M/uL Hgb 14.8 (14.0-18.0) g/dL Hct 43.8 (42-52) % Plt Count 341 (130-400) K/uL Comprehensive Metabolic Panel 11/26/19 11/26/19 Range/Units 05:13 09:57 Potassium 4.1 (3.5-5.1) mmol/L Creatinine 0.82 (0.6-1.4) mg/dl Intake and Output 11/25/19 11/26/19 11/26/19 22:59 06:59 14:59 Intake Total 1515 / 1515 Output Total 2300 / 2300 Balance -785 / -785 Intake: Oral 1515 / 1515 Output: Urine 2300 / 2300
[2019-11-26] MEDS ORDERED: WARFARIN SOD 7.5 MG TAB PO SCH (16:00)
[2019-11-26] MEDS: OXYCODONE HCL IR 5 MG TAB (IMMEDIATE RELEASE) PO PRN ×2 (16:11→22:09)
[2019-11-26] MEDS: ROSUVASTATIN CALCIUM 5 MG TAB PO SCH (20:57)
[2019-11-27] MEDS: ACETAMINOPHEN 325 MG TAB PO PRN ×5 (05:18→20:58)
[2019-11-27 05:48] LABS: INR 3.2 (0.9-1.1); Prothrombin Time 31.3 Seconds (9.0-12.0)
[2019-11-27 06:14] LABS: BUN Creatinine Ratio 18.2 (10-20); Calcium 9.2 mg/dl (8.5-10.1); Creatinine Clr Calc Pharmacy 90.3 ml/min; Est GFR (African American) 108.3; Est GFR (Non-African American) 93.5; Potassium 3.9 mmol/L (3.5-5.1)
[2019-11-27] MEDS: OXYCODONE HCL IR 5 MG TAB (IMMEDIATE RELEASE) PO PRN ×3 (06:22→18:27)
[2019-11-27] MEDS: ONDANSETRON INJ 2 MG/ML 2 ML VIAL IV PRN (07:34)
[2019-11-27] MEDS: METOPROLOL SUCC 25MG EXT REL TAB PO SCH ×2 (08:33→20:45)
[2019-11-27] MEDS: FUROSEMIDE 40 MG TAB PO SCH (08:33)
[2019-11-27] MEDS: AMOXICILLIN/CLAVULANATE 875 MG TAB PO SCH ×2 (08:33→17:15)
[2019-11-27] MEDS: DOXYCYCLINE HYCLATE 100 MG CAP PO SCH ×2 (08:33→20:41)
[2019-11-27] MEDS: FENOFIBRATE NANOCRYSTALLIZED 145 MG TABLET PO SCH (08:34)
[2019-11-27] MEDS: predniSONE 20 MG TAB PO SCH (08:34)
[2019-11-27] MEDS: SPIRONOLACTONE 12.5 MG TAB PO SCH (08:34)
[2019-11-27] MEDS: SERTRALINE HCL 50 MG TABLET PO SCH (08:34)
[2019-11-27] MEDS: NovoLIN-N (NPH) PER UNIT CHARGE SQ SCH (08:36)
[2019-11-27] MEDS: INSULIN ASPART 100 UNITS/ML 3 ML PEN SC SCH ×4 (08:37→20:49)
[2019-11-27] MEDS ORDERED: FUROSEMIDE 20 MG TAB PO SCH (09:00)
--- NOTE | 2019-11-27 10:29 | Hospitalist Progress Note ---
Date of Service Date of service is November 26, 2019. Late entry. November 27, 2019 Assessment & Plan (1) Acute Lyme disease: Presented with weakness and polyarthralgia since around 11 November Initial line immunoglobulin G and M where negative and did not receive any course of antibiotics Noted to have Lyme titer positive for IgG and IgMWestern blot tests have been positive for Lyme Started with doxycycline and added Augmentin as well No evidence of Lyme carditis We will continue current management Denies any fever and/or chills but does have arthralgias No increase in white count and on differential count We will continue current antibiotic Symptomatically better and joints pain have been improving Will discontinue and continue with doxycycline for about 21 days in total Polyarthralgia Fleeting polyarthralgia Secondary to acute Lyme disease Has been improving with prednisone No NSAID use We will continue prednisone for a total of 5 days (2) Hx of pulmonary embolus: History of pulmonary embolism Has been on Coumadin but INR remains subtherapeutic Denies any significant symptoms CT of the head without contrast did not show any infiltration and/or pulmonary infarct Will start Lovenox and continue Coumadin We will increase the dose of Coumadin to 10 mg from today Monitor INR-1.6 as of 11/25/2019 seems to be affected by Augmentin INR is 2.3 We will discontinue Lovenox and transfer the patient to medical floor for increasing mobility (3) Acute on chronic heart failure with preserved ejection fraction (HFpEF): History of fluid overload with pulmonary edema during his last admission which required intubation We will try to avoid any intravenous fluid He has been COVID-19 negative Has been receiving Lasix Appreciate cardiology input and recommendation Remains clear and shortness of breath is much improved Remains euvolemic Will get to do steps O2 saturation test before discharge tomorrow (4) Subtherapeutic anticoagulation: INR has been around 1.3-1.8 for the last 2 weeks Today it is 1.5 Will start Lovenox and continue Coumadin for now INR is therapeutic Admission and Anticipated Discharge Date Admission Date: November 22, 2019 Subjective 11/23/2019 The patient was seen in medical floor He has been complaining of aches and pains involving multiple joints since about 10 November when he was ruled out for Lyme disease and has had problems with pulmonary edema due to IV fluid administration Since then he has been ruled out for infective endocarditis from [place] which is suspected at [facility] Sent in from cardiology clinic yesterday with increasing shortness of breath and increasing aches and pains with fever Has been feeling a little better since admission 11/24/2019 The patient was seen and examined in telemetry unit He has been feeling a lot better today though he had some shortness of breath with exertion Denies any cough and/or phlegm Still complaining of multiple joints pain without any acute joint arthritis No fever and/or chills 11/25/2019 Patient was seen and examined in telemetry unit He has been feeling a lot better and is joints pain seems to be improving He has been ambulating without much difficulty 11/26/2019 Patient was seen and examined in telemetry unit He remains stable Still complains today of some pain in the joints Review of Systems Review of Systems: All systems reviewed and are unremarkable except as noted below Musculoskeletal: + joint pain (Arthralgias involving multiple joints) and + myalgia Physical Exam Physical Exam: Lying in bed comfortably Constitutional: well developed, well nourished and + ill appearing; no acute distress Eyes: PERRL, conjunctivae normal, anicteric sclerae ENMT: external ear and nose normal, oropharynx normal Neck: trachea midline, no thyromegaly Respiratory: normal respiratory effort; no respiratory distress Auscultation: lungs clear to auscultation bilaterally Cardiovascular: Rate/Rhythm: regular rate and regular rhythm Heart Sounds: no murmur Extremities: no pedal edema Gastrointestinal (Abdomen): Inspection/Auscultation: abdomen normal to inspection; abdomen not distended Percussion/Palpation: abdomen soft Neurologic: moves all extremities; no focal motor deficits Psychiatric: A+Ox3, euthymic affect Lymphatic: no cervical or axillary lymphadenopathy Results & Data Results & Data ([facility]) Vital Signs (Past 12 Hours) Vital Signs Temp Pulse Pulse Resp BP Pulse Ox 11/27/19 07:30 36.6 C 70 16 132/80 97 11/27/19 03:09 74 18 97 11/26/19 23:01 36.4 C L 69 16 142/79 H 97
--- NOTE | 2019-11-27 10:33 | Hospitalist Progress Note ---
Date of Service November 27, 2019 Assessment & Plan (1) Acute Lyme disease: Presented with weakness and polyarthralgia since around 11 November Initial line immunoglobulin G and M where negative and did not receive any course of antibiotics Noted to have Lyme titer positive for IgG and IgMWestern blot tests have been positive for Lyme Started with doxycycline and added Augmentin as well No evidence of Lyme carditis We will continue current management Denies any fever and/or chills but does have arthralgias No increase in white count and on differential count We will continue current antibiotic Symptomatically better and joints pain have been improving Will discontinue and continue with doxycycline for about 21 days in total Polyarthralgia Fleeting polyarthralgia Secondary to acute Lyme disease Has been improving with prednisone No NSAID use We will continue prednisone for a total of 5 days Polyarthralgia and headache have been worse today We will not be discharged today (2) Hx of pulmonary embolus: History of pulmonary embolism Has been on Coumadin but INR remains subtherapeutic Denies any significant symptoms CT of the head without contrast did not show any infiltration and/or pulmonary infarct Will start Lovenox and continue Coumadin We will increase the dose of Coumadin to 10 mg from today Monitor INR-1.6 as of 11/25/2019 seems to be affected by Augmentin INR is 2.3 We will discontinue Lovenox and transfer the patient to medical floor for increasing mobility INR has been 3.2 on 11/27/2019 Will give Coumadin 5 mg daily (3) Acute on chronic heart failure with preserved ejection fraction (HFpEF): History of fluid overload with pulmonary edema during his last admission which required intubation We will try to avoid any intravenous fluid He has been COVID-19 negative Has been receiving Lasix Appreciate cardiology input and recommendation Remains clear and shortness of breath is much improved Remains euvolemic Will get to do steps O2 saturation test before discharge tomorrow Does not require any oxygen with ambulation (4) Subtherapeutic anticoagulation: INR has been around 1.3-1.8 for the last 2 weeks Today it is 1.5 Will start Lovenox and continue Coumadin for now INR is therapeutic Admission and Anticipated Discharge Date Admission Date: November 22, 2019 Subjective 11/23/2019 The patient was seen in medical floor He has been complaining of aches and pains involving multiple joints since about 10 November when he was ruled out for Lyme disease and has had problems with pulmonary edema due to IV fluid administration Since then he has been ruled out for infective endocarditis from [place] which is suspected at [facility] Sent in from cardiology clinic yesterday with increasing shortness of breath and increasing aches and pains with fever Has been feeling a little better since admission 11/24/2019 The patient was seen and examined in telemetry unit He has been feeling a lot better today though he had some shortness of breath with exertion Denies any cough and/or phlegm Still complaining of multiple joints pain without any acute joint arthritis No fever and/or chills 11/25/2019 Patient was seen and examined in telemetry unit He has been feeling a lot better and is joints pain seems to be improving He has been ambulating without much difficulty 11/26/2019 Patient was seen and examined in telemetry unit He remains stable Still complains today of some pain in the joints 11/27/2019 The patient was seen and examined in medical floor He has been feeling worse today with increasing headache and increasing pain in the joints Denies any acute joint inflammation Has been managing to walk around Review of Systems Review of Systems: All systems reviewed and are unremarkable except as noted below Musculoskeletal: + joint pain (Arthralgias involving multiple joints) and + myalgia Physical Exam Physical Exam: Lying in bed with some discomfort secondary to headache and multiple joints pain Constitutional: well developed, well nourished and + ill appearing; no acute distress Eyes: PERRL, conjunctivae normal, anicteric sclerae ENMT: external ear and nose normal, oropharynx normal Neck: trachea midline, no thyromegaly Respiratory: normal respiratory effort; no respiratory distress Auscultation: lungs clear to auscultation bilaterally Cardiovascular: Rate/Rhythm: regular rate and regular rhythm Heart Sounds: no murmur Extremities: no pedal edema Gastrointestinal (Abdomen): Inspection/Auscultation: abdomen normal to inspection; abdomen not distended Percussion/Palpation: abdomen soft Musculoskeletal: No acute arthritis Neurologic: moves all extremities; no focal motor deficits Psychiatric: A+Ox3, euthymic affect Lymphatic: no cervical or axillary lymphadenopathy Results & Data Results & Data ([facility]) Vital Signs (Past 12 Hours) Vital Signs Temp Pulse Pulse Resp BP Pulse Ox 11/27/19 07:30 36.6 C 70 16 132/80 97 11/27/19 03:09 74 18 97 09/06/20 23:01 36.4 C L 69 16 142/79 H 97 Laboratory Results BMP 11/27/19 05:20 Sodium 139 Potassium 3.9 Chloride 106 Carbon Dioxide 26 BUN 15 Creatinine 0.82 Glucose 143 H Calcium 9.2 Medications Administered Current Inpatient Medications Acetaminophen (Acetaminophen 325 Mg Tab) 650 mg PO Q4H PRN PRN Reason: Pain or Fever Stop: 12/22/19 23:50 Last Admin: 11/27/19 09:21 Dose: 650 mg Documented by: Albuterol (Albut/Ipratrop 3mg/0.5mg Neb 3 Ml Vial) 3 ml NEB Q4R PRN PRN Reason: Shortness Of Breath Or Wheezing Stop: 12/22/19 19:03 Amoxicillin/Clavulanate Potassium (Amoxicillin/Clavulanate 875 Mg Tab) 1 tab PO BIDM [facility] Stop: 11/30/19 09:14 Last Admin: 11/27/19 08:33 Dose: 1 tab Documented by: Dextrose (Dextrose 50% 50 Ml Syringe) 25 - 50 ml IV UD PRN; Protocol PRN Reason: Hypoglycemia Protocol Stop: 12/22/19 21:44 Doxycycline Hyclate (Doxycycline Hyclate 100 Mg Cap) 100 mg PO BID [facility] Stop: 12/03/19 17:59 Last Admin: 11/27/19 08:33 Dose: 100 mg Documented by: Fenofibrate (Fenofibrate Nanocrystallized 145 Mg Tablet) 145 mg PO DAILY [facility] Stop: 12/23/19 12:59 Last Admin: 11/27/19 08:34 Dose: 145 mg Documented by: Furosemide (Furosemide 40 Mg Tab) 40 mg PO QAM [facility] Stop: 12/27/19 08:59 Last Admin: 11/27/19 08:33 Dose: 40 mg Documented by: Glucagon (Glucagon For Inj 1 Mg Vial) 1 mg IM UD PRN; Protocol PRN Reason: Hypoglycemia Protocol Stop: 12/22/19 21:44 Glucose (Glucose 40% Gel 15 Gm Tube) 15 - 30 gm PO UD PRN; Protocol PRN Reason: Hypoglycemia Protocol Stop: 12/22/19 21:44 Glucose (Glucose 10 Tabs/Tube) 4 - 8 tabs PO UD PRN; Protocol PRN Reason: Hypoglycemia Protocol Stop: 12/22/19 21:44 Insulin Aspart (Insulin Aspart 100 Units/Ml 3 Ml Pen) 0 units SC ACHS [facility] Stop: 12/23/19 10:29 Last Admin: 11/27/19 08:37 Dose: 4 units Documented by: Insulin Human NPH (Novolin-N (Nph) Per Unit Charge) 30 units SQ DAILY [facility] Stop: 11/28/19 09:01 Last Admin: 11/27/19 08:36 Dose: 30 units Documented by: Metoprolol Succinate (Metoprolol Succ 25mg Ext Rel Tab) 25 mg PO BID [facility] Stop: 12/24/19 20:59 Last Admin: 11/27/19 08:33 Dose: 25 mg Documented by: Miscellaneous (Carbohydrates For Hypoglycemia ) 15 - 30 gm PO UD PRN PRN Reason: Hypoglycemia Treatment Stop: 12/22/19 21:44 Ondansetron HCl (Ondansetron Inj 2 Mg/Ml 2 Ml Vial) 4 mg IV Q6H PRN PRN Reason: Nausea Stop: 12/23/19 06:13 Last Admin: 11/27/19 07:34 Dose: 4 mg Documented by: Oxycodone HCl (Oxycodone Hcl Ir 5 Mg Tab (Immediate Release)) 5 mg PO Q6H PRN PRN Reason: Pain Stop: 12/07/19 06:13 Last Admin: 11/27/19 06:22 Dose: 5 mg Documented by: Prednisone (Prednisone 20 Mg Tab) 40 mg PO DAILY [facility] Stop: 11/28/19 09:01 Last Admin: 11/27/19 08:34 Dose: 40 mg Documented by: Rosuvastatin Calcium (Rosuvastatin Calcium 5 Mg Tab) 5 mg PO QPM [facility] Stop: 12/22/19 20:59 Last Admin: 11/26/19 20:57 Dose: 5 mg Documented by: Sertraline HCl (Sertraline Hcl 50 Mg Tablet) 50 mg PO DAILY [facility] Stop: 12/23/19 08:59 Last Admin: 11/27/19 08:34 Dose: 50 mg Documented by: Spironolactone (Spironolactone 12.5 Mg Tab) 12.5 mg PO DAILY [facility] Stop: 12/23/19 08:59 Last Admin: 11/27/19 08:34 Dose: 12.5 mg Documented by: Warfarin Sodium (Warfarin Sod 7.5 Mg Tab) 7.5 mg PO DAILY@1600 [facility] Stop: 12/26/19 15:59 Last Admin: 11/26/19 16:05 Dose: 7.5 mg Documented by:
[2019-11-27] MEDS ORDERED: WARFARIN SOD 5 MG TAB PO SCH (16:00)
[2019-11-27] MEDS: ROSUVASTATIN CALCIUM 5 MG TAB PO SCH (20:41)
[2019-11-28] MEDS: ACETAMINOPHEN 325 MG TAB PO PRN ×2 (02:12→09:58)
[2019-11-28 05:56] LABS: INR 3.2 (0.9-1.1); Prothrombin Time 31.9 Seconds (9.0-12.0)
[2019-11-28] MEDS: SPIRONOLACTONE 12.5 MG TAB PO SCH (08:25)
[2019-11-28] MEDS: AMOXICILLIN/CLAVULANATE 875 MG TAB PO SCH (08:25)
[2019-11-28] MEDS: DOXYCYCLINE HYCLATE 100 MG CAP PO SCH (08:25)
[2019-11-28] MEDS: METOPROLOL SUCC 25MG EXT REL TAB PO SCH (08:25)
[2019-11-28] MEDS: predniSONE 20 MG TAB PO SCH (08:25)
[2019-11-28] MEDS: SERTRALINE HCL 50 MG TABLET PO SCH (08:25)
[2019-11-28] MEDS: FENOFIBRATE NANOCRYSTALLIZED 145 MG TABLET PO SCH (08:26)
[2019-11-28] MEDS: FUROSEMIDE 40 MG TAB PO SCH (08:26)
[2019-11-28] MEDS: NovoLIN-N (NPH) PER UNIT CHARGE SQ SCH (08:27)
[2019-11-28] MEDS: INSULIN ASPART 100 UNITS/ML 3 ML PEN SC SCH ×2 (08:28→14:04)
[2019-11-28] MEDS ORDERED: predniSONE 20 MG TAB PO STA (10:34)
--- NOTE | 2019-11-28 10:48 | Hospitalist Progress Note ---
Date of Service November 28, 2019 Assessment & Plan (1) Acute Lyme disease: Presented with weakness and polyarthralgia since around 11 November Initial line immunoglobulin G and M where negative and did not receive any course of antibiotics Noted to have Lyme titer positive for IgG and IgMWestern blot tests have been positive for Lyme Started with doxycycline and added Augmentin as well No evidence of Lyme carditis We will continue current management Denies any fever and/or chills but does have arthralgias No increase in white count and on differential count We will continue current antibiotic Symptomatically better and joints pain have been improving Will discontinue and continue with doxycycline for about 21 days in total No signs and or symptoms of infection Polyarthralgia Fleeting polyarthralgia Secondary to acute Lyme disease Has been improving with prednisone No NSAID use We will continue prednisone for a total of 5 days Polyarthralgia and headache have been worse today We will give additional dose of prednisone of 20 mg today He is feeling better this afternoon we will send him home Prednisone will be tapered sharply on discharge (2) Hx of pulmonary embolus: History of pulmonary embolism Has been on Coumadin but INR remains subtherapeutic Denies any significant symptoms CT of the head without contrast did not show any infiltration and/or pulmonary infarct Will start Lovenox and continue Coumadin We will increase the dose of Coumadin to 10 mg from today Monitor INR-1.6 as of 11/25/2019 seems to be affected by Augmentin INR is 2.3 We will discontinue Lovenox and transfer the patient to medical floor for increasing mobility INR has been 3.2 on 11/27/2019 Will give Coumadin 5 mg daily Remains at 3.2 11/28/2019 (3) Acute on chronic heart failure with preserved ejection fraction (HFpEF): History of fluid overload with pulmonary edema during his last admission which required intubation We will try to avoid any intravenous fluid He has been COVID-19 negative Has been receiving Lasix Appreciate cardiology input and recommendation Remains clear and shortness of breath is much improved Remains euvolemic Will get to do steps O2 saturation test before discharge tomorrow Does not require any oxygen with ambulation (4) Subtherapeutic anticoagulation: INR has been around 1.3-1.8 for the last 2 weeks Today it is 1.5 Will start Lovenox and continue Coumadin for now INR is therapeutic Admission and Anticipated Discharge Date Admission Date: November 22, 2019 Subjective 11/23/2019 The patient was seen in medical floor He has been complaining of aches and pains involving multiple joints since about 10 November when he was ruled out for Lyme disease and has had problems with pulmonary edema due to IV fluid administration Since then he has been ruled out for infective endocarditis from [place] which is suspected at [facility] Sent in from cardiology clinic yesterday with increasing shortness of breath and increasing aches and pains with fever Has been feeling a little better since admission 11/24/2019 The patient was seen and examined in telemetry unit He has been feeling a lot better today though he had some shortness of breath with exertion Denies any cough and/or phlegm Still complaining of multiple joints pain without any acute joint arthritis No fever and/or chills 11/25/2019 Patient was seen and examined in telemetry unit He has been feeling a lot better and is joints pain seems to be improving He has been ambulating without much difficulty 11/26/2019 Patient was seen and examined in telemetry unit He remains stable Still complains today of some pain in the joints 11/27/2019 The patient was seen and examined in medical floor He has been feeling worse today with increasing headache and increasing pain in the joints Denies any acute joint inflammation Has been managing to walk around 11/28/2019 The patient was seen and examined in medical floor He has been complaining of ongoing arthralgias without any acute arthritis He also has some headache without any associated symptoms Denies any fever and chills, shortness of breath with ambulation Review of Systems Review of Systems: All systems reviewed and are unremarkable except as noted below Constitutional: + body aches and + malaise Neurologic: + headache(s) Physical Exam Physical Exam: Lying in bed with some discomfort secondary to headache and multiple joints pain Constitutional: well developed, well nourished and + ill appearing; no acute distress Eyes: PERRL, conjunctivae normal, anicteric sclerae ENMT: external ear and nose normal, oropharynx normal Neck: trachea midline, no thyromegaly Respiratory: normal respiratory effort; no respiratory distress Auscultatio n: lungs clear to auscultation bilaterally Cardiovascular: Rate/Rhythm: regular rate and regular rhythm Heart Sounds: no murmur Extremities: no pedal edema Gastrointestinal (Abdomen): Inspection/Auscultation: abdomen normal to inspection; abdomen not distended Percussion/Palpation: abdomen soft Musculoskeletal: Does not have any acute arthritis Neurologic: moves all extremities; no focal motor deficits Psychiatric: A+Ox3, euthymic affect Lymphatic: no cervical or axillary lymphadenopathy Results & Data Results & Data ([facility]) Vital Signs (Past 12 Hours) Vital Signs Temp Pulse Pulse Resp BP Pulse Ox 11/28/19 07:00 36.6 C 67 16 147/84 H 97 11/27/19 23:42 63 18 96 11/27/19 23:20 36.5 C 62 16 149/79 H 98 Medications Administered Current Inpatient Medications Acetaminophen (Acetaminophen 325 Mg Tab) 650 mg PO Q4H PRN PRN Reason: Pain or Fever Stop: 12/22/19 23:50 Last Admin: 11/28/19 09:58 Dose: 650 mg Documented by: Albuterol (Albut/Ipratrop 3mg/0.5mg Neb 3 Ml Vial) 3 ml NEB Q4R PRN PRN Reason: Shortness Of Breath Or Wheezing Stop: 12/22/19 19:03 Amoxicillin/Clavulanate Potassium (Amoxicillin/Clavulanate 875 Mg Tab) 1 tab PO BIDM [facility] Stop: 11/30/19 09:14 Last Admin: 11/28/19 08:25 Dose: 1 tab Documented by: Dextrose (Dextrose 50% 50 Ml Syringe) 25 - 50 ml IV UD PRN; Protocol PRN Reason: Hypoglycemia Protocol Stop: 12/22/19 21:44 Doxycycline Hyclate (Doxycycline Hyclate 100 Mg Cap) 100 mg PO BID [facility] Stop: 12/03/19 17:59 Last Admin: 11/28/19 08:25 Dose: 100 mg Documented by: Fenofibrate (Fenofibrate Nanocrystallized 145 Mg Tablet) 145 mg PO DAILY [facility] Stop: 12/23/19 12:59 Last Admin: 11/28/19 08:26 Dose: 145 mg Documented by: Furosemide (Furosemide 40 Mg Tab) 40 mg PO QAM [facility] Stop: 12/27/19 08:59 Last Admin: 11/28/19 08:26 Dose: 40 mg Documented by: Glucagon (Glucagon For Inj 1 Mg Vial) 1 mg IM UD PRN; Protocol PRN Reason: Hypoglycemia Protocol Stop: 12/22/19 21:44 Glucose (Glucose 40% Gel 15 Gm Tube) 15 - 30 gm PO UD PRN; Protocol PRN Reason: Hypoglycemia Protocol Stop: 12/22/19 21:44 Glucose (Glucose 10 Tabs/Tube) 4 - 8 tabs PO UD PRN; Protocol PRN Reason: Hypoglycemia Protocol Stop: 12/22/19 21:44 Insulin Aspart (Insulin Aspart 100 Units/Ml 3 Ml Pen) 0 units SC ACHS [facility]UL[facility] Stop: 12/23/19 10:29 Last Admin: 11/28/19 08:28 Dose: 8 units Documented by: Metoprolol Succinate (Metoprolol Succ 25mg Ext Rel Tab) 25 mg PO BID [facility] Stop: 12/24/19 20:59 Last Admin: 11/28/19 08:25 Dose: 25 mg Documented by: Miscellaneous (Carbohydrates For Hypoglycemia ) 15 - 30 gm PO UD PRN PRN Reason: Hypoglycemia Treatment Stop: 12/22/19 21:44 Ondansetron HCl (Ondansetron Inj 2 Mg/Ml 2 Ml Vial) 4 mg IV Q6H PRN PRN Reason: Nausea Stop: 12/23/19 06:13 Last Admin: 11/27/19 07:34 Dose: 4 mg Documented by: Oxycodone HCl (Oxycodone Hcl Ir 5 Mg Tab (Immediate Release)) 5 mg PO Q6H PRN PRN Reason: Pain Stop: 12/07/19 06:13 Last Admin: 11/27/19 18:27 Dose: 5 mg Documented by: Rosuvastatin Calcium (Rosuvastatin Calcium 5 Mg Tab) 5 mg PO QPM [facility] Stop: 12/22/19 20:59 Last Admin: 11/27/19 20:41 Dose: 5 mg Documented by: Sertraline HCl (Sertraline Hcl 50 Mg Tablet) 50 mg PO DAILY [facility] Stop: 12/23/19 08:59 Last Admin: 11/28/19 08:25 Dose: 50 mg Documented by: Spironolactone (Spironolactone 12.5 Mg Tab) 12.5 mg PO DAILY JULIANNE Stop: 12/23/19 08:59 Last Admin: 11/28/19 08:25 Dose: 12.5 mg Documented by: Warfarin Sodium (Warfarin Sod 5 Mg Tab) 5 mg PO DAILY@1600 [facility] Stop: 12/27/19 15:59 Last Admin: 11/27/19 16:19 Dose: 5 mg Documented by:
--- NOTE | 2019-11-28 16:36 | Discharge Summary ---
Date of Service November 28, 2019 Admission HPI Per Admitting Provider Isaac Cherry is a 64 year old Male initially presented to [facility] on a previous hospital admission in 11/11/2019 because of illness and fevers and noting that he had recent tick bite that he saw and removed 1 week prior to that hospital presentation. The iniytial Lyme studies and anaplasma smear were negative on 11/11/2019 but patient was empirically started on Doxycycline for empiric treatment fro Lyme Disease. During that hospital at [facility], patient developed acute respiratory failure secondary to pulmonary edema and he was intubated and on following workup for fevers withe negative blood cultures, a transesophageal echocardiogram was performed and a 1.2 x 1 cm non-mobile lesion was found on the left coronary cusp as per the cardiology notes on 11/14/2019. Patient was then transferred to [facility] where he was had diuresis with Lasix to resolved the pulmonary edema and the workup did not find any valvular abscess. Patient was discharged from [facility] in [place] but he reports that never had further doxycycline given to him since he was transferred there from [facility] because of initial negative serologies. Patient then continue to experience subjective fevers at home but reports that the body temperature at home at times was between 100 F to 101 F ranges but never above 101F. Patient was again tested for Lyme serologies on this 11/22/2019 ED presentation and now have positive titers to Lyme IgG antibodies and Lyme IgM antibodies. Patient was started on doxycycline in the ED. He denies any other symptoms and reports that he is back to Lasix 20 mg oral daily after discharge from [facility] in [place] Family Health history: Patient denies family health history of medical conditions Primary Care Provider: Lesia Garcia, DO Admission Exam Per Admitting Provider Constitutional: WD/WN, vitals as above Eyes: PERRL, conjunctivae normal, anicteric sclerae EOM intact bilaterally ENMT: external ear and nose normal, oropharynx normal Neck: trachea midline, no thyromegaly normal visual inspection Respiratory: normal respiratory effort, lungs clear to auscultation Cardiovascular: Rate/Rhythm: regular rate and regular rhythm Gastrointestinal (Abdomen): normal bowel sounds, soft, nontender, no hepatosplenomegaly Musculoskeletal: Head/Neck/Chest: normocephalic and head atraumatic Neurologic: PERRL, EOMI, accommodation nl, no face palsy, no dysarthria CN's II-XI intact bilaterally Psychiatric: A+Ox3, euthymic affect Principal Diagnosis Acute Lyme disease, polyarthralgia, CHF with preserved EF, history of pulmonary embolism on Coumadin Discharge Exam Constitutional well developed, well nourished and + ill appearing; no acute distress Eyes PERRL, conjunctivae normal, anicteric sclerae ENMT external ear and nose normal, oropharynx normal Neck trachea midline, no thyromegaly Respiratory normal respiratory effort; no respiratory distress Auscultation: lungs clear to auscultation bilaterally Cardiovascular Rate/Rhythm: regular rate and regular rhythm Heart Sounds: no murmur Extremities: no pedal edema Gastrointestinal (Abdomen) Inspection/Auscultation: abdomen normal to inspection; abdomen not distended Percussion/Palpation: abdomen soft Neurologic moves all extremities; no focal motor deficits Psychiatric A+Ox3, euthymic affect Lymphatic no cervical or axillary lymphadenopathy Discharge Data Allergies Allergy/AdvReac Type Severity Reaction Status Date / Time Iodinated Contrast Media Allergy Severe DIFFICULTY Verified 11/11/19 19:31 BREATHING/THROAT SWELLING blue dye Allergy Intermediate swelling Verified 11/25/19 12:20 cefuroxime Allergy Intermediate hives Verified 11/25/19 12:20 shellfish derived Allergy Intermediate swelling Verified 11/25/19 12:20 levofloxacin AdvReac Intermediate Tendon Verified 11/11/19 19:31 contractions Consultations 11/22/19 18:19 ED Decision to Admit Stat 11/22/19 19:04 Consult Case Management - Discharge Planning Routine 11/23/19 07:55 Consult Cardiology Routine Ordered Studies 11/23/19 10:00 CT chest wo con Urgent Hospital Course (1) Acute Lyme disease: Presented with weakness and polyarthralgia since around 11 November Initial line immunoglobulin G and M where negative and did not receive any course of antibiotics Noted to have Lyme titer positive for IgG and IgMWestern blot tests have been positive for Lyme Started with doxycycline and added Augmentin as well No evidence of Lyme carditis We will continue current management Denies any fever and/or chills but does have arthralgias No increase in white count and on differential count We will continue current antibiotic Symptomatically better and joints pain have been improving Will discontinue and continue with doxycycline for about 21 days in total No signs and or symptoms of infection Polyarthralgia Fleeting polyarthralgia Secondary to acute Lyme disease Has been improving with prednisone No NSAID use We will continue prednisone for a total of 5 days Polyarthralgia and headache have been worse today We will give additional dose of prednisone of 20 mg today He is feeling better this afternoon we will send him home Prednisone will be tapered sharply on discharge (2) Hx of pulmonary embolus: History of pulmonary embolism Has been on Coumadin but INR remains subtherapeutic Denies any significant symptoms CT of the head without contrast did not show any infiltration and/or pulmonary infarct Will start Lovenox and continue Coumadin We will increase the dose of Coumadin to 10 mg from today Monitor INR-1.6 as of 11/25/2019 seems to be affected by Augmentin INR is 2.3 We will discontinue Lovenox and transfer the patient to medical floor for increasing mobility INR has been 3.2 on 11/27/2019 Will give Coumadin 5 mg daily Remains at 3.2 11/28/2019 (3) Acute on chronic heart failure with preserved ejection fraction (HFpEF): History of fluid overload with pulmonary edema during his last admission which required intubation We will try to avoid any intravenous fluid He has been COVID-19 negative Has been receiving Lasix Appreciate cardiology input and recommendation Remains clear and shortness of breath is much improved Remains euvolemic Will get to do steps O2 saturation test before discharge tomorrow Does not require any oxygen with ambulation (4) Subtherapeutic anticoagulation: INR has been around 1.3-1.8 for the last 2 weeks Today it is 1.5 Will start Lovenox and continue Coumadin for now INR is therapeutic Total Time Total Time Spent Total Time Spent (In Minutes): 35 minutes Total Time Includes: Examination of the Patient, Discharge Planning, Medication Reconciliation and Communication With Other Providers Discharge Plan Discharge Items Patient Disposition: Home - Self-Care Reason For Visit: FEVERS, LYME DISEASE, HISTORY OF CHF EXACERBATION Discharge Diagnosis: Acute Lyme disease, polyarthralgia, CHF with preserved EF, history of pulmonary embolism on Coumadin Condition on Discharge: Good Activity: Resume your previous activity Non-emergency contact: Primary Care Provider Call non-emergency contact if: you have any medication questions and your symptoms worsen Follow-up/Referrals: Lesia Garcia DO [Primary Care Provider] - 12/04/19 11:00 am (Date & Time 12/04/2019 11:00 AM Provider Lesia Garcia, DO Department [facility] ) Diet: Carb Consistent or DM2 and Heart Healthy Addtl Attending Provider Instructions: Please take precaution to avoid any falls Finish the course of antibiotic Take Tylenol 1 g 3 times daily as needed for additional pain control Do not use any aspirin and/or NSAID Please have regular follow-up with coagulation clinic to maintain your INR in between 2-3 Pending Studies at Discharge: No Stand-Alone Forms: My [facility] [employer], Smoking Cessation Medications and DC Order Prescriptions: New doxycycline hyclate 100 mg Capsule 100 mg PO BID 14 Days Qty: 28 RF: 0 metoprolol succinate 25 mg Tablet Extended Release 24 Hr 25 mg PO BID 30 Days Qty: 60 RF: 0 spironolactone 25 mg Tablet 12.5 mg PO DAILY 30 Days Qty: 30 RF: 0 furosemide 40 mg Tablet 40 mg PO QAM 30 Days Qty: 30 RF: 0 prednisone 10 mg tablet 10 mg PO UD Qty: 18 RF: 0 Continued warfarin 5 mg tablet 5 mg PO [id number] RF: 0 sertraline 50 mg tablet 50 mg PO DAILY RF: 0 rosuvastatin 5 mg tablet 5 mg PO QPM RF: 0 ipratropium-albuterol 0.5 mg-3 mg(2.5 mg base)/3 mL solution for nebulization 3 ml NEB Q4R PRN (Reason: Shortness Of Breath Or Wheezing) RF: 0 warfarin 5 mg Tablet 7.5 mg PO WK RF: 0 Jardiance 10 mg tablet 10 mg PO DAILY RF: 0 prednisone 5 mg tablet 2.5 mg PO DAILY RF: 0 metformin 500 mg tablet extended release 24 hr 1,000 mg PO BID RF: 0 omega-3 acid ethyl esters 1 gram capsule 2 cap PO BID RF: 0 fenofibrate micronized 134 mg capsule 134 mg PO DAILY RF: 0 Discontinued metoprolol succinate 25 mg tablet extended release 24 hr 12.5 mg PO BID RF: 0 furosemide [Lasix] 20 mg Tablet 20 mg PO DAILY RF: 0 Discharge Orders: Discharge Order (Routine); Ordered 11/28/19 Ordered By: Sofía Marcos Admission Data Admit Date/Time: 11/22/19 19:03 Attending Provider: Sofía Marcos Admit Provider: Marcel Maloney Primary Care Provider: Lesia Garcia Other Providers: Marcel Maloney ; Eladio Foss Other Interventions: Discharge Summary Assessment (RN) Last Done: 11/28/19 15:21
[2019-11-29] MEDS ORDERED: WARFARIN SOD 7.5 MG TAB PO SCH (16:00)
== END 2019-11-28 15:57 | disposition home or self-care (01) | DRG 867 ==
LOC: ED 15:07 → SUATTDRO 19:03 → 3W 19:03 → 2S 11-23 08:59 → 3E 11-26 11:40

== ENCOUNTER 2019-12-08 23:41 | Inpatient (IN) ==
--- NOTE | 2019-12-09 00:48 | Emergency Department Note ---
History of Present Illness General Chief complaint: Cardiac Assessment Stated complaint: SOB,TIGHT CHESS History of Present Illness Maximum Pain Intensity: 3 This 64-year-old presents to the ER complaining of chest pain Location: Chest Quality: Discomfort Severity: Moderate Duration: Today Timing: Today Context: Patient was concerned he is back in heart failure and came in Modifying factors: better with rest; worse with activity Patient states he is up 9 pounds. His blood pressure is increased. He was just discharged for heart failure. He is on Lasix and spironolactone. He follows with Dr. Luong. Patient denies exertional chest pain, abdominal pain, fevers, flulike illness, leg pain or swelling. Home Medications Home Medications Medication Instructions Recorded Confirmed Type rosuvastatin 5 mg PO QPM 06/14/19 12/09/19 History sertraline 50 mg PO HS 06/14/19 12/09/19 History warfarin 5 mg PO 6XWK 06/14/19 12/09/19 History Jardiance 10 mg PO DAILY 11/22/19 12/09/19 History fenofibrate micronized 134 mg PO QAM 11/22/19 12/09/19 History ipratropium-albuterol 3 ml NEB Q4R PRN 11/22/19 12/09/19 History metformin 1,000 mg PO BID 11/22/19 12/09/19 History omega-3 acid ethyl esters 2 cap PO BID 11/22/19 12/09/19 History prednisone 2.5 mg PO DAILY 11/22/19 12/09/19 History warfarin 7.5 mg PO WK 11/22/19 12/09/19 History doxycycline hyclate 100 mg PO BID 14 Days #28 cap 11/28/19 12/09/19 Rx furosemide 40 mg PO QAM 30 Days #30 tab 11/28/19 12/09/19 Rx metoprolol succinate 25 mg PO BID 30 Days #60 tab 11/28/19 12/09/19 Rx prednisone 10 mg PO UD #18 tab 11/28/19 12/09/19 Rx spironolactone 12.5 mg PO DAILY 30 Days #30 tab 11/28/19 12/09/19 Rx Allergies Allergy/AdvReac Type Severity Reaction Status Date / Time Iodinated Contrast Media Allergy Severe DIFFICULTY Verified 12/09/19 02:19 BREATHING/THROAT SWELLING blue dye Allergy Intermediate swelling Verified 12/09/19 02:19 cefuroxime Allergy Intermediate hives Verified 12/09/19 02:19 shellfish derived Allergy Intermediate swelling Verified 12/09/19 02:19 levofloxacin AdvReac Intermediate Tendon Verified 12/09/19 02:19 contractions Past Med/Surg History Medical History Appendicitis CHF (congestive heart failure) Diabetes DVT (deep venous thrombosis) High cholesterol History of high blood pressure Pulmonary embolism Umbilical hernia Surgical History History of cholecystectomy Social History Smoking Status: Never smoker Second Hand Exposure: Yes (When in [employer] ); Hx Alcohol Use: No Hx Substance Use: No Preferred Language: [place] Communication Ability: Effective 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 Beliefs That Will Affect Care: None Current Living Situation: Spouse Feels Safe at Home: Yes Review of Systems A total of 10 systems reviewed and were otherwise negative Physical Exam Vital Signs Vital Signs - 24 hr 12/08/19 23:44 12/09/19 00:17 12/09/19 00:24 Temperature 36.7 C Temperature Source Oral Pulse Rate 97 H 88 Pulse Rate from SpO2 Sensor 89 Respiratory Rate 24 23 Respiratory Effort / Characteristics Non-Labored Spontaneous Blood Pressure 181/92 H 183/99 H Blood Pressure Mean 121 148 Pulse Oximetry 98 98 Oxygen Delivery Method Room Air Sepsis Recent Fever Within 48 Hours No Sepsis New/Unexplained Change in Mental Status No Sepsis Action Taken by Nursing No Action Required 12/09/19 00:30 12/09/19 01:14 12/09/19 01:30 Temperature Temperature Source Pulse Rate 81 86 80 Pulse Rate from SpO2 Sensor 82 84 81 Respiratory Rate 21 29 H 17 Respiratory Effort / Characteristics Blood Pressure 152/78 H 144/80 H 159/93 H Blood Pressure Mean 99 90 117 Pulse Oximetry 97 96 96 Oxygen Delivery Method Sepsis Recent Fever Within 48 Hours Sepsis New/Unexplained Change in Mental Status Sepsis Action Taken by Nursing 12/09/19 01:50 12/09/19 02:00 12/09/19 02:30 Temperature Temperature Source Pulse Rate 81 82 87 Pulse Rate from SpO2 Sensor 80 82 83 Respiratory Rate 28 H 25 H 20 Respiratory Effort / Characteristics Blood Pressure 148/89 H 153/88 H Blood Pressure Mean 109 119 Pulse Oximetry 96 96 96 Oxygen Delivery Method Sepsis Recent Fever Within 48 Hours Sepsis New/Unexplained Change in Mental Status Sepsis Action Taken by Nursing VITALS: Vitals are noted on the nurse's note and reviewed by myself. Vital signs stable. GENERAL: Pleasant male speaking in full sentences, in no acute distress, nondiaphoretic, well-developed well-nourished. SKIN: Capillary reflex less than 2 seconds. HEENT: Normocephalic. PERRLA. EOMI. Nares patent. Mucous membranes moist. Neck is supple without nuchal rigidity. HEART: Regular rate and rhythm LUNGS: Bibasilar rales No retractions or accessory muscle use. ABDOMEN: Positive bowel sounds x 4. Normal tympanic percussion. Soft, nontender, without masses or organomegaly. Vera sign negative. No guarding or rebound tenderness. MUSCULOSKELETAL: No gross musculoskeletal defects. NEURO: Patient was alert and oriented to person place and time. Normal sensation to light and sharp touch. No focal neurological deficits. Course Administered Medications Discontinued Medications Famotidine (Famotidine 20mg/5ml Iv Push) Confirm Administered Dose 20 mg IV .Contests4Causes ONE Stop: 12/09/19 03:44 Last Admin: 12/09/19 03:48 Dose: Not Given Documented by: [id number] Famotidine (Famotidine 20mg/5ml Iv Push) 20 mg IV ONE STA Stop: 12/09/19 03:45 Last Admin: 12/09/19 03:47 Dose: 20 mg Documented by: [id number] Furosemide (Furosemide 40 Mg/4 Ml Vial) 40 mg IV NOW STA Stop: 12/09/19 03:29 Last Admin: 12/09/19 03:36 Dose: 40 mg Documented by: [id number] Medical Decision Making Medical Records Attestation: I reviewed the patient's medical records. Home Medications Current Medication List: was personally reviewed by me Laboratory Data Attestation: I reviewed the patient's lab results. Result diagrams: 12/09/19 00:51 12/09/19 00:51 Lab Results 12/09/19 12/09/19 12/09/19 Range/Units 00:51 00:51 00:51 WBC 13.52 H (4.8-10.8) K/uL RBC 5.37 (4.7-6.1) M/uL Hgb 15.4 (14.0-18.0) g/dL Hct 46.2 (42-52) % MCV 86.0 (80-100) fL MCH 28.7 (25-34) pg MCHC 33.3 (32-36) g/dL RDW Std Deviation 45.5 (36.4-46.3) fL RDW Coeff of Kathryn 14.6 H (11.5-14.5) % Plt Count 210 (130-400) K/uL MPV 10.1 (7.4-10.4) fL Immature Gran % (Auto) 0.9 % Neut % (Auto) 51.1 % Lymph % (Auto) 35.9 % Wythe % (Auto) 9.1 % Eos % (Auto) 2.9 % Baso % (Auto) 0.1 % Neut # (Auto) 6.90 H (1.4-6.5) K/uL Lymph # (Auto) 4.86 H (1.2-3.4) K/uL Wythe # (Auto) 1.23 H (0.11-0.59) K/uL Eos # (Auto) 0.39 (0-0.5) K/uL Baso # (Auto) 0.02 (0-0.2) K/uL Immature Gran # (Auto) 0.12 H (0.00-0.02) K/uL PT 23.9 H (9.0-12.0) Seconds INR 2.4 H (0.9-1.1) APTT 33.7 H (21.0-31.0) Seconds PTT Ratio 1.2 Sodium 139 (136-145) mmol/L Potassium 4.3 (3.5-5.1) mmol/L Chloride 107 (98-107) mmol/L Carbon Dioxide 25 (21-32) mmol/L Anion Gap 7.0 (3-11) BUN 23 H (7-18) mg/dl Creatinine 0.96 (0.6-1.4) mg/dl Est Cr Clr Drug Dosing 79.1 ml/min Est GFR ( Amer) 96.4 Est GFR (Non-Af Amer) 83.2 BUN/Creatinine Ratio 23.9 H (10-20) Glucose 165 H (70-99) mg/dl Calcium 9.1 (8.5-10.1) mg/dl Magnesium 2.1 (1.8-2.4) mg/dl Total Bilirubin 0.5 (0.2-1) mg/dl AST 34 (15-37) U/L ALT 55 (12-78) U/L Alkaline Phosphatase 72 (45-117) U/L Troponin I < 0.015 (0-0.045) ng/ml NT-Pro-B Natriuret Pep 65 (0-900) pg/ml Total Protein 7.6 (6.4-8.2) gm/dl Albumin 3.8 (3.4-5.0) gm/dl Globulin 3.8 (2.5-4.0) gm/dl Albumin/Globulin Ratio 1.0 (0.9-2) Lipase 243 (73-393) U/L Specimen Hemolysis Imaging Data Attestation: I personally reviewed and interpreted this imaging study as follows: Blood Pressure Blood Pressure Findings: Elevated blood pressure Blood Pressure Disposition: Referred to patients primary care provider [facility] Narrative Prior records/ancillary studies reviewed. Triage Nursing notes reviewed. Additional history obtained from family. The patient's history was concerning for chest pain. Differential diagnosis: Etiologies such as cardiac ischemia, aortic dissection, pulmonary embolism, pneumonia, pneumothorax, musculoskeletal, infections, pericarditis, myocarditis, esophageal rupture, gastrointestinal, as well as others were entertained. Physical examination: As above. ER treatment provided: An order was placed for continuous cardiac monitoring. The monitor shows a rate of 60-100 with a sinus rhythm. Yusra Sullivan On reassessment the patient felt better. Diagnostic interpretation by me: The electrocardiogram was negative for pathologic change. Normal sinus, normal intervals, no acute ST-T wave changes. Impression normal sinus rhythm interpreted by myself EKG ordered for chest pain I think arrhythmia is unlikely. EKG shows normal sinus rhythm with no interval abnormalities such as QT prolongation or WPW. There are no findings to suggest Brugada syndrome. Cardiac monitoring in the emergency department reveals no tachycardic or bradycardic dysrhythmia. Hypertrophic cardiomyopathy was considered but there are no clear historical elements pointing toward this. EKG is not suggestive. The QRS voltage is not extremely large and there are no s uggestive Q waves. EKG #2: Ordered for chest pain EKG: Normal sinus, normal intervals, no acute ST-T wave changes. Impression normal sinus interpreted by myself I think arrhythmia is unlikely. EKG shows normal sinus rhythm with no interval abnormalities such as QT prolongation or WPW. There are no findings to suggest Brugada syndrome. Cardiac monitoring in the emergency department reveals no ta chycardic or bradycardic dysrhythmia. Hypertrophic cardiomyopathy was considered but there are no clear historical elements pointing toward this. EKG is not suggestive. The QRS voltage is not extremely large and there are no suggestive Q waves. The labs revealed negative troponin Imaging studies: Chest x-ray with mild pulmonary congestion per my interpretation HEART SCORE: Hx: high/mod/low suspicion: 1 ECG: ST depression/nonspecific changes/normal: 0 Age: Greater than 65/45-64/less than 45: 1 Risk factors: (Hypertension, hyperlipidemia, diabetes, coronary disease, tobacco use, cocaine use): 2 Troponin: Greater than 2 times normal limits/1-2 times normal limits/normal: 0 Total: 4 Consultation: A consultation was placed with the hospitalist, Dr Carranza. The case was discussed and diagnostics were reviewed. The patient was evaluated in the ER for further treatment. Exam and history seem consistent with chest pain with CHF. Patient was given Lasix. He is a 9 pound weight gain. She is requesting to stay. Medicine was consulted. He will be evaluated for admission. By the evaluation outlined above emergent etiologies such as aortic dissection, pulmonary embolism, pneumonia, pneumothorax, infections, pericarditis, myocarditis, gastrointestinal, as well as others were deemed relatively unlikely. The pt informed about the findings as listed above. All questions were answered and pleased with the treatment. The chart was completed utilizing [email or web address] Speech voice recognition software. Grammatical errors, random word insertions, pronoun errors, and incomplete sentences are an occassional consequence of this system due to software limitations, ambient noise, and hardware issues. Any formal questions or concerns about the content, text, or information contained within the body of this dictation should be directly addressed to the physician clerical administrative assistant for clarification. Impression & Plan Chest pain, CHF (congestive heart failure) Discharge Plan Visit Data Chief Complaint: Cardiac Assessment Stated Complaint: SOB,TIGHT CHESS ED Provider: Juli Michaud ED Midlevel Provider: Caron Arias Discharge Problem: Chest pain, CHF (congestive heart failure) Patient Disposition: Being Evaluated by Hospitalist Condition: Fair Forms Stand Alone Forms: My [facility] [employer] Prescriptions Prescriptions: No Action warfarin 5 mg tablet 5 mg PO [id number] RF: 0 sertraline 50 mg tablet 50 mg PO HS RF: 0 rosuvastatin 5 mg tablet 5 mg PO QPM RF: 0 ipratropium-albuterol 0.5 mg-3 mg(2.5 mg base)/3 mL solution for nebulization 3 ml NEB Q4R PRN (Reason: Shortness Of Breath Or Wheezing) RF: 0 warfarin 5 mg Tablet 7.5 mg PO WK RF: 0 Jardiance 10 mg tablet 10 mg PO DAILY RF: 0 prednisone 5 mg tablet 2.5 mg PO DAILY RF: 0 metformin 500 mg tablet extended release 24 hr 1,000 mg PO BID RF: 0 omega-3 acid ethyl esters 1 gram capsule 2 cap PO BID RF: 0 fenofibrate micronized 134 mg capsule 134 mg PO QAM RF: 0 doxycycline hyclate 100 mg Capsule 100 mg PO BID 14 Days Qty: 28 RF: 0 metoprolol succinate 25 mg Tablet Extended Release 24 Hr 25 mg PO BID 30 Days Qty: 60 RF: 0 spironolactone 25 mg Tablet 12.5 mg PO DAILY 30 Days Qty: 30 RF: 0 furosemide 40 mg Tablet 40 mg PO QAM 30 Days Qty: 30 RF: 0 prednisone 10 mg tablet 10 mg PO UD Qty: 18 RF: 0 Referrals Referrals: Lesia Garcia DO [Primary Care Provider] - Discharge Problem: Chest pain Qualifiers: Chest pain type: unspecified Qualified Code(s): R07.9 - Chest pain, unspecified
[2019-12-09 01:07] LABS: Basophils # (auto) 0.02 K/uL (0-0.2); Basophils % (auto) 0.1 %; Eosinophils # (auto) 0.39 K/uL (0-0.5); Eosinophils % (auto) 2.9 %; Hematocrit (blood only) 46.2 % (42-52); Hemoglobin 15.4 g/dL (14.0-18.0); Immature Granulocytes # (auto) 0.12 K/uL (0.00-0.02); Immature Granulocytes % (auto) 0.9 %; Lymphocytes # (auto) 4.86 K/uL (1.2-3.4); Lymphocytes % (auto) 35.9 %; Mean Corpuscular Hemoglobin 28.7 pg (25-34); Mean Corpuscular Hgb Conc 33.3 g/dL (32-36); Mean Platelet Volume 10.1 fL (7.4-10.4); Monocytes # (auto) 1.23 K/uL (0.11-0.59); Monocytes % (auto) 9.1 %; Neutrophils % (auto) 51.1 %; Platelet Count 210 K/uL (130-400); RDW Coefficient of Variation 14.6 % (11.5-14.5); RDW Standard Deviation 45.5 fL (36.4-46.3); Red Blood Count 5.37 M/uL (4.7-6.1); White Blood Count 13.52 K/uL (4.8-10.8)
[2019-12-09 01:18] LABS: INR 2.4 (0.9-1.1); Partial Thromboplastin Ratio 1.2; Partial Thromboplastin Time 33.7 Seconds (21.0-31.0); Prothrombin Time 23.9 Seconds (9.0-12.0)
[2019-12-09 01:32] LABS: Aspartate Aminotransferase 34 U/L (15-37); Potassium 4.3 mmol/L (3.5-5.1)
[2019-12-09 01:33] LABS: Alanine Aminotransferase 55 U/L (12-78); Albumin Level 3.8 gm/dl (3.4-5.0); Alkaline Phosphatase 72 U/L (45-117); BUN Creatinine Ratio 23.9 (10-20); Bilirubin,Total 0.5 mg/dl (0.2-1); Blood Urea Nitrogen 23 mg/dl (7-18); Calcium 9.1 mg/dl (8.5-10.1); Carbon Dioxide 25 mmol/L (21-32); Chloride 107 mmol/L (98-107); Creatinine Clr Calc Pharmacy 79.1 ml/min; Est GFR (African American) 96.4; Est GFR (Non-African American) 83.2; Globulin 3.8 gm/dl (2.5-4.0); Glucose 165 mg/dl (70-99); Lipase 243 U/L (73-393); Magnesium 2.1 mg/dl (1.8-2.4); NT Pro B Type Natriuretic Pept 65 pg/ml (0-900); Sodium 139 mmol/L (136-145); Total Protein 7.6 gm/dl (6.4-8.2); Troponin I < 0.015 ng/ml (0-0.045)
[2019-12-09] MEDS ORDERED: FUROSEMIDE 40 MG/4 ML VIAL IV STA (03:28)
[2019-12-09] MEDS ORDERED: FAMOTIDINE 20MG/5ML IV PUSH IV ONE (03:43)
[2019-12-09] MEDS ORDERED: FAMOTIDINE 20MG/5ML IV PUSH IV STA (03:44)
[2019-12-09] MEDS ORDERED: POLYETHYLENE (MIRALAX) 17 GM PACK PO PRN (05:47)
[2019-12-09] MEDS ORDERED: NITROGLYCERIN SL 0.4 MG/TAB TAB SL PRN (05:47)
[2019-12-09] MEDS ORDERED: ALBUT/IPRATROP 3MG/0.5MG NEB 3 ML VIAL NEB PRN (05:47)
[2019-12-09] MEDS ORDERED: GLUCOSE 10 TABS/TUBE PO PRN (06:00)
[2019-12-09] MEDS ORDERED: GLUCOSE 40% GEL 15 GM TUBE PO PRN (06:00)
[2019-12-09] MEDS ORDERED: CARBOHYDRATES FOR HYPOGLYCEMIA PO PRN (06:00)
[2019-12-09] MEDS ORDERED: DEXTROSE 50% 50 ML SYRINGE IV PRN (06:00)
[2019-12-09] MEDS ORDERED: GLUCAGON FOR INJ 1 MG VIAL SQ PRN (06:00)
--- NOTE | 2019-12-09 06:28 | History and Physical Report ---
DATE OF ADMISSION: 12/09/2019 CHIEF COMPLAINT: Chest pain and shortness of breath. HISTORY OF PRESENT ILLNESS: This is a 64-year-old male with past medical history significant for type 2 diabetes, hyperhomocysteinemia, hypertriglyceridemia, type 2 diabetes, obstructive sleep apnea, mild intermittent asthma, chronic right-sided heart failure, hypertension, nonalcoholic fatty liver disease, polymyalgia rheumatica, cervical spondylosis, history of pulmonary embolism, history of adjustment disorder with depression, who presents with chest pain and shortness of breath. The patient was recently in the hospital in the last week of October because of fevers and questionable tick bite and at that time his initial Lyme screens were negative, but he was started empirically on doxycycline, but the next day he also developed respiratory failure secondary to pulmonary edema and was intubated and workup with transesophageal echo showed 1.2 x 1 cm nonmobile lesion that was found in the left coronary cusp as per cardiology and thus patient was transferred to [facility] where he had diuresis with Lasix to resolve the pulmonary edema and workup did not find any valvular abscess. The patient was discharged from [place] and at that time he was not given any further doxycycline, but he came back to [facility] on 11/22/2019 with ongoing fevers and this time Lyme screen came back positive and was started on doxycycline. He also had complaint of worsening of his joint pains and was given prednisone. His arthralgia flare , thought to from Lyme disease. He was given 21 days of doxycycline and he was doing okay and discharged home. At [place], his Lasix was increased to 40 mg daily. The patient says he finished his prednisone yesterday and he was supposed to be back to his home prednisone 2.5 mg daily. He has few more days of doxycycline to go. He has no fevers, but he still has some headaches and his ongoing joint pains. Tonight when he was going to sleep, he felt short of breath and chest pressure and he checked his weight and gained about 9 pounds in 3 days, which prompted him to come to the ER. In the ER, he received a dose of IV Lasix and he is able to urinate. Currently, chest pressure has improved, saturating okay on room air. He says when he was coming from the parking place to the ER, he got short of breath and had to be brought in a wheelchair. No nausea, no vomiting, no sweating, no blurred vision, no earache, no runny nose, no sore throat, no cough, no nausea or abdominal pain. He had five episodes of diarrhea today. No rash, no swelling in the legs. ALLERGIES: IODINATED CONTRAST, BLUE DYE, CEFUROXIME, SHELLFISH, LEVAQUIN. PAST MEDICAL HISTORY: As mentioned above. PAST SURGICAL HISTORY: Left breast lesion excision, cardiac catheterization, colonoscopy, right forearm subcutaneous tumor excision, laparoscopic cholecystectomy, sinus surgery, appendectomy, umbilical hernia repair, vasectomy. MEDICATIONS: Currently the patient is on Lasix 40 mg p.o. daily, Toprol-XL 25 mg p.o. b.i.d., Aldactone 12.5 mg p.o. daily, doxycycline 100 mg p.o. b.i.d., prednisone currently 2.5 mg p.o. daily, Zoloft 50 mg p.o. daily, Coumadin 5-7.5 mg as directed, Jardiance 10 mg p.o. daily, metformin 1000 mg p.o. b.i.d., omega-3 fatty acid 4 capsules daily, fenofibrate 134 mg p.o. daily, Crestor 5 mg p.o. daily, albuterol 2 puffs every 6 hours p.r.n., DuoNebs every 4 hours p.r.n. FAMILY HISTORY: Significant for mother has arthritis, breast cancer, gastrointestinal disorder, hypertension; father has sleep apnea, TIAs, CABG, prostate cancer; brother has allergies, factor V Leiden deficiency. SOCIAL HISTORY: . No smoking, no alcohol, no drug use. REVIEW OF SYSTEMS: As per HPI. Rest of the review of systems negative. PHYSICAL EXAMINATION: GENERAL: The patient is of moderate build, not in acute distress. VITAL SIGNS: Temperature 36.7, pulse 78, respiratory rate 16, blood pressure 142/82, oxygen 98% on room air. HEENT: Atraumatic. Pupils equal, round, and reactive to light. Oral mucosa moist. NECK: No JVD, no neck masses seen. No carotid bruits. CARDIOVASCULAR: S1, S2 heard, regular rate and rhythm, no murmur, no gallop. RESPIRATORY SYSTEM: Normal AP diameter. No accessory muscle use. No wheezing, no crackles. ABDOMEN: Soft, bowel sounds present, nontender. No distention. CENTRAL NERVOUS SYSTEM: Cranial nerves II-XII grossly intact. Nonfocal. EXTREMITIES: No edema, no erythema. LABORATORY DATA: WBC 13.5, hemoglobin 15.4, hematocrit 46.2, platelets 210. PT 23.9, INR 2.4, APTT 33.7. Sodium 139, potassium 4.3, chloride 107, bicarbonate 25, BUN 23, creatinine 0.9, serum glucose 165, calcium 9.4, magnesium 2.1, total bilirubin 0.5, AST 34, ALT 35, alkaline phosphatase 77. Troponin I less than 0.015. Lipase 243. IMAGING DATA: Chest x-ray, no acute findings seen. EKG: Normal sinus rhythm at a rate of 90, no acute ST changes seen, no significant change was seen. ASSESSMENT AND PLAN: This 64-year-old male presents with shortness of breath, chest discomfort, and weight gain. 1. [id number] right-sided heart failure. Recently Lasix was increased from 20 mg to 40 mg daily and he is on spironolactone 12.5 mg daily and Toprol-XL. Recently during hospitalization, he got volume overloaded and got intubated.Received dose of IV Lasix 40 in the ER. Will continue with IV 40 daily and continue his home spironolactone. Continue his Toprol-XL. Currently feeling better. We will monitor in the tele floor and consult cardiology for further recommendations. 2. Chest discomfort mostly from the above. Initial troponin and the EKG are okay. We will follow serial cardiac enzymes. Await cardiac input. 3. polyarthralgia. The patient has history of polymyalgia rheumatica, chronically on prednisone 2.5 mg daily. Recently his joint pain worsened, thought to be secondary to Lyme disease. Just finished a prednisone tapering course. Will continue his home prednisone for now and monitor. 4. History of pulmonary embolism. INR is therapeutic. Will continue his home Coumadin and follow the PT/INR. 5. Diabetes. We will place him on insulin sliding scale. 6. Sleep apnea. CPAP at bedtime. 7. Hypertension. Continue his Toprol-XL. Monitor the blood pressure. 8. Hyperlipidemia. Continue statin and fenofibrate. 9. Depression. Continue Zoloft. 10. Hx of asthma . Jackeline nebs prn 11. Deep venous thrombosis prophylaxis, on Coumadin. INR therapeutic. 12.. Disposition: Monitor in the tele floor. MTDD
[2019-12-09] MEDS: LACTOBACILLUS ACIDOPHILUS (FLORANEX) TAB PO SCH ×3 (08:43→15:13)
[2019-12-09] MEDS: predniSONE 2.5 MG TAB PO SCH (08:45)
[2019-12-09] MEDS: METOPROLOL SUCC 25MG EXT REL TAB PO SCH ×2 (08:45→19:42)
[2019-12-09] MEDS: DOXYCYCLINE HYCLATE 100 MG CAP PO SCH ×2 (08:46→19:43)
[2019-12-09] MEDS: FUROSEMIDE 40 MG in SYRINGE 0 ML IV SCH (08:49)
[2019-12-09] MEDS: INSULIN ASPART 100 UNITS/ML 3 ML PEN SC SCH ×4 (08:55→21:02)
[2019-12-09] MEDS ORDERED: FUROSEMIDE 40 MG/4 ML VIAL IV SCH (09:00)
[2019-12-09] MEDS ORDERED: SPIRONOLACTONE 12.5 MG TAB PO SCH (09:00)
--- NOTE | 2019-12-09 10:03 | XRay Report ---
SINGLE VIEW CHEST CLINICAL HISTORY: Atypical chest pain. FINDINGS: An AP, portable, upright chest radiograph is compared to study dated 11/22/2019 and correlate d with chest CT dated 11/23/2019. The heart is top normal for projection noting atherosclerotic calcifi cation of the thoracic aorta. There is mild bibasilar scarring/atelectasis. No airspace consolidation or large pleural effusion is identified. No pneumothorax is seen. There are healed bilateral rib fra ctures. IMPRESSION: No acute cardiopulmonary abnormality. ACT 112: Negative or not required by law. Electronically signed by: Cameron Gutierrez M.D. 12/09/2019 10:01 AM
--- NOTE | 2019-12-09 11:39 | Communication Note ---
Date of Service: December 09, 2019 See full consult. Patient was referred and underwent stress echocardiogram. Patient exercised for 7 minutes on a standard Willy protocol for an estimate met level of 9.0 METS. Patient achieved 100% age-predicted maximal heart rate without cardiac symptoms, chest pain or inordinate dyspnea. Blood pressure response was hypertensive No ischemic changes by EKG or echocardiographic criteria. Discussed results in detail with the patient. Findings suggest noncardiac source of current complaints but patient with multiple cardiac risk factors. Recommendations: Patient to return if any recurrence of symptoms Recommended treatment hyperlipidemia. Patient notes prior statin intolerance would recommend rosuvastatin 5 mg every other day with close clinical follow-up with primary care physician Will require management of underlying hypertension. Low threshold for increasing BRE inhibitor or adding beta-judy given left ventricular perjury V present
--- NOTE | 2019-12-09 12:36 | Cardiology Consultation ---
Date of Consultation December 09, 2019 Assessment & Plan (1) Acute on chronic heart failure with preserved ejection fraction (HFpEF): Plan continue IV diuretics monitor additional 24 hours anticipated discharge in a.m. on oral dosing to be adjusted in a.m. Suspect requires higher dose low long-term chronic diuretic with possible aggravation secondary to recent steroid elevation course. Will increase spironolactone to 25 mg p.o. daily in interim All other therapies to be continued (2) Acute Lyme disease: (3) PMR (polymyalgia rheumatica): History of Present Illness Reason for Consultation: Acute on chronic diastolic heart failure Requesting Physician: Dr. Marcos Attending Physician: Sofía Marcos MD History of Present Illness Patient is a complex 64-year-old male with recent several hospitalizations. Please refer to full consultation of 11/23/[address] Albert Saldaña Patient has ongoing chronic issues which include currently acute on chronic diastolic heart failure with past diastolic heart failure, acute Lyme disease completing oral portion of treatment, polymyalgia rheumatica on chronic low-dose prednisone, obstructive sleep apnea on CPAP supplementation, type 2 diabetes mellitus, past pulmonary embolus on chronic anticoagulation with warfarin. Patient presents this admission with complex multiple admissions as noted but having observed symptoms of increasing abdominal girth and shortness of breath with 89 pound weight gain since recent visit. Symptoms were not responsive to diuretics. Presented and was received IV diuretics yesterday and yesterday evening with brisk response (I's and O's not recorded) and substantial improvement in overall symptoms. He denies chest pains, dizziness, lightheadedness. Is aware of occasional low- grade fevers. No tachypalpitations syncope or near syncope. No bleeding difficulties. EKG since admission without ischemia with normal tracings x2, no conduction system disease. Troponin negative Echocardiogram as per multiple evaluations recently with preserved LV systolic function Prior history of no obstructive coronary disease by remote cardiac catheterization Allergies Allergy/AdvReac Type Severity Reaction Status Date / Time Iodinated Contrast Media Allergy Severe DIFFICULTY Verified 12/09/19 02:19 BREATHING/THROAT SWELLING blue dye Allergy Intermediate swelling Verified 12/09/19 02:19 cefuroxime Allergy Intermediate hives Verified 12/09/19 02:19 shellfish derived Allergy Intermediate swelling Verified 12/09/19 02:19 levofloxacin AdvReac Intermediate Tendon Verified 12/09/19 02:19 contractions Home Medications Home Medications Medication Instructions Recorded Confirmed Type rosuvastatin 5 mg PO QPM 06/14/19 12/09/19 History sertraline 50 mg PO HS 06/14/19 12/09/19 History warfarin 5 mg PO [id number] 06/14/19 12/09/19 History Jardiance 10 mg PO DAILY 11/22/19 12/09/19 History fenofibrate micronized 134 mg PO QAM 11/22/19 12/09/19 History ipratropium-albuterol 3 ml NEB Q4R PRN 11/22/19 12/09/19 History metformin 1,000 mg PO BID 11/22/19 12/09/19 History omega-3 acid ethyl esters 2 cap PO BID 11/22/19 12/09/19 History prednisone 2.5 mg PO DAILY 11/22/19 12/09/19 History warfarin 7.5 mg PO WK 11/22/19 12/09/19 History doxycycline hyclate 100 mg PO BID 14 Days #28 cap 11/28/19 12/09/19 Rx furosemide 40 mg PO QAM 30 Days #30 tab 11/28/19 12/09/19 Rx metoprolol succinate 25 mg PO BID 30 Days #60 tab 11/28/19 12/09/19 Rx prednisone 10 mg PO UD #18 tab 11/28/19 12/09/19 Rx spironolactone 12.5 mg PO DAILY 30 Days #30 tab 11/28/19 12/09/19 Rx Patient History Medical History Appendicitis CHF (congestive heart failure) Diabetes DVT (deep venous thrombosis) High cholesterol History of high blood pressure Pulmonary embolism Umbilical hernia Surgical History History of cholecystectomy Social History Smoking Status: Never smoker Second Hand Exposure: No; Do You Dip or Chew Tobacco: No; Tobacco Cessation Education Requested by Patient: No Hx Alcohol Use: No Hx Substance Use: No Preferred Language: [place] Islander Communication Ability: Effective Hotel [employer]ilities Manager Required: No Beliefs That Will Affect Care: None Current Living Situation: Spouse Other Information That Helps Us Care for You: No Feels Safe at Home: Yes Safety Concerns: Feels Safe At This Time Review of Systems Review of Systems: All systems reviewed & are unremarkable except as noted in HPI & below Physical Exam Constitutional: WD/WN, vitals as above Eyes: PERRL, conjunctivae normal, anicteric sclerae ENMT: external ear and nose normal, oropharynx normal Neck: trachea midline, no thyromegaly Respiratory: normal respiratory effort, lungs clear to auscultation Cardiovascular: Rate/Rhythm: regular rate and regular rhythm Heart Sounds: normal S1 and normal S2; no gallop and no murmur Palpation: normal PMI Vessels: normal carotid upstroke and radial pulses present; no JVD and no carotid bruit Extremities: no edema Gastrointestinal (Abdomen): normal bowel sounds, soft, nontender, no hepatosplenomegaly Mild abdominal distention Musculoskeletal: no cyanosis or clubbing, extremities motor strength 5/5 Skin: no rashes, warm and dry Neurologic: PERRL, EOMI, accommodation nl, no face palsy, no dysarthria Psychiatric: A+Ox3, euthymic affect Results & Data ([facility]) Vital Signs (Past 12 Hours) Vital Signs Temp Pulse Pulse Resp BP BP Pulse Ox 12/09/19 11:08 36.4 C L 84 18 135/83 95 12/09/19 07:37 36.4 C L 82 18 133/84 98 12/09/19 05:58 36.6 C 82 18 153/83 H 97 12/09/19 05:54 80 12/09/19 05:47 36.6 C 16 153/82 H 97 12/09/19 05:29 79 16 130/88 99 12/09/19 04:30 78 16 142/82 H 98 12/09/19 04:00 78 25 H 156/98 H 97 12/09/19 03:45 76 25 H 156/91 H 97 12/09/19 03:00 82 20 150/72 H 95 12/09/19 02:30 87 20 153/88 H 96 12/09/19 02:00 82 25 H 148/89 H 96 12/09/19 01:50 81 28 H 96 12/09/19 01:30 80 17 159/93 H 96 12/09/19 01:14 86 29 H 144/80 H 96 12/09/19 00:30 81 21 152/78 H 97 Pulse Ox 12/09/19 11:08 12/09/19 07:37 12/09/19 05:58 12/09/19 05:54 12/09/19 05:47 97 12/09/19 05:29 12/09/19 04:30 12/09/19 04:00 12/09/19 03:45 12/09/19 03:00 12/09/19 02:30 12/09/19 02:00 12/09/19 01:50 12/09/19 01:30 12/09/19 01:14 12/09/19 00:30
[2019-12-09] MEDS: ACETAMINOPHEN 325 MG TAB PO PRN ×3 (12:57→23:47)
[2019-12-09] MEDS: TRICOR~ORDER AWAITING ACTION SCH ×3 (13:12→23:17)
[2019-12-09] MEDS: WARFARIN SOD 5 MG TAB PO SCH (16:49)
--- NOTE | 2019-12-09 16:51 | Electrocardiogram Report ---
Test Reason : Blood Pressure : / mmHG Vent. Rate : 076 BPM Atrial Rate : 076 BPM P-R Int : 152 ms QRS Dur : 088 ms QT Int : 396 ms P-R-T Axes : 018 017 026 degrees QTc Int : 445 ms Poor data quality, interpretation may be adversely affected Normal sinus rhythm Normal ECG When compared with ECG of 09-DEC-2019 00:07, (unconfirmed) No significant change was found Confirmed by Donald Johansen ([id number]) on 12/09/2019 4:51:23 PM Referred By: REFERRED SELF Confirmed By:Kavon Johansen
--- NOTE | 2019-12-09 16:52 | Electrocardiogram Report ---
Test Reason : Blood Pressure : / mmHG Vent. Rate : 090 BPM Atrial Rate : 090 BPM P-R Int : 136 ms QRS Dur : 080 ms QT Int : 366 ms P-R-T Axes : 052 020 023 degrees QTc Int : 447 ms Poor data quality, interpretation may be adversely affected Normal sinus rhythm Normal ECG When compared with ECG of 22-NOV-2019 15:32, No significant change was found Confirmed by Donald Johansen ([id number]) on 12/09/2019 4:52:01 PM Referred By: REFERRED SELF Confirmed By:Kavon Johansen
[2019-12-09] MEDS: SERTRALINE HCL 50 MG TABLET PO SCH (19:42)
[2019-12-09] MEDS: ROSUVASTATIN CALCIUM 5 MG TAB PO SCH (19:43)
[2019-12-10] MEDS: ACETAMINOPHEN 325 MG TAB PO PRN ×2 (04:06→15:34)
[2019-12-10 05:21] LABS: Basophils # (auto) 0.01 K/uL (0-0.2); Basophils % (auto) 0.1 %; Eosinophils # (auto) 0.37 K/uL (0-0.5); Eosinophils % (auto) 3.8 %; Hematocrit (blood only) 45.9 % (42-52); Hemoglobin 15.2 g/dL (14.0-18.0); Immature Granulocytes # (auto) 0.07 K/uL (0.00-0.02); Immature Granulocytes % (auto) 0.7 %; Lymphocytes % (auto) 40.5 %; Mean Corpuscular Hgb Conc 33.1 g/dL (32-36); Mean Corpuscular Volume 84.5 fL (80-100); Mean Platelet Volume 10.6 fL (7.4-10.4); Monocytes # (auto) 0.79 K/uL (0.11-0.59); Monocytes % (auto) 8.2 %; Neutrophils # (auto) 4.48 K/uL (1.4-6.5); Neutrophils % (auto) 46.7 %; Platelet Count 187 K/uL (130-400); RDW Coefficient of Variation 14.6 % (11.5-14.5); RDW Standard Deviation 44.8 fL (36.4-46.3); Red Blood Count 5.43 M/uL (4.7-6.1); White Blood Count 9.62 K/uL (4.8-10.8)
[2019-12-10 05:27] LABS: INR 2.4 (0.9-1.1); Prothrombin Time 23.8 Seconds (9.0-12.0)
[2019-12-10 05:43] LABS: BUN Creatinine Ratio 22.8 (10-20); Calcium 9.1 mg/dl (8.5-10.1); Creatinine Clr Calc Pharmacy 80.2 ml/min; Est GFR (African American) 100.2; Est GFR (Non-African American) 86.5; Magnesium 1.9 mg/dl (1.8-2.4); Potassium 3.7 mmol/L (3.5-5.1)
[2019-12-10] MEDS: TRICOR~ORDER AWAITING ACTION SCH ×2 (07:33→15:17)
[2019-12-10] MEDS: FUROSEMIDE 40 MG in SYRINGE 0 ML IV SCH (08:08)
[2019-12-10] MEDS: DOXYCYCLINE HYCLATE 100 MG CAP PO SCH ×2 (08:09→21:32)
[2019-12-10] MEDS: predniSONE 2.5 MG TAB PO SCH (08:09)
[2019-12-10] MEDS: LACTOBACILLUS ACIDOPHILUS (FLORANEX) TAB PO SCH ×3 (08:09→16:54)
[2019-12-10] MEDS: INSULIN ASPART 100 UNITS/ML 3 ML PEN SC SCH ×4 (08:10→21:32)
[2019-12-10] MEDS: SPIRONOLACTONE 25 MG TAB PO SCH (08:10)
[2019-12-10] MEDS: METOPROLOL SUCC 25MG EXT REL TAB PO SCH ×2 (08:10→21:32)
--- NOTE | 2019-12-10 10:29 | Cardiology Progress Note ---
Date of Service December 10, 2019 Assessment & Plan (1) Acute on chronic heart failure with preserved ejection fraction (HFpEF): Plan: Patient still with persistent symptoms Blood pressure hypertensive We will give a second dose of IV furosemide this afternoon. Continue sp ironolactone 25 mg p.o. daily. We will add losartan 25 mg p.o. daily with multiple indications including congestive heart failure and diabetes with hypertension (2) Acute Lyme disease: (3) PMR (polymyalgia rheumatica): Admission and Anticipated Discharge Date Admission Date: December 09, 2019 Subjective Patient seen and examined, chart, medications, telemetry reviewed. Still feels abdominal bloating and fullness breathlessness when lying flat last night has m anifested significant diuresis by I's and O's though weight little change No chest pains no tachypalpitations no dizziness. Renal function is stable Short run of atrial tachycardia last evening Review of Systems Review of Systems: All systems reviewed & are unremarkable except as noted in HPI & below Physical Exam Constitutional: WD/WN, vitals as above Eyes: PERRL, conjunctivae normal, anicteric sclerae ENMT: external ear and nose normal, oropharynx normal Neck: trachea midline, no thyromegaly Respiratory: normal respiratory effort, lungs clear to auscultation Cardiovascular: Rate/Rhythm: regular rate and regular rhythm Heart Sounds: normal S1 and normal S2; no gallop and no murmur Palpation: normal PMI Vessels: normal carotid upstroke and radial pulses present; no JVD and no carotid bruit Extremities: no edema Gastrointestinal (Abdomen): normal bowel sounds, soft, nontender, no hepatosplenomegaly Mildly distended Musculoskeletal: no cyanosis or clubbing, extremities motor strength 5/5 Skin: no rashes, warm and dry Neurologic: PERRL, EOMI, accommodation nl, no face palsy, no dysarthria Psychiatric: A+Ox3, euthymic affect Results & Data ([facility]) Vital Signs (Past 12 Hours) Vital Signs Temp Pulse Resp BP Pulse Ox 12/10/19 07:35 36.4 C L 69 19 151/80 H 97 12/10/19 04:26 36.3 C L 67 16 151/88 H 98 12/09/19 23:44 36.3 C L 72 18 135/80 97 Laboratory Results Laboratory Results - last 24 hr 12/09/19 12/09/1920 07:39 11:49 13:13 WBC RBC Hgb Hct MCV MCH MCHC RDW Std Deviation RDW Coeff of Kathryn Plt Count MPV Immature Gran % (Auto) Neut % (Auto) Lymph % (Auto) Ashe % (Auto) Eos % (Auto) Baso % (Auto) Neut # (Auto) Lymph # (Auto) Ashe # (Auto) Eos # (Auto) Baso # (Auto) Immature Gran # (Auto) PT INR Sodium Potassium Chloride Carbon Dioxide Anion Gap BUN Creatinine Est Cr Clr Drug Dosing Est GFR ( Amer) Est GFR (Non-Af Amer) BUN/Creatinine Ratio Glucose POC Glucose 176 H 208 H Calcium Magnesium Troponin I < 0.015 12/09/19 12/09/19 12/10/19 16:32 20:35 04:44 WBC RBC Hgb Hct MCV MCH MCHC RDW Std Deviation RDW Coeff of Kathryn Plt Count MPV Immature Gran % (Auto) Neut % (Auto) Lymph % (Auto) [place]he % (Auto) Eos % (Auto) Baso % (Auto) Neut # (Auto) Lymph # (Auto) Ashe # (Auto) Eos # (Auto) Baso # (Auto) Immature Gran # (Auto) PT 23.8 H INR 2.4 H Sodium Potassium Chloride Carbon Dioxide Anion Gap BUN Creatinine Est Cr Clr Drug Dosing Est GFR ( Amer) Est GFR (Non-Af Amer) BUN/Creatinine Ratio Glucose POC Glucose 130 H 151 H Calcium Magnesium Troponin I 12/10/19 12/10/19 12/10/19 04:44 04:44 07:34 WBC 9.62 RBC 5.43 Hgb 15.2 Hct 45.9 MCV 84.5 MCH 28.0 MCHC 33.1 RDW Std Deviation 44.8 RDW Coeff of Kathryn 14.6 H Plt Count 187 MPV 10.6 H Immature Gran % (Auto) 0.7 Neut % (Auto) 46.7 Lymph % (Auto) 40.5 Ashe % (Auto) 8.2 Eos % (Auto) 3.8 Baso % (Auto) 0.1 Neut # (Auto) 4.48 Lymph # (Auto) 3.90 H Ashe # (Auto) 0.79 H Eos # (Auto) 0.37 Baso # (Auto) 0.01 Immature Gran # (Auto) 0.07 H PT INR Sodium 137 Potassium 3.7 Chloride 105 Carbon Dioxide 26 Anion Gap 6.0 BUN 21 H Creatinine 0.93 Est Cr Clr Drug Dosing 80.2 Est GFR ( Amer) 100.2 Est GFR (Non-Af Amer) 86.5 BUN/Creatinine Ratio 22.8 H Glucose 219 H POC Glucose 180 H Calcium 9.1 Magnesium 1.9 Troponin I
--- NOTE | 2019-12-10 11:06 | Hospitalist Progress Note ---
Date of Service December 10, 2019 Assessment & Plan (1) Acute on chronic heart failure with preserved ejection fraction (HFpEF): Admitted with shortness of breath, chest discomfort and weight gain Has been receiving intravenous furosemide since admission Appreciate cardiology input and recommendation Spironolactone dose has been increased to 25 mg daily Losartan 25 mg daily has been added Slightly worse today Likely to be discharged tomorrow if he feels better (2) Acute Lyme disease: Has been completing 21 days's course of doxycycline (3) PMR (polymyalgia rheumatica): Has polyarthralgias without any evidence of acute arthritis Likely complicated by acute Lyme disease (4) Hx of pulmonary embolus: Continue Coumadin (5) Asthma: Does not have any wheezing Shortness of breath with minimal exertion could be complicated by having asthma Will try steroid inhaler (6) Sleep apnea: Uses CPAP at bedtime (7) Diabetes: Seems to be controlled DVT prophylaxis On Coumadin Admission and Anticipated Discharge Date Admission Date: December 09, 2019 Subjective 12/10/2019 The patient was seen and examined in the telemetry unit He has not been feeling better as of this morning and remains short of breath on minimal exertion He denies any chest pain and/or palpitation Complains to have some abdominal discomfort and distention without any nausea and or vomiting or constipation Review of Systems Review of Systems: All systems reviewed and are unremarkable except as noted below Respiratory: + dyspnea on exertion Cardiovascular: + dyspnea on exertion; no chest pain and no edema Gastrointestinal: + bloating; no abdominal pain, no nausea and no vomiting Physical Exam Physical Exam: Lying in bed with some discomfort due to minimal short of breath Constitutional: well developed, well nourished, + acute distress (Minimal shortness of breath and abdominal discomfort), + ill appearing and + obese Eyes: PERRL, conjunctivae normal, anicteric sclerae ENMT: external ear and nose normal, oropharynx normal Neck: trachea midline, no thyromegaly Respiratory: normal respiratory effort; no respiratory distress Auscultation: lungs clear to auscultation bilaterally Cardiovascular: Rate/Rhythm: regular rate and regular rhythm Heart Sounds: no murmur Extremities: no edema Gastrointestinal (Abdomen): Inspection/Auscultation: + abdomen distended and normal bowel sounds Percussion/Palpation: abdomen soft; abdomen nontender and no guarding Musculoskeletal: Arthralgias but no acute arthritis in any joint Neurologic: moves all extremities; no focal motor deficits Psychiatric: A+Ox3, euthymic affect Lymphatic: no cervical or axillary lymphadenopathy Results & Data Results & Data ([facility]) Vital Signs (Past 12 Hours) Vital Signs Temp Pulse Resp BP Pulse Ox 12/10/19 07:35 36.4 C L 69 19 151/80 H 97 12/10/19 04:26 36.3 C L 67 16 151/88 H 98 12/09/19 23:44 36.3 C L 72 18 135/80 97 Laboratory Results Short CBC 12/10/19 Range/Units 04:44 WBC 9.62 (4.8-10.8) K/uL Hgb 15.2 (14.0-18.0) g/dL Hct 45.9 (42-52) % Plt Count 187 (130-400) K/uL BMP 12/10/19 04:44 Sodium 137 Potassium 3.7 Chloride 105 Carbon Dioxide 26 BUN 21 H Creatinine 0.93 Glucose 219 H Calcium 9.1 Cardiac Enzymes 12/09/19 Range/Units 13:13 Troponin I < 0.015 (0-0.045) ng/ml Medications Administered Current Inpatient Medications Acetaminophen (Acetaminophen 325 Mg Tab) 650 mg PO Q4H PRN PRN Reason: Pain or Fever Stop: 01/08/20 05:46 Last Admin: 12/10/19 04:06 Dose: 650 mg Documented by: Albuterol (Albut/Ipratrop 3mg/0.5mg Neb 3 Ml Vial) 3 ml NEB Q4R PRN PRN Reason: Shortness Of Breath Or Wheezing Stop: 01/08/20 05:46 Dextrose (Dextrose 50% 50 Ml Syringe) 25 - 50 ml IV UD PRN; Protocol PRN Reason: Hypoglycemia Protocol Stop: 01/08/20 05:59 Doxycycline Hyclate (Doxycycline Hyclate 100 Mg Cap) 100 mg PO BID [facility] Stop: 12/19/19 08:59 Last Admin: 12/10/19 08:09 Dose: 100 mg Documented by: Glucagon (Glucagon For Inj 1 Mg Vial) 1 mg SQ UD PRN; Protocol PRN Reason: Hypoglycemia Protocol Stop: 01/08/20 05:59 Glucose (Glucose 40% Gel 15 Gm Tube) 15 - 30 gm PO UD PRN; Protocol PRN Reason: Hypoglycemia Protocol Stop: 01/08/20 05:59 Glucose (Glucose 10 Tabs/Tube) 4 - 8 tabs PO UD PRN; Protocol PRN Reason: Hypoglycemia Protocol Stop: 01/08/20 05:59 Furosemide 40 mg/ Syringe 4 mls @ 4 mls/min IV QAM [facility] Stop: 01/08/20 08:59 Last Admin: 12/10/19 08:08 Dose: 4 mls/min Documented by: Furosemide 40 mg/ Syringe 4 mls @ 4 mls/min IV ONE ONE Stop: 12/10/19 15:01 Insulin Aspart (Insulin Aspart 100 Units/Ml 3 Ml Pen) 0 units SC ACHS [facility] Stop: 01/08/20 07:29 Last Admin: 12/10/19 08:10 Dose: 8 units Documented by: Lactobacillus Acidophilus (Lactobacillus Acidophilus (Floranex) Tab) 4 tab PO TIDM [facility] Stop: 01/08/20 07:59 Last Admin: 12/10/19 08:09 Dose: 4 tab Documented by: Losartan Potassium (Losartan Potassium 25 Mg Tab) 25 mg PO QAM [facility] Stop: 01/09/20 10:44 Metoprolol Succinate (Metoprolol Succ 25mg Ext Rel Tab) 25 mg PO BID [facility] Stop: 01/08/20 08:59 Last Admin: 12/10/19 08:10 Dose: 25 mg Documented by: Miscellaneous (Tricor~Order Awaiting Action) 1 ea N/A QS [facility] Stop: 01/08/20 07:59 Last Admin: 12/10/19 07:33 Dose: Not Given Documented by: Miscellaneous (Carbohydrates For Hypoglycemia ) 15 - 30 gm PO UD PRN PRN Reason: Hypoglycemia Treatment Stop: 01/08/20 05:59 Nitroglycerin (Nitroglycerin Sl 0.4 Mg/Tab Tab) 0.4 mg SL UD PRN PRN Reason: Chest Pain Stop: 01/08/20 05:46 Polyethylene Glycol (Polyethylene (Miralax) 17 Gm Pack) 17 gm PO DAILY PRN PRN Reason: Constipation Stop: 01/08/20 05:46 Prednisone (Prednisone 2.5 Mg Tab) 2.5 mg PO DAILY [facility] Stop: 01/08/20 08:59 Last Admin: 12/10/19 08:09 Dose: 2.5 mg Documented by: Rosuvastatin Calcium (Rosuvastatin Calcium 5 Mg Tab) 5 mg PO QPM [facility] Stop: 01/08/20 20:59 Last Admin: 12/09/19 19:43 Dose: 5 mg Documented by: Sertraline HCl (Sertraline Hcl 50 Mg Tablet) 50 mg PO [facility] Stop: 01/08/20 20:59 Last Admin: 12/09/19 19:42 Dose: 50 mg Documented by: Spironolactone (Spironolactone 25 Mg Tab) 25 mg PO DAILY [facility] Stop: 01/09/20 08:59 Last Admin: 12/10/19 08:10 Dose: 25 mg Documented by: Warfarin Sodium (Warfarin Sod 5 Mg Tab) 5 mg PO SuMoTuThFrSa@1600 [facility] Stop: 01/08/20 15:59 Last Admin: 12/09/19 16:49 Dose: 5 mg Documented by: Warfarin Sodium (Warfarin Sod 7.5 Mg Tab) 7.5 mg PO We@1600 [facility] Stop: 01/12/20 15:59
--- NOTE | 2019-12-10 11:06 | Electrocardiogram Report ---
Test Reason : Blood Pressure : / mmHG Vent. Rate : 068 BPM Atrial Rate : 068 BPM P-R Int : 128 ms QRS Dur : 088 ms QT Int : 412 ms P-R-T Axes : 012 041 036 degrees QTc Int : 438 ms Normal sinus rhythm Normal ECG When compared with ECG of 09-DEC-2019 03:42, No significant change was found Confirmed by Donald Johansen ([id number]) on 12/10/2019 11:05:58 AM Referred By: REFERRED SELF Confirmed By:Kavon Johansen
[2019-12-10] MEDS: LOSARTAN POTASSIUM 25 MG TAB PO SCH (12:07)
[2019-12-10] MEDS: FLUTICASONE FUROATE 100MCG 14 PUFFS/INHALER INH SCH (12:28)
[2019-12-10] MEDS ORDERED: FUROSEMIDE 40 MG in SYRINGE 0 ML IV ONE (15:00)
[2019-12-10] MEDS ORDERED: LOPERAMIDE HCL 2 MG CAP PO PRN (15:07)
[2019-12-10] MEDS: WARFARIN SOD 5 MG TAB PO SCH (15:31)
[2019-12-10] MEDS: ROSUVASTATIN CALCIUM 5 MG TAB PO SCH (21:31)
[2019-12-10] MEDS: SERTRALINE HCL 50 MG TABLET PO SCH (21:32)
[2019-12-11] MEDS: ACETAMINOPHEN 325 MG TAB PO PRN (01:35)
[2019-12-11] MEDS: TRICOR~ORDER AWAITING ACTION SCH ×2 (04:58→08:30)
[2019-12-11 06:08] LABS: Basophils # (auto) 0.02 K/uL (0-0.2); Basophils % (auto) 0.2 %; Eosinophils # (auto) 0.46 K/uL (0-0.5); Eosinophils % (auto) 3.9 %; Hematocrit (blood only) 47.4 % (42-52); Hemoglobin 15.9 g/dL (14.0-18.0); Immature Granulocytes # (auto) 0.06 K/uL (0.00-0.02); Immature Granulocytes % (auto) 0.5 %; Lymphocytes # (auto) 4.62 K/uL (1.2-3.4); Mean Corpuscular Hemoglobin 28.5 pg (25-34); Mean Corpuscular Hgb Conc 33.5 g/dL (32-36); Mean Corpuscular Volume 84.9 fL (80-100); Mean Platelet Volume 10.2 fL (7.4-10.4); Monocytes % (auto) 9.3 %; Neutrophils # (auto) 5.58 K/uL (1.4-6.5); Neutrophils % (auto) 47.1 %; Platelet Count 204 K/uL (130-400); RDW Coefficient of Variation 14.6 % (11.5-14.5); RDW Standard Deviation 44.9 fL (36.4-46.3); Red Blood Count 5.58 M/uL (4.7-6.1); White Blood Count 11.84 K/uL (4.8-10.8)
[2019-12-11 06:18] LABS: INR 2.6 (0.9-1.1); Prothrombin Time 26.1 Seconds (9.0-12.0)
[2019-12-11 06:42] LABS: BUN Creatinine Ratio 18.9 (10-20); Calcium 9.2 mg/dl (8.5-10.1); Creatinine Clr Calc Pharmacy 75.2 ml/min; Est GFR (African American) 92.9; Est GFR (Non-African American) 80.2; Potassium 4.1 mmol/L (3.5-5.1)
[2019-12-11] MEDS: INSULIN ASPART 100 UNITS/ML 3 ML PEN SC SCH ×2 (08:28→11:47)
[2019-12-11] MEDS: FLUTICASONE FUROATE 100MCG 14 PUFFS/INHALER INH SCH (08:29)
[2019-12-11] MEDS: SPIRONOLACTONE 25 MG TAB PO SCH (08:30)
[2019-12-11] MEDS: DOXYCYCLINE HYCLATE 100 MG CAP PO SCH (08:30)
[2019-12-11] MEDS: LACTOBACILLUS ACIDOPHILUS (FLORANEX) TAB PO SCH ×2 (08:30→11:15)
[2019-12-11] MEDS: LOSARTAN POTASSIUM 25 MG TAB PO SCH (08:30)
[2019-12-11] MEDS: METOPROLOL SUCC 25MG EXT REL TAB PO SCH (08:31)
[2019-12-11] MEDS: predniSONE 2.5 MG TAB PO SCH (08:31)
--- NOTE | 2019-12-11 09:35 | Electrocardiogram Report ---
Test Reason : Blood Pressure : / mmHG Vent. Rate : 076 BPM Atrial Rate : 076 BPM P-R Int : 146 ms QRS Dur : 090 ms QT Int : 394 ms P-R-T Axes : 061 044 040 degrees QTc Int : 443 ms Normal sinus rhythm Normal ECG When compared with ECG of 10-DEC-2019 06:19, No significant change was found Confirmed by Guillermo Bryant ([id number]) on 12/11/2019 9:34:30 AM Referred By: REFERRED SELF Confirmed By:Guillermo Bryant
[2019-12-11] MEDS ORDERED: FUROSEMIDE 20 MG TAB PO SCH (10:00)
--- NOTE | 2019-12-11 11:07 | Hospitalist Progress Note ---
Date of Service December 11, 2019 Assessment & Plan (1) Acute on chronic heart failure with preserved ejection fraction (HFpEF): Admitted with shortness of breath, chest discomfort and weight gain Has been receiving intravenous furosemide since admission Appreciate cardiology input and recommendation Spironolactone dose has been increased to 25 mg daily Losartan 25 mg daily has been added Clinically a lot better today without any shortness of breath at rest and/or on exertion Will start oral Lasix at 40 mg/day We will discharge home this afternoon (2) Acute Lyme disease: Has been completing 21 days's course of doxycycline (3) PMR (polymyalgia rheumatica): Has polyarthralgias without any evidence of acute arthritis Likely complicated by acute Lyme disease Is stable (4) Hx of pulmonary embolus: Continue Coumadin (5) Asthma: Does not have any wheezing Shortness of breath with minimal exertion could be complicated by having asthma Will try steroid inhaler Used to use Advair disc years before Current steroid inhaler seems to be working (6) Sleep apnea: Uses CPAP at bedtime (7) Diabetes: Seems to be controlled DVT prophylaxis On Coumadin Admission and Anticipated Discharge Date Admission Date: December 09, 2019 Anticipated date of discharge: 12/11/19 Subjective 12/10/2019 The patient was seen and examined in the telemetry unit He has not been feeling better as of this morning and remains short of breath on minimal exertion He denies any chest pain and/or palpitation Complains to have some abdominal discomfort and distention without any nausea and or vomiting or constipation 12/11/2019 The patient was seen and examined in telemetry unit He has been feeling a lot better and denies any acute symptoms He denies any shortness of breath on exertion as of today Wants to go home Review of Systems Review of Systems: All systems reviewed and are unremarkable except as noted below Respiratory: no dyspnea on exertion Cardiovascular: no chest pain, no dyspnea on exertion and no edema Gastrointestinal: no abdominal pain, no bloating, no nausea and no vomiting Physical Exam Physical Exam: Lying in bed without any discomfort Constitutional: well developed, well nourished and + obese; no acute distress (Minimal shortness of breath and abdominal discomfort) and not ill appearing Eyes: PERRL, conjunctivae normal, anicteric sclerae ENMT: external ear and nose normal, oropharynx normal Neck: trachea midline, no thyromegaly Respiratory: normal respiratory effort; no respiratory distress Auscultation: lungs clear to auscultation bilaterally Cardiovascular: Rate/Rhythm: regular rate and regular rhythm Heart Sounds: no murmur Extremities: no edema Gastrointestinal (Abdomen): Inspection/Auscultation: + abdomen distended and normal bowel sounds Percussion/Palpation: abdomen soft; abdomen nontender and no guarding Musculoskeletal: No acute arthritis involving any joints Neurologic: moves all extremities; no focal motor deficits Psychiatric: A+Ox3, euthymic affect Lymphatic: no cervical or axillary lymphadenopathy Results & Data Results & Data ([facility]) Vital Signs (Past 12 Hours) Vital Signs Temp Pulse Pulse Resp BP Pulse Ox 12/11/19 07:44 36.8 C 79 18 138/79 96 12/11/19 07:14 80 12/11/19 03:40 36.4 C L 73 16 153/85 H 99 12/10/19 23:49 37.6 C H 68 16 147/84 H 91 Laboratory Results Short CBC 12/11/19 Range/Units 05:32 WBC 11.84 H (4.8-10.8) K/uL Hgb 15.9 (14.0-18.0) g/dL Hct 47.4 (42-52) % Plt Count 204 (130-400) K/uL BMP 12/11/19 05:32 Sodium 137 Potassium 4.1 Chloride 102 Carbon Dioxide 29 BUN 19 H Creatinine 0.99 Glucose 183 H Calcium 9.2 Medications Administered Current Inpatient Medications Acetaminophen (Acetaminophen 325 Mg Tab) 650 mg PO Q4H PRN PRN Reason: Pain or Fever Stop: 01/08/20 05:46 Last Admin: 12/11/19 01:35 Dose: 650 mg Documented by: Albuterol (Albut/Ipratrop 3mg/0.5mg Neb 3 Ml Vial) 3 ml NEB Q4R PRN PRN Reason: Shortness Of Breath Or Wheezing Stop: 01/08/20 05:46 Dextrose (Dextrose 50% 50 Ml Syringe) 25 - 50 ml IV UD PRN; Protocol PRN Reason: Hypoglycemia Protocol Stop: 01/08/20 05:59 Doxycycline Hyclate (Doxycycline Hyclate 100 Mg Cap) 100 mg PO BID [facility] Stop: 12/19/19 08:59 Last Admin: 12/11/19 08:30 Dose: 100 mg Documented by: Fluticasone Furoate (Fluticasone Furoate 100mcg 14 Puffs/Inhaler) 1 puffs INH DAILY [facility] Stop: 01/09/20 11:14 Last Admin: 12/11/19 08:29 Dose: 1 puffs Documented by: Furosemide (Furosemide 20 Mg Tab) 60 mg PO QAM [facility] Stop: 01/10/20 09:59 Glucagon (Glucagon For Inj 1 Mg Vial) 1 mg SQ UD PRN; Protocol PRN Reason: Hypoglycemia Protocol Stop: 01/08/20 05:59 Glucose (Glucose 40% Gel 15 Gm Tube) 15 - 30 gm PO UD PRN; Protocol PRN Reason: Hypoglycemia Protocol Stop: 01/08/20 05:59 Glucose (Glucose 10 Tabs/Tube) 4 - 8 tabs PO UD PRN; Protocol PRN Reason: Hypoglycemia Protocol Stop: 01/08/20 05:59 Insulin Aspart (Insulin Aspart 100 Units/Ml 3 Ml Pen) 0 units SC ACHS [facility] Stop: 01/08/20 07:29 Last Admin: 12/11/19 08:28 Dose: 9 units Documented by: Lactobacillus Acidophilus (Lactobacillus Acidophilus (Floranex) Tab) 4 tab PO TIDM [facility] Stop: 01/08/20 07:59 Last Admin: 12/11/19 08:30 Dose: 4 tab Documented by: Loperamide HCl (Loperamide Hcl 2 Mg Cap) 2 mg PO Q4H PRN PRN Reason: Diarrhea Stop: 01/09/20 15:06 Last Admin: 12/10/19 15:31 Dose: 2 mg Documented by: Losartan Potassium (Losartan Potassium 25 Mg Tab) 25 mg PO QAM [facility] Stop: 01/09/20 10:44 Last Admin: 12/11/19 08:30 Dose: 25 mg Documented by: Metoprolol Succinate (Metoprolol Succ 25mg Ext Rel Tab) 25 mg PO BID [facility] Stop: 01/08/20 08:59 Last Admin: 12/11/19 08:31 Dose: 25 mg Documented by: Miscellaneous (Tricor~Order Awaiting Action) 1 ea N/A QS [facility] Stop: 01/08/20 07:59 Last Admin: 12/11/19 08:30 Dose: Not Given Documented by: Miscellaneous (Carbohydrates For Hypoglycemia ) 15 - 30 gm PO UD PRN PRN Reason: Hypoglycemia Treatment Stop: 01/08/20 05:59 Nitroglycerin (Nitroglycerin Sl 0.4 Mg/Tab Tab) 0.4 mg SL UD PRN PRN Reason: Chest Pain Stop: 01/08/20 05:46 Polyethylene Glycol (Polyethylene (Miralax) 17 Gm Pack) 17 gm PO DAILY PRN PRN Reason: Constipation Stop: 01/08/20 05:46 Prednisone (Prednisone 2.5 Mg Tab) 2.5 mg PO DAILY [facility] Stop: 01/08/20 08:59 Last Admin: 12/11/19 08:31 Dose: 2.5 mg Documented by: Rosuvastatin Calcium (Rosuvastatin Calcium 5 Mg Tab) 5 mg PO QPM [facility] Stop: 01/08/20 20:59 Last Admin: 12/10/19 21:31 Dose: 5 mg Documented by: Sertraline HCl (Sertraline Hcl 50 Mg Tablet) 50 mg PO HS [facility] Stop: 01/08/20 20:59 Last Admin: 12/10/19 21:32 Dose: 50 mg Documented by: Spironolactone (Spironolactone 25 Mg Tab) 25 mg PO DAILY [facility] Stop: 01/09/20 08:59 Last Admin: 12/11/19 08:30 Dose: 25 mg Documented by: Warfarin Sodium (Warfarin Sod 5 Mg Tab) 5 mg PO SuMoTuThFrSa@1600 [facility] Stop: 01/08/20 15:59 Last Admin: 12/10/19 15:31 Dose: 5 mg Documented by: Warfarin Sodium (Warfarin Sod 7.5 Mg Tab) 7.5 mg PO We@1600 [facility] Stop: 01/12/20 15:59
--- NOTE | 2019-12-11 11:12 | Cardiology Progress Note ---
Date of Service December 11, 2019 Assessment & Plan (1) Acute on chronic heart failure with preserved ejection fraction (HFpEF): Plan: Clinically improved. Would discharge on furosemide 60 mg p.o. daily, spironolactone 25 mg p.o. daily and lisinopril 2.5 mg/day. Patient has follow-up appoint with cardiology on , 12/14/2019 (2) Acute Lyme disease: (3) PMR (polymyalgia rheumatica): Admission and Anticipated Discharge Date Admission Date: December 09, 2019 Subjective Patient seen and examined, chart, occasions, telemetry reviewed. Feels improved this morning less abdominal bloating and distention less dyspnea. Tolerating current medications. No arrhythmia Physical Exam Constitutional: WD/WN, vitals as above Eyes: PERRL, conjunctivae normal, anicteric sclerae ENMT: external ear and nose normal, oropharynx normal Neck: trachea midline, no thyromegaly Respiratory: normal respiratory effort, lungs clear to auscultation Cardiovascular: Rate/Rhythm: regular rate and regular rhythm Heart Sounds: normal S1 and normal S2; no gallop and no murmur Palpation: normal PMI Vessels: normal carotid upstroke and radial pulses present; no JVD and no carotid bruit Extremities: no edema Gastrointestinal (Abdomen): normal bowel sounds, soft, nontender, no hepatosplenomegaly Musculoskeletal: no cyanosis or clubbing, extremities motor strength 5/5 Skin: no rashes, warm and dry Neurologic: PERRL, EOMI, accommodation nl, no face palsy, no dysarthria Psychiatric: A+Ox3, euthymic affect Results & Data ([facility]) Vital Signs (Past 12 Hours) Vital Signs Temp Pulse Pulse Resp BP Pulse Ox 12/11/19 07:44 36.8 C 79 18 138/79 96 12/11/19 07:14 80 12/11/19 03:40 36.4 C L 73 16 153/85 H 99 12/10/19 23:49 37.6 C H 68 16 147/84 H 91 Laboratory Results Laboratory Results - last 24 hr 12/10/19 12/10/19 12/10/19 11:24 16:08 20:24 WBC RBC Hgb Hct MCV MCH MCHC RDW Std Deviation RDW Coeff of Kathryn Plt Count MPV Immature Gran % (Auto) Neut % (Auto) Lymph % (Auto) [place] % (Auto) Eos % (Auto) Baso % (Auto) Neut # (Auto) Lymph # (Auto) [place] # (Auto) Eos # (Auto) Baso # (Auto) Immature Gran # (Auto) PT INR Sodium Potassium Chloride Carbon Dioxide Anion Gap BUN Creatinine Est Cr Clr Drug Dosing Est GFR ( Amer) Est GFR (Non-Af Amer) BUN/Creatinine Ratio Glucose POC Glucose 286 H 158 H 188 H Calcium Magnesium 12/11/19 12/11/19 12/11/19 05:32 05:32 05:32 WBC 11.84 H RBC 5.58 Hgb 15.9 Hct 47.4 MCV 84.9 MCH 28.5 MCHC 33.5 RDW Std Deviation 44.9 RDW Coeff of Kathryn 14.6 H Plt Count 204 MPV 10.2 Immature Gran % (Auto) 0.5 Neut % (Auto) 47.1 Lymph % (Auto) 39.0 [place] % (Auto) 9.3 Eos % (Auto) 3.9 Baso % (Auto) 0.2 Neut # (Auto) 5.58 Lymph # (Auto) 4.62 H [place] # (Auto) 1.10 H Eos # (Auto) 0.46 Baso # (Auto) 0.02 Immature Gran # (Auto) 0.06 H PT 26.1 H INR 2.6 H Sodium 137 Potassium 4.1 Chloride 102 Carbon Dioxide 29 Anion Gap 6.0 BUN 19 H Creatinine 0.99 Est Cr Clr Drug Dosing 75.2 Est GFR ( Amer) 92.9 Est GFR (Non-Af Amer) 80.2 BUN/Creatinine Ratio 18.9 Glucose 183 H POC Glucose Calcium 9.2 Magnesium 2.0 12/11/19 07:29 WBC RBC Hgb Hct MCV MCH MCHC RDW Std Deviation RDW Coeff of Kathryn Plt Count MPV Immature Gran % (Auto) Neut % (Auto) Lymph % (Auto) [place] % (Auto) Eos % (Auto) Baso % (Auto) Neut # (Auto) Lymph # (Auto) [place] # (Auto) Eos # (Auto) Baso # (Auto) Immature Gran # (Auto) PT INR Sodium Potassium Chloride Carbon Dioxide Anion Gap BUN Creatinine Est Cr Clr Drug Dosing Est GFR ( Amer) Est GFR (Non-Af Amer) BUN/Creatinine Ratio Glucose POC Glucose 208 H Calcium Magnesium
--- NOTE | 2019-12-12 07:50 | Discharge Summary ---
Date of Service December 12, 2019 Admission HPI Per Admitting Provider DICTATED BY: Kirit Carranza MD DATE OF ADMISSION: 12/09/2019 CHIEF COMPLAINT: Chest pain and shortness of breath. HISTORY OF PRESENT ILLNESS: This is a 64-year-old male with past medical history significant for type 2 diabetes, hyperhomocysteinemia, hypertriglyceridemia, type 2 diabetes, obstructive sleep apnea, mild intermittent asthma, chronic right-sided heart failure, hypertension, nonalcoholic fatty liver disease, polymyalgia rheumatica, cervical spondylosis, history of pulmonary embolism, history of adjustment disorder with depression, who presents with chest pain and shortness of breath. The patient was recently in the hospital in the last week of October because of fevers and questionable tick bite and at that time his initial Lyme screens were negative, but he was started empirically on doxycycline, but the next day he also developed respiratory failure secondary to pulmonary edema and was intubated and workup with transesophageal echo showed 1.2 x 1 cm nonmobile lesion that was found in the left coronary cusp as per cardiology and thus patient was transferred to [facility] where he had diuresis with Lasix to resolve the pulmonary edema and workup did not find any valvular abscess. The patient was discharged from [facility] and at that time he was not given any further doxycycline, but he came back to [facility] on 11/22/2019 with ongoing fevers and this time Lyme screen came back positive and was started on doxycycline. He also had complaint of worsening of his joint pains and was given prednisone. His arthralgia flare , thought to from Lyme disease. He was given 21 days of doxycycline and he was doing okay and discharged home. At [facility], his Lasix was increased to 40 mg daily. The patient says he finished his prednisone yesterday and he was supposed to be back to his home prednisone 2.5 mg daily. He has few more days of doxycycline to go. He has no fevers, but he still has some headaches and his ongoing joint pains. Tonight when he was going to sleep, he felt short of breath and chest pressure and he checked his weight and gained about 9 pounds in 3 days, which prompted him to come to the ER. In the ER, he received a dose of IV Lasix and he is able to urinate. Currently, chest pressure has improved, saturating okay on room air. He says when he was coming from the parking place to the ER, he got short of breath and had to be brought in a wheelchair. No nausea, no vomiting, no sweating, no blurred vision, no earache, no runny nose, no sore throat, no cough, no nausea or abdominal pain. He had five episodes of diarrhea today. No rash, no swelling in the legs. Admission Exam Per Admitting Provider GENERAL: The patient is of moderate build, not in acute distress. VITAL SIGNS: Temperature 36.7, pulse 78, respiratory rate 16, blood pressure 142/82, oxygen 98% on room air. HEENT: Atraumatic. Pupils equal, round, and reactive to light. Oral mucosa moist. NECK: No JVD, no neck masses seen. No carotid bruits. CARDIOVASCULAR: S1, S2 heard, regular rate and rhythm, no murmur, no gallop. RESPIRATORY SYSTEM: Normal AP diameter. No accessory muscle use. No wheezing, no crackles. ABDOMEN: Soft, bowel sounds present, nontender. No distention. CENTRAL NERVOUS SYSTEM: Cranial nerves II-XII grossly intact. Nonfocal. EXTREMITIES: No edema, no erythema. Principal Diagnosis Acute on chronic heart failure with preserved EF, acute Lyme disease, polymyalgia rheumatica, controlled asthma, sleep apnea on CPAP Discharge Exam Constitutional well developed, well nourished and + obese; no acute distress (Minimal shortness of breath and abdominal discomfort) and not ill appearing Eyes PERRL, conjunctivae normal, anicteric sclerae ENMT external ear and nose normal, oropharynx normal Neck trachea midline, no thyromegaly Respiratory normal respiratory effort; no respiratory distress Auscultation: lungs clear to auscultation bilaterally Cardiovascular Rate/Rhythm: regular rate and regular rhythm Heart Sounds: no murmur Extremities: no edema Gastrointestinal (Abdomen) Inspection/Auscultation: + abdomen distended and normal bowel sounds Percussion/Palpation: abdomen soft; abdomen nontender and no guarding Neurologic moves all extremities; no focal motor deficits Psychiatric A+Ox3, euthymic affect Lymphatic no cervical or axillary lymphadenopathy Discharge Data Allergies Allergy/AdvReac Type Severity Reaction Status Date / Time Iodinated Contrast Media Allergy Severe DIFFICULTY Verified 12/09/19 02:19 BREATHING/THROAT SWELLING blue dye Allergy Intermediate swelling Verified 12/09/19 02:19 cefuroxime Allergy Intermediate hives Verified 12/09/19 02:19 shellfish derived Allergy Intermediate swelling Verified 12/09/19 02:19 levofloxacin AdvReac Intermediate Tendon Verified 12/09/19 02:19 contractions Consultations 12/09/19 03:28 ED Decision to Admit Stat 12/09/19 05:47 Consult Case Management - Discharge Planning Routine 12/09/19 08:00 Consult Cardiology Routine Hospital Course (1) Acute on chronic heart failure with preserved ejection fraction (HFpEF): Admitted with shortness of breath, chest discomfort and weight gain Has been receiving intravenous furosemide since admission Appreciate cardiology input and recommendation Spironolactone dose has been increased to 25 mg daily Losartan 25 mg daily has been added Clinically a lot better today without any shortness of breath at rest and/or on exertion Will start oral Lasix at 40 mg/day We will discharge home this afternoon (2) Acute Lyme disease: Has been completing 21 days's course of doxycycline (3) PMR (polymyalgia rheumatica): Has polyarthralgias without any evidence of acute arthritis Likely complicated by acute Lyme disease Is stable (4) Hx of pulmonary embolus: Continue Coumadin (5) Asthma: Does not have any wheezing Shortness of breath with minimal exertion could be complicated by having asthma Will try steroid inhaler Used to use Advair disc years before Current steroid inhaler seems to be working (6) Sleep apnea: Uses CPAP at bedtime (7) Diabetes: Seems to be controlled DVT prophylaxis On Coumadin Total Time Total Time Spent Total Time Spent (In Minutes): 35 minutes Total Time Includes: Examination of the Patient, Discharge Planning, Medication Reconciliation and Communication With Other Providers Discharge Plan Discharge Items Patient Disposition: Home - Self-Care Reason For Visit: CHEST PAIN, CHF Discharge Diagnosis: Acute on chronic heart failure with preserved EF, acute Lyme disease, polymyalgia rheumatica, controlled asthma, sleep apnea on CPAP Condition on Discharge: Fair Activity: Resume your previous activity Non-emergency contact: Primary Care Provider Call non-emergency contact if: you have any medication questions and your symptoms worsen Follow-up/Referrals: Lesia Garcia DO [Primary Care Provider] - 12/18/19 10:00 am (Your appointment is with Dr. Hutton. Dr. 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 on , 12/14/2019 Your blood pressure medicine is going to be lisinopril 2.5 mg daily and not losartan 25 mg daily Pending Studies at Discharge: No Stand-Alone Forms: My [facility], Smoking Cessation Medications and DC Order Prescriptions: New spironolactone 25 mg Tablet 25 mg PO DAILY 30 Days Qty: 30 RF: 0 furosemide 20 mg Tablet 60 mg PO QAM 30 Days Qty: 90 RF: 0 lisinopril 2.5 mg tablet 2.5 mg PO DAILY Qty: 30 RF: 0 Arnuity Ellipta 100 mcg/actuation Blister With Device 1 inh inhalation DAILY Qty: 30 RF: 0 Continued warfarin 5 mg tablet 5 mg PO [id number] RF: 0 sertraline 50 mg tablet 50 mg PO HS RF: 0 rosuvastatin 5 mg tablet 5 mg PO QPM RF: 0 ipratropium-albuterol 0.5 mg-3 mg(2.5 mg base)/3 mL solution for nebulization 3 ml NEB Q4R PRN (Reason: Shortness Of Breath Or Wheezing) RF: 0 warfarin 5 mg Tablet 7.5 mg PO WK RF: 0 Jardiance 10 mg tablet 10 mg PO DAILY RF: 0 prednisone 5 mg tablet 2.5 mg PO DAILY RF: 0 metformin 500 mg tablet extended release 24 hr 1,000 mg PO BID RF: 0 omega-3 acid ethyl esters 1 gram capsule 2 cap PO BID RF: 0 fenofibrate micronized 134 mg capsule 134 mg PO QAM RF: 0 metoprolol succinate 25 mg Tablet Extended Release 24 Hr 25 mg PO BID 30 Days Qty: 60 RF: 0 prednisone 10 mg tablet 10 mg PO UD Qty: 18 RF: 0 Discontinued spironolactone 25 mg Tablet 12.5 mg PO DAILY 30 Days Qty: 30 RF: 0 furosemide 40 mg Tablet 40 mg PO QAM 30 Days Qty: 30 RF: 0 Discharge Orders: Discharge Order (Routine); Ordered 12/11/19 Ordered By: Sofía Newell/Other Patient Handouts: Fluticasone inhalation powder, Lisinopril tablets, Furosemide tablets, Spironolactone tablets Admission Data Admit Date/Time: 12/09/19 04:55 Attending Provider: Sofía Marcos Admit Provider: Kirit Carranza Primary Care Provider: Lesia Garcia Other Providers: Kirit Carranza ; Tadeo Kingston ; Edmar Saldaña ; Jace Hernandez ; Emeka Luong ; Eladio Foss ; Gonzalo Camacho ; Jennifer Garcia ; Ban Rucker ; Kan White Other Interventions: Discharge Summary Assessment (RN) Last Done: 12/11/19 12:23
[2019-12-12] MEDS ORDERED: FENOFIBRATE NANOCRYSTALLIZED 145 MG TABLET PO SCH (09:00)
[2019-12-13] MEDS ORDERED: WARFARIN SOD 7.5 MG TAB PO SCH (16:00)
== END 2019-12-11 14:28 | disposition home or self-care (01) | DRG 292 ==
LOC: ED 23:41 → 2S 12-09 04:55
DX: G47.33 Obstructive sleep apnea (adult) (pediatric); Z86.711 Personal history of pulmonary embolism; Z91.013 Allergy to seafood; I11.0 Hypertensive heart disease with heart failure; Z82.49 Family history of ischemic heart disease and other diseases of the circulatory system; Z51.81 Encounter for therapeutic drug level monitoring; I50.813 Acute on chronic right heart failure; Z79.52 Long term (current) use of systemic steroids; E11.9 Type 2 diabetes mellitus without complications; Z86.718 Personal history of other venous thrombosis and embolism; Z79.84 Long term (current) use of oral hypoglycemic drugs; Z91.048 Other nonmedicinal substance allergy status; Z91.041 Radiographic dye allergy status; J45.20 Mild intermittent asthma, uncomplicated; Z88.1 Allergy status to other antibiotic agents; Z82.0 Family history of epilepsy and other diseases of the nervous system; Z82.61 Family history of arthritis; Z77.22 Contact with and (suspected) exposure to environmental tobacco smoke (acute) (chronic); I50.33 Acute on chronic diastolic (congestive) heart failure; F43.21 Adjustment disorder with depressed mood; Z79.899 Other long term (current) drug therapy; E78.5 Hyperlipidemia, unspecified; Z79.01 Long term (current) use of anticoagulants; M35.3 Polymyalgia rheumatica; F32.9 Major depressive disorder, single episode, unspecified; E78.1 Pure hyperglyceridemia; A69.23 Arthritis due to Lyme disease